=== PATIENT | male | born 1940 | race Two or more races ===

== ENCOUNTER 2017-04-09 11:01 | Inpatient (IN) | payer MEDICARE, MEDICAID ==
[~2017-04-09] VITALS: Ht 182.9 cm; Wt 81.6 kg
[~2017-04-09 11:01] MED LIST: ACETAMINOPHEN325 M3 PO; ACETAMINOPHEN500 M5 PO; AMBIEN5 MG ORAL; ASPIRIN EC81 MG ORAL; ASPIRIN81 MG ORAL; ATIVAN2 MG/1 ML IV; COLACE100 MG ORAL; DEXTROSE 50%-WA50 M1 IV; DUONEB 0.5-3(2.53 ML HHN; FOLIC ACID1 MG ORAL; FUROSEMIDE40 MG ORAL; HEPARIN SO5000 UNIT2 SUBQ; HEPARIN2000 UNIT/ SQ; LACTULOSE20 GM/301 ORAL; LEVEMIR100 UNIT/1 SUBQ; LEXAPRO10 MG ORAL; LORAZEPAM1 MG ORAL; LORAZEPAM2 MG/1 M4 IV; MIRALAX17 G2 ORAL; MORPHINE 22 MG/1 ML IV; MORPHINE 22 MG/1 ML IVP; MULTIPLE VITAM1 EAC6 PO; MUPIROCIN22 GM TOPIC; MYLANTA30 M1 ORAL; MYLANTA30 M1 PO; NAMENDA10 MG ORAL; NAMENDA5 MG ORAL; NEPHRO-VITE RX1 EAC1 PO; NEPHROVITE1 TAB ORAL; NEURONTIN100 MG ORAL; NITROGLYCERIN0.4 MG SL; NOVOLIN R100 UNIT/1 SUBQ; NOVOLOG MI100 UNITS/ SUBQ; NOVOLOG100 UNIT/3 SUBQ; PLAVIX75 MG ORAL; PRO-STAT LIQUID30 ML ORAL; REMERON15 MG ORAL; RISPERDAL0.5 MG ORAL; SENNA S TABLET1 EAC1 PO; TERBINAFINE HC250 MG PO; TRAZODONE HCL150 MG ORAL; TRAZODONE HCL50 MG ORAL; TYLENOL325 MG ORAL; UNASYN 3 GM VIAL3 GM IVPB; VANCO 1.251.25 GM/25 IV; VANCO 1.51.5 GM/250 IV; VENOFER200 MG/10 IV; VITAMIN C500 M1 ORAL; ZANTAC150 MG ORAL; ZOFRAN 4 MG4 MG/2 ML IV; ZOSYN 3.373.375 GM/1 IVPB
[2017-04-09 11:25] VITALS: BP 152/82
[2017-04-09] MEDS ORDERED: Morphine Sulfate 2mg/ml Inj IVP ONE ×2 (11:45→15:00)
[2017-04-09] MEDS ORDERED: metroNIDAZOLE 500mg 100 ML IV SCH (11:45)
[2017-04-09 12:19] LABS: ABG ALLEN TEST POSITIVE; ABG PCO2 40.3 mmHg (35.0-45.0)
[2017-04-09 12:50] LABS: BASOPHILS % (AUTO) 1.6 % (0.0-2.0); EOSINOPHILS % (AUTO) 3.5 % (0.0-3.0); LYMPHOCYTES % (AUTO) 34.7 % (20.0-45.0); MEAN CORPUSCULAR HEMOGLOBIN 34.1 PG (27.0-31.0); MEAN CORPUSCULAR HGB CONC 35.2 G/DL (32.0-36.0); MEAN CORPUSCULAR VOLUME 97 FL (80-99); MEAN PLATELET VOLUME 4.4 FL (6.5-10.1); MONOCYTES % (AUTO) 8.2 % (1.0-10.0); PLATELET COUNT 175 K/UL (150-450); RED BLOOD COUNT 4.14 M/UL (4.70-6.10); RED CELL DISTRIBUTION WIDTH 14.3 % (11.6-14.8); WHITE BLOOD COUNT 8.4 K/UL (4.8-10.8)
[2017-04-09 13:06] LABS: ALANINE AMINOTRANSFERASE 7 U/L (3-41); ALBUMIN/GLOBULIN RATIO 0.4 (1.0-2.7); ANION GAP 13 (5-15); ASPARTATE AMINO TRANSFERASE 26 U/L (5-40); CALCIUM 8.6 mg/dL (8.6-10.2); CARBON DIOXIDE 24 mEQ/L (20-30); CHLORIDE 99 mEQ/L (98-107); CREATININE 1.1 mg/dL (0.7-1.2); HEMOLYSIS 33; POTASSIUM 4.2 mEQ/L (3.4-4.9); SODIUM 136 mEQ/L (135-145); TOTAL PROTEIN 7.3 g/dL (6.6-8.7); TROPONIN I < 0.30 ng/mL (<=0.30)
[2017-04-09 13:16] LABS: CKMB < 1.5 ng/mL (< 6.7)
[2017-04-09 13:20] LABS: APPEARANCE,URINE CLOUDY; KETONES,URINE NEGATIVE (NEGATIVE); LEUKOCYTE ESTERASE ,URINE 3+ (NEGATIVE); NITRITE,URINE POSITIVE (NEGATIVE); PH,URINE 6 (4.5-8.0); PROTEIN,URINE 3+ (NEGATIVE); UROBILINOGEN,URINE 1 MG/DL (0.0-1.0)
[2017-04-09 13:21] LABS: REFLEX LACTIC ACID YES OR NO YES
[2017-04-09 13:24] LABS: INR 1.1 (0.9-1.1); PROTHROMBIN TIME 11.4 SEC (9.30-11.50)
[2017-04-09 13:30] VITALS: BP 122/62
[2017-04-09 13:32] LABS: BACTERIA,URINE MANY /HPF; SQUAMOUS EPITHELIAL CELL,UR MANY /LPF (NONE/OCC); WBC,URINE 15-20 /HPF (0 - 0)
[2017-04-09] MEDS ORDERED: Piperacillin/Tazobactam 4.5 GM in NS 110 ML IV SCH (14:00)
[2017-04-09] MEDS ORDERED: CRANBERRY405 M1 PO (14:07)
[2017-04-09] MEDS ORDERED: FERROUS SULFAT325 MG ORAL (14:07)
[2017-04-09] MEDS ORDERED: CALCIUM 500 +1 EAC6 PO (14:07)
[2017-04-09] MEDS ORDERED: ASPIRIN-LOW81 MG ORAL (14:07)
[2017-04-09 14:10] VITALS: BP 123/65
[2017-04-09] MEDS ORDERED: KEPPRA1000 MG ORAL (14:10)
[2017-04-09] MEDS ORDERED: HUMULIN 70100 UNIT/2 SUBQ (14:10)
[2017-04-09] MEDS ORDERED: Morphine Sulfate 2mg/ml Inj IVP PRN ×2 (15:15→16:30)
[2017-04-09] MEDS ORDERED: Mylanta II UD 30ml ORAL PRN (15:15)
[2017-04-09] MEDS ORDERED: Zolpidem 5mg tab ORAL PRN (15:15)
[2017-04-09] MEDS ORDERED: Miralax 17gm pkt ORAL PRN (15:15)
[2017-04-09] MEDS ORDERED: LORazepam Inj 2mg/ml 1ml IV PRN (15:15)
[2017-04-09] MEDS ORDERED: ZINC SULFATE220 M1 ORAL (15:37)
[2017-04-09] MEDS ORDERED: VITAMIN C500 M1 ORAL (15:37)
[2017-04-09] MEDS ORDERED: MULTIVITAMINS1 EAC8 ORAL (15:37)
[2017-04-09] MEDS ORDERED: NEURONTIN100 MG ORAL (15:37)
[2017-04-09] MEDS ORDERED: NAMENDA10 MG ORAL (15:37)
--- NOTE | 2017-04-09 15:47 | Infectious Diseases Prog Note ---
Assessment/Plan Problems: (1) Open wound of heel Assessment & Plan: with infection, will send wound and blood culture, and start vancomycin, cefepiem and flagyl empirically for now (2) Osteomyelitis of ankle Assessment & Plan: will order MRI of the right ankle to rule out osteo, send blood culture, and SED rate, start wide spectrum antibiotics (3) Diabetes mellitus Assessment & Plan: recommend tight glycemic control to keep blood glucose between 80-120 (4) Sepsis Assessment & Plan: due to the above, on wide spectrum antibiotics, send blood culture Subjective Allergies: Coded Allergies: No Known Allergies (Unverified , 05/11/16) Objective Vital Signs Last 24 Hour Vital Signs Date Time Temp Pulse Resp B/P Pulse Ox O2 Delivery O2 Flow Rate FiO2 04/09/17 14:10 95 10 123/65 98 Room Air 04/09/17 11:35 98.8 04/09/17 11:25 97.4 96 14 152/82 99 Room Air 04/09/17 11:02 97.9 99 18 128/70 9 Height (Feet): 6 Weight (Pounds): 180 Laboratory Tests Test 04/09/17 12:00 04/09/17 12:10 04/09/17 12:35 04/09/17 12:45 Arterial Blood pH 7.440 (7.350-7.450) Arterial Blood Partial Pressure CO2 40.3 mmHg (35.0-45.0) Arterial Blood Partial Pressure O2 82.7 mmHg (75.0-100.0) Arterial Blood HCO3 27.2 mmol/L (22.0-26.0) H Arterial Blood Oxygen Saturation 96.0 % (92.0-98.0) Arterial Blood Base Excess 3.0 Andrew Test Positive White Blood Count 8.4 K/UL (4.8-10.8) Red Blood Count 4.14 M/UL (4.70-6.10) L Hemoglobin 14.1 G/DL (14.2-18.0) L Hematocrit 40.2 % (42.0-52.0) L Mean Corpuscular Volume 97 FL (80-99) Mean Corpuscular Hemoglobin 34.1 PG (27.0-31.0) H Mean Corpuscular Hemoglobin Concent 35.2 G/DL (32.0-36.0) Red Cell Distribution Width 14.3 % (11.6-14.8) Platelet Count 175 K/UL (150-450) Mean Platelet Volume 4.4 FL (6.5-10.1) L Neutrophils (%) (Auto) 52.0 % (45.0-75.0) Lymphocytes (%) (Auto) 34.7 % (20.0-45.0) Monocytes (%) (Auto) 8.2 % (1.0-10.0) Eosinophils (%) (Auto) 3.5 % (0.0-3.0) H Basophils (%) (Auto) 1.6 % (0.0-2.0) Sodium Level 136 mEQ/L (135-145) Potassium Level 4.2 mEQ/L (3.4-4.9) Chloride Level 99 mEQ/L (98-107) Carbon Dioxide Level 24 mEQ/L (20-30) Anion Gap 13 (5-15) Blood Urea Nitrogen 10 mg/dL (7-23) Creatinine 1.1 mg/dL (0.7-1.2) Estimat Glomerular Filtration Rate mL/min (>60) Glucose Level 150 mg/dL (74-106) H Lactic Acid Level 2.20 mmol/L (0.66-2.22) Calcium Level 8.6 mg/dL (8.6-10.2) Total Bilirubin 1.0 mg/dL (0.0-1.2) Aspartate Amino Transf (AST/SGOT) 26 U/L (5-40) Alanine Aminotransferase (ALT/SGPT) 7 U/L (3-41) Alkaline Phosphatase 116 U/L (40-129) Total Creatine Kinase 86 U/L (38-174) Creatine Kinase MB < 1.5 ng/mL (< 6.7) Creatine Kinase MB Relative Index Troponin I < 0.30 ng/mL (<=0.30) Total Protein 7.3 g/dL (6.6-8.7) Albumin 2.2 g/dL (3.5-5.2) L Globulin 5.1 g/dL Albumin/Globulin Ratio 0.4 (1.0-2.7) L Prothrombin Time 11.4 SEC (9.30-11.50) Prothromb Time International Ratio 1.1 (0.9-1.1) Activated Partial Thromboplast Time 38 SEC (23-33) H Urine Color Yellow Urine Appearance Cloudy Urine pH 6 (4.5-8.0) Urine Specific [place] 1.015 (1.005-1.035) Urine Protein 3+ (NEGATIVE) H Urine Glucose (UA) Negative (NEGATIVE) Urine Ketones Negative (NEGATIVE) Urine Occult Blood 3+ (NEGATIVE) H Urine Nitrite Positive (NEGATIVE) H Urine Bilirubin Negative (NEGATIVE) Urine Urobilinogen 1 MG/DL (0.0-1.0) H Urine Leukocyte Esterase 3+ (NEGATIVE) H Urine RBC 10-15 /HPF (0 - 0) H Urine WBC 15-20 /HPF (0 - 0) H Urine Squamous Epithelial Cells Many /LPF (NONE/OCC) H Urine Bacteria Many /HPF (NONE) H Current Medications Medications (Trade) Dose Ordered Sig/Naveen Route PRN Reason Start Time Stop Time Status Last Admin Dose Admin Acetaminophen (Tylenol) 650 mg Q4H PRN ORAL fever 04/09/17 15:15 05/09/17 15:14 Al Hydroxide/Mg Hydroxide (Mylanta II) 30 ml Q6H PRN ORAL dyspepsia 04/09/17 15:15 05/09/17 15:14 Clopidogrel Bisulfate (Plavix) 75 mg DAILY ORAL 04/10/17 09:00 05/10/17 08:59 Dextrose (Dextrose 50%) STAT PRN IV Hypoglycemia 04/09/17 15:00 05/09/17 14:59 Escitalopram Oxalate (Lexapro) 10 mg DAILY ORAL 04/10/17 09:00 05/10/17 08:59 Gabapentin (Neurontin) 300 mg THREE TIMES A DAY ORAL 04/09/17 18:00 05/09/17 17:59 Heparin Sodium (Porcine) (Heparin 5000 units/ml) 5,000 units EVERY 12 HOURS SUBQ 04/09/17 21:00 05/09/17 20:59 Insulin Aspart (NovoLOG) BEFORE MEALS AND HS SUBQ 04/09/17 16:30 05/09/17 16:29 Lactulose (Cephulac) 20 gm TID ORAL 04/09/17 18:00 05/09/17 17:59 Levetiracetam (Keppra) 1,500 mg Q12HR ORAL 04/09/17 21:00 05/09/17 20:59 Lorazepam (Ativan 2mg/ml 1ml) 0.5 mg Q4H PRN IV For Anxiety 04/09/17 15:15 04/16/17 15:14 Metronidazole 100 ml @ 100 mls/hr Q8H IV 04/09/17 11:45 04/09/17 18:00 04/09/17 14:08 Mirtazapine (Remeron) 15 mg BEDTIME ORAL 04/09/17 21:00 05/09/17 20:59 Morphine Sulfate (Morphine Sulfate) 1 mg Q4H PRN IVP Moderate to Severe Pain 04/09/17 15:15 04/16/17 15:14 Morphine Sulfate (Morphine Sulfate) 2 mg ONCE ONCE IVP 04/09/17 15:00 04/09/17 15:01 UNV Ondansetron HCl (Zofran) 4 mg Q6H PRN IVP Nausea & Vomiting 04/09/17 15:15 05/09/17 15:14 Piperacillin Sod/ Tazobactam Sod/ Sodium Chloride (Zosyn/Sodium Chloride) 110 ml @ 220 mls/hr Q8HR IV 04/09/17 14:00 04/09/17 18:00 04/09/17 13:03 Polyethylene Glycol (Miralax) 17 gm HSPRN PRN ORAL Constipation 04/09/17 15:15 05/09/17 15:14 Risperidone (RisperDAL) 0.5 mg EVERY 12 HOURS ORAL 04/09/17 21:00 05/09/17 20:59 Zolpidem Tartrate (Ambien) 5 mg HSPRN PRN ORAL Insomnia 04/09/17 15:15 05/09/17 15:14 Valery Nicholas M.D. Apr 09, 2017 15:47
[2017-04-09 16:02] VITALS: BP 125/71
[2017-04-09] MEDS: NovoLOG Insulin Flexpen SUBQ SCH ×2 (17:33→21:32)
[2017-04-09] MEDS: Lactulose 20gm/30ml UDC ORAL SCH (17:36)
[2017-04-09] MEDS: Vancomycin 1250mg/D5W 250ml IVPB SCH (17:37)
[2017-04-09 20:00] VITALS: BP 121/76
--- NOTE | 2017-04-09 20:30 | Emergency Room Report ---
History of Present Illness General Chief Complaint: General Complaint Source: Patient, Medical Record Present Illness HPI Patient is a 76-year-old male who presented after increased generalized weakness as well as generalized lower extremity discomfort. The patient prior history of a decubitus ulcer. He was noted to have a sacral decubitus as well as decubitus ulcer to his right heel which appear to be draining. The patient been sent from [facility]. History is markedly limited by patient's poor historian Allergies: Coded Allergies: No Known Allergies (Unverified , 05/11/16) Patient History Reviewed Nursing Documentation: PMH: Agreed, PSxH: Agreed Nursing Documentation-PMH Past Medical History Deferred: Pt Cognitively Impaired Hx Cardiac Problems: Yes Hx Hypertension: Yes Hx COPD: Yes Hx Diabetes: Yes Hx Cancer: No Hx Gastrointestinal Problems: Yes Hx Dialysis: No History Of Psychiatric Problem: Yes - schizo Hx Neurological Problems: Yes - dvt Hx Cerebrovascular Accident: No Hx Seizures: No Hx Spinal Cord Injury: No Hx Head Trauma: No Hx Dizziness: No Hx Headaches: No Hx Dysphasia: No Hx Numbness: No Hx Weakness: No Hx Fatigue: No Review of Systems All Other Systems: limited - by mental status and poor historian Physical Exam Vital Signs Date Time Temp Pulse Resp B/P Pulse Ox O2 Delivery O2 Flow Rate FiO2 04/09/17 11:02 97.9 99 18 128/70 9 04/09/17 11:25 Room Air Sp02 EP Interpretation: reviewed, normal General Appearance: normal inspection, well appearing, no apparent distress, alert, GCS 15 Head: atraumatic ENT: normal ENT inspection, hearing grossly normal, normal voice Neck: normal inspection, full range of motion, supple, no bony tend Respiratory: normal inspection, lungs clear, normal breath sounds, no respiratory distress, no retraction, no wheezing Cardiovascular #1: regular rate, rhythm, no edema Gastrointestinal: normal inspection, normal bowel sounds, non tender, soft, no guarding, no hernia Genitourinary: no CVA tenderness Musculoskeletal: normal inspection, back normal, normal range of motion Neurologic: alert, responsive, motor weakness Psychiatric: normal inspection, judgement/insight normal, mood/affect normal Skin: other - sacral decubitus ulcer, right heel ulcer with discoloration and oozing of serous fluid Medical Decision Making Diagnostic Impression: Primary Impression: Sepsis Additional Impressions: Osteomyelitis of ankle UTI (urinary tract infection) ER Course Patient presented for generalized weakness and failure to thrive. Differential diagnosis included was not limited to sepsis, dehydration, electrolyte abnormality, vascular insufficiency among others.Because of complexity of patient's case laboratory testing and imaging studies were ordered. A left her testing was notable for normal white blood count. Patient noted have slightly elevated lactic acid level. The patient started on IV antibiotics and IV fluids. The patient had improvement after medications. Dr. Linda Bolaños was contacted for inpatient management due to severity of illness. Labs Test 04/09/17 12:00 04/09/17 12:10 04/09/17 12:35 04/09/17 12:45 Arterial Blood pH 7.440 (7.350-7.450) Arterial Blood Partial Pressure CO2 40.3 mmHg (35.0-45.0) Arterial Blood Partial Pressure O2 82.7 mmHg (75.0-100.0) Arterial Blood HCO3 27.2 mmol/L (22.0-26.0) Arterial Blood Oxygen Saturation 96.0 % (92.0-98.0) Arterial Blood Base Excess 3.0 Andrew Test Positive White Blood Count 8.4 K/UL (4.8-10.8) Red Blood Count 4.14 M/UL (4.70-6.10) Hemoglobin 14.1 G/DL (14.2-18.0) Hematocrit 40.2 % (42.0-52.0) Mean Corpuscular Volume 97 FL (80-99) Mean Corpuscular Hemoglobin 34.1 PG (27.0-31.0) Mean Corpuscular Hemoglobin Concent 35.2 G/DL (32.0-36.0) Red Cell Distribution Width 14.3 % (11.6-14.8) Platelet Count 175 K/UL (150-450) Mean Platelet Volume 4.4 FL (6.5-10.1) Neutrophils (%) (Auto) 52.0 % (45.0-75.0) Lymphocytes (%) (Auto) 34.7 % (20.0-45.0) Monocytes (%) (Auto) 8.2 % (1.0-10.0) Eosinophils (%) (Auto) 3.5 % (0.0-3.0) Basophils (%) (Auto) 1.6 % (0.0-2.0) Sodium Level 136 mEQ/L (135-145) Potassium Level 4.2 mEQ/L (3.4-4.9) Chloride Level 99 mEQ/L (98-107) Carbon Dioxide Level 24 mEQ/L (20-30) Anion Gap 13 (5-15) Blood Urea Nitrogen 10 mg/dL (7-23) Creatinine 1.1 mg/dL (0.7-1.2) Estimat Glomerular Filtration Rate mL/min (>60) Glucose Level 150 mg/dL (74-106) Calcium Level 8.6 mg/dL (8.6-10.2) Total Bilirubin 1.0 mg/dL (0.0-1.2) Aspartate Amino Transf (AST/SGOT) 26 U/L (5-40) Alanine Aminotransferase (ALT/SGPT) 7 U/L (3-41) Alkaline Phosphatase 116 U/L (40-129) Total Creatine Kinase 86 U/L (38-174) Creatine Kinase MB < 1.5 ng/mL (< 6.7) Creatine Kinase MB Relative Index Troponin I < 0.30 ng/mL (<=0.30) Total Protein 7.3 g/dL (6.6-8.7) Albumin 2.2 g/dL (3.5-5.2) Globulin 5.1 g/dL Albumin/Globulin Ratio 0.4 (1.0-2.7) Prothrombin Time 11.4 SEC (9.30-11.50) Prothromb Time International Ratio 1.1 (0.9-1.1) Activated Partial Thromboplast Time 38 SEC (23-33) Urine Color Yellow Urine Appearance Cloudy Urine pH 6 (4.5-8.0) Urine Specific [place] 1.015 (1.005-1.035) Urine Protein 3+ (NEGATIVE) Urine Glucose (UA) Negative (NEGATIVE) Urine Ketones Negative (NEGATIVE) Urine Occult Blood 3+ (NEGATIVE) Urine Nitrite Positive (NEGATIVE) Urine Bilirubin Negative (NEGATIVE) Urine Urobilinogen 1 MG/DL (0.0-1.0) Urine Leukocyte Esterase 3+ (NEGATIVE) Urine RBC 10-15 /HPF (0 - 0) Urine WBC 15-20 /HPF (0 - 0) Urine Squamous Epithelial Cells Many /LPF (NONE/OCC) Urine Bacteria Many /HPF (NONE) Test 04/09/17 15:30 Lactic Acid Level 2.00 mmol/L (0.66-2.22) EKG Diagnostic Results Rate: normal Rhythm: NSR ST Segments: no acute changes Last Vital Signs Date Time Temp Pulse Resp B/P Pulse Ox O2 Delivery O2 Flow Rate FiO2 04/09/17 20:00 66 04/09/17 16:25 9 118/55 97 Room Air 04/09/17 16:02 96.6 Status: unchanged Disposition: ADMITTED INPATIENT Condition: Serious Referrals: LINDA BOLAÑOS (PCP) Seth Chung Apr 09, 2017 20:30
[2017-04-09] MEDS ORDERED: Heparin 5000 units/ml inj SUBQ SCH (21:00)
[2017-04-09] MEDS: RisperiDONE 0.25mg tab ORAL SCH (21:14)
[2017-04-09] MEDS: Cefepime HCl 2 GM in D5W 110 ML IVPB SCH (21:14)
[2017-04-09] MEDS: Heparin 5000 units/ml inj SUBQ SCH (21:16)
[2017-04-09] MEDS: metroNIDAZOLE 500mg tab ORAL SCH (22:00)
[2017-04-10] VITALS: BP 130/76
[2017-04-10] MEDS ORDERED: LIPITOR10 MG ORAL (00:44)
[2017-04-10] MEDS ORDERED: TYLENOL EXTRA500 MG ORAL (00:46)
[2017-04-10 04:00] VITALS: BP 137/60
[2017-04-10] MEDS: Vancomycin 1250mg/D5W 250ml IVPB SCH (05:10)
[2017-04-10] MEDS: metroNIDAZOLE 500mg tab ORAL SCH (06:00)
[2017-04-10] MEDS: Cefepime HCl 2 GM in D5W 110 ML IVPB SCH ×2 (06:28→18:25)
[2017-04-10] MEDS: NovoLOG Insulin Flexpen SUBQ SCH ×4 (06:31→21:40)
--- NOTE | 2017-04-10 07:22 | Consultation ---
History of Present Illness General Date patient seen: Apr 10, 2017 Time patient seen: 06:30 Chief Complaint: General Complaint Referring physician: dr Dugan Reason for Consultation: inpatient management Present Illness HPI 76-year-old male with PMH of HTN, COPD, DM,seizure disorder, hx of CVA, cognitive impairment, hx of DVT, schizophrenia, presented with generalized weakness and lower extremities discomfort. Patient was unable to provide any history given cognitive impairment patient with sacral and R heel decub present on admission Workup in D revealed no leucocytosis, stable lytes troponin negative ECG NSR UA with gross evidence of UTI albumin -1.8 patient was admitted for further management Allergies: Coded Allergies: No Known Allergies (Unverified , 05/11/16) Medication History Scheduled Acetaminophen (Acetaminophen), 650 MG PO EVERY 4 HOURS, (Reported) Al Hydroxide/mg Hydroxide (Mag-Al Liquid), 30 ML ORAL EVERY 6 HOURS, (Reported) Ascorbic Acid* (Vitamin C*), 500 MG ORAL DAILY, (Reported) Ascorbic Acid* (Vitamin C*), 500 MG ORAL DAILY, (Reported) Aspirin (Aspirin EC), 81 MG ORAL DAILY, (Reported) Atorvastatin Calcium* (Lipitor*), 10 MG ORAL BEDTIME, (Reported) Calcium Carbonate/Vitamin D3 (Calcium 500 + Vit D 200 Caplet), 1 EACH PO DAILY, (Reported) Clopidogrel Bisulfate* (Plavix*), 75 MG ORAL DAILY, (Reported) Cranberry Extract (Cranberry), 405 MG PO DAILY, (Reported) Docusate Sodium* (Colace*), 100 MG ORAL TWICE A DAY, (Reported) Escitalopram Oxalate* (Lexapro*), 10 MG ORAL DAILY, (Reported) Ferrous Sulfate* (Ferrous Sulfate*), 325 MG ORAL DAILY, (Reported) Furosemide* (Lasix*), 40 MG ORAL DAILY, (Reported) Gabapentin* (Neurontin*), 300 MG ORAL THREE TIMES A DAY, (Reported) Gabapentin* (Neurontin*), 300 MG ORAL THREE TIMES A DAY, (Reported) Heparin Sod (Porcine) (Heparin Sodium*), 5,000 UNITS SUBQ EVERY 12 HOURS, ( Reported) Heparin Sodium,Porcine/Ns/Pf (Heparin), 5,000 UNIT SQ Q12HR, (Reported) Hum Insulin Nph/Reg Insulin Hm (Humulin 70-30 Vial), 4 UNITS SUBQ DAILY, ( Reported) Insulin Aspart* (Novolog*), 0 SUBQ AC+HS, (Reported) Insulin Detemir (Levemir), 8 SUBQ BID, (Reported) Ipratropium/Albuterol Sulfate (DuoNeb 0.5-3(2.5)mg/3ml), 3 ML HHN EVERY 4 HOURS, (Reported) Lactulose (Lactulose*), 20 GM ORAL TID, (Reported) Levetiracetam (Keppra), 1,500 MG ORAL BID, (Reported) Lorazepam* (Lorazepam*), 1 MG ORAL EVERY 6 HOURS, (Reported) Memantine Hcl* (Namenda*), 10 MG ORAL TWICE A DAY, (Reported) Memantine Hcl* (Namenda*), 10 MG ORAL BEDTIME, (Reported) Mirtazapine* (Remeron*), 15 MG ORAL BEDTIME, (Reported) Morphine Sulfate* (Morphine Sulfate*), 1 MG IV EVERY 4 HOURS, (Reported) Multivitamin With Minerals (Multivitamins With Minerals*), 1 TAB ORAL DAILY, ( Reported) Enhgifuvrofr-Azwa-Jjgepiuv,Iso (Zosyn 3.375 Gm Pre Mix-Bag), 3.375 GM IVPB BID, (Reported) Polyethylene Glycol 3350* (Miralax*), 17 GM ORAL DAILY, (Reported) Ranitidine Hcl* (Zantac*), 300 MG ORAL DAILY, (Reported) Risperidone* (Risperdal*), 0.5 MG ORAL BID, (Reported) Vancomycin/0.9 % Sod Chloride (Vanco 1.25 gm/250 ml-0.9% NaCl), 1.25 GM IV BID, (Reported) Zinc Sulfate (Zinc Sulfate*), 220 MG ORAL DAILY, (Reported) Scheduled PRN Acetaminophen* (Tylenol Extra Strength*), 325 MG ORAL Q6H PRN for Mild Pain/ Temp > 100.5, (Reported) Lorazepam (Lorazepam), 1 MG IV Q4HR PRN for For Anxiety, (Reported) Ondansetron* (Zofran*), 4 MG IV Q6H PRN for Nausea & Vomiting, (Reported) Miscellaneous Medications Nitroglycerin (Nitroglycerin), 0.4 MG SL, (Reported) Patient History Healthcare decision maker N Resuscitation status Advanced Directive on File Past Medical/Surgical History Past Medical/Surgical History: (1) HTN (hypertension) (2) Diabetes mellitus (3) Cataract (4) ISMAEL (obstructive sleep apnea) (5) Dementia arising in the senium and presenium (6) COPD (chronic obstructive pulmonary disease) (7) 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 (8) History of CVA (cerebrovascular accident) Review of Systems ROS Narrative patient unable to provide any information due to cognitive impairment Physical Exam General Appearance: no apparent distress, alert, other - disheveled appearance Lines, tubes and drains: peripheral HEENT: atraumatic, anicteric, other - poor dentition Neck: supple Respiratory/Chest: lungs clear, no respiratory distress, no accessory muscle use Cardiovascular/Chest: normal peripheral pulses, normal rate - SR on tele, no JVD Abdomen: normal bowel sounds, non tender, soft Extremities: non-tender, no calf tenderness, normal capillary refill Skin Exam: other - sacral and R heel decub POA Neurologic: alert, responsive Last 24 Hour Vital Signs Date Time Temp Pulse Resp B/P Pulse Ox O2 Delivery O2 Flow Rate FiO2 04/10/17 04:00 94 04/10/17 04:00 97.3 90 18 137/60 91 Room Air 04/10/17 00:00 94 04/10/17 00:00 97.9 98 18 130/76 97 Room Air 04/09/17 20:00 97.9 100 18 121/76 97 Room Air 04/09/17 20:00 66 04/09/17 16:25 95 9 118/55 97 Room Air 04/09/17 16:02 96.6 94 11 125/71 98 Room Air 04/09/17 14:10 95 10 123/65 98 Room Air 04/09/17 13:30 96.6 94 10 122/62 96 Room Air 04/09/17 11:35 98.8 04/09/17 11:25 97.4 96 14 152/82 99 Room Air 04/09/17 11:02 97.9 99 18 128/70 9 Intake and Output 04/09/17 04/10/17 19:00 07:00 Intake Total 600 ml 470.00 ml Output Total 30 ml 300 ml Balance 570 ml 170.00 ml Intake IV Total 600 ml 470.00 ml Output Urine Total 30 ml 300 ml Laboratory Tests Test 04/09/17 12:00 04/09/17 12:10 04/09/17 12:35 04/09/17 12:45 Arterial Blood pH 7.440 (7.350-7.450) Arterial Blood Partial Pressure CO2 40.3 mmHg (35.0-45.0) Arterial Blood Partial Pressure O2 82.7 mmHg (75.0-100.0) Arterial Blood HCO3 27.2 mmol/L (22.0-26.0) H Arterial Blood Oxygen Saturation 96.0 % (92.0-98.0) Arterial Blood Base Excess 3.0 Andrew Test Positive White Blood Count 8.4 K/UL (4.8-10.8) Red Blood Count 4.14 M/UL (4.70-6.10) L Hemoglobin 14.1 G/DL (14.2-18.0) L Hematocrit 40.2 % (42.0-52.0) L Mean Corpuscular Volume 97 FL (80-99) Mean Corpuscular Hemoglobin 34.1 PG (27.0-31.0) H Mean Corpuscular Hemoglobin Concent 35.2 G/DL (32.0-36.0) Red Cell Distribution Width 14.3 % (11.6-14.8) Platelet Count 175 K/UL (150-450) Mean Platelet Volume 4.4 FL (6.5-10.1) L Neutrophils (%) (Auto) 52.0 % (45.0-75.0) Lymphocytes (%) (Auto) 34.7 % (20.0-45.0) Monocytes (%) (Auto) 8.2 % (1.0-10.0) Eosinophils (%) (Auto) 3.5 % (0.0-3.0) H Basophils (%) (Auto) 1.6 % (0.0-2.0) Sodium Level 136 mEQ/L (135-145) Potassium Level 4.2 mEQ/L (3.4-4.9) Chloride Level 99 mEQ/L (98-107) Carbon Dioxide Level 24 mEQ/L (20-30) Anion Gap 13 (5-15) Blood Urea Nitrogen 10 mg/dL (7-23) Creatinine 1.1 mg/dL (0.7-1.2) Estimat Glomerular Filtration Rate mL/min (>60) Glucose Level 150 mg/dL (74-106) H Lactic Acid Level 2.20 mmol/L (0.66-2.22) Calcium Level 8.6 mg/dL (8.6-10.2) Total Bilirubin 1.0 mg/dL (0.0-1.2) Aspartate Amino Transf (AST/SGOT) 26 U/L (5-40) Alanine Aminotransferase (ALT/SGPT) 7 U/L (3-41) Alkaline Phosphatase 116 U/L (40-129) Total Creatine Kinase 86 U/L (38-174) Creatine Kinase MB < 1.5 ng/mL (< 6.7) Creatine Kinase MB Relative Index Troponin I < 0.30 ng/mL (<=0.30) Total Protein 7.3 g/dL (6.6-8.7) Albumin 2.2 g/dL (3.5-5.2) L Globulin 5.1 g/dL Albumin/Globulin Ratio 0.4 (1.0-2.7) L Prothrombin Time 11.4 SEC (9.30-11.50) Prothromb Time International Ratio 1.1 (0.9-1.1) Activated Partial Thromboplast Time 38 SEC (23-33) H Urine Color Yellow Urine Appearance Cloudy Urine pH 6 (4.5-8.0) Urine Specific [place] 1.015 (1.005-1.035) Urine Protein 3+ (NEGATIVE) H Urine Glucose (UA) Negative (NEGATIVE) Urine Ketones Negative (NEGATIVE) Urine Occult Blood 3+ (NEGATIVE) H Urine Nitrite Positive (NEGATIVE) H Urine Bilirubin Negative (NEGATIVE) Urine Urobilinogen 1 MG/DL (0.0-1.0) H Urine Leukocyte Esterase 3+ (NEGATIVE) H Urine RBC 10-15 /HPF (0 - 0) H Urine WBC 15-20 /HPF (0 - 0) H Urine Squamous Epithelial Cells Many /LPF (NONE/OCC) H Urine Bacteria Many /HPF (NONE) H Test 04/09/17 15:30 Lactic Acid Level 2.00 mmol/L (0.66-2.22) Height (Feet): 6 Height (Inches): 0.00 Weight (Pounds): 180 Medications Current Medications Medications (Trade) Dose Ordered Sig/Naveen Route PRN Reason Start Time Stop Time Status Last Admin Dose Admin Acetaminophen (Tylenol) 650 mg Q4H PRN ORAL fever 04/09/17 15:15 05/09/17 15:14 Al Hydroxide/Mg Hydroxide (Mylanta II) 30 ml Q6H PRN ORAL dyspepsia 04/09/17 15:15 05/09/17 15:14 Cefepime HCl/ Dextrose (Maxipime/D5W) 110 ml @ 220 mls/hr Q12HR@0600,1800 IVPB 04/09/17 18:00 04/16/17 17:59 04/10/17 06:28 Clopidogrel Bisulfate (Plavix) 75 mg DAILY ORAL 04/10/17 09:00 05/10/17 08:59 Dextrose (Dextrose 50%) STAT PRN IV Hypoglycemia 04/09/17 15:00 05/09/17 14:59 Escitalopram Oxalate (Lexapro) 10 mg DAILY ORAL 04/10/17 09:00 05/10/17 08:59 Gabapentin (Neurontin) 300 mg THREE TIMES A DAY ORAL 04/09/17 18:00 05/09/17 17:59 04/09/17 17:36 Heparin Sodium (Porcine) (Heparin 5000 units/ml) 5,000 units EVERY 12 HOURS SUBQ 04/09/17 21:00 05/09/17 20:59 04/09/17 21:16 Insulin Aspart (NovoLOG) BEFORE MEALS AND HS SUBQ 04/09/17 16:30 05/09/17 16:29 04/10/17 06:31 Lactulose (Cephulac) 20 gm TID ORAL 04/09/17 18:00 05/09/17 17:59 04/09/17 17:36 Levetiracetam (Keppra) 1,500 mg Q12HR ORAL 04/09/17 21:00 05/09/17 20:59 04/09/17 21:14 Lorazepam (Ativan 2mg/ml 1ml) 0.5 mg Q4H PRN IV For Anxiety 04/09/17 15:15 04/16/17 15:14 Metronidazole 500 mg 500 mg Q8HR ORAL 04/09/17 22:00 04/16/17 21:59 Mirtazapine (Remeron) 15 mg BEDTIME ORAL 04/09/17 21:00 05/09/17 20:59 04/09/17 21:14 Morphine Sulfate (Morphine Sulfate) 1 mg Q4H PRN IVP Moderate to Severe Pain 04/09/17 15:15 04/16/17 15:14 Morphine Sulfate (Morphine Sulfate) 2 mg ONCE PRN IVP For Pain 04/09/17 16:30 04/16/17 14:59 Ondansetron HCl (Zofran) 4 mg Q6H PRN IVP Nausea & Vomiting 04/09/17 15:15 05/09/17 15:14 Polyethylene Glycol (Miralax) 17 gm HSPRN PRN ORAL Constipation 04/09/17 15:15 05/09/17 15:14 Risperidone (RisperDAL) 0.5 mg EVERY 12 HOURS ORAL 04/09/17 21:00 05/09/17 20:59 04/09/17 21:14 Vancomycin HCl 1 ea 1 ea DAILY PRN MISC Per rx protocol 04/09/17 15:45 05/09/17 15:44 Vancomycin HCl/ Dextrose (Vancomycin 1250mg/D5W 250ml) 250 ml @ 166.667 mls/hr Q12HR@0430,1630 IVPB 04/09/17 16:30 04/14/17 16:29 04/10/17 05:10 Zolpidem Tartrate (Ambien) 5 mg HSPRN PRN ORAL Insomnia 04/09/17 15:15 05/09/17 15:14 Assessment/Plan Assessment/Plan ASSESSMENT possible sepsis UTI OM R foot/ankle DM R heel decub POA sacral decub POA hx of DVT Hx of HTN COPD Hx of CVA cognitive impairment schizophrenia seizure disorder hypoalbuminemia possible protein calorie malnutrition PLAN OF CARE empiric abx ID follows f/up with cx, ESR MRI R foot/ankle r/o OM in am BS management with SS of insulin, check HgA1c( last in 2016-7.2) wound nurse eval wound care as per wound nurse recommendations monitor BP, currently normotensive, Clonidine prn lipid panel, continue Plavix O2 HHN prn Venous Duplex BLE - Hx of DVT resume psych meds consider psych eval seizure precautions, continue Keppra DVT prophylaxis pain management bowel regimen check prealbumin dietary eval transfer to [facility] floor case discussed and evaluated by supervising physician Conor Guthrie)Alana NP Apr 10, 2017 07:22
[2017-04-10 07:40] LABS: BASOPHILS % (AUTO) 1.1 % (0.0-2.0); EOSINOPHILS % (AUTO) 3.9 % (0.0-3.0); LYMPHOCYTES % (AUTO) 30.5 % (20.0-45.0); MEAN CORPUSCULAR HEMOGLOBIN 32.8 PG (27.0-31.0); MEAN CORPUSCULAR HGB CONC 33.3 G/DL (32.0-36.0); MEAN CORPUSCULAR VOLUME 99 FL (80-99); MEAN PLATELET VOLUME 4.8 FL (6.5-10.1); MONOCYTES % (AUTO) 9.8 % (1.0-10.0); NEUTROPHILS % (AUTO) 54.6 % (45.0-75.0); PLATELET COUNT 161 K/UL (150-450); RED BLOOD COUNT 3.11 M/UL (4.70-6.10); WHITE BLOOD COUNT 7.5 K/UL (4.8-10.8)
[2017-04-10 07:59] LABS: ALANINE AMINOTRANSFERASE 5 U/L (3-41); ALBUMIN/GLOBULIN RATIO 0.4 (1.0-2.7); ANION GAP 10 (5-15); ASPARTATE AMINO TRANSFERASE 17 U/L (5-40); CALCIUM 7.9 mg/dL (8.6-10.2); CARBON DIOXIDE 25 mEQ/L (20-30); CHLORIDE 103 mEQ/L (98-107); CHOLESTEROL 103 mg/dL (< 200); CREATININE 1.1 mg/dL (0.7-1.2); HEMOLYSIS 6; LDL CHOLESTEROL (CALC.) 55 mg/dL (60-99); POTASSIUM 3.8 mEQ/L (3.4-4.9); SODIUM 138 mEQ/L (135-145); TOTAL PROTEIN 5.5 g/dL (6.6-8.7)
[2017-04-10 08:00] VITALS: BP 156/77
[2017-04-10] MEDS ORDERED: DuoNeb 0.5-3(2.5)mg/3ml neb HHN PRN ×2 (08:15→15:45)
[2017-04-10] MEDS: RisperiDONE 0.25mg tab ORAL SCH ×2 (09:00→21:00)
[2017-04-10] MEDS: Lactulose 20gm/30ml UDC ORAL SCH ×3 (09:00→18:00)
[2017-04-10] MEDS ORDERED: D5 1/2NS 1,000 ML IV SCH ×2 (09:30→10:00)
[2017-04-10] MEDS: Heparin 5000 units/ml inj SUBQ SCH ×2 (10:07→21:39)
[2017-04-10] MEDS ORDERED: D51/2NS 1000ml IV SCH (10:45)
--- NOTE | 2017-04-10 10:45 | Infectious Diseases Prog Note ---
Assessment/Plan Problems: (1) Open wound of heel Assessment & Plan: with infection, and possible underlying osteomyelitis , await wound and blood culture, and continue vancomycin, cefepiem and flagyl empirically for now (2) Osteomyelitis of ankle Assessment & Plan: await MRI of the right ankle to rule out osteo, and blood culture, continue wide spectrum antibiotics (3) Diabetes mellitus Assessment & Plan: recommend tight glycemic control to keep blood glucose between 80-120 (4) Sepsis Assessment & Plan: due to the above, on wide spectrum antibiotics, send blood culture (5) UTI (urinary tract infection) Assessment & Plan: await culture, already on cefepime Subjective ROS Limited/Unobtainable: Yes Allergies: Coded Allergies: No Known Allergies (Unverified , 05/11/16) Subjective still confused and altered, dosen't follow commands.afebrile Objective Vital Signs Last 24 Hour Vital Signs Date Time Temp Pulse Resp B/P Pulse Ox O2 Delivery O2 Flow Rate FiO2 04/10/17 08:00 97.5 92 20 156/77 99 Room Air 04/10/17 04:00 94 04/10/17 04:00 97.3 90 18 137/60 91 Room Air 04/10/17 00:00 94 04/10/17 00:00 97.9 98 18 130/76 97 Room Air 04/09/17 20:00 97.9 100 18 121/76 97 Room Air 04/09/17 20:00 66 04/09/17 16:25 95 9 118/55 97 Room Air 04/09/17 16:02 96.6 94 11 125/71 98 Room Air 04/09/17 14:10 95 10 123/65 98 Room Air 04/09/17 13:30 96.6 94 10 122/62 96 Room Air 04/09/17 11:35 98.8 04/09/17 11:25 97.4 96 14 152/82 99 Room Air 04/09/17 11:02 97.9 99 18 128/70 9 Height (Feet): 6 Height (Inches): 0.00 Weight (Pounds): 180 General Appearance: WD/WN, no acute distress HEENT: normocephalic, atraumatic, anicteric, mucous membranes moist Respiratory/Chest: chest wall non-tender, normal breath sounds, no respiratory distress, no accessory muscle use, decreased breath sounds Cardiovascular: normal peripheral pulses, normal rate, regular rhythm, no gallop/murmur, no JVD Abdomen: normal bowel sounds, soft, non tender, no organomegaly, non distended , no mass, no scars Extremities: no cyanosis, no clubbing, other - right heel deep pressure wound with gangren and eschar tissue Laboratory Tests Test 04/09/17 12:00 04/09/17 12:10 04/09/17 12:35 04/09/17 12:45 Arterial Blood pH 7.440 (7.350-7.450) Arterial Blood Partial Pressure CO2 40.3 mmHg (35.0-45.0) Arterial Blood Partial Pressure O2 82.7 mmHg (75.0-100.0) Arterial Blood HCO3 27.2 mmol/L (22.0-26.0) H Arterial Blood Oxygen Saturation 96.0 % (92.0-98.0) Arterial Blood Base Excess 3.0 Andrew Test Positive White Blood Count 8.4 K/UL (4.8-10.8) Red Blood Count 4.14 M/UL (4.70-6.10) L Hemoglobin 14.1 G/DL (14.2-18.0) L Hematocrit 40.2 % (42.0-52.0) L Mean Corpuscular Volume 97 FL (80-99) Mean Corpuscular Hemoglobin 34.1 PG (27.0-31.0) H Mean Corpuscular Hemoglobin Concent 35.2 G/DL (32.0-36.0) Red Cell Distribution Width 14.3 % (11.6-14.8) Platelet Count 175 K/UL (150-450) Mean Platelet Volume 4.4 FL (6.5-10.1) L Neutrophils (%) (Auto) 52.0 % (45.0-75.0) Lymphocytes (%) (Auto) 34.7 % (20.0-45.0) Monocytes (%) (Auto) 8.2 % (1.0-10.0) Eosinophils (%) (Auto) 3.5 % (0.0-3.0) H Basophils (%) (Auto) 1.6 % (0.0-2.0) Sodium Level 136 mEQ/L (135-145) Potassium Level 4.2 mEQ/L (3.4-4.9) Chloride Level 99 mEQ/L (98-107) Carbon Dioxide Level 24 mEQ/L (20-30) Anion Gap 13 (5-15) Blood Urea Nitrogen 10 mg/dL (7-23) Creatinine 1.1 mg/dL (0.7-1.2) Estimat Glomerular Filtration Rate mL/min (>60) Glucose Level 150 mg/dL (74-106) H Lactic Acid Level 2.20 mmol/L (0.66-2.22) Calcium Level 8.6 mg/dL (8.6-10.2) Total Bilirubin 1.0 mg/dL (0.0-1.2) Aspartate Amino Transf (AST/SGOT) 26 U/L (5-40) Alanine Aminotransferase (ALT/SGPT) 7 U/L (3-41) Alkaline Phosphatase 116 U/L (40-129) Total Creatine Kinase 86 U/L (38-174) Creatine Kinase MB < 1.5 ng/mL (< 6.7) Creatine Kinase MB Relative Index Troponin I < 0.30 ng/mL (<=0.30) Total Protein 7.3 g/dL (6.6-8.7) Albumin 2.2 g/dL (3.5-5.2) L Globulin 5.1 g/dL Albumin/Globulin Ratio 0.4 (1.0-2.7) L Prothrombin Time 11.4 SEC (9.30-11.50) Prothromb Time International Ratio 1.1 (0.9-1.1) Activated Partial Thromboplast Time 38 SEC (23-33) H Urine Color Yellow Urine Appearance Cloudy Urine pH 6 (4.5-8.0) Urine Specific [place] 1.015 (1.005-1.035) Urine Protein 3+ (NEGATIVE) H Urine Glucose (UA) Negative (NEGATIVE) Urine Ketones Negative (NEGATIVE) Urine Occult Blood 3+ (NEGATIVE) H Urine Nitrite Positive (NEGATIVE) H Urine Bilirubin Negative (NEGATIVE) Urine Urobilinogen 1 MG/DL (0.0-1.0) H Urine Leukocyte Esterase 3+ (NEGATIVE) H Urine RBC 10-15 /HPF (0 - 0) H Urine WBC 15-20 /HPF (0 - 0) H Urine Squamous Epithelial Cells Many /LPF (NONE/OCC) H Urine Bacteria Many /HPF (NONE) H Test 04/09/17 15:30 04/10/17 07:05 Lactic Acid Level 2.00 mmol/L (0.66-2.22) White Blood Count 7.5 K/UL (4.8-10.8) Red Blood Count 3.11 M/UL (4.70-6.10) L Hemoglobin 10.2 G/DL (14.2-18.0) L Hematocrit 30.6 % (42.0-52.0) L Mean Corpuscular Volume 99 FL (80-99) Mean Corpuscular Hemoglobin 32.8 PG (27.0-31.0) H Mean Corpuscular Hemoglobin Concent 33.3 G/DL (32.0-36.0) Red Cell Distribution Width 14.0 % (11.6-14.8) Platelet Count 161 K/UL (150-450) Mean Platelet Volume 4.8 FL (6.5-10.1) L Neutrophils (%) (Auto) 54.6 % (45.0-75.0) Lymphocytes (%) (Auto) 30.5 % (20.0-45.0) Monocytes (%) (Auto) 9.8 % (1.0-10.0) Eosinophils (%) (Auto) 3.9 % (0.0-3.0) H Basophils (%) (Auto) 1.1 % (0.0-2.0) Erythrocyte Sedimentation Rate 119 MM/HR (0-20) H Sodium Level 138 mEQ/L (135-145) Potassium Level 3.8 mEQ/L (3.4-4.9) Chloride Level 103 mEQ/L (98-107) Carbon Dioxide Level 25 mEQ/L (20-30) Anion Gap 10 (5-15) Blood Urea Nitrogen 10 mg/dL (7-23) Creatinine 1.1 mg/dL (0.7-1.2) Estimat Glomerular Filtration Rate mL/min (>60) Glucose Level 158 mg/dL (74-106) H Calcium Level 7.9 mg/dL (8.6-10.2) L Total Bilirubin 0.8 mg/dL (0.0-1.2) Aspartate Amino Transf (AST/SGOT) 17 U/L (5-40) Alanine Aminotransferase (ALT/SGPT) 5 U/L (3-41) Alkaline Phosphatase 89 U/L (40-129) Total Protein 5.5 g/dL (6.6-8.7) L Albumin 1.8 g/dL (3.5-5.2) L Globulin 3.7 g/dL Albumin/Globulin Ratio 0.4 (1.0-2.7) L Triglycerides Level 70 mg/dL (< 150) Cholesterol Level 103 mg/dL (< 200) LDL Cholesterol 55 mg/dL (60-99) L HDL Cholesterol 34 mg/dL (> 60) Cholesterol/HDL Ratio 3.0 (3.3-4.4) L Current Medications Medications (Trade) Dose Ordered Sig/Naveen Route PRN Reason Start Time Stop Time Status Last Admin Dose Admin Acetaminophen (Tylenol) 650 mg Q4H PRN ORAL fever 04/09/17 15:15 05/09/17 15:14 Al Hydroxide/Mg Hydroxide (Mylanta II) 30 ml Q6H PRN ORAL dyspepsia 04/09/17 15:15 05/09/17 15:14 Albuterol/ Ipratropium 3 ml 3 ml Q4H PRN HHN Shortness of Breath 04/10/17 08:15 04/15/17 08:14 Cefepime HCl/ Dextrose (Maxipime/D5W) 110 ml @ 220 mls/hr Q12HR@0600,1800 IVPB 04/09/17 18:00 04/16/17 17:59 04/10/17 06:28 Clonidine HCl (Catapres) 0.1 mg Q6H PRN ORAL sbp above 160 04/10/17 08:15 05/10/17 08:14 Clopidogrel Bisulfate (Plavix) 75 mg DAILY ORAL 04/10/17 09:00 05/10/17 08:59 Dextrose (Dextrose 50%) STAT PRN IV Hypoglycemia 04/09/17 15:00 05/09/17 14:59 Dextrose/Sodium Chloride (D5 0.45% NS) 1,000 ml @ 60 mls/hr [id number] IV 04/10/17 10:45 05/10/17 10:44 Escitalopram Oxalate (Lexapro) 10 mg DAILY ORAL 04/10/17 09:00 05/10/17 08:59 Gabapentin (Neurontin) 300 mg THREE TIMES A DAY ORAL 04/09/17 18:00 05/09/17 17:59 04/09/17 17:36 Heparin Sodium (Porcine) (Heparin 5000 units/ml) 5,000 units EVERY 12 HOURS SUBQ 04/09/17 21:00 05/09/17 20:59 04/10/17 10:07 Insulin Aspart (NovoLOG) BEFORE MEALS AND HS SUBQ 04/09/17 16:30 05/09/17 16:29 04/10/17 06:31 Lactulose (Cephulac) 20 gm TID ORAL 04/09/17 18:00 05/09/17 17:59 04/09/17 17:36 Levetiracetam (Keppra) 1,500 mg Q12HR ORAL 04/09/17 21:00 05/09/17 20:59 04/09/17 21:14 Lorazepam (Ativan 2mg/ml 1ml) 0.5 mg Q4H PRN IV For Anxiety 04/09/17 15:15 04/16/17 15:14 Metronidazole 500 mg 500 mg Q8HR ORAL 04/09/17 22:00 04/16/17 21:59 Mirtazapine (Remeron) 15 mg BEDTIME ORAL 04/09/17 21:00 05/09/17 20:59 04/09/17 21:14 Morphine Sulfate (Morphine Sulfate) 1 mg Q4H PRN IVP Moderate to Severe Pain 04/09/17 15:15 04/16/17 15:14 04/10/17 10:05 Morphine Sulfate (Morphine Sulfate) 2 mg ONCE PRN IVP For Pain 04/09/17 16:30 04/16/17 14:59 Ondansetron HCl (Zofran) 4 mg Q6H PRN IVP Nausea & Vomiting 04/09/17 15:15 05/09/17 15:14 Polyethylene Glycol (Miralax) 17 gm HSPRN PRN ORAL Constipation 04/09/17 15:15 05/09/17 15:14 Risperidone (RisperDAL) 0.5 mg EVERY 12 HOURS ORAL 04/09/17 21:00 05/09/17 20:59 04/09/17 21:14 Vancomycin HCl 1 ea 1 ea DAILY PRN MISC Per rx protocol 04/09/17 15:45 05/09/17 15:44 Vancomycin HCl/ Dextrose (Vancomycin 1250mg/D5W 250ml) 250 ml @ 166.667 mls/hr Q12HR@0430,1630 IVPB 04/09/17 16:30 04/14/17 16:29 04/10/17 05:10 Zolpidem Tartrate (Ambien) 5 mg HSPRN PRN ORAL Insomnia 04/09/17 15:15 05/09/17 15:14 Valery Nicholas M.D. Apr 10, 2017 10:45
--- NOTE | 2017-04-10 10:55 | Diagnostic Imaging Report ---
Indication: Shortness of breath Technique: XRAY CHEST 1 V Comparison: 09/05/16 Findings: Cardiomediastinal silhouette is stable. Mild left perihilar and basilar interstitial opacities are seen. There is slight nodularity in the retrocardiac location. Degenerative changes of the spine are noted. Clips are seen in the right upper quadrant. Impression: Mild left perihilar and basilar interstitial prominence, acute indeterminate. Subtle infiltrate not excluded and clinical correlation/followup recommended. Subtle nodularity in the retrocardiac location. Although findings may be projectional, possibility of a nodule cannot be excluded. Consider followup or further evaluation with CT. Findings discussed with Dr. Whittaker.
[2017-04-10 12:00] VITALS: BP 136/65
[2017-04-10] MEDS ORDERED: NS 275ml ONE (15:07)
[2017-04-10] MEDS ORDERED: Mylanta II UD 30ml ORAL PRN (15:15)
[2017-04-10] MEDS ORDERED: Zolpidem 5mg tab ORAL PRN (15:15)
[2017-04-10] MEDS ORDERED: Miralax 17gm pkt ORAL PRN (15:15)
[2017-04-10] MEDS: Morphine Sulfate 2mg/ml Inj IVP PRN (15:26)
[2017-04-10] MEDS: D5 1/2NS 1,000 ML IV SCH (16:07)
[2017-04-10] MEDS: metroNIDAZOLE 500mg 100 ML IVPB SCH ×2 (16:07→21:38)
[2017-04-10] MEDS ORDERED: Vancomycin 1250mg/D5W 250ml 250 ML IVPB SCH (16:30)
[2017-04-10 20:00] VITALS: BP 132/70
--- NOTE | 2017-04-10 23:58 | Consultation ---
Consult Note Consult Note PODIATRY CONSULTATION DATE OF CONSULTATION: 04/10/17 CONSULTING PHYSICIAN: Anthony Boothe DPM COVERING FOR: Lv Marquis DPM REASON FOR CONSULTATION: Right heel ulcer HISTORY OF PRESENT ILLNESS: The patient is a 76-year-old male who is a poor historian that presents to [facility] for right heel ulcer. Patient is unable to provide history of how long ago the wound started and what has been done for it thus far. Per nursing staff no nausea, vomiting, fevers, or chills reported. No overnight events. PAST MEDICAL HISTORY: CAD, HTN, COPD,T2DM, GERD, schizophrenia, DVT. PAST SURGICAL HISTORY: No pertinent findings MEDICATIONS: Patient is on Vancomycin and Zosyn. Please refer to chart for all other medications ALLERGIES: No known SOCIAL HISTORY: Patient is a resident of a SNF. No recent drugs, tobacco, or alcohol. FAMILY HISTORY: Unable to obtain. PHYSICAL EXAMINATION: DERM: Right posterior heel with necrotic ulcer. No purulence or malodor noted. Some surrounding erythema and edema. There are also multiple stable full thickness ulcers on the right leg. No purulence, no malodor, and no surrounding erythema or edema NEURO: Patient reacts to sharp stimulus VASC: Pedal pulses lightly palpable MSK: Unable to assess muscle strength OBJECTIVE: VITALS: Temp 97.5, HR 92, RR 20, BP 156/77, O2 99% on room air LABORATORY AND DIAGNOSTIC DATA: Laboratory Tests Test 04/09/17 12:00 04/09/17 12:10 04/09/17 12:35 04/09/17 12:45 Arterial Blood pH 7.440 (7.350-7.450) Arterial Blood Partial Pressure CO2 40.3 mmHg (35.0-45.0) Arterial Blood Partial Pressure O2 82.7 mmHg (75.0-100.0) Arterial Blood HCO3 27.2 mmol/L (22.0-26.0) H Arterial Blood Oxygen Saturation 96.0 % (92.0-98.0) Arterial Blood Base Excess 3.0 Andrew Test Positive White Blood Count 8.4 K/UL (4.8-10.8) Red Blood Count 4.14 M/UL (4.70-6.10) L Hemoglobin 14.1 G/DL (14.2-18.0) L Hematocrit 40.2 % (42.0-52.0) L Mean Corpuscular Volume 97 FL (80-99) Mean Corpuscular Hemoglobin 34.1 PG (27.0-31.0) H Mean Corpuscular Hemoglobin Concent 35.2 G/DL (32.0-36.0) Red Cell Distribution Width 14.3 % (11.6-14.8) Platelet Count 175 K/UL (150-450) Mean Platelet Volume 4.4 FL (6.5-10.1) L Neutrophils (%) (Auto) 52.0 % (45.0-75.0) Lymphocytes (%) (Auto) 34.7 % (20.0-45.0) Monocytes (%) (Auto) 8.2 % (1.0-10.0) Eosinophils (%) (Auto) 3.5 % (0.0-3.0) H Basophils (%) (Auto) 1.6 % (0.0-2.0) Sodium Level 136 mEQ/L (135-145) Potassium Level 4.2 mEQ/L (3.4-4.9) Chloride Level 99 mEQ/L (98-107) Carbon Dioxide Level 24 mEQ/L (20-30) Anion Gap 13 (5-15) Blood Urea Nitrogen 10 mg/dL (7-23) Creatinine 1.1 mg/dL (0.7-1.2) Estimat Glomerular Filtration Rate mL/min (>60) Glucose Level 150 mg/dL (74-106) H Lactic Acid Level 2.20 mmol/L (0.66-2.22) Calcium Level 8.6 mg/dL (8.6-10.2) Total Bilirubin 1.0 mg/dL (0.0-1.2) Aspartate Amino Transf (AST/SGOT) 26 U/L (5-40) Alanine Aminotransferase (ALT/SGPT) 7 U/L (3-41) Alkaline Phosphatase 116 U/L (40-129) Total Creatine Kinase 86 U/L (38-174) Creatine Kinase MB < 1.5 ng/mL (< 6.7) Creatine Kinase MB Relative Index Troponin I < 0.30 ng/mL (<=0.30) Total Protein 7.3 g/dL (6.6-8.7) Albumin 2.2 g/dL (3.5-5.2) L Globulin 5.1 g/dL Albumin/Globulin Ratio 0.4 (1.0-2.7) L Prothrombin Time 11.4 SEC (9.30-11.50) Prothromb Time International Ratio 1.1 (0.9-1.1) Activated Partial Thromboplast Time 38 SEC (23-33) H Urine Color Yellow Urine Appearance Cloudy Urine pH 6 (4.5-8.0) Urine Specific [place] 1.015 (1.005-1.035) Urine Protein 3+ (NEGATIVE) H Urine Glucose (UA) Negative (NEGATIVE) Urine Ketones Negative (NEGATIVE) Urine Occult Blood 3+ (NEGATIVE) H Urine Nitrite Positive (NEGATIVE) H Urine Bilirubin Negative (NEGATIVE) Urine Urobilinogen 1 MG/DL (0.0-1.0) H Urine Leukocyte Esterase 3+ (NEGATIVE) H Urine RBC 10-15 /HPF (0 - 0) H Urine WBC 15-20 /HPF (0 - 0) H Urine Squamous Epithelial Cells Many /LPF (NONE/OCC) H Urine Bacteria Many /HPF (NONE) H Test 04/09/17 15:30 04/10/17 07:05 Lactic Acid Level 2.00 mmol/L (0.66-2.22) White Blood Count 7.5 K/UL (4.8-10.8) Red Blood Count 3.11 M/UL (4.70-6.10) L Hemoglobin 10.2 G/DL (14.2-18.0) L Hematocrit 30.6 % (42.0-52.0) L Mean Corpuscular Volume 99 FL (80-99) Mean Corpuscular Hemoglobin 32.8 PG (27.0-31.0) H Mean Corpuscular Hemoglobin Concent 33.3 G/DL (32.0-36.0) Red Cell Distribution Width 14.0 % (11.6-14.8) Platelet Count 161 K/UL (150-450) Mean Platelet Volume 4.8 FL (6.5-10.1) L Neutrophils (%) (Auto) 54.6 % (45.0-75.0) Lymphocytes (%) (Auto) 30.5 % (20.0-45.0) Monocytes (%) (Auto) 9.8 % (1.0-10.0) Eosinophils (%) (Auto) 3.9 % (0.0-3.0) H Basophils (%) (Auto) 1.1 % (0.0-2.0) Erythrocyte Sedimentation Rate 119 MM/HR (0-20) H Sodium Level 138 mEQ/L (135-145) Potassium Level 3.8 mEQ/L (3.4-4.9) Chloride Level 103 mEQ/L (98-107) Carbon Dioxide Level 25 mEQ/L (20-30) Anion Gap 10 (5-15) Blood Urea Nitrogen 10 mg/dL (7-23) Creatinine 1.1 mg/dL (0.7-1.2) Estimat Glomerular Filtration Rate mL/min (>60) Glucose Level 158 mg/dL (74-106) H Calcium Level 7.9 mg/dL (8.6-10.2) L Total Bilirubin 0.8 mg/dL (0.0-1.2) Aspartate Amino Transf (AST/SGOT) 17 U/L (5-40) Alanine Aminotransferase (ALT/SGPT) 5 U/L (3-41) Alkaline Phosphatase 89 U/L (40-129) Total Protein 5.5 g/dL (6.6-8.7) L Albumin 1.8 g/dL (3.5-5.2) L Globulin 3.7 g/dL Albumin/Globulin Ratio 0.4 (1.0-2.7) L Triglycerides Level 70 mg/dL (< 150) Cholesterol Level 103 mg/dL (< 200) LDL Cholesterol 55 mg/dL (60-99) L HDL Cholesterol 34 mg/dL (> 60) Cholesterol/HDL Ratio 3.0 (3.3-4.4) L . Assessment/Plan ASSESSMENT: RIGHT HEEL ULCER WITH CELLULITIS MULTIPLE STABLE RIGHT LEG ULCERS T2DM PLAN: - [place] area with betadine and cover with dry dressing - Continue aggressive offloading - Cultures have been obtained. Follow up results - Ordering imaging studies - Continue antibiotics per infectious disease specialist recommendations Anthony Boothe DPM Apr 10, 2017 23:58
[2017-04-11 04:00] VITALS: BP 130/68
[2017-04-11] MEDS: Cefepime HCl 2 GM in D5W 110 ML IVPB SCH ×2 (04:10→17:17)
[2017-04-11] MEDS: metroNIDAZOLE 500mg 100 ML IVPB SCH ×3 (04:43→21:05)
--- NOTE | 2017-04-11 05:30 | Consultation ---
DATE OF CONSULTATION: INFECTIOUS DISEASE CONSULTATION REQUESTING PHYSICIAN: James Dugan D.O. REASON FOR CONSULTATION: Right heel open wound with infection and necrosis, possible underlying osteomyelitis, recommendation for antibiotics treatment. HISTORY OF PRESENT ILLNESS: The patient is a 76-year-old male with history of dementia and bed ridden, was sent to [facility] for generalized weakness and right heel wound. The patient's right heel wound has been draining. There is necrotic tissue and a scar forming, so he was sent from the halfway to be evaluated and managed with possible IV antibiotics and surgical debridement and I was consulted by the primary provider for antibiotics choice and further evaluation and management. As of note, the patient is a poor historian and could not provide history. History was mainly obtained from the medical record. PAST MEDICAL HISTORY: Significant for coronary artery disease, hypertension, COPD, diabetes, GERD, schizophrenia, DVT. PAST SURGICAL HISTORY: Negative. MEDICATIONS: The patient received Zosyn in the emergency room. For the rest of his medications, please refer to MAR. ALLERGIES: He has no known drug allergy. SOCIAL HISTORY: He lives in a halfway. No recent drugs, tobacco, or alcohol. FAMILY HISTORY: Unable to obtain. REVIEW OF SYSTEMS: Unable to obtain. The patient is poor historian. PHYSICAL EXAMINATION: GENERAL: An elderly male, confused, and altered, lying in bed, nonverbal. He does not follow commands. VITAL SIGNS: Temperature 97.9 degrees, pulse 95, respirations 18, blood pressure 118/65, and pulse oximetry 97% on room air. HEENT: Normocephalic and atraumatic. Pupils are not reactive to light in the right due to cataract. Dry oral mucosa. No exudate or thrush. NECK: Supple. No lymphadenopathy. CARDIOVASCULAR: Tachycardic. S1 and S2. No murmur or gallop. LUNGS: Diminished breathing sounds at the bases. No wheezing or rhonchi. ABDOMEN: Obese, soft, nontender, and nondistended. Positive bowel sounds. No hepatosplenomegaly. EXTREMITIES: He had extensive right lower extremity cellulitis and right heel wound with gangrenous skin changes, sloughing, and scar tissue, draining foul smelling material. SKIN: He had sacral superficial skin breaks with redness and right upper thigh. LABORATORY AND DIAGNOSTIC DATA: Labs showed white count of 8.4, hemoglobin of 13.1, and platelet count of 175,000. BUN of 20, creatinine of 1.1, glucose of 150. Urinalysis +3 leukocyte esterase, WBC 16 to 20, and many bacteria. Imaging, not available yet. ASSESSMENT AND RECOMMENDATIONS: 1. Open wound of the right heel with infection, gangrene. We will send wound and blood culture. We will start the patient on vancomycin, cefepime, and Flagyl. Encourage treatment for now. Recommend auto fleet manager consult for surgical debridement. We will order MRI of the right ankle to rule out osteomyelitis. 2. Possible osteomyelitis of the right heel and ankle and we will order MRI of the right ankle and send blood culture to rule out sepsis and sedimentation rate. We will continue wide-spectrum antibiotics therapy. Encourage treatment for now pending culture results. 3. Diabetes, poorly controlled. Recommend tight glycemic control to keep glucose between 80 and 120 during hospitalization and hemoglobin A1c less than 7. 4. Sepsis due to the above. Continue wide-spectrum antibiotics therapy. Send blood culture. Valery Nicholas M.D. DR: Zaira JOB#: [id number] CC: RAPHAEL
[2017-04-11] MEDS: NovoLOG Insulin Flexpen SUBQ SCH ×4 (06:25→21:08)
[2017-04-11 07:47] LABS: BASOPHILS % (AUTO) 1.1 % (0.0-2.0); EOSINOPHILS % (AUTO) 4.5 % (0.0-3.0); LYMPHOCYTES % (AUTO) 28.1 % (20.0-45.0); MEAN CORPUSCULAR HEMOGLOBIN 33.9 PG (27.0-31.0); MEAN CORPUSCULAR HGB CONC 34.3 G/DL (32.0-36.0); MEAN CORPUSCULAR VOLUME 99 FL (80-99); MEAN PLATELET VOLUME 4.9 FL (6.5-10.1); MONOCYTES % (AUTO) 8.5 % (1.0-10.0); NEUTROPHILS % (AUTO) 57.8 % (45.0-75.0); PLATELET COUNT 182 K/UL (150-450); RED CELL DISTRIBUTION WIDTH 14.2 % (11.6-14.8); WHITE BLOOD COUNT 8.3 K/UL (4.8-10.8)
[2017-04-11 07:54] LABS: HEMOGLOBIN A1C 5.2 % (< 6.0)
[2017-04-11 08:00] VITALS: BP 140/76
[2017-04-11 08:12] LABS: ANION GAP 9 (5-15); CALCIUM 8.1 mg/dL (8.6-10.2); CARBON DIOXIDE 26 mEQ/L (20-30); CHLORIDE 99 mEQ/L (98-107); HEMOLYSIS 1; POTASSIUM 3.5 mEQ/L (3.4-4.9); SODIUM 134 mEQ/L (135-145)
[2017-04-11] MEDS: D5 1/2NS 1,000 ML IV SCH (08:29)
[2017-04-11] MEDS: Morphine Sulfate 2mg/ml Inj IVP PRN ×3 (08:30→21:09)
[2017-04-11] MEDS: Lactulose 20gm/30ml UDC ORAL SCH ×3 (09:00→17:17)
[2017-04-11] MEDS: RisperiDONE 0.25mg tab ORAL SCH (09:00)
--- NOTE | 2017-04-11 10:00 | History and Physical Report ---
DATE OF ADMISSION: 04/09/2017 TIME SEEN: 8 a.m. CONSULTANTS: 1. . 2. Grant Falk M.D. 3. Gregor Solorzano M.D. 4. Carla Amaya M.D. 5. Romel Joya M.D. CHIEF COMPLAINT: Weakness, altered mental status, and decubitus ulcer of right hip. BRIEF HISTORY: This is a 76-year-old male from [facility] with increased weakness and lethargy. He does have history of decubitus in the right heel, which is not getting any better. The patient currently is sleeping in bed, lethargic, not talking much. PAST MEDICAL HISTORY: Include decubitus ulcer, lethargy, dementia, hypertension, COPD, obesity, diabetes, and CVA. PAST SURGICAL HISTORY: Unknown. MEDICATIONS: Plavix, Lexapro, Catapres, DuoNeb, Flagyl, Keppra, Remeron, Risperdal, , vancomycin, morphine, MiraLax, Zofran, Zolpidem, and lorazepam. ALLERGIES: Denies. SOCIAL HISTORY: No smoking. No alcohol. No intravenous drug abuse. FAMILY HISTORY: Noncontributory. REVIEW OF SYSTEMS: Unavailable. PHYSICAL EXAMINATION: GENERAL: The patient is lethargic in bed, not responding to questions. VITAL SIGNS: Temperature is 97.0 degrees, pulse 94, respirations 18, and blood pressure 137/60. CARDIOVASCULAR: No murmurs. LUNGS: Poor exchange. ABDOMEN: Bowel sounds positive. Nontender and nondistended. EXTREMITIES: No cyanosis or clubbing. 1+ edema. clean and dry. NEUROLOGIC: The patient is lethargic in bed, not responding to questions. LABORATORY AND DIAGNOSTIC DATA: Labs show hemoglobin 10.2, otherwise CBC is normal. BMP show glucose 158, otherwise BMP is normal. Urinalysis show 1+ leukocyte esterase, otherwise normal. ASSESSMENT: 1. Weakness. 2. Altered mental status. 3. Anemia. 4. Urinary tract infection. 5. Decubitus ulcer of the right heel. 6. Lethargy. 7. Dementia. 8. Hypertension. 9. Chronic obstructive pulmonary disease. 10. Obesity. 11. Diabetes. 12. Cerebrovascular accident. PLAN: 1. Continue premedications. 2. Wound care. 3. O2 4. Recent home medications. 5. OT, PT and dietary evaluation. 6. CBC and BMP monitoring. 7. Dr. , Dr. Montez, Dr. Falk, Dr. Solorzano, Dr. Amaya, and Dr. Joya to consult. 8. We will continue to follow up the patient. James Dugan D.O. DR: Az JOB#: [id number] CC:
[2017-04-11] MEDS: Heparin 5000 units/ml inj SUBQ SCH ×2 (10:45→21:06)
[2017-04-11] MEDS ORDERED: Tubing IV Secondary IV ONE (10:56)
[2017-04-11 12:00] VITALS: BP 148/73
[2017-04-11] MEDS: LORazepam Inj 2mg/ml 1ml IV PRN (13:03)
--- NOTE | 2017-04-11 13:41 | General Progress Note ---
Assessment/Plan Problem List: (1) Morbid obesity ICD Codes: E66.01 - Morbid (severe) obesity due to excess calories SNOMED: 398515185, [id number] (2) Cerebrovascular accident (CVA) ICD Codes: I63.9 - Cerebral infarction, unspecified SNOMED: 447680712 (3) Diabetes mellitus ICD Codes: E11.9 - Type 2 diabetes mellitus without complications SNOMED: 22003195 (4) Open wound of heel ICD Codes: S91.309A - Unspecified open wound, unspecified foot, initial encounter SNOMED: 708721587 (5) Cellulitis of lower extremity ICD Codes: L03.119 - Cellulitis of unspecified part of limb SNOMED: 345091631 (6) UTI (urinary tract infection) ICD Codes: N39.0 - Urinary tract infection, site not specified SNOMED: 15588787 (7) Sepsis ICD Codes: A41.9 - Sepsis, unspecified organism SNOMED: 80284147 (8) COPD (chronic obstructive pulmonary disease) ICD Codes: J44.9 - Chronic obstructive pulmonary disease, unspecified SNOMED: 45670316 (9) ISMAEL (obstructive sleep apnea) ICD Codes: G47.33 - Obstructive sleep apnea (adult) (pediatric) SNOMED: 65286461 Status: stable, progressing, tolerating diet Assessment/Plan ot pt diet wound care eval abx cbc bmp am rosas promise eval Subjective Constitutional: Reports: weakness Allergies: Coded Allergies: No Known Allergies (Unverified , 05/11/16) All Systems: reviewed and negative except above Subjective sleepy calm Objective Last 24 Hour Vital Signs Date Time Temp Pulse Resp B/P Pulse Ox O2 Delivery O2 Flow Rate FiO2 04/11/17 12:00 97.7 114 20 148/73 97 Room Air 04/11/17 09:00 97.2 04/11/17 08:00 97.2 98 20 140/76 97 Room Air 04/11/17 07:39 94 18 Room Air 21 04/11/17 04:00 97.8 92 18 130/68 92 Room Air 04/10/17 20:00 98.2 98 18 132/70 94 Room Air 04/10/17 19:30 90 18 Room Air 21 Intake and Output 04/10/17 04/11/17 19:00 07:00 Intake Total 670 ml 850 ml Output Total 150 ml 500 ml Balance 520 ml 350 ml Intake IV Total 670 ml 850 ml Output Urine Total 150 ml 500 ml Laboratory Tests 04/11/17 05:45: White Blood Count 8.3, Red Blood Count 3.20L, Hemoglobin 10.9L, Hematocrit 31.7L , Mean Corpuscular Volume 99, Mean Corpuscular Hemoglobin 33.9H, Mean Corpuscular Hemoglobin Concent 34.3, Red Cell Distribution Width 14.2, Platelet Count 182, Mean Platelet Volume 4.9L, Neutrophils (%) (Auto) 57.8, Lymphocytes ( %) (Auto) 28.1, Monocytes (%) (Auto) 8.5, Eosinophils (%) (Auto) 4.5H, Basophils (%) (Auto) 1.1, Sodium Level 134L, Potassium Level 3.5, Chloride Level 99, Carbon Dioxide Level 26, Anion Gap 9, Blood Urea Nitrogen 11, Creatinine 1.0, Estimat Glomerular Filtration Rate , Glucose Level 148H, Hemoglobin A1c 5.2, Calcium Level 8.1L, Iron Level 74, Total Iron Binding Capacity 112L, Percent Iron Saturation 66H, Unsaturated Iron Binding 38L, Ferritin 875H, Prealbumin [Pending], Vitamin B12 Level 1771H, Folate [Pending], Vancomycin Level Trough 27.7H Height (Feet): 6 Height (Inches): 0.00 Weight (Pounds): 180 General Appearance: lethargic EENT: normal ENT inspection Neck: normal alignment Cardiovascular: normal peripheral pulses, normal rate, regular rhythm Respiratory/Chest: chest wall non-tender, lungs clear, normal breath sounds Abdomen: normal bowel sounds, non tender, soft Extremities: normal inspection Edema: no edema noted Arm (L), no edema noted Arm (R), no edema noted Leg (L), no edema noted Leg (R), no edema noted Pedal (L), no edema noted Pedal (R), no edema noted Generalized Neurologic: responsive, motor weakness Skin: normal pigmentation, warm/dry LINDA BOLAÑOS Apr 11, 2017 13:41
--- NOTE | 2017-04-11 15:14 | Wound Care Consultation ---
Wound Assessment Wound Assessment #1: Wound Number: #1 Wound Present on Admission: Yes New Wound: No Status Change of Wound: No Wound Location Body Site: other - sacrococcygeal Wound Type: pressure ulcer Cecilia Test: Does not Cecilia Pressure Ulcer Stage: deep tissue injury Wound Thickness: Full Thickness Wound Length: 15.0 Wound Width: 15.0 Wound Depth: utd Percent of Wound Purple/Maroon: 100 Wound Drainage Amount: None Wound Drainage Odor: None/Absent Tissue Surrounding Wound: Erythemic - intact, maroon color. Wound General Appearance: Reddened Wound Assessment #2: Wound Number: #2 Wound Present on Admission: Yes New Wound: No Status Change of Wound: No Wound Location Body Site Modif: right Wound Location Body Site: buttocks Wound Type: pressure ulcer Cecilia Test: Does not Cecilia Pressure Ulcer Stage: III - scattered stage III Wound Thickness: Full Thickness Wound Length: 5.0 Wound Width: 2.0 Wound Depth: 0.3 Percent of Wound [place]/Red: 100 Wound Drainage Description: Serosanguineous Wound Drainage Amount: Moderate Wound Drainage Odor: None/Absent Tissue Surrounding Wound: Macerated Wound General Appearance: Reddened, Draining Wound Assessment #3: Wound Number: #3 Wound Present on Admission: Yes New Wound: No Status Change of Wound: No Wound Location Body Site Modif: left, upper, posterior Wound Location Body Site: leg Wound Type: traumatic injury Cecilia Test: Does not Cecilia Wound Thickness: Partial Thickness Wound Length: 16.0 Wound Width: 1.5 Wound Depth: utd Percent of Wound Purple/Maroon: 100 Wound Drainage Amount: None Wound Drainage Odor: None/Absent Tissue Surrounding Wound: Intact Wound General Appearance: Reddened - maroon., Open to air Wound Assessment #4: Wound Number: #4 Wound Present on Admission: Yes New Wound: No Status Change of Wound: No Wound Location Body Site Modif: right, upper, posterior Wound Location Body Site: leg Wound Type: traumatic injury Cecilia Test: Does not Cecilia Wound Thickness: Partial Thickness Wound Length: 9.0 Wound Width: 1.5 Wound Depth: utd Percent of Wound Purple/Maroon: 100 Wound Drainage Amount: None Wound Drainage Odor: None/Absent Tissue Surrounding Wound: Erythemic - intact, maroon. Wound General Appearance: Reddened Wound Assessment #5: Wound Number: #5 Wound Present on Admission: Yes New Wound: No Status Change of Wound: No Wound Location Body Site Modif: right, lower, lateral Wound Location Body Site: leg Wound Type: other - open scattered wound .-etiology unknown. Cecilia Test: Does not Cecilia Wound Thickness: Full Thickness Percent of Wound [place]/Red: 100 Other Colors Identified: noted scattered dry brown scabs to right lower leg. Wound Drainage Description: Serosanguineous Wound Drainage Amount: Moderate Wound Drainage Odor: None/Absent Tissue Surrounding Wound: Erythemic Wound General Appearance: Reddened, Draining Wound Assessment #6: Wound Number: #6 Wound Present on Admission: Yes New Wound: No Status Change of Wound: No Wound Location Body Site Modif: right, lateral Wound Location Body Site: malleolus/ankle Wound Type: pressure ulcer Cecilia Test: Does not Cecilia Pressure Ulcer Stage: IV/unstageable - unstageable. Wound Thickness: Full Thickness Wound Length: 2.0 Wound Width: 1.5 Wound Depth: utd Percent of Wound Bed Yellow/Wh: 50 Percent of Wound Black/Brown: 50 Wound Drainage Amount: None Wound Drainage Odor: None/Absent Tissue Surrounding Wound: Erythemic Wound General Appearance: Blackened, Necrotic Wound Assessment #7: Wound Number: #7 Wound Present on Admission: Yes New Wound: No Status Change of Wound: No Wound Location Body Site Modif: right Wound Location Body Site: heel Wound Type: pressure ulcer Cecilia Test: Does not Cecilia Pressure Ulcer Stage: IV/unstageable Wound Thickness: Full Thickness Wound Length: 8.0 Wound Width: 7.0 Wound Depth: utd Percent of Wound Bed Yellow/Wh: 20 Percent of Wound Black/Brown: 80 Wound Drainage Description: Serosanguineous Wound Drainage Amount: Moderate Wound Drainage Odor: None/Absent Tissue Surrounding Wound: Erythemic Wound General Appearance: Blackened, Draining, Necrotic Wound Assessment #8: Wound Number: #8 Wound Present on Admission: Yes New Wound: No Status Change of Wound: No Wound Location Body Site Modif: right Wound Location Body Site: toe - 1st,2nd ,3rd,4th and 5th toe Wound Type: scab Cecilia Test: Does not Cecilia Wound Thickness: Partial Thickness Percent of Wound Black/Brown: 100 - stauffer color Wound Drainage Amount: Moderate Tissue Surrounding Wound: Intact Wound General Appearance: Open to air, Clean/Dry Wound Assessment #9: Wound Number: #9 Wound Present on Admission: Yes New Wound: No Status Change of Wound: No Wound Location Body Site Modif: left, lateral Wound Location Body Site: malleolus/ankle Wound Type: pressure ulcer Cecilia Test: Does not Cecilia Pressure Ulcer Stage: deep tissue injury - suspected Wound Thickness: Full Thickness Wound Length: 1.0 Wound Width: 1.0 Wound Depth: utd Percent of Wound Black/Brown: 100 - stauffer Wound Drainage Amount: None Wound Drainage Odor: None/Absent Tissue Surrounding Wound: Intact Wound General Appearance: Clean/Dry Wound Assessment #10: Wound Number: #10 Wound Present on Admission: Yes New Wound: No Status Change of Wound: No Wound Location Body Site Modif: left Wound Location Body Site: toe - 2nd toe Wound Type: scab - yellow scab Cecilia Test: Does not Cecilia Wound Thickness: Full Thickness Wound Length: 1.5 Wound Width: 1.0 Wound Depth: utd Percent of Wound Bed Yellow/Wh: 100 Wound Drainage Amount: None Wound Drainage Odor: None/Absent Tissue Surrounding Wound: Intact Wound Assessment #11: Wound Number: #11 Wound Present on Admission: Yes New Wound: No Status Change of Wound: No Wound Location Body Site Modif: left, lower Wound Location Body Site: leg Wound Type: scab - scattered scabs. Cecilia Test: Does not Cecilia Wound Thickness: Partial Thickness Percent of Wound Black/Brown: 100 - brown scattered scabs Wound Drainage Amount: None Wound Drainage Odor: None/Absent Tissue Surrounding Wound: Intact Wound General Appearance: Blackened, Open to air, Clean/Dry Wound Comment #1 Sacrococcygeal deep tissue injury pressure ulcer. #2 Right buttocks scattered pressure ulcer stage III. #3 Left upper posterior leg traumatic injury. #4 Right upper posterior leg traumatic injury. #5 Right lower leg scattered open wounds and scattered scabs. #6 Right lateral malleolus unstageable pressure ulcer. #7 Right heel pressure ulcer stage IV/Unstageable. #8 Right 1st,2nd,3rd,4t, and 5th toe scabs. #9 Left malleolus suspected deep tissue injury. #10 Left 2nd toe scab. #11 Left lower leg scattered scabs. Recommendation. -Local wound care as ordered. -Apply low air loss [facility] mattress for wound prevention and management. -Turn and reposition. -Keep clean and dry. -Optimize nutrition. -Heel protectors. -Offload affected sites, heels and feet. -Avoid shear and friction. -Assess and notify MD for any further changes of condition to skin noted. OTTO MOON Apr 11, 2017 15:13
--- NOTE | 2017-04-11 16:03 | Infectious Diseases Prog Note ---
Assessment/Plan Problems: (1) Open wound of heel Assessment & Plan: with infection, and possible underlying osteomyelitis , await wound and blood culture, and continue vancomycin, cefepiem and flagyl empirically for now (2) Osteomyelitis of ankle Assessment & Plan: await MRI of the right ankle to rule out osteo, and blood culture, continue wide spectrum antibiotics (3) Diabetes mellitus Assessment & Plan: recommend tight glycemic control to keep blood glucose between 80-120 (4) Sepsis Assessment & Plan: due to the above, on wide spectrum antibiotics, send blood culture (5) UTI (urinary tract infection) Assessment & Plan: await culture, already on cefepime Subjective ROS Limited/Unobtainable: Yes Allergies: Coded Allergies: No Known Allergies (Unverified , 05/11/16) Subjective still confused and altered, dosen't follow commands.afebrile Objective Vital Signs Last 24 Hour Vital Signs Date Time Temp Pulse Resp B/P Pulse Ox O2 Delivery O2 Flow Rate FiO2 04/11/17 12:00 97.7 114 20 148/73 97 Room Air 04/11/17 09:00 97.2 04/11/17 08:00 97.2 98 20 140/76 97 Room Air 04/11/17 07:39 94 18 Room Air 21 04/11/17 04:00 97.8 92 18 130/68 92 Room Air 04/10/17 20:00 98.2 98 18 132/70 94 Room Air 04/10/17 19:30 90 18 Room Air 21 Height (Feet): 6 Height (Inches): 0.00 Weight (Pounds): 180 General Appearance: WD/WN, no acute distress HEENT: normocephalic, atraumatic, anicteric Respiratory/Chest: chest wall non-tender, no respiratory distress, no accessory muscle use, decreased breath sounds, crackles/rales Cardiovascular: normal peripheral pulses, normal rate, regular rhythm, no gallop/murmur, no JVD Abdomen: normal bowel sounds, soft, non tender, no organomegaly, non distended , no mass, no scars Extremities: no cyanosis, no clubbing Skin: no rash, no lesions, ulcers Neurologic/Psychiatric: alert, unresponsiveness Lymphatic: no neck adenopathy, no groin adenopathy Musculoskeletal: normal muscle bulk Microbiology Date/Time Source Procedure Growth Status 04/09/17 12:35 Blood Blood Culture - Preliminary NO GROWTH AFTER 24 HOURS Resulted 04/09/17 12:10 Blood Blood Culture - Preliminary NO GROWTH AFTER 24 HOURS Resulted 04/09/17 23:00 Wound Gram Stain - Final Resulted 04/09/17 23:00 Wound Wound Culture Pending Resulted 04/09/17 15:03 Nasal Nares MRSA Culture - Final NO METHICILLIN RESISTANT STAPH AUREUS... Complete 04/09/17 12:45 Urine,Clean Catch Urine Culture - Preliminary Gram Negative Bacillus 1 Resulted Laboratory Tests Test 04/11/17 05:45 White Blood Count 8.3 K/UL (4.8-10.8) Red Blood Count 3.20 M/UL (4.70-6.10) L Hemoglobin 10.9 G/DL (14.2-18.0) L Hematocrit 31.7 % (42.0-52.0) L Mean Corpuscular Volume 99 FL (80-99) Mean Corpuscular Hemoglobin 33.9 PG (27.0-31.0) H Mean Corpuscular Hemoglobin Concent 34.3 G/DL (32.0-36.0) Red Cell Distribution Width 14.2 % (11.6-14.8) Platelet Count 182 K/UL (150-450) Mean Platelet Volume 4.9 FL (6.5-10.1) L Neutrophils (%) (Auto) 57.8 % (45.0-75.0) Lymphocytes (%) (Auto) 28.1 % (20.0-45.0) Monocytes (%) (Auto) 8.5 % (1.0-10.0) Eosinophils (%) (Auto) 4.5 % (0.0-3.0) H Basophils (%) (Auto) 1.1 % (0.0-2.0) Sodium Level 134 mEQ/L (135-145) L Potassium Level 3.5 mEQ/L (3.4-4.9) Chloride Level 99 mEQ/L (98-107) Carbon Dioxide Level 26 mEQ/L (20-30) Anion Gap 9 (5-15) Blood Urea Nitrogen 11 mg/dL (7-23) Creatinine 1.0 mg/dL (0.7-1.2) Estimat Glomerular Filtration Rate mL/min (>60) Glucose Level 148 mg/dL (74-106) H Hemoglobin A1c 5.2 % (< 6.0) Calcium Level 8.1 mg/dL (8.6-10.2) L Iron Level 74 ug/dL (59-158) Total Iron Binding Capacity 112 ug/dL (250-400) L Percent Iron Saturation 66 % (15-50) H Unsaturated Iron Binding 38 ug/dL (112-346) L Ferritin 875 ng/mL (10-230) H Prealbumin Pending Vitamin B12 Level 1771 pg/mL (211-946) H Folate Pending Vancomycin Level Trough 27.7 ug/mL (5.0-12.0) H Current Medications Medications (Trade) Dose Ordered Sig/Naveen Route PRN Reason Start Time Stop Time Status Last Admin Dose Admin Acetaminophen (Tylenol) 650 mg Q4H PRN ORAL fever 04/10/17 15:15 05/10/17 15:14 Al Hydroxide/Mg Hydroxide (Mylanta II) 30 ml Q6H PRN ORAL dyspepsia 04/10/17 15:15 05/10/17 15:14 Albuterol/ Ipratropium (DuoNeb 0.5-3(2.5)mg/3ml) 3 ml Q4H PRN HHN Shortness of Breath 04/10/17 15:45 04/15/17 15:44 Cefepime HCl 2 gm/ Dextrose 110 ml @ 220 mls/hr Q12HR@0600,1800 IVPB 04/10/17 18:00 04/17/17 17:59 04/11/17 04:10 Clonidine HCl (Catapres) 0.1 mg Q6H PRN ORAL sbp above 160 04/10/17 14:15 05/10/17 14:14 Clopidogrel Bisulfate (Plavix) 75 mg DAILY ORAL 04/11/17 09:00 05/11/17 08:59 Dextrose (Dextrose 50%) STAT PRN IV Hypoglycemia 04/10/17 15:00 05/10/17 14:59 Dextrose/Sodium Chloride (D5 0.45% NS) 1,000 ml @ 60 mls/hr [id number] IV 04/10/17 15:45 05/10/17 15:44 04/11/17 08:29 Escitalopram Oxalate (Lexapro) 10 mg DAILY ORAL 04/11/17 09:00 05/11/17 08:59 Gabapentin (Neurontin) 300 mg THREE TIMES A DAY ORAL 04/10/17 18:00 05/10/17 17:59 Heparin Sodium (Porcine) (Heparin 5000 units/ml) 5,000 units EVERY 12 HOURS SUBQ 04/10/17 21:00 05/10/17 20:59 04/11/17 10:45 Insulin Aspart (NovoLOG) BEFORE MEALS AND HS SUBQ 04/10/17 16:30 05/10/17 16:29 04/11/17 11:57 Lactulose (Cephulac) 20 gm TID ORAL 04/10/17 18:00 05/10/17 17:59 Levetiracetam (Keppra) 1,500 mg Q12HR ORAL 04/10/17 21:00 05/10/17 20:59 Lorazepam (Ativan 2mg/ml 1ml) 0.5 mg Q4H PRN IV For Anxiety 04/10/17 15:15 04/17/17 15:14 04/11/17 13:03 Metronidazole (Flagyl) 100 ml @ 100 mls/hr Q8HR IVPB 04/10/17 16:00 04/17/17 15:59 04/11/17 14:15 Mirtazapine (Remeron) 15 mg BEDTIME ORAL 04/10/17 21:00 05/10/17 20:59 Morphine Sulfate (Morphine Sulfate) 1 mg Q4H PRN IVP Moderate to Severe Pain 04/10/17 14:30 04/17/17 14:29 04/11/17 12:39 Ondansetron HCl (Zofran) 4 mg Q6H PRN IVP Nausea & Vomiting 04/10/17 15:15 05/10/17 15:14 Polyethylene Glycol (Miralax) 17 gm HSPRN PRN ORAL Constipation 04/10/17 15:15 05/10/17 15:14 Risperidone (RisperDAL) 1 mg EVERY 12 HOURS ORAL 04/11/17 21:00 05/11/17 20:59 Vancomycin HCl (Vanco rx to dose) 1 ea DAILY PRN MISC Per rx protocol 04/10/17 15:14 05/10/17 15:13 Zolpidem Tartrate 5 mg 5 mg HSPRN PRN ORAL Insomnia Unrelieved 04/10/17 15:15 05/10/17 15:14 Valery Nicholas M.D. Apr 11, 2017 16:03
[2017-04-11 16:08] VITALS: BP 131/62
--- NOTE | 2017-04-11 16:34 | Diagnostic Imaging Report ---
Indication: Pain Technique: Right hindfoot/heel imaging utilizing multiplanar T1 fast spin-echo, proton and T2 fast spin-echo with fat saturation, and STIR. Comparison: None Findings: The study is significantly degraded by motion. There is bone marrow edema characterized by low T1/high T2 signal along the posterior plantar aspect of the calcaneus. There is a suggestion of cortical disruption but this is not well demonstrated. Plain film correlation is suggested. There is also T2 hyperintense edema within the adjacent subcutaneous fat. Please correlate for adjacent ulcer, which is much better appreciated on physical examination then on the MRI and if present increased is the positive predictive value of the bone marrow findings demonstrated currently. There is no abscess. Impression: Posterior plantar edema within the calcaneus with adjacent cellulitis. Please correlate clinically for presence of ulcer. Findings are suspicious for acute osteomyelitis. Significant imaged degradation due to motion
--- NOTE | 2017-04-11 16:45 | GI Initial Consult Note ---
Carmen Lopezh Anthony N.P. 04/11/17 1645: History of Present Illness General Date patient seen: Apr 11, 2017 Time patient seen: 11:00 Reason for Hospitalization: General Complaint Referring physician: dr Dugan Reason for Consultation: ANEMIA Present Illness HPI Patient is a 76-year-old male who presented after increased generalized weakness as well as generalized lower extremity discomfort. The patient prior history of a decubitus ulcer. He was noted to have a sacral decubitus as well as decubitus ulcer to his right heel which appear to be draining. The patient been sent from [facility]. History is markedly limited by patient's poor historian GI Consult. HPI as noted above. GI consulted for anemia work up. ROS limited , pt is cognitively impaired. Pt seen on floor, sleepy NAD with no active s/sx of N/V/D. Presents today with anemia. Unknown history of endoscopic history. Home Meds Reported Medications Acetaminophen* (TYLENOL EXTRA STRENGTH*) 500 Mg Tablet, 325 MG ORAL Q6H Y for Mild Pain/Temp > 100.5, TAB 0 Refills 04/10/17 Atorvastatin Calcium* (LIPITOR*) 10 Mg Tablet, 10 MG ORAL BEDTIME, TAB 04/10/17 Zinc Sulfate (ZINC SULFATE*) 220 Mg Capsule, 220 MG ORAL DAILY, CAP 0 Refills 04/09/17 Ascorbic Acid* (VITAMIN C*) 500 Mg Tablet, 500 MG ORAL DAILY, #30 TAB 0 Refills 04/09/17 Gabapentin* (NEURONTIN*) 100 Mg Capsule, 300 MG ORAL THREE TIMES A DAY, CAP 04/09/17 Memantine Hcl* (NAMENDA*) 10 Mg Tablet, 10 MG ORAL BEDTIME, TAB 04/09/17 Multivitamin With Minerals (MULTIVITAMINS WITH MINERALS*) 1 Each Tablet, 1 TAB ORAL DAILY, TAB 04/09/17 Levetiracetam (KEPPRA) 1,000 Mg Tablet, 1500 MG ORAL BID, #30 TAB 0 Refills 04/09/17 Hum Insulin Nph/Reg Insulin Hm (HUMULIN 70-30 VIAL) 100 Unit/1 Ml Vial, 4 UNITS SUBQ DAILY, VIAL 04/09/17 Ferrous Sulfate* (FERROUS SULFATE*) 325 Mg Tablet, 325 MG ORAL DAILY, #30 TAB 0 Refills 04/09/17 Cranberry Extract (CRANBERRY) 405 Mg Capsule, 405 MG PO DAILY, CAP 04/09/17 Calcium Carbonate/Vitamin D3 (CALCIUM 500 + VIT D 200 CAPLET) 1 Each Tablet, 1 EACH PO DAILY, TAB 04/09/17 Aspirin (Aspirin EC) 81 Mg Tablet.dr, 81 MG ORAL DAILY, TAB 04/09/17 Risperidone* (RISPERDAL*) 0.5 Mg Tablet, 0.5 MG ORAL BID, #30 TAB 0 Refills 09/07/16 Polyethylene Glycol 3350* (MIRALAX*) 17 Gm Powd.pack, 17 GM ORAL DAILY, PACKET 09/07/16 Dwacnncjwizk-Zmay-Qchftwgw,Iso (ZOSYN 3.375 GM PRE MIX-BAG) 3.375 Gm/50 Ml Froz.piggy, 3.375 GM IVPB BID, BAG 09/07/16 Nitroglycerin (NITROGLYCERIN) 0.4 Mg Tab.subl, 0.4 MG SL, TAB 09/07/16 Morphine Sulfate* (MORPHINE SULFATE*) 2 Mg/1 Ml Cartridge, 1 MG IV EVERY 4 HOURS , EA 09/07/16 Insulin Detemir (LEVEMIR) 100 Unit/1 Ml Vial, 8 SUBQ BID, VIAL 09/07/16 Lorazepam* (LORAZEPAM*) 1 Mg Tablet, 1 MG ORAL EVERY 6 HOURS, TAB 09/07/16 Ipratropium/Albuterol Sulfate (DuoNeb 0.5-3(2.5)mg/3ml) 3 Ml Ampul.neb, 3 ML HHN EVERY 4 HOURS, EA 09/07/16 Heparin Sodium,Porcine/Ns/Pf (Heparin) 2,000 Unit/1000 Ml Iv.soln, 5000 UNIT SQ Q12HR 09/07/16 Al Hydroxide/mg Hydroxide (Mag-Al Liquid) 30 Ml Oral.susp, 30 ML ORAL EVERY 6 HOURS, ML 09/07/16 Acetaminophen (Acetaminophen) 500 Mg Tablet, 650 MG PO EVERY 4 HOURS, TAB 09/07/16 Vancomycin/0.9 % Sod Chloride (Vanco 1.25 gm/250 ml-0.9% NaCl) 1.25 Gm/250 Ml Plast..bag, 1.25 GM IV BID for 14 Days, BAG 09/07/16 Ranitidine Hcl* (ZANTAC*) 150 Mg Tablet, 300 MG ORAL DAILY, #30 TAB 0 Refills 07/21/16 Memantine Hcl* (NAMENDA*) 10 Mg Tablet, 10 MG ORAL TWICE A DAY, TAB 07/21/16 Lorazepam (LORAZEPAM) 2 Mg/1 Ml Oral.conc, 1 MG IV Q4HR Y for For Anxiety, ML 07/21/16 Lactulose (LACTULOSE*) 20 Gm/30 Ml Solution, 20 GM ORAL TID, ML 0 Refills 07/21/16 Heparin Sod (Porcine) (HEPARIN SODIUM*) 5 000/1 Ml Vial, 5000 UNITS SUBQ EVERY 12 HOURS, VIAL 07/21/16 Furosemide* (LASIX*) 40 Mg Tablet, 40 MG ORAL DAILY, TAB 07/21/16 Ondansetron* (ZOFRAN*) 4 Mg/2 Ml Vial, 4 MG IV Q6H Y for Nausea & Vomiting, VIAL 05/17/16 Mirtazapine* (REMERON*) 15 Mg Tablet, 15 MG ORAL BEDTIME, TAB 05/17/16 Insulin Aspart* (NOVOLOG*) 100 Unit/1 Ml Insuln.pen, 0 SUBQ AC+HS, #1 EA 0 Refills 05/17/16 Gabapentin* (NEURONTIN*) 100 Mg Capsule, 300 MG ORAL THREE TIMES A DAY, CAP 05/17/16 Ascorbic Acid* (VITAMIN C*) 500 Mg Tablet, 500 MG ORAL DAILY, #30 TAB 0 Refills 05/11/16 Clopidogrel Bisulfate* (PLAVIX*) 75 Mg Tablet, 75 MG ORAL DAILY, TAB 05/11/16 Escitalopram Oxalate* (LEXAPRO*) 10 Mg Tablet, 10 MG ORAL DAILY, TAB 05/11/16 Docusate Sodium* (COLACE*) 100 Mg Capsule, 100 MG ORAL TWICE A DAY, CAP 05/11/16 Med list reviewed/reconciled: Yes Allergies: Coded Allergies: No Known Allergies (Unverified , 05/11/16) Patient History Limited by: medical condition History Provided By: Medical Record PMH Narrative Past Medical History Deferred: Pt Cognitively Impaired Hx Cardiac Problems: Yes Hx Hypertension: Yes Hx COPD: Yes Hx Diabetes: Yes Hx Cancer: No Hx Gastrointestinal Problems: Yes Hx Dialysis: No History Of Psychiatric Problem: Yes - schizo Hx Neurological Problems: Yes - dvt Hx Cerebrovascular Accident: No Hx Seizures: No Hx Spinal Cord Injury: No Hx Head Trauma: No Hx Dizziness: No Hx Headaches: No Hx Dysphasia: No Hx Numbness: No Hx Weakness: No Hx Fatigue: No Social History: Denies: alcohol use, drug use, other, smoking Review of Systems All Other Systems: limited Physical Exam Vital Signs Date Time Temp Pulse Resp B/P Pulse Ox O2 Delivery O2 Flow Rate FiO2 04/09/17 11:02 97.9 99 18 128/70 9 04/09/17 11:25 Room Air 04/10/17 11:34 21 Sp02 EP Interpretation: reviewed Labs Laboratory Tests Test 04/11/17 05:45 White Blood Count 8.3 K/UL (4.8-10.8) Red Blood Count 3.20 M/UL (4.70-6.10) L Hemoglobin 10.9 G/DL (14.2-18.0) L Hematocrit 31.7 % (42.0-52.0) L Mean Corpuscular Volume 99 FL (80-99) Mean Corpuscular Hemoglobin 33.9 PG (27.0-31.0) H Mean Corpuscular Hemoglobin Concent 34.3 G/DL (32.0-36.0) Red Cell Distribution Width 14.2 % (11.6-14.8) Platelet Count 182 K/UL (150-450) Mean Platelet Volume 4.9 FL (6.5-10.1) L Neutrophils (%) (Auto) 57.8 % (45.0-75.0) Lymphocytes (%) (Auto) 28.1 % (20.0-45.0) Monocytes (%) (Auto) 8.5 % (1.0-10.0) Eosinophils (%) (Auto) 4.5 % (0.0-3.0) H Basophils (%) (Auto) 1.1 % (0.0-2.0) Sodium Level 134 mEQ/L (135-145) L Potassium Level 3.5 mEQ/L (3.4-4.9) Chloride Level 99 mEQ/L (98-107) Carbon Dioxide Level 26 mEQ/L (20-30) Anion Gap 9 (5-15) Blood Urea Nitrogen 11 mg/dL (7-23) Creatinine 1.0 mg/dL (0.7-1.2) Estimat Glomerular Filtration Rate mL/min (>60) Glucose Level 148 mg/dL (74-106) H Hemoglobin A1c 5.2 % (< 6.0) Calcium Level 8.1 mg/dL (8.6-10.2) L Iron Level 74 ug/dL (59-158) Total Iron Binding Capacity 112 ug/dL (250-400) L Percent Iron Saturation 66 % (15-50) H Unsaturated Iron Binding 38 ug/dL (112-346) L Ferritin 875 ng/mL (10-230) H Prealbumin Pending Vitamin B12 Level 1771 pg/mL (211-946) H Folate Pending Vancomycin Level Trough 27.7 ug/mL (5.0-12.0) H General Appearance: no apparent distress, alert Head: normocephalic EENT: PERRL/EOMI Neck: supple Respiratory: normal breath sounds, no respiratory distress Cardiovascular: normal rate Gastrointestinal: normal inspection, non tender, soft Rectal: deferred Musculoskeletal: back normal Neurologic: alert Skin: normal inspection, normal color, no rash, warm/dry, palpation normal Lymphatic: normal inspection, no adenopathy Current Medications Current Medications Medications (Trade) Dose Ordered Sig/Naveen Route PRN Reason Start Time Stop Time Status Last Admin Dose Admin Acetaminophen (Tylenol) 650 mg Q4H PRN ORAL fever 04/10/17 15:15 05/10/17 15:14 Al Hydroxide/Mg Hydroxide (Mylanta II) 30 ml Q6H PRN ORAL dyspepsia 04/10/17 15:15 05/10/17 15:14 Albuterol/ Ipratropium (DuoNeb 0.5-3(2.5)mg/3ml) 3 ml Q4H PRN HHN Shortness of Breath 04/10/17 15:45 04/15/17 15:44 Cefepime HCl 2 gm/ Dextrose 110 ml @ 220 mls/hr Q12HR@0600,1800 IVPB 04/10/17 18:00 04/17/17 17:59 04/11/17 04:10 Clonidine HCl (Catapres) 0.1 mg Q6H PRN ORAL sbp above 160 04/10/17 14:15 05/10/17 14:14 Clopidogrel Bisulfate (Plavix) 75 mg DAILY ORAL 04/11/17 09:00 05/11/17 08:59 Dextrose (Dextrose 50%) STAT PRN IV Hypoglycemia 04/10/17 15:00 05/10/17 14:59 Dextrose/Sodium Chloride (D5 0.45% NS) 1,000 ml @ 60 mls/hr [id number] IV 04/10/17 15:45 05/10/17 15:44 04/11/17 08:29 Escitalopram Oxalate (Lexapro) 10 mg DAILY ORAL 04/11/17 09:00 05/11/17 08:59 Gabapentin (Neurontin) 300 mg THREE TIMES A DAY ORAL 04/10/17 18:00 05/10/17 17:59 Heparin Sodium (Porcine) (Heparin 5000 units/ml) 5,000 units EVERY 12 HOURS SUBQ 04/10/17 21:00 05/10/17 20:59 04/11/17 10:45 Insulin Aspart (NovoLOG) BEFORE MEALS AND HS SUBQ 04/10/17 16:30 05/10/17 16:29 04/11/17 11:57 Lactulose (Cephulac) 20 gm TID ORAL 04/10/17 18:00 05/10/17 17:59 Levetiracetam (Keppra) 1,500 mg Q12HR ORAL 04/10/17 21:00 05/10/17 20:59 Lorazepam (Ativan 2mg/ml 1ml) 0.5 mg Q4H PRN IV For Anxiety 04/10/17 15:15 04/17/17 15:14 04/11/17 13:03 Metronidazole (Flagyl) 100 ml @ 100 mls/hr Q8HR IVPB 04/10/17 16:00 04/17/17 15:59 04/11/17 14:15 Mirtazapine (Remeron) 15 mg BEDTIME ORAL 04/10/17 21:00 05/10/17 20:59 Morphine Sulfate (Morphine Sulfate) 1 mg Q4H PRN IVP Moderate to Severe Pain 04/10/17 14:30 04/17/17 14:29 04/11/17 12:39 Ondansetron HCl (Zofran) 4 mg Q6H PRN IVP Nausea & Vomiting 04/10/17 15:15 05/10/17 15:14 Polyethylene Glycol (Miralax) 17 gm HSPRN PRN ORAL Constipation 04/10/17 15:15 05/10/17 15:14 Risperidone (RisperDAL) 1 mg EVERY 12 HOURS ORAL 04/11/17 21:00 05/11/17 20:59 Vancomycin HCl (Vanco rx to dose) 1 ea DAILY PRN MISC Per rx protocol 04/10/17 15:14 05/10/17 15:13 Zolpidem Tartrate 5 mg 5 mg HSPRN PRN ORAL Insomnia Unrelieved 04/10/17 15:15 05/10/17 15:14 GI: Plan Problems: (1) Anemia (2) Cerebrovascular accident (CVA) (3) Morbid obesity (4) Altered mental state Plan NPO + IVFs fu ST evaluation >> pt not alert to participate, cont non oral feedings - consider NGTFs if patient alertness does no improve. anemia work up OB stool r/o GI bleed H2B fu labs pt on plavix >> this must be discontinued x 48 hours prior any endoscopic procedures outpatient GI procedures Discussed with Dr. Callahan. Thank you for referring this patient, we will follow. GREGOR CALLAHAN 04/13/17 0749: History of Present Illness General Reason for Hospitalization: General Complaint Present Illness Home Meds Reported Medications Acetaminophen* (TYLENOL EXTRA STRENGTH*) 500 Mg Tablet, 325 MG ORAL Q6H Y for Mild Pain/Temp > 100.5, TAB 0 Refills 04/10/17 Atorvastatin Calcium* (LIPITOR*) 10 Mg Tablet, 10 MG ORAL BEDTIME, TAB 04/10/17 Zinc Sulfate (ZINC SULFATE*) 220 Mg Capsule, 220 MG ORAL DAILY, CAP 0 Refills 04/09/17 Ascorbic Acid* (VITAMIN C*) 500 Mg Tablet, 500 MG ORAL DAILY, #30 TAB 0 Refills 04/09/17 Gabapentin* (NEURONTIN*) 100 Mg Capsule, 300 MG ORAL THREE TIMES A DAY, CAP 04/09/17 Memantine Hcl* (NAMENDA*) 10 Mg Tablet, 10 MG ORAL BEDTIME, TAB 04/09/17 Multivitamin With Minerals (MULTIVITAMINS WITH MINERALS*) 1 Each Tablet, 1 TAB ORAL DAILY, TAB 04/09/17 Levetiracetam (KEPPRA) 1,000 Mg Tablet, 1500 MG ORAL BID, #30 TAB 0 Refills 04/09/17 Hum Insulin Nph/Reg Insulin Hm (HUMULIN 70-30 VIAL) 100 Unit/1 Ml Vial, 4 UNITS SUBQ DAILY, VIAL 04/09/17 Ferrous Sulfate* (FERROUS SULFATE*) 325 Mg Tablet, 325 MG ORAL DAILY, #30 TAB 0 Refills 04/09/17 Cranberry Extract (CRANBERRY) 405 Mg Capsule, 405 MG PO DAILY, CAP 04/09/17 Calcium Carbonate/Vitamin D3 (CALCIUM 500 + VIT D 200 CAPLET) 1 Each Tablet, 1 EACH PO DAILY, TAB 04/09/17 Aspirin (Aspirin EC) 81 Mg Tablet.dr, 81 MG ORAL DAILY, TAB 04/09/17 Risperidone* (RISPERDAL*) 0.5 Mg Tablet, 0.5 MG ORAL BID, #30 TAB 0 Refills 09/07/16 Polyethylene Glycol 3350* (MIRALAX*) 17 Gm Powd.pack, 17 GM ORAL DAILY, PACKET 09/07/16 Asxrvvuxomfe-Onwc-Caexzrgg,Iso (ZOSYN 3.375 GM PRE MIX-BAG) 3.375 Gm/50 Ml Froz.piggy, 3.375 GM IVPB BID, BAG 09/07/16 Nitroglycerin (NITROGLYCERIN) 0.4 Mg Tab.subl, 0.4 MG SL, TAB 09/07/16 Morphine Sulfate* (MORPHINE SULFATE*) 2 Mg/1 Ml Cartridge, 1 MG IV EVERY 4 HOURS , EA 09/07/16 Insulin Detemir (LEVEMIR) 100 Unit/1 Ml Vial, 8 SUBQ BID, VIAL 09/07/16 Lorazepam* (LORAZEPAM*) 1 Mg Tablet, 1 MG ORAL EVERY 6 HOURS, TAB 09/07/16 Ipratropium/Albuterol Sulfate (DuoNeb 0.5-3(2.5)mg/3ml) 3 Ml Ampul.neb, 3 ML HHN EVERY 4 HOURS, EA 09/07/16 Heparin Sodium,Porcine/Ns/Pf (Heparin) 2,000 Unit/1000 Ml Iv.soln, 5000 UNIT SQ Q12HR 09/07/16 Al Hydroxide/mg Hydroxide (Mag-Al Liquid) 30 Ml Oral.susp, 30 ML ORAL EVERY 6 HOURS, ML 09/07/16 Acetaminophen (Acetaminophen) 500 Mg Tablet, 650 MG PO EVERY 4 HOURS, TAB 09/07/16 Vancomycin/0.9 % Sod Chloride (Vanco 1.25 gm/250 ml-0.9% NaCl) 1.25 Gm/250 Ml Plast..bag, 1.25 GM IV BID for 14 Days, BAG 09/07/16 Ranitidine Hcl* (ZANTAC*) 150 Mg Tablet, 300 MG ORAL DAILY, #30 TAB 0 Refills 07/21/16 Memantine Hcl* (NAMENDA*) 10 Mg Tablet, 10 MG ORAL TWICE A DAY, TAB 07/21/16 Lorazepam (LORAZEPAM) 2 Mg/1 Ml Oral.conc, 1 MG IV Q4HR Y for For Anxiety, ML 07/21/16 Lactulose (LACTULOSE*) 20 Gm/30 Ml Solution, 20 GM ORAL TID, ML 0 Refills 07/21/16 Heparin Sod (Porcine) (HEPARIN SODIUM*) 5 000/1 Ml Vial, 5000 UNITS SUBQ EVERY 12 HOURS, VIAL 07/21/16 Furosemide* (LASIX*) 40 Mg Tablet, 40 MG ORAL DAILY, TAB 07/21/16 Ondansetron* (ZOFRAN*) 4 Mg/2 Ml Vial, 4 MG IV Q6H Y for Nausea & Vomiting, VIAL 05/17/16 Mirtazapine* (REMERON*) 15 Mg Tablet, 15 MG ORAL BEDTIME, TAB 05/17/16 Insulin Aspart* (NOVOLOG*) 100 Unit/1 Ml Insuln.pen, 0 SUBQ AC+HS, #1 EA 0 Refills 05/17/16 Gabapentin* (NEURONTIN*) 100 Mg Capsule, 300 MG ORAL THREE TIMES A DAY, CAP 05/17/16 Ascorbic Acid* (VITAMIN C*) 500 Mg Tablet, 500 MG ORAL DAILY, #30 TAB 0 Refills 05/11/16 Clopidogrel Bisulfate* (PLAVIX*) 75 Mg Tablet, 75 MG ORAL DAILY, TAB 05/11/16 Escitalopram Oxalate* (LEXAPRO*) 10 Mg Tablet, 10 MG ORAL DAILY, TAB 05/11/16 Docusate Sodium* (COLACE*) 100 Mg Capsule, 100 MG ORAL TWICE A DAY, CAP 05/11/16 Allergies: Coded Allergies: No Known Allergies (Unverified , 05/11/16) GI: Plan Plan The patient was seen and examined at bedside and all new and available data was reviewed in the patients chart. I agree with the above findings, impression and plan. (Patient seen earlier today. Signature stamp does not reflect patient encounter time.). -Gregor Lopez,Sho Cruz N.P. Apr 11, 2017 16:45 GREGOR CALLAHAN Apr 13, 2017 07:49
--- NOTE | 2017-04-11 16:50 | Neurology Progress Note ---
Interim History Interim History ROS Limited/Unobtainable: Yes Objective Physical Exam Last Vital Signs Date Time Temp Pulse Resp B/P Pulse Ox O2 Delivery O2 Flow Rate FiO2 04/11/17 16:08 98.1 99 18 131/62 97 Room Air 04/11/17 07:39 21 Laboratory Tests Test 04/11/17 05:45 White Blood Count 8.3 K/UL (4.8-10.8) Red Blood Count 3.20 M/UL (4.70-6.10) L Hemoglobin 10.9 G/DL (14.2-18.0) L Hematocrit 31.7 % (42.0-52.0) L Mean Corpuscular Volume 99 FL (80-99) Mean Corpuscular Hemoglobin 33.9 PG (27.0-31.0) H Mean Corpuscular Hemoglobin Concent 34.3 G/DL (32.0-36.0) Red Cell Distribution Width 14.2 % (11.6-14.8) Platelet Count 182 K/UL (150-450) Mean Platelet Volume 4.9 FL (6.5-10.1) L Neutrophils (%) (Auto) 57.8 % (45.0-75.0) Lymphocytes (%) (Auto) 28.1 % (20.0-45.0) Monocytes (%) (Auto) 8.5 % (1.0-10.0) Eosinophils (%) (Auto) 4.5 % (0.0-3.0) H Basophils (%) (Auto) 1.1 % (0.0-2.0) Sodium Level 134 mEQ/L (135-145) L Potassium Level 3.5 mEQ/L (3.4-4.9) Chloride Level 99 mEQ/L (98-107) Carbon Dioxide Level 26 mEQ/L (20-30) Anion Gap 9 (5-15) Blood Urea Nitrogen 11 mg/dL (7-23) Creatinine 1.0 mg/dL (0.7-1.2) Estimat Glomerular Filtration Rate mL/min (>60) Glucose Level 148 mg/dL (74-106) H Hemoglobin A1c 5.2 % (< 6.0) Calcium Level 8.1 mg/dL (8.6-10.2) L Iron Level 74 ug/dL (59-158) Total Iron Binding Capacity 112 ug/dL (250-400) L Percent Iron Saturation 66 % (15-50) H Unsaturated Iron Binding 38 ug/dL (112-346) L Ferritin 875 ng/mL (10-230) H Prealbumin Pending Vitamin B12 Level 1771 pg/mL (211-946) H Folate Pending Vancomycin Level Trough 27.7 ug/mL (5.0-12.0) H Impression/Recommendations Status: stable, progressing, tolerating diet Recommendations # [id number] LUDIVINA ARELLANO Apr 11, 2017 16:50
--- NOTE | 2017-04-11 18:39 | Pulmonology Progress Note ---
Assessment/Plan Problems: (1) Sepsis (2) Osteomyelitis of ankle (3) COPD (chronic obstructive pulmonary disease) (4) Dementia arising in the senium and presenium (5) History of CVA (cerebrovascular accident) Assessment/Plan Respiratory treatment IV antibiotics f/u cultures dvt prophylaxis Subjective ROS Limited/Unobtainable: No Constitutional: Reports: no symptoms HEENT: Repors: no symptoms Respiratory: Reports: no symptoms Allergies: Coded Allergies: No Known Allergies (Unverified , 05/11/16) Objective Last 24 Hour Vital Signs Date Time Temp Pulse Resp B/P Pulse Ox O2 Delivery O2 Flow Rate FiO2 04/11/17 16:08 98.1 99 18 131/62 97 Room Air 04/11/17 12:00 97.7 114 20 148/73 97 Room Air 04/11/17 09:00 97.2 04/11/17 08:00 97.2 98 20 140/76 97 Room Air 04/11/17 07:39 94 18 Room Air 21 04/11/17 04:00 97.8 92 18 130/68 92 Room Air 04/10/17 20:00 98.2 98 18 132/70 94 Room Air 04/10/17 19:30 90 18 Room Air 21 Intake and Output 04/10/17 04/11/17 19:00 07:00 Intake Total 670 ml 850 ml Output Total 150 ml 500 ml Balance 520 ml 350 ml Intake IV Total 670 ml 850 ml Output Urine Total 150 ml 500 ml General Appearance: cachetic HEENT: normocephalic, atraumatic Respiratory/Chest: chest wall non-tender, lungs clear Cardiovascular: normal peripheral pulses, normal rate Abdomen: normal bowel sounds, soft, non tender Genitourinary: normal external genitalia Extremities: no clubbing Microbiology Date/Time Source Procedure Growth Status 04/09/17 12:35 Blood Blood Culture - Preliminary NO GROWTH AFTER 24 HOURS Resulted 04/09/17 12:10 Blood Blood Culture - Preliminary NO GROWTH AFTER 24 HOURS Resulted 04/09/17 23:00 Wound Gram Stain - Final Resulted 04/09/17 23:00 Wound Wound Culture Pending Resulted 04/09/17 15:03 Nasal Nares MRSA Culture - Final NO METHICILLIN RESISTANT STAPH AUREUS... Complete 04/09/17 12:45 Urine,Clean Catch Urine Culture - Preliminary Gram Negative Bacillus 1 Resulted Laboratory Tests 04/11/17 05:45: White Blood Count 8.3, Red Blood Count 3.20L, Hemoglobin 10.9L, Hematocrit 31.7L , Mean Corpuscular Volume 99, Mean Corpuscular Hemoglobin 33.9H, Mean Corpuscular Hemoglobin Concent 34.3, Red Cell Distribution Width 14.2, Platelet Count 182, Mean Platelet Volume 4.9L, Neutrophils (%) (Auto) 57.8, Lymphocytes ( %) (Auto) 28.1, Monocytes (%) (Auto) 8.5, Eosinophils (%) (Auto) 4.5H, Basophils (%) (Auto) 1.1, Sodium Level 134L, Potassium Level 3.5, Chloride Level 99, Carbon Dioxide Level 26, Anion Gap 9, Blood Urea Nitrogen 11, Creatinine 1.0, Estimat Glomerular Filtration Rate , Glucose Level 148H, Hemoglobin A1c 5.2, Calcium Level 8.1L, Iron Level 74, Total Iron Binding Capacity 112L, Percent Iron Saturation 66H, Unsaturated Iron Binding 38L, Ferritin 875H, Prealbumin [Pending], Vitamin B12 Level 1771H, Folate [Pending], Vancomycin Level Trough 27.7H Current Medications Medications (Trade) Dose Ordered Sig/Naveen Route PRN Reason Start Time Stop Time Status Last Admin Dose Admin Acetaminophen (Tylenol) 650 mg Q4H PRN ORAL fever 04/10/17 15:15 05/10/17 15:14 Al Hydroxide/Mg Hydroxide (Mylanta II) 30 ml Q6H PRN ORAL dyspepsia 04/10/17 15:15 05/10/17 15:14 Albuterol/ Ipratropium (DuoNeb 0.5-3(2.5)mg/3ml) 3 ml Q4H PRN HHN Shortness of Breath 04/10/17 15:45 04/15/17 15:44 Cefepime HCl 2 gm/ Dextrose 110 ml @ 220 mls/hr Q12HR@0600,1800 IVPB 04/10/17 18:00 04/17/17 17:59 04/11/17 17:17 Clonidine HCl (Catapres) 0.1 mg Q6H PRN ORAL sbp above 160 04/10/17 14:15 05/10/17 14:14 Clopidogrel Bisulfate (Plavix) 75 mg DAILY ORAL 04/11/17 09:00 05/11/17 08:59 Dextrose (Dextrose 50%) STAT PRN IV Hypoglycemia 04/10/17 15:00 05/10/17 14:59 Dextrose/Sodium Chloride (D5 0.45% NS) 1,000 ml @ 60 mls/hr [id number] IV 04/10/17 15:45 05/10/17 15:44 04/11/17 08:29 Escitalopram Oxalate (Lexapro) 10 mg DAILY ORAL 04/12/17 09:00 04/12/17 16:37 Gabapentin (Neurontin) 300 mg BEDTIME ORAL 04/11/17 21:00 05/11/17 20:59 Heparin Sodium (Porcine) (Heparin 5000 units/ml) 5,000 units EVERY 12 HOURS SUBQ 04/10/17 21:00 05/10/17 20:59 04/11/17 10:45 Insulin Aspart (NovoLOG) BEFORE MEALS AND HS SUBQ 04/10/17 16:30 05/10/17 16:29 04/11/17 17:18 Lactulose (Cephulac) 20 gm TID ORAL 04/10/17 18:00 05/10/17 17:59 Levetiracetam (Keppra) 500 mg Q12HR ORAL 04/11/17 21:00 05/11/17 20:59 Lorazepam (Ativan 2mg/ml 1ml) 0.5 mg Q4H PRN IV For Anxiety 04/10/17 15:15 04/17/17 15:14 04/11/17 13:03 Metronidazole (Flagyl) 100 ml @ 100 mls/hr Q8HR IVPB 04/10/17 16:00 04/17/17 15:59 04/11/17 14:15 Mirtazapine (Remeron) 7.5 mg BEDTIME ORAL 04/11/17 21:00 05/11/17 20:59 Morphine Sulfate (Morphine Sulfate) 1 mg Q4H PRN IVP Moderate to Severe Pain 04/10/17 14:30 04/17/17 14:29 04/11/17 12:39 Ondansetron HCl (Zofran) 4 mg Q6H PRN IVP Nausea & Vomiting 04/10/17 15:15 05/10/17 15:14 Polyethylene Glycol (Miralax) 17 gm HSPRN PRN ORAL Constipation 04/10/17 15:15 05/10/17 15:14 Vancomycin HCl (Vanco rx to dose) 1 ea DAILY PRN MISC Per rx protocol 04/10/17 15:14 05/10/17 15:13 Zolpidem Tartrate 5 mg 5 mg HSPRN PRN ORAL Insomnia Unrelieved 04/10/17 15:15 05/10/17 15:14 MEGAN LO Apr 11, 2017 18:39
[2017-04-11 20:34] VITALS: BP 115/72
--- NOTE | 2017-04-11 21:45 | Consultation ---
DATE OF CONSULTATION: 04/10/2017 HISTORY OF PRESENT ILLNESS: This is a 76-year-old male patient came in for generalized weakness, but this patient does have some confusion and disorganized thought process. This patient came in with a diagnosis of paranoid schizophrenia with acute exacerbation. The plan for this patient . This patient came in with altered mental status, decubitus ulcers, and weakness, [facility] with weakness and lethargic, but he has history of decubitus ulcers. He also has a history of paranoid schizophrenia. Currently, on multiple psych medications for those reason for consults. MEDICAL PROBLEMS: Diabetes, CVA, COPD, obesity, hypertension, lethargy, and decubitus ulcers. ALLERGIES: No known drug allergies. SOCIAL HISTORY: The patient is financially supported by [employer] and Medicare and lives in the [facility]. SUBSTANCE ABUSE HISTORY: Denies smoking or alcohol use. MENTAL STATUS EXAMINATION: This is an 76-year-old male patient with psychomotor retardation. Mood is depressed. Affect is guarded and restricted. Thought process is disorganized and illogical. Denies any current suicidal or homicidal thoughts. Insight and judgment is poor. DIAGNOSIS: Paranoid schizophrenia with acute exacerbation. PLAN: Plan for this patient is I am going to treat him with medication regimen consisting of Risperdal 0.5 mg twice a day to prevent any further decline in his cognition and he will continue to be followed by Podiatry . In addition to that, I am going to continue this patient on Remeron at a dose of 15 mg p.o. nightly and I have encouraged to interact appropriately with staff and other patients. Also Lexapro 10 mg daily. Chart reviewed and discussed with staff. Seen and assessed at the bedside. Carla Amaya M.D. DR: LIZBETH JOB#: [id number] CC:
[2017-04-12] VITALS (8 sets, daily range): BP systolic 89–154; BP diastolic 45–80
--- NOTE | 2017-04-12 00:30 | Progress Note ---
DATE: 04/11/2017 SUBJECTIVE: This is a 76-year-old male patient with generalized weakness. He is confused and disorganized. Mood is labile. He has got and activities. PLAN: My plan for this patient is, I am going to treat this patient with medication regimen. Continue with Risperdal 2.5 mg twice a day, Remeron 15 mg, and daily and encourage him to interact appropriate with staff. Chart reviewed and discussed with staff. Seen and assessed at bedside. Carla Amaya M.D. DR: SOSA JOB#: [id number] CC:
[2017-04-12] MEDS: D5 1/2NS 1,000 ML IV SCH ×2 (01:32→17:45)
[2017-04-12] MEDS: LORazepam Inj 2mg/ml 1ml IV PRN ×2 (01:38→20:38)
--- NOTE | 2017-04-12 03:15 | Consultation ---
DATE OF CONSULTATION: 04/11/2017 NEUROLOGICAL CONSULTATION CONSULTING PHYSICIAN: Romel Joya M.D. REQUESTING PHYSICIAN: James Dugan D.O. HISTORY OF PRESENT ILLNESS: This is a 76-year-old man, a resident of nursing facility, seen in neurological consultation to evaluate persistent verbal unresponsiveness, profound generalized weakness, and inability to ambulate. The patient was unable to provide with any history and this was obtained from medical records. Note that he developed increasing generalized weakness, generalized lower extremity discomfort. His initial assessment revealed presence of sacral decubiti, ulcerated decubitus of right heel. On admission, vital signs were stable. His laboratory work included mild anemia with hemoglobin 14.1, hematocrit 41.2. Elevated sedimentation rate of 119. Normal coagulation. Chemistry panel is unremarkable except blood sugar 158 and calcium 7.9. Normal B12. Toxicology panel is unremarkable. Imaging studies included chest x-ray that revealed mild left perihilar and basilar interstitial prominence, acute undetermined subtle infiltrate not excluded. Venous duplex of the lower extremities, no thrombi noted. The patient was placed on IV fluids and antibiotics and still remaining verbally unresponsive. According to available medical records, the patient was hospitalized at [facility] on 02/02/2017 and underwent a comprehensive assessment. This included CAT scan of the brain, which revealed old probably subacute infarct, diagnosed with old right MCA distribution infarct in the background of chronic microvascular ischemic changes. There were no acute intracranial abnormalities. Neck and head CT angiogram revealed no hemodynamically significant lesions, carotid duplex, no significant lesions. The patient presented with acute hypoxic respiratory failure, temporarily intubated. He was treated for septic shock. The patient has a history of type 2 diabetes, CHF, dementia, probably oriented x1 only, acute renal failure in the setting of chronic kidney failure, hypertension, and cellulitis of both lower extremities. Following current examination, the patient was diagnosed with with gangrene treated and MRI of the ankle was requested. Diabetes is currently poorly controlled. The patient was treated for sepsis. PAST MEDICAL HISTORY: As mentioned, the patient has COPD, heart failure, dementia, GERD, chronic renal insufficiency, schizophrenia, anxiety, hypertension, cellulitis of lower extremities, and CHF. Treatment of both lower extremities included aspirin, atorvastatin, Plavix, Lexapro, gabapentin, insulin, albuterol, lactulose, Keppra 1500 mg b.i.d., presumably for seizure disorder, lorazepam, Namenda, Remeron, morphine p.r.n., ondansetron, and Risperdal. ALLERGIES: None reported. SOCIAL HISTORY: Resident of a nursing facility. FAMILY HISTORY: Unavailable. REVIEW OF SYSTEMS: Unable to obtain due to the patient's status. PHYSICAL EXAMINATION: GENERAL: This is a well-developed, obese but ill-appearing man, not in acute distress, found to be asleep. VITAL SIGNS: Stable and afebrile. HEENT: Head is normocephalic. There is no evidence of trauma. Eyes, ears, and throat are clear. NECK: Very rigid in all directions. MUSCULOSKELETAL: Puffiness in both hands and feet. No rash noted. MENTAL STATUS: Arousable on stimulation. Has a brief eye contact. Does not follow commands. Nonverbal and uncooperative. CRANIAL NERVE II: Pupils both responding to light and accommodation. Extraocular movements intact. No nystagmus. CRANIAL NERVE V: Normal corneal responses. CRANIAL NERVE VII: Slight droop of nasolabial fold. Grossly normal. CRANIAL NERVES IX THROUGH XII: Reduced gag response. MOTOR EXAMINATION: Severe diffuse rigidity to both upper and lower extremities, more on the left with some flexor contracture of both upper extremity, extended both lower extremities. Bilateral footdrop. Deep tendon reflexes depressed bilaterally. Plantar responses are mute. SENSORY EXAMINATION: No response to pin stimulation. IMPRESSION: 1. Persistent verbal unresponsiveness, most likely represents end-stage dementia, multiple strokes with predominantly right middle cerebral artery distribution in the setting of metabolic derangement. 2. Sepsis. 3. Osteomyelitis of the ankle. 4. Diabetes type 2. 5. Hypertension. RECOMMENDATIONS: The patient is maintained on Keppra, although no information regarding seizures were available in medical records. For this reason, we will obtain encephalogram. The patient is maintained on polypharmacy and sedating, unessential treatment should be considered to be discontinued and this will include Remeron, Risperdal, zolpidem, morphine, and Lexapro. Meanwhile, continue with IV fluids and antibiotics as per attending. Thank you for allowing me to see this interesting patient in neurological consultation. Romel Joya M.D. DR: Anupam JOB#: [id number] CC:
--- NOTE | 2017-04-12 05:00 | Consultation ---
DATE OF CONSULTATION: NOTE: INCOMPLETE DICTATION. HISTORY: The patient is a 76-year-old male patient with generalized weakness, decubitus ulcers, confusion. Carla Amaya M.D. DR: JOAO JOB#: [id number] CC:
[2017-04-12] MEDS: Cefepime HCl 2 GM in D5W 110 ML IVPB SCH ×2 (05:15→18:30)
[2017-04-12] MEDS: metroNIDAZOLE 500mg 100 ML IVPB SCH ×3 (06:02→22:39)
[2017-04-12] MEDS: NovoLOG Insulin Flexpen SUBQ SCH ×4 (06:03→20:50)
[2017-04-12 07:36] LABS: BASOPHILS % (AUTO) 1.4 % (0.0-2.0); EOSINOPHILS % (AUTO) 3.4 % (0.0-3.0); LYMPHOCYTES % (AUTO) 33.7 % (20.0-45.0); MEAN CORPUSCULAR HGB CONC 35.5 G/DL (32.0-36.0); MEAN CORPUSCULAR VOLUME 98 FL (80-99); MEAN PLATELET VOLUME 4.8 FL (6.5-10.1); MONOCYTES % (AUTO) 13.9 % (1.0-10.0); NEUTROPHILS % (AUTO) 47.7 % (45.0-75.0); PLATELET COUNT 127 K/UL (150-450); RED BLOOD COUNT 2.78 M/UL (4.70-6.10); RED CELL DISTRIBUTION WIDTH 13.7 % (11.6-14.8); WHITE BLOOD COUNT 6.2 K/UL (4.8-10.8)
[2017-04-12 08:05] LABS: ANION GAP 9 (5-15); CARBON DIOXIDE 27 mEQ/L (20-30); CHLORIDE 101 mEQ/L (98-107); CREATININE 1.1 mg/dL (0.7-1.2); HEMOLYSIS 4; POTASSIUM 3.1 mEQ/L (3.4-4.9); SODIUM 137 mEQ/L (135-145)
[2017-04-12 08:10] LABS: PREALBUMIN 5 mg/dL (9-32)
[2017-04-12] MEDS: Heparin 5000 units/ml inj SUBQ SCH ×2 (09:00→20:42)
[2017-04-12] MEDS: Lactulose 20gm/30ml UDC ORAL SCH ×3 (09:00→18:00)
--- NOTE | 2017-04-12 10:36 | Diagnostic Imaging Report ---
Indication: Altered mental status Technique: Contiguous 5 mm thick transaxial imaging of the head obtained in a Siemens Sensation [address] scanner. Soft tissue and bone windows generated. Total Dose length Product (DLP): [address] Dose Index Volume (CTDIvol): 70.38 mGy Comparison: 09/04/16 Findings: There is an abnormal area of low attenuation in the right cerebellum. This was not seen on the prior occasion. Suspect edema. There is no mass effect on the fourth ventricle. Please correlate clinically. There is no evidence of acute hemorrhage. There is no midline shift. There is area of low-attenuation consistent with encephalomalacia in the right parietal lobe unchanged from last examination and consistent with an old infarct. There is mild global atrophy of the cerebrum and cerebellum. There is mild periventricular low-attenuation noted. There is abnormal opacification of the mastoid air cells bilaterally slightly worse when compared with the prior study. The mastoid bone is also fairly sclerotic bilaterally. The paranasal sinuses are clear as visualized. Impression: Suspected edema within the right cerebellum. Considerations include ischemia or other causes of edema. Please correlate clinically. MRI may be useful for further evaluation. Old infarct involving the right parietal region. Generalized atrophy of the brain and evidence of chronic small vessel disease. Chronic bilateral mastoiditis The CT scanner at [facility] is accredited by the [employer] and the scans are performed using dose optimization techniques as appropriate to a performed exam including Automatic Exposure control.
--- NOTE | 2017-04-12 13:19 | Neurology Progress Note ---
Interim History Interim History ROS Limited/Unobtainable: Yes Complaints: mute Events: more responsive Objective Physical Exam Last Vital Signs Date Time Temp Pulse Resp B/P Pulse Ox O2 Delivery O2 Flow Rate FiO2 04/12/17 12:37 96.8 92 19 136/73 95 Room Air 04/12/17 07:43 21 Laboratory Tests Test 04/12/17 05:00 White Blood Count 6.2 K/UL (4.8-10.8) Red Blood Count 2.78 M/UL (4.70-6.10) L Hemoglobin 9.7 G/DL (14.2-18.0) L Hematocrit 27.4 % (42.0-52.0) L Mean Corpuscular Volume 98 FL (80-99) Mean Corpuscular Hemoglobin 35.0 PG (27.0-31.0) H Mean Corpuscular Hemoglobin Concent 35.5 G/DL (32.0-36.0) Red Cell Distribution Width 13.7 % (11.6-14.8) Platelet Count 127 K/UL (150-450) L Mean Platelet Volume 4.8 FL (6.5-10.1) L Neutrophils (%) (Auto) 47.7 % (45.0-75.0) Lymphocytes (%) (Auto) 33.7 % (20.0-45.0) Monocytes (%) (Auto) 13.9 % (1.0-10.0) H Eosinophils (%) (Auto) 3.4 % (0.0-3.0) H Basophils (%) (Auto) 1.4 % (0.0-2.0) Sodium Level 137 mEQ/L (135-145) Potassium Level 3.1 mEQ/L (3.4-4.9) L Chloride Level 101 mEQ/L (98-107) Carbon Dioxide Level 27 mEQ/L (20-30) Anion Gap 9 (5-15) Blood Urea Nitrogen 11 mg/dL (7-23) Creatinine 1.1 mg/dL (0.7-1.2) Estimat Glomerular Filtration Rate mL/min (>60) Glucose Level 156 mg/dL (74-106) H Calcium Level 8.0 mg/dL (8.6-10.2) L Carcinoembryonic Antigen 4.1 ng/mL H Thyroid Stimulating Hormone (TSH) 5.550 uIU/mL (0.300-4.500) Free Thyroxine 1.42 ng/dL (0.86-1.85) Random Vancomycin Level 21.8 ug/mL General: well developed, no acute distress, other - obese Head: normocophalic, atraumatic Neck: other - rigid Neurologic Exam Mental Status: awake, other - mute not able to folloe command Speech: other - nonverbal Language: other Cranial Nerve II: visual candelaria, no papilledema Cranial Nerves III, IV, : PERRLA, EOMI Cranial Nerve V: normal facial sensations Cranial Nerve VII: other - L face droop Cranial Nerve VIII: normal hearing, no nystagmus Cranial Nerve IX: normal palate elevation, gag response Cranial Nerve X: no voice hoarseness Cranial Nerve XI: SCM symmetric, trapezii function normal Cranial Nerve XII: tongue midline, no tongue atrophy/fasciculations Motor System: other - diffuse rigidity L>R, foot drop Sensory: other Coordination: other Deep Tendon Reflexes: 0 ankle (L), 0 ankle (R), 0 bicep (L), 0 bicep (R), 0 brachioradialis (L), 0 brachioradialis (R), 0 knee (L), 0 knee (R), 0 tricep (L) , 0 tricep (R) Reflexes: mute plantar (L), mute plantar (R) Impression/Recommendations Problems: (1) acute R cerebellar stroke, ischemic (2) s/p multiple old strokes with mutism, expressive aphasia, dementia, quadrparesis. (3) Morbid obesity (4) 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 (5) HTN (hypertension) (6) Diabetes mellitus Status: stable, progressing, tolerating diet Recommendations # [id number] pt/ot cont present rx LUDIVINA ARELLANO Apr 12, 2017 13:19
--- NOTE | 2017-04-12 13:27 | General Progress Note ---
Assessment/Plan Problem List: (1) Morbid obesity ICD Codes: E66.01 - Morbid (severe) obesity due to excess calories SNOMED: 265350529, 43888849999125 (2) Cerebrovascular accident (CVA) ICD Codes: I63.9 - Cerebral infarction, unspecified SNOMED: 445250849 (3) Diabetes mellitus ICD Codes: E11.9 - Type 2 diabetes mellitus without complications SNOMED: 03035928 (4) Open wound of heel ICD Codes: S91.309A - Unspecified open wound, unspecified foot, initial encounter SNOMED: 307058993 (5) Cellulitis of lower extremity ICD Codes: L03.119 - Cellulitis of unspecified part of limb SNOMED: 743740845 (6) UTI (urinary tract infection) ICD Codes: N39.0 - Urinary tract infection, site not specified SNOMED: 21886459 (7) Sepsis ICD Codes: A41.9 - Sepsis, unspecified organism SNOMED: 80760095 (8) COPD (chronic obstructive pulmonary disease) ICD Codes: J44.9 - Chronic obstructive pulmonary disease, unspecified SNOMED: 64673091 (9) ISMAEL (obstructive sleep apnea) ICD Codes: G47.33 - Obstructive sleep apnea (adult) (pediatric) SNOMED: 89899289 Status: stable, progressing, tolerating diet Assessment/Plan ot pt diet wound care eval abx cbc bmp am rosas promise eval Subjective Constitutional: Reports: weakness Allergies: Coded Allergies: No Known Allergies (Unverified , 05/11/16) All Systems: reviewed and negative except above Subjective sleepy calm Objective Last 24 Hour Vital Signs Date Time Temp Pulse Resp B/P Pulse Ox O2 Delivery O2 Flow Rate FiO2 04/12/17 12:37 96.8 92 19 136/73 95 Room Air 04/12/17 08:36 97.3 84 19 116/58 95 Room Air 04/12/17 07:43 92 18 Room Air 21 04/12/17 04:31 89 18 109/58 97 Room Air 04/12/17 04:07 98.7 87 19 89/45 95 Room Air 04/12/17 00:17 98.7 93 19 103/58 95 Room Air 04/11/17 21:39 98.0 04/11/17 20:34 98.0 97 19 115/72 95 Room Air 04/11/17 19:20 97 18 Room Air 21 04/11/17 16:08 98.1 99 18 131/62 97 Room Air Intake and Output 04/11/17 04/12/17 19:00 07:00 Intake Total 630 ml 800 ml Output Total 400 ml 350 ml Balance 230 ml 450 ml Intake IV Total 630 ml 800 ml Output Urine Total 400 ml 350 ml # Voids 1 Laboratory Tests 04/12/17 05:00: White Blood Count 6.2, Red Blood Count 2.78L, Hemoglobin 9.7L, Hematocrit 27.4L , Mean Corpuscular Volume 98, Mean Corpuscular Hemoglobin 35.0H, Mean Corpuscular Hemoglobin Concent 35.5, Red Cell Distribution Width 13.7, Platelet Count 127L, Mean Platelet Volume 4.8L, Neutrophils (%) (Auto) 47.7, Lymphocytes (%) (Auto) 33.7, Monocytes (%) (Auto) 13.9H, Eosinophils (%) (Auto) 3.4H, Basophils (%) (Auto) 1.4, Sodium Level 137, Potassium Level 3.1L, Chloride Level 101, Carbon Dioxide Level 27, Anion Gap 9, Blood Urea Nitrogen 11, Creatinine 1.1, Estimat Glomerular Filtration Rate , Glucose Level 156H, Calcium Level 8.0L, Carcinoembryonic Antigen 4.1H, Thyroid Stimulating Hormone ( TSH) 5.550H, Free Thyroxine 1.42, Random Vancomycin Level 21.8 Height (Feet): 6 Height (Inches): 0.00 Weight (Pounds): 180 General Appearance: lethargic EENT: normal ENT inspection Neck: normal alignment Cardiovascular: normal peripheral pulses, normal rate Respiratory/Chest: chest wall non-tender, lungs clear, normal breath sounds Abdomen: normal bowel sounds, non tender, soft Extremities: normal inspection Edema: no edema noted Arm (L), no edema noted Arm (R), no edema noted Leg (L), no edema noted Leg (R), no edema noted Pedal (L), no edema noted Pedal (R), no edema noted Generalized Neurologic: motor weakness Skin: normal pigmentation, warm/dry LINDA BOLAÑOS Apr 12, 2017 13:27
[2017-04-12] MEDS ORDERED: Lidocaine 1% Plain 30 ml INJ ONE (14:00)
[2017-04-12] MEDS ORDERED: Dyna-Hex 2% Top Sol 8oz TOPIC SCH (14:00)
[2017-04-12] MEDS ORDERED: Heparin 2000 units/Ns 1000ml INJ ONE (14:00)
--- NOTE | 2017-04-12 14:34 | GI Progress Note ---
Assessment/Plan Problems: (1) Altered mental state ICD Codes: R41.82 - Altered mental status, unspecified SNOMED: 333715502 (2) Anemia ICD Codes: D64.9 - Anemia, unspecified SNOMED: 289944393 (3) Morbid obesity ICD Codes: E66.01 - Morbid (severe) obesity due to excess calories SNOMED: 875928336, 63426967683743 (4) Diabetes mellitus ICD Codes: E11.9 - Type 2 diabetes mellitus without complications SNOMED: 46569071 Status: unchanged Status Narrative Discussed with Dr. Solorzano. Assessment/Plan NPO + IVFs fu ST evaluation >> pt not alert to participate, cont non oral feedings - insert NGT, GTFs per dietary OB stool r/o GI bleed H2B fu labs pt on plavix >> this must be discontinued x 48 hours prior any endoscopic procedures outpatient GI procedures Subjective Subjective limited Objective Last 24 Hour Vital Signs Date Time Temp Pulse Resp B/P Pulse Ox O2 Delivery O2 Flow Rate FiO2 04/12/17 12:37 96.8 92 19 136/73 95 Room Air 04/12/17 08:36 97.3 84 19 116/58 95 Room Air 04/12/17 07:43 92 18 Room Air 21 04/12/17 04:31 89 18 109/58 97 Room Air 04/12/17 04:07 98.7 87 19 89/45 95 Room Air 04/12/17 00:17 98.7 93 19 103/58 95 Room Air 04/11/17 21:39 98.0 04/11/17 20:34 98.0 97 19 115/72 95 Room Air 04/11/17 19:20 97 18 Room Air 21 04/11/17 16:08 98.1 99 18 131/62 97 Room Air Intake and Output 04/11/17 04/12/17 19:00 07:00 Intake Total 630 ml 800 ml Output Total 400 ml 350 ml Balance 230 ml 450 ml Intake IV Total 630 ml 800 ml Output Urine Total 400 ml 350 ml # Voids 1 Laboratory Tests Test 04/12/17 05:00 White Blood Count 6.2 K/UL (4.8-10.8) Red Blood Count 2.78 M/UL (4.70-6.10) L Hemoglobin 9.7 G/DL (14.2-18.0) L Hematocrit 27.4 % (42.0-52.0) L Mean Corpuscular Volume 98 FL (80-99) Mean Corpuscular Hemoglobin 35.0 PG (27.0-31.0) H Mean Corpuscular Hemoglobin Concent 35.5 G/DL (32.0-36.0) Red Cell Distribution Width 13.7 % (11.6-14.8) Platelet Count 127 K/UL (150-450) L Mean Platelet Volume 4.8 FL (6.5-10.1) L Neutrophils (%) (Auto) 47.7 % (45.0-75.0) Lymphocytes (%) (Auto) 33.7 % (20.0-45.0) Monocytes (%) (Auto) 13.9 % (1.0-10.0) H Eosinophils (%) (Auto) 3.4 % (0.0-3.0) H Basophils (%) (Auto) 1.4 % (0.0-2.0) Sodium Level 137 mEQ/L (135-145) Potassium Level 3.1 mEQ/L (3.4-4.9) L Chloride Level 101 mEQ/L (98-107) Carbon Dioxide Level 27 mEQ/L (20-30) Anion Gap 9 (5-15) Blood Urea Nitrogen 11 mg/dL (7-23) Creatinine 1.1 mg/dL (0.7-1.2) Estimat Glomerular Filtration Rate mL/min (>60) Glucose Level 156 mg/dL (74-106) H Calcium Level 8.0 mg/dL (8.6-10.2) L Carcinoembryonic Antigen 4.1 ng/mL H Thyroid Stimulating Hormone (TSH) 5.550 uIU/mL (0.300-4.500) Free Thyroxine 1.42 ng/dL (0.86-1.85) Random Vancomycin Level 21.8 ug/mL Height (Feet): 6 Height (Inches): 0.00 Weight (Pounds): 180 General Appearance: no apparent distress, alert Cardiovascular: normal rate Respiratory/Chest: normal breath sounds, no respiratory distress Abdominal Exam: normal bowel sounds, non tender Sho Lopez N.P. Apr 12, 2017 14:34
--- NOTE | 2017-04-12 15:16 | Infectious Diseases Prog Note ---
Assessment/Plan Problems: (1) Open wound of heel Assessment & Plan: with infection, and underlying osteomyelitis , wound culture is growing gram negative rods and staph aureus , blood culture is negative , will continue vancomycin, cefepiem and flagyl for 6 weeks for osteomyelitis (2) Osteomyelitis of ankle Assessment & Plan: confirmed on MRI of the right ankle , await blood culture, continue wide spectrum antibiotics for 6 weeks, await wound culture result (3) Diabetes mellitus Assessment & Plan: recommend tight glycemic control to keep blood glucose between 80-120 (4) Sepsis Assessment & Plan: due to the above, on wide spectrum antibiotics, send blood culture (5) UTI (urinary tract infection) Assessment & Plan: with E coli, already on cefepime Subjective ROS Limited/Unobtainable: Yes Allergies: Coded Allergies: No Known Allergies (Unverified , 05/11/16) Subjective he was screaming and confused , dosen't follow commands.afebrile Objective Vital Signs Last 24 Hour Vital Signs Date Time Temp Pulse Resp B/P Pulse Ox O2 Delivery O2 Flow Rate FiO2 04/12/17 12:37 96.8 92 19 136/73 95 Room Air 04/12/17 08:36 97.3 84 19 116/58 95 Room Air 04/12/17 07:43 92 18 Room Air 21 04/12/17 04:31 89 18 109/58 97 Room Air 04/12/17 04:07 98.7 87 19 89/45 95 Room Air 04/12/17 00:17 98.7 93 19 103/58 95 Room Air 04/11/17 21:39 98.0 04/11/17 20:34 98.0 97 19 115/72 95 Room Air 04/11/17 19:20 97 18 Room Air 21 04/11/17 16:08 98.1 99 18 131/62 97 Room Air Height (Feet): 6 Height (Inches): 0.00 Weight (Pounds): 180 General Appearance: WD/WN, no acute distress HEENT: normocephalic, atraumatic, anicteric, mucous membranes moist Respiratory/Chest: chest wall non-tender, lungs clear, normal breath sounds, no respiratory distress, decreased breath sounds Cardiovascular: normal peripheral pulses, normal rate, regular rhythm, no gallop/murmur Abdomen: normal bowel sounds, soft, non tender, no organomegaly, non distended , no mass Extremities: no cyanosis, no clubbing Skin: no rash, no lesions, ulcers Neurologic/Psychiatric: alert, disoriented, unresponsiveness, depressed affect Microbiology Date/Time Source Procedure Growth Status 04/09/17 23:00 Wound Gram Stain - Final Resulted 04/09/17 23:00 Wound Culture - Preliminary Gram Negative Bacillus 1 Gram Negative Bacillus 2 Staphylococcus Aureus Diphtheroids Resulted Laboratory Tests Test 04/12/17 05:00 White Blood Count 6.2 K/UL (4.8-10.8) Red Blood Count 2.78 M/UL (4.70-6.10) L Hemoglobin 9.7 G/DL (14.2-18.0) L Hematocrit 27.4 % (42.0-52.0) L Mean Corpuscular Volume 98 FL (80-99) Mean Corpuscular Hemoglobin 35.0 PG (27.0-31.0) H Mean Corpuscular Hemoglobin Concent 35.5 G/DL (32.0-36.0) Red Cell Distribution Width 13.7 % (11.6-14.8) Platelet Count 127 K/UL (150-450) L Mean Platelet Volume 4.8 FL (6.5-10.1) L Neutrophils (%) (Auto) 47.7 % (45.0-75.0) Lymphocytes (%) (Auto) 33.7 % (20.0-45.0) Monocytes (%) (Auto) 13.9 % (1.0-10.0) H Eosinophils (%) (Auto) 3.4 % (0.0-3.0) H Basophils (%) (Auto) 1.4 % (0.0-2.0) Sodium Level 137 mEQ/L (135-145) Potassium Level 3.1 mEQ/L (3.4-4.9) L Chloride Level 101 mEQ/L (98-107) Carbon Dioxide Level 27 mEQ/L (20-30) Anion Gap 9 (5-15) Blood Urea Nitrogen 11 mg/dL (7-23) Creatinine 1.1 mg/dL (0.7-1.2) Estimat Glomerular Filtration Rate mL/min (>60) Glucose Level 156 mg/dL (74-106) H Calcium Level 8.0 mg/dL (8.6-10.2) L Carcinoembryonic Antigen 4.1 ng/mL H Thyroid Stimulating Hormone (TSH) 5.550 uIU/mL (0.300-4.500) Free Thyroxine 1.42 ng/dL (0.86-1.85) Random Vancomycin Level 21.8 ug/mL Current Medications Medications (Trade) Dose Ordered Sig/Naveen Route PRN Reason Start Time Stop Time Status Last Admin Dose Admin Acetaminophen (Tylenol) 650 mg Q4H PRN ORAL fever 04/10/17 15:15 05/10/17 15:14 Al Hydroxide/Mg Hydroxide (Mylanta II) 30 ml Q6H PRN ORAL dyspepsia 04/10/17 15:15 05/10/17 15:14 Albuterol/ Ipratropium (DuoNeb 0.5-3(2.5)mg/3ml) 3 ml Q4H PRN HHN Shortness of Breath 04/10/17 15:45 04/15/17 15:44 Cefepime HCl 2 gm/ Dextrose 110 ml @ 220 mls/hr Q12HR@0600,1800 IVPB 04/10/17 18:00 04/17/17 17:59 04/12/17 05:15 Chlorhexidine Gluconate 1 applic 1 applic DAILY TOPIC 04/12/17 14:00 05/12/17 13:59 Clonidine HCl (Catapres) 0.1 mg Q6H PRN ORAL sbp above 160 04/10/17 14:15 05/10/17 14:14 Clopidogrel Bisulfate (Plavix) 75 mg DAILY ORAL 04/11/17 09:00 05/11/17 08:59 Dextrose (Dextrose 50%) STAT PRN IV Hypoglycemia 04/10/17 15:00 05/10/17 14:59 Dextrose/Sodium Chloride (D5 0.45% NS) 1,000 ml @ 60 mls/hr [id number] IV 04/10/17 15:45 05/10/17 15:44 04/12/17 01:32 Escitalopram Oxalate (Lexapro) 10 mg DAILY ORAL 04/12/17 09:00 04/12/17 16:37 Gabapentin (Neurontin) 300 mg BEDTIME ORAL 04/11/17 21:00 05/11/17 20:59 Heparin Sodium (Porcine) (Heparin 5000 units/ml) 5,000 units EVERY 12 HOURS SUBQ 04/10/17 21:00 05/10/17 20:59 04/11/17 21:06 Insulin Aspart (NovoLOG) BEFORE MEALS AND HS SUBQ 04/10/17 16:30 05/10/17 16:29 04/12/17 06:03 Lactulose (Cephulac) 20 gm TID ORAL 04/10/17 18:00 05/10/17 17:59 Levetiracetam (Keppra) 500 mg Q12HR ORAL 04/11/17 21:00 05/11/17 20:59 Lorazepam (Ativan 2mg/ml 1ml) 0.5 mg Q4H PRN IV For Anxiety 04/10/17 15:15 04/17/17 15:14 04/12/17 01:38 Metronidazole (Flagyl) 100 ml @ 100 mls/hr Q8HR IVPB 04/10/17 16:00 04/17/17 15:59 04/12/17 13:18 Mirtazapine 7.5 mg 7.5 mg BEDTIME ORAL 04/11/17 21:00 05/11/17 20:59 Morphine Sulfate (Morphine Sulfate) 1 mg Q4H PRN IVP Moderate to Severe Pain 04/10/17 14:30 04/17/17 14:29 04/11/17 21:09 Ondansetron HCl (Zofran) 4 mg Q6H PRN IVP Nausea & Vomiting 04/10/17 15:15 05/10/17 15:14 Polyethylene Glycol (Miralax) 17 gm HSPRN PRN ORAL Constipation 04/10/17 15:15 05/10/17 15:14 Potassium Chloride (KCl 10mEq/100ml Premix) 100 ml @ 100 mls/hr Q1H IVPB 04/12/17 14:30 04/12/17 16:29 Vancomycin HCl (Vanco rx to dose) 1 ea DAILY PRN MISC Per rx protocol 04/10/17 15:14 05/10/17 15:13 Vancomycin HCl/ Dextrose (Vancomycin/D5W) 275 ml @ 183.708 mls/hr Q12HR@0600,1800 IVPB 04/13/17 06:00 04/18/17 05:59 Zolpidem Tartrate 5 mg 5 mg HSPRN PRN ORAL Insomnia Unrelieved 04/10/17 15:15 05/10/17 15:14 Valery Nicholas M.D. Apr 12, 2017 15:16
--- NOTE | 2017-04-12 19:13 | Pulmonology Progress Note ---
Assessment/Plan Problems: (1) Sepsis (2) Osteomyelitis of ankle (3) COPD (chronic obstructive pulmonary disease) (4) Dementia arising in the senium and presenium (5) History of CVA (cerebrovascular accident) Assessment/Plan Respiratory treatment IV antibiotics f/u cultures dvt prophylaxis all notes and meds reviewed dc planning Subjective ROS Limited/Unobtainable: No Constitutional: Reports: no symptoms HEENT: Repors: no symptoms Respiratory: Reports: no symptoms Cardiovascular: Reports: no symptoms Allergies: Coded Allergies: No Known Allergies (Unverified , 05/11/16) Objective Last 24 Hour Vital Signs Date Time Temp Pulse Resp B/P Pulse Ox O2 Delivery O2 Flow Rate FiO2 04/12/17 16:26 97.0 96 21 154/73 95 Room Air 04/12/17 12:37 96.8 92 19 136/73 95 Room Air 04/12/17 08:36 97.3 84 19 116/58 95 Room Air 04/12/17 07:43 92 18 Room Air 21 04/12/17 04:31 89 18 109/58 97 Room Air 04/12/17 04:07 98.7 87 19 89/45 95 Room Air 04/12/17 00:17 98.7 93 19 103/58 95 Room Air 04/11/17 21:39 98.0 04/11/17 20:34 98.0 97 19 115/72 95 Room Air 04/11/17 19:20 97 18 Room Air 21 Intake and Output 04/11/17 04/12/17 19:00 07:00 Intake Total 630 ml 800 ml Output Total 400 ml 350 ml Balance 230 ml 450 ml Intake IV Total 630 ml 800 ml Output Urine Total 400 ml 350 ml # Voids 1 General Appearance: WD/WN HEENT: normocephalic, atraumatic Respiratory/Chest: chest wall non-tender, lungs clear Cardiovascular: normal peripheral pulses, normal rate Abdomen: normal bowel sounds, no organomegaly Genitourinary: normal external genitalia Extremities: no cyanosis Microbiology Date/Time Source Procedure Growth Status 04/09/17 23:00 Wound Gram Stain - Final Resulted 04/09/17 23:00 Wound Culture - Preliminary Gram Negative Bacillus 1 Gram Negative Bacillus 2 Staphylococcus Aureus Diphtheroids Resulted Laboratory Tests 04/12/17 05:00: White Blood Count 6.2, Red Blood Count 2.78L, Hemoglobin 9.7L, Hematocrit 27.4L , Mean Corpuscular Volume 98, Mean Corpuscular Hemoglobin 35.0H, Mean Corpuscular Hemoglobin Concent 35.5, Red Cell Distribution Width 13.7, Platelet Count 127L, Mean Platelet Volume 4.8L, Neutrophils (%) (Auto) 47.7, Lymphocytes (%) (Auto) 33.7, Monocytes (%) (Auto) 13.9H, Eosinophils (%) (Auto) 3.4H, Basophils (%) (Auto) 1.4, Sodium Level 137, Potassium Level 3.1L, Chloride Level 101, Carbon Dioxide Level 27, Anion Gap 9, Blood Urea Nitrogen 11, Creatinine 1.1, Estimat Glomerular Filtration Rate , Glucose Level 156H, Calcium Level 8.0L, Carcinoembryonic Antigen 4.1H, Thyroid Stimulating Hormone ( TSH) 5.550H, Free Thyroxine 1.42, Random Vancomycin Level 21.8 Current Medications Medications (Trade) Dose Ordered Sig/Naveen Route PRN Reason Start Time Stop Time Status Last Admin Dose Admin Acetaminophen (Tylenol) 650 mg Q4H PRN ORAL fever 04/10/17 15:15 05/10/17 15:14 Al Hydroxide/Mg Hydroxide (Mylanta II) 30 ml Q6H PRN ORAL dyspepsia 04/10/17 15:15 05/10/17 15:14 Albuterol/ Ipratropium (DuoNeb 0.5-3(2.5)mg/3ml) 3 ml Q4H PRN HHN Shortness of Breath 04/10/17 15:45 04/15/17 15:44 Cefepime HCl 2 gm/ Dextrose 110 ml @ 220 mls/hr Q12HR@0600,1800 IVPB 04/10/17 18:00 04/17/17 17:59 04/12/17 18:30 Chlorhexidine Gluconate 1 applic 1 applic DAILY TOPIC 04/12/17 14:00 05/12/17 13:59 Clonidine HCl (Catapres) 0.1 mg Q6H PRN ORAL sbp above 160 04/10/17 14:15 05/10/17 14:14 Clopidogrel Bisulfate (Plavix) 75 mg DAILY ORAL 04/11/17 09:00 05/11/17 08:59 Dextrose (Dextrose 50%) STAT PRN IV Hypoglycemia 04/10/17 15:00 05/10/17 14:59 Dextrose/Sodium Chloride (D5 0.45% NS) 1,000 ml @ 60 mls/hr [id number] IV 04/10/17 15:45 05/10/17 15:44 04/12/17 01:32 Gabapentin (Neurontin) 300 mg BEDTIME ORAL 04/11/17 21:00 05/11/17 20:59 Heparin Sodium (Porcine) (Heparin 5000 units/ml) 5,000 units EVERY 12 HOURS SUBQ 04/10/17 21:00 05/10/17 20:59 04/11/17 21:06 Insulin Aspart (NovoLOG) BEFORE MEALS AND HS SUBQ 04/10/17 16:30 05/10/17 16:29 04/12/17 17:27 Lactulose (Cephulac) 20 gm TID ORAL 04/10/17 18:00 05/10/17 17:59 Levetiracetam (Keppra) 500 mg Q12HR ORAL 04/11/17 21:00 05/11/17 20:59 Lorazepam (Ativan 2mg/ml 1ml) 0.5 mg Q4H PRN IV For Anxiety 04/10/17 15:15 04/17/17 15:14 04/12/17 01:38 Metronidazole (Flagyl) 100 ml @ 100 mls/hr Q8HR IVPB 04/10/17 16:00 04/17/17 15:59 04/12/17 13:18 Mirtazapine 7.5 mg 7.5 mg BEDTIME ORAL 04/11/17 21:00 05/11/17 20:59 Morphine Sulfate (Morphine Sulfate) 1 mg Q4H PRN IVP Moderate to Severe Pain 04/10/17 14:30 04/17/17 14:29 04/11/17 21:09 Ondansetron HCl (Zofran) 4 mg Q6H PRN IVP Nausea & Vomiting 04/10/17 15:15 05/10/17 15:14 Polyethylene Glycol (Miralax) 17 gm HSPRN PRN ORAL Constipation 04/10/17 15:15 05/10/17 15:14 Potassium Chloride 100 ml @ 100 mls/hr Q1H IVPB 04/12/17 17:15 04/12/17 19:14 04/12/17 17:21 Potassium Chloride (KCl 10mEq/100ml Premix) 100 ml @ 100 mls/hr Q1H IVPB 04/12/17 21:00 04/12/17 22:59 Vancomycin HCl (Vanco rx to dose) 1 ea DAILY PRN MISC Per rx protocol 04/10/17 15:14 05/10/17 15:13 Vancomycin HCl/ Dextrose (Vancomycin/D5W) 275 ml @ 183.708 mls/hr Q12HR@0600,1800 IVPB 04/13/17 06:00 04/18/17 05:59 Zolpidem Tartrate 5 mg 5 mg HSPRN PRN ORAL Insomnia Unrelieved 04/10/17 15:15 05/10/17 15:14 MEGAN LO Apr 12, 2017 19:13
--- NOTE | 2017-04-12 22:00 | Electroencephalogram ---
DATE OF PROCEDURE: 04/11/2017 ELECTROENCEPHALOGRAPHY REPORT REQUESTING PHYSICIAN: James Dugan D.O. READING PHYSICIAN: Romel Joya M.D. PROCEDURE PERFORMED: Electroencephalogram. HISTORY: This is a 76-year-old man with a history of multiple strokes and chronic seizure disorder, now maintained on Keppra, Risperdal, and Neurontin, treated for dementia, COPD, CHF, and diabetes, admitted for exacerbation of seizures. The patient is described as being stuporous, poorly cooperative, and grunting intermittently. TECHNIQUE: EEG was done using 18 electrodes placed scalp to scalp, scalp to ear montages according to 10/20 International System. Throughout the recording, most wakeful portions appears to be within the low voltage, poorly organized, mixture of 4 to 6 cycles per second generalized predominantly in frontal central area and delta transients, low voltage beta activities noted throughout. No significant amplitude asymmetry. No spike or wave activities noted. IMPRESSION: Abnormal EEG consistent with moderate diffuse slowing. COMMENT: Above abnormality indicate presence of cerebral and global dysfunction, which may relate to underlying toxic metabolic or diffuse structural abnormalities. Absence of paroxysmal event on a single recording does not rule out seizure disorder. Romel Joya M.D. DR: DENISE JOB#: [id number] CC:
[2017-04-13 04:16] VITALS: BP 138/73
[2017-04-13] MEDS: LORazepam Inj 2mg/ml 1ml IV PRN (04:21)
[2017-04-13] MEDS: Cefepime HCl 2 GM in D5W 110 ML IVPB SCH ×2 (04:51→17:24)
[2017-04-13] MEDS: metroNIDAZOLE 500mg 100 ML IVPB SCH ×3 (05:32→21:23)
[2017-04-13] MEDS: NovoLOG Insulin Flexpen SUBQ SCH ×4 (06:27→21:03)
[2017-04-13] MEDS: Vancomycin 1gm in D5W 275ml IVPB SCH ×2 (06:43→19:20)
[2017-04-13 07:26] LABS: BASOPHILS % (AUTO) 1.2 % (0.0-2.0); EOSINOPHILS % (AUTO) 2.4 % (0.0-3.0); LYMPHOCYTES % (AUTO) 24.3 % (20.0-45.0); MEAN CORPUSCULAR HEMOGLOBIN 33.7 PG (27.0-31.0); MEAN CORPUSCULAR HGB CONC 34.6 G/DL (32.0-36.0); MEAN CORPUSCULAR VOLUME 97 FL (80-99); MEAN PLATELET VOLUME 4.5 FL (6.5-10.1); MONOCYTES % (AUTO) 12.4 % (1.0-10.0); NEUTROPHILS % (AUTO) 59.8 % (45.0-75.0); PLATELET COUNT 142 K/UL (150-450); RED BLOOD COUNT 3.12 M/UL (4.70-6.10); RED CELL DISTRIBUTION WIDTH 13.6 % (11.6-14.8); WHITE BLOOD COUNT 6.8 K/UL (4.8-10.8)
[2017-04-13 07:47] LABS: ANION GAP 8 (5-15); CALCIUM 8.2 mg/dL (8.6-10.2); CARBON DIOXIDE 24 mEQ/L (20-30); CHLORIDE 102 mEQ/L (98-107); HEMOLYSIS 5; POTASSIUM 3.5 mEQ/L (3.4-4.9); SODIUM 134 mEQ/L (135-145)
--- NOTE | 2017-04-13 07:50 | Diagnostic Imaging Report ---
APPROVED REPORT CPT Code: 69499 Present Symptoms Lower Extremity Pain: Bilateral RIGHT LEG: Venous imaging reveals a patent deep venous system. There is no evidence of thrombus within the femoral and the popliteal segments. The greater saphenous vein is also within normal limits. Doppler indicates normal spontaneous flow within these segments.The calf veins were not imaged due to bandages. LEFT LEG: Venous imaging reveals a patent deep venous system. There is no evidence of thrombus within the femoral, popliteal or tibial segments. The greater saphenous vein is also within normal limits. Doppler indicates normal spontaneous flow within these segments.
[2017-04-13 07:57] VITALS: BP 125/65
[2017-04-13] MEDS: Heparin 5000 units/ml inj SUBQ SCH ×2 (09:00→21:00)
[2017-04-13] MEDS: Lactulose 20gm/30ml UDC ORAL SCH ×3 (09:54→18:00)
[2017-04-13] MEDS: Levemir Flexpen SUBQ SCH ×2 (09:55→21:02)
--- NOTE | 2017-04-13 10:55 | Podiatric Progress Note ---
Assessment/Plan Patient Oswaldo Trejo is a 76 year old male who was admitted on Apr 09, 2017 at 13:13 with right lower extremity ulcers Problems: (1) Osteomyelitis of right foot (2) Open wound of heel (3) Diabetes mellitus Assessment/Plan - Continue antibiotics per infectious disease specialist recommendations - Continue aggressive offloading - Daily dressing changes of the right heel with painting the area with betadine and covering with a dry dressing every day - Discontinue right leg wound dressing if the area continues to remain stable and without drainage Subjective Reason for consult Right lower extremity wounds Allergies: Coded Allergies: No Known Allergies (Unverified , 05/11/16) Subjective Patient is unable to communicate effectively. Per nursing staff there have been no overnight events. No nausea, vomiting, or fevers reported. Daily dressing changes are being performed Objective Exam Last 24 Hour Vital Signs Date Time Temp Pulse Resp B/P Pulse Ox O2 Delivery O2 Flow Rate FiO2 04/13/17 07:57 97.7 98 18 125/65 98 Room Air 04/13/17 07:34 99 18 Room Air 21 04/13/17 04:16 97.9 107 20 138/73 97 Room Air 04/12/17 23:47 98.1 108 18 141/71 98 Room Air 04/12/17 20:06 98.2 117 20 135/80 95 Room Air 04/12/17 19:15 85 18 Room Air 21 04/12/17 16:26 97.0 96 21 154/73 95 Room Air 04/12/17 12:37 96.8 92 19 136/73 95 Room Air Laboratory Tests Test 04/13/17 05:20 White Blood Count 6.8 K/UL (4.8-10.8) Red Blood Count 3.12 M/UL (4.70-6.10) L Hemoglobin 10.5 G/DL (14.2-18.0) L Hematocrit 30.4 % (42.0-52.0) L Mean Corpuscular Volume 97 FL (80-99) Mean Corpuscular Hemoglobin 33.7 PG (27.0-31.0) H Mean Corpuscular Hemoglobin Concent 34.6 G/DL (32.0-36.0) Red Cell Distribution Width 13.6 % (11.6-14.8) Platelet Count 142 K/UL (150-450) L Mean Platelet Volume 4.5 FL (6.5-10.1) L Neutrophils (%) (Auto) 59.8 % (45.0-75.0) Lymphocytes (%) (Auto) 24.3 % (20.0-45.0) Monocytes (%) (Auto) 12.4 % (1.0-10.0) H Eosinophils (%) (Auto) 2.4 % (0.0-3.0) Basophils (%) (Auto) 1.2 % (0.0-2.0) Sodium Level 134 mEQ/L (135-145) L Potassium Level 3.5 mEQ/L (3.4-4.9) Chloride Level 102 mEQ/L (98-107) Carbon Dioxide Level 24 mEQ/L (20-30) Anion Gap 8 (5-15) Blood Urea Nitrogen 12 mg/dL (7-23) Creatinine 1.0 mg/dL (0.7-1.2) Estimat Glomerular Filtration Rate mL/min (>60) Glucose Level 184 mg/dL (74-106) H Calcium Level 8.2 mg/dL (8.6-10.2) L Microbiology Date/Time Source Procedure Growth Status 04/09/17 12:35 Blood Blood Culture - Preliminary NO GROWTH AFTER 72 HOURS Resulted 04/09/17 23:00 Wound Gram Stain - Final Resulted 04/09/17 23:00 Wound Culture - Preliminary Escherichia Coli Morganella Morg Spp Morganii Staphylococcus Aureus Diphtheroids Resulted 04/09/17 15:03 Nasal Nares MRSA Culture - Final NO METHICILLIN RESISTANT STAPH AUREUS... Complete 04/09/17 12:45 Urine,Clean Catch Urine Culture - Final Escherichia Coli Complete 04/09/17 12:30 Rectum VRE Culture - Final Enterococcus Faecalis - Vre Complete Exam Narrative Right heel ulcer. Unable to determine depth. Mild serous drainage at the perimeter of the ulcer. Dark necrotic tissue at the base. Surrounding erythema and edema at the heel. Multiple areas of stable wound on the right leg. IMAGING: Procedure: MRI Right Foot WO Contrast Indication: Pain Technique: Right hindfoot/heel imaging utilizing multiplanar T1 fast spin-echo, proton and T2 fast spin-echo with fat saturation, and STIR. Comparison: None Findings: The study is significantly degraded by motion. There is bone marrow edema characterized by low T1/high T2 signal along the posterior plantar aspect of the calcaneus. There is a suggestion of cortical disruption but this is not well demonstrated. Plain film correlation is suggested. There is also T2 hyperintense edema within the adjacent subcutaneous fat. Please correlate for adjacent ulcer, which is much better appreciated on physical examination then on the MRI and if present increased is the positive predictive value of the bone marrow findings demonstrated currently. There is no abscess. Impression: Posterior plantar edema within the calcaneus with adjacent cellulitis. Please correlate clinically for presence of ulcer. Findings are suspicious for acute osteomyelitis. Significant imaged degradation due to motion Anthony Boothe DPM Apr 13, 2017 10:55
[2017-04-13 11:32] VITALS: BP 120/62
--- NOTE | 2017-04-13 12:30 | Consultation ---
DATE OF CONSULTATION: 04/13/2017 ENDOCRINOLOGY CONSULTATION CONSULTING PHYSICIAN: Glynn Greenwood M.D. REFERRING PHYSICIAN: James Dugan D.O. REASON FOR CONSULTATION: 1. Diabetes management. 2. Abnormal thyroid function. HISTORY OF PRESENT ILLNESS: The patient is a 76-year-old male, who resides at a residential facility. History is limited. Therefore, most of the information is obtained from the review of the chart and medical record and discussion with the RN. The patient is known to me from his previous admission to [facility] in August 2016 when he was admitted with hip cellulitis. He has underlying history of diabetes, has a history of CVA, and he is on G-tube feeding and diabetes managed by insulin. I was called to manage diabetes and also the patient was noted to have an elevated TSH. No history of hypothyroidism. PAST MEDICAL HISTORY: 1. Diabetes. 2. Dysphagia. 3. CVA. 4. COPD. 5. Obesity. 6. Hypertension. 7. Decubitus ulcer. 8. Hip cellulitis. 9. Paranoid schizophrenia. ALLERGY TO MEDICATIONS: None. SOCIAL HISTORY: The patient lives in a residential facility. No smoking. No alcohol. No drug use. REVIEW OF SYSTEMS: Unobtainable. LABORATORY VALUES: WBC 6.3, hemoglobin 9.7, hematocrit 27.4, and platelets of 127,000. Sed rate of 119. Sodium 137, potassium 3.1, chloride 101, bicarbonate 27, BUN 11, creatinine 1.1, A1c of 5.2, glucose of 156, and calcium 8. TSH 5.5 and free T4 is 1.42. PHYSICAL EXAMINATION: VITAL SIGNS: Blood pressure was 138/73, heart rate 107, temperature 97.9, and respiratory rate 20. HEENT: Pupils are equal and reactive to light. Sclerae are anicteric. NECK: No JVD. No thyromegaly. LUNGS: Clear. HEART: Regular rate and rhythm. ABDOMEN: Positive bowel sounds. Soft. G-tube noted. EXTREMITIES: Positive for edema. DIAGNOSES: 1. Diabetes, out of control. 2. Elevated TSH with normal free T4. 3. Chronic obstructive pulmonary disease. 4. Osteomyelitis of the ankle. 5. Sepsis. 6. Dementia. 7. History of cerebrovascular accident. DISCUSSION: Diabetes is out of control, I will add Levemir 4 units b.i.d., dosage will be adjusted to control. TSH is mildly elevated, which is most likely due to stateof illness and sick euthyroid. Free T4 is normal, therefore, I do not recommend to treat him with thyroid hormone. TSH will be repeated as an outpatient in four weeks. I will follow him during the hospital stay. Thank you, Dr. Dugan, for the courtesy of this consultation. Glynn Greenwood M.D. DR: ADRIANNE JOB#: [id number] CC: RAPHAEL
--- NOTE | 2017-04-13 12:30 | Consultation ---
DATE OF CONSULTATION: 04/11/2017 CONSULTING PHYSICIAN: Rogers Rubio M.D. TREATING ATTENDING PHYSICIAN: James Dugan D.O. HISTORY OF PRESENT ILLNESS: The patient is a 76-year-old male patient. He is from [facility]. The patient has history of paranoid schizophrenia. The patient has been weak, lethargic, altered mental status, and confusion . The patient is disorganized and confused. communicate. He is forgetful and requires redirection and reality orientation. The patient denies . PAST MEDICAL HISTORY: Includes a history of dementia, diabetes, CVA, COPD, obesity, and hypertension. ALLERGIES: The patient has no known drug allergies. SUBSTANCE USE HISTORY: There is no indication of alcohol use, illicit substance use, or smoking cigarettes. PAST PSYCHIATRIC HISTORY: The patient has a history of paranoid schizophrenia. The patient has been treated with psychotropic medications in the past. SOCIAL HISTORY: The patient is a 76-year-old male patient from [facility] facility financially sustained through Medicare and [employer]. MENTAL STATUS EXAMINATION: The patient is alert and oriented x2 to person and place. Mood is depressed. Affect is blunted. Thought process, disorganized. Thought content, confused. The patient has poor attention and concentration. Poor insight, judgment, and impulse control. Denies suicidal or homicidal thoughts of ideation. There is no indication of auditory or visual hallucinations at this time. DIAGNOSES: Alpine I Paranoid schizophrenia. Alpine II Deferred. Alpine III Per History and Physical. PLAN: This clinician assessed the patient, assessed the patient's mental status, provided the patient with reality orientation and supportive psychotherapy. Encouraging the patient to participate in treatment and milieu. Continue with medication management and behavioral management. This clinician has reviewed the patient's chart and discussed the treatment with the nursing staff. Rogers Rubio PsyD. DR: BENJAMÍN JOB#: [id number] CC:
--- NOTE | 2017-04-13 13:16 | GI Progress Note ---
Assessment/Plan Problems: (1) Altered mental state ICD Codes: R41.82 - Altered mental status, unspecified SNOMED: 138697060 (2) Anemia ICD Codes: D64.9 - Anemia, unspecified SNOMED: 117763366 (3) Morbid obesity ICD Codes: E66.01 - Morbid (severe) obesity due to excess calories SNOMED: 472939675, 65531663760530 (4) Diabetes mellitus ICD Codes: E11.9 - Type 2 diabetes mellitus without complications SNOMED: 48503647 Status: unchanged Status Narrative Discussed with Dr. Solorzano. Assessment/Plan PEG scheduled for Tuesday. plavix dc'd today >> this must be discontinued x 48 hours prior any endoscopic procedures. - cont NGTFs fu ST evaluation >> pt not alert to participate, cont non oral feedings NGTFs per dietary OB stool r/o GI bleed H2B fu labs Subjective Subjective limited Objective Last 24 Hour Vital Signs Date Time Temp Pulse Resp B/P Pulse Ox O2 Delivery O2 Flow Rate FiO2 04/13/17 11:32 97.7 95 19 120/62 99 Nasal Cannula 04/13/17 07:57 97.7 98 18 125/65 98 Room Air 04/13/17 07:34 99 18 Room Air 21 04/13/17 04:16 97.9 107 20 138/73 97 Room Air 04/12/17 23:47 98.1 108 18 141/71 98 Room Air 04/12/17 20:06 98.2 117 20 135/80 95 Room Air 04/12/17 19:15 85 18 Room Air 21 04/12/17 16:26 97.0 96 21 154/73 95 Room Air Intake and Output 04/12/17 04/13/17 19:00 07:00 Intake Total 100 ml 820 ml Output Total 250 ml 350 ml Balance -150 ml 470 ml Intake IV Total 100 ml 780 ml Tube Feeding 40 ml Output Urine Total 250 ml 350 ml Laboratory Tests Test 04/13/17 05:20 White Blood Count 6.8 K/UL (4.8-10.8) Red Blood Count 3.12 M/UL (4.70-6.10) L Hemoglobin 10.5 G/DL (14.2-18.0) L Hematocrit 30.4 % (42.0-52.0) L Mean Corpuscular Volume 97 FL (80-99) Mean Corpuscular Hemoglobin 33.7 PG (27.0-31.0) H Mean Corpuscular Hemoglobin Concent 34.6 G/DL (32.0-36.0) Red Cell Distribution Width 13.6 % (11.6-14.8) Platelet Count 142 K/UL (150-450) L Mean Platelet Volume 4.5 FL (6.5-10.1) L Neutrophils (%) (Auto) 59.8 % (45.0-75.0) Lymphocytes (%) (Auto) 24.3 % (20.0-45.0) Monocytes (%) (Auto) 12.4 % (1.0-10.0) H Eosinophils (%) (Auto) 2.4 % (0.0-3.0) Basophils (%) (Auto) 1.2 % (0.0-2.0) Sodium Level 134 mEQ/L (135-145) L Potassium Level 3.5 mEQ/L (3.4-4.9) Chloride Level 102 mEQ/L (98-107) Carbon Dioxide Level 24 mEQ/L (20-30) Anion Gap 8 (5-15) Blood Urea Nitrogen 12 mg/dL (7-23) Creatinine 1.0 mg/dL (0.7-1.2) Estimat Glomerular Filtration Rate mL/min (>60) Glucose Level 184 mg/dL (74-106) H Calcium Level 8.2 mg/dL (8.6-10.2) L Height (Feet): 6 Height (Inches): 0.00 Weight (Pounds): 180 General Appearance: no apparent distress, lethargic Cardiovascular: normal rate Respiratory/Chest: normal breath sounds Abdominal Exam: normal bowel sounds, non tender, soft, other - NGT Sho Lopez N.PDevi Apr 13, 2017 13:16
[2017-04-13] MEDS: D5 1/2NS 1,000 ML IV SCH (13:30)
--- NOTE | 2017-04-13 13:31 | Diagnostic Imaging Report ---
Indication: Status post nasogastric tube repositioning Technique: Supine view of the abdomen Comparison: 4 hours earlier Findings: Interim advancement of nasogastric tube, tip now projects at the level gastric antrum. Other findings are unchanged Impression: Improved and now satisfactory position of nasogastric tube
--- NOTE | 2017-04-13 13:32 | Diagnostic Imaging Report ---
Indication: NGT post nasogastric tube placement Technique: Supine view of the abdomen Comparison: none Findings: There is a nasogastric tube, tip of which projects just beyond the gastroesophageal junction, proximal port probably in the distal esophagus. Bowel gas pattern is unremarkable. There are right upper quadrant surgical clips. Impression: Malposition of nasogastric tube. Transcribed recommended This agrees with the preliminary interpretation provided overnight by Dr. Corona
--- NOTE | 2017-04-13 14:32 | General Progress Note ---
Assessment/Plan Problem List: (1) Morbid obesity ICD Codes: E66.01 - Morbid (severe) obesity due to excess calories SNOMED: 174607285, [id number] (2) Cerebrovascular accident (CVA) ICD Codes: I63.9 - Cerebral infarction, unspecified SNOMED: 795909011 (3) Diabetes mellitus ICD Codes: E11.9 - Type 2 diabetes mellitus without complications SNOMED: 26631635 (4) Open wound of heel ICD Codes: S91.309A - Unspecified open wound, unspecified foot, initial encounter SNOMED: 929853317 (5) Cellulitis of lower extremity ICD Codes: L03.119 - Cellulitis of unspecified part of limb SNOMED: 443712114 (6) UTI (urinary tract infection) ICD Codes: N39.0 - Urinary tract infection, site not specified SNOMED: 22337099 (7) Sepsis ICD Codes: A41.9 - Sepsis, unspecified organism SNOMED: 57063262 (8) COPD (chronic obstructive pulmonary disease) ICD Codes: J44.9 - Chronic obstructive pulmonary disease, unspecified SNOMED: 65360145 (9) ISMAEL (obstructive sleep apnea) ICD Codes: G47.33 - Obstructive sleep apnea (adult) (pediatric) SNOMED: 76980348 Status: unchanged Assessment/Plan ot pt diet wound care eval abx cbc bmp am gi eval Subjective Constitutional: Reports: weakness Allergies: Coded Allergies: No Known Allergies (Unverified , 05/11/16) All Systems: reviewed and negative except above Subjective sleepy calm ng in place Objective Last 24 Hour Vital Signs Date Time Temp Pulse Resp B/P Pulse Ox O2 Delivery O2 Flow Rate FiO2 04/13/17 11:32 97.7 95 19 120/62 99 Nasal Cannula 04/13/17 07:57 97.7 98 18 125/65 98 Room Air 04/13/17 07:34 99 18 Room Air 21 04/13/17 04:16 97.9 107 20 138/73 97 Room Air 04/12/17 23:47 98.1 108 18 141/71 98 Room Air 04/12/17 20:06 98.2 117 20 135/80 95 Room Air 04/12/17 19:15 85 18 Room Air 21 04/12/17 16:26 97.0 96 21 154/73 95 Room Air Intake and Output 04/12/17 04/13/17 19:00 07:00 Intake Total 100 ml 820 ml Output Total 250 ml 350 ml Balance -150 ml 470 ml Intake IV Total 100 ml 780 ml Tube Feeding 40 ml Output Urine Total 250 ml 350 ml Laboratory Tests 04/13/17 05:20: White Blood Count 6.8, Red Blood Count 3.12L, Hemoglobin 10.5L, Hematocrit 30.4L , Mean Corpuscular Volume 97, Mean Corpuscular Hemoglobin 33.7H, Mean Corpuscular Hemoglobin Concent 34.6, Red Cell Distribution Width 13.6, Platelet Count 142L, Mean Platelet Volume 4.5L, Neutrophils (%) (Auto) 59.8, Lymphocytes (%) (Auto) 24.3, Monocytes (%) (Auto) 12.4H, Eosinophils (%) (Auto) 2.4, Basophils (%) (Auto) 1.2, Sodium Level 134L, Potassium Level 3.5, Chloride Level 102, Carbon Dioxide Level 24, Anion Gap 8, Blood Urea Nitrogen 12, Creatinine 1.0, Estimat Glomerular Filtration Rate , Glucose Level 184H, Calcium Level 8.2L Height (Feet): 6 Height (Inches): 0.00 Weight (Pounds): 180 General Appearance: lethargic EENT: normal ENT inspection Neck: normal alignment Cardiovascular: normal peripheral pulses, normal rate, regular rhythm Respiratory/Chest: chest wall non-tender, lungs clear, normal breath sounds Abdomen: normal bowel sounds, non tender, soft Extremities: normal inspection Edema: no edema noted Arm (L), no edema noted Arm (R), no edema noted Leg (L), no edema noted Leg (R), no edema noted Pedal (L), no edema noted Pedal (R), no edema noted Generalized Neurologic: motor weakness Skin: normal pigmentation, warm/dry LINDA BOLAÑOS Apr 13, 2017 14:32
--- NOTE | 2017-04-13 15:22 | Infectious Diseases Prog Note ---
Assessment/Plan Problems: (1) Open wound of heel Assessment & Plan: with infection, and underlying osteomyelitis , wound culture is growing Morganella morgagnii, E coli, and staph aureus , blood culture is negative , will continue vancomycin, cefepiem and flagyl for 6 weeks for osteomyelitis, recommend bsa/aml compliance officer eval (2) Osteomyelitis of ankle Assessment & Plan: confirmed on MRI of the right ankle , await blood culture, continue wide spectrum antibiotics for 6 weeks, await wound culture result (3) Diabetes mellitus Assessment & Plan: recommend tight glycemic control to keep blood glucose between 80-120 (4) Sepsis Assessment & Plan: due to the above, on wide spectrum antibiotics, send blood culture (5) UTI (urinary tract infection) Assessment & Plan: with E coli, already on cefepime Subjective ROS Limited/Unobtainable: Yes Allergies: Coded Allergies: No Known Allergies (Unverified , 05/11/16) Subjective he was confused and altered , dosen't follow commands.afebrile Objective Vital Signs Last 24 Hour Vital Signs Date Time Temp Pulse Resp B/P Pulse Ox O2 Delivery O2 Flow Rate FiO2 04/13/17 11:32 97.7 95 19 120/62 99 Nasal Cannula 04/13/17 07:57 97.7 98 18 125/65 98 Room Air 04/13/17 07:34 99 18 Room Air 21 04/13/17 04:16 97.9 107 20 138/73 97 Room Air 04/12/17 23:47 98.1 108 18 141/71 98 Room Air 04/12/17 20:06 98.2 117 20 135/80 95 Room Air 04/12/17 19:15 85 18 Room Air 21 04/12/17 16:26 97.0 96 21 154/73 95 Room Air Height (Feet): 6 Height (Inches): 0.00 Weight (Pounds): 180 General Appearance: WD/WN, no acute distress HEENT: normocephalic, atraumatic, anicteric, mucous membranes moist Respiratory/Chest: chest wall non-tender, lungs clear, normal breath sounds, no respiratory distress, no accessory muscle use Cardiovascular: normal peripheral pulses, normal rate, regular rhythm, no gallop/murmur, no JVD Abdomen: normal bowel sounds, soft, non tender, no organomegaly, non distended , no mass, no scars Extremities: no cyanosis, no clubbing Skin: no rash, no lesions Lymphatic: no neck adenopathy Laboratory Tests Test 04/13/17 05:20 White Blood Count 6.8 K/UL (4.8-10.8) Red Blood Count 3.12 M/UL (4.70-6.10) L Hemoglobin 10.5 G/DL (14.2-18.0) L Hematocrit 30.4 % (42.0-52.0) L Mean Corpuscular Volume 97 FL (80-99) Mean Corpuscular Hemoglobin 33.7 PG (27.0-31.0) H Mean Corpuscular Hemoglobin Concent 34.6 G/DL (32.0-36.0) Red Cell Distribution Width 13.6 % (11.6-14.8) Platelet Count 142 K/UL (150-450) L Mean Platelet Volume 4.5 FL (6.5-10.1) L Neutrophils (%) (Auto) 59.8 % (45.0-75.0) Lymphocytes (%) (Auto) 24.3 % (20.0-45.0) Monocytes (%) (Auto) 12.4 % (1.0-10.0) H Eosinophils (%) (Auto) 2.4 % (0.0-3.0) Basophils (%) (Auto) 1.2 % (0.0-2.0) Sodium Level 134 mEQ/L (135-145) L Potassium Level 3.5 mEQ/L (3.4-4.9) Chloride Level 102 mEQ/L (98-107) Carbon Dioxide Level 24 mEQ/L (20-30) Anion Gap 8 (5-15) Blood Urea Nitrogen 12 mg/dL (7-23) Creatinine 1.0 mg/dL (0.7-1.2) Estimat Glomerular Filtration Rate mL/min (>60) Glucose Level 184 mg/dL (74-106) H Calcium Level 8.2 mg/dL (8.6-10.2) L Current Medications Medications (Trade) Dose Ordered Sig/Naveen Route PRN Reason Start Time Stop Time Status Last Admin Dose Admin Acetaminophen (Tylenol) 650 mg Q4H PRN ORAL fever 04/10/17 15:15 05/10/17 15:14 Al Hydroxide/Mg Hydroxide (Mylanta II) 30 ml Q6H PRN ORAL dyspepsia 04/10/17 15:15 05/10/17 15:14 Albuterol/ Ipratropium (DuoNeb 0.5-3(2.5)mg/3ml) 3 ml Q4H PRN HHN Shortness of Breath 04/10/17 15:45 04/15/17 15:44 Cefepime HCl 2 gm/ Dextrose 110 ml @ 220 mls/hr Q12HR@0600,1800 IVPB 04/10/17 18:00 04/17/17 17:59 04/13/17 04:51 Chlorhexidine Gluconate (Teodora-Hex 2%) 1 applic DAILY TOPIC 04/12/17 14:00 05/12/17 13:59 Clonidine HCl (Catapres) 0.1 mg Q6H PRN ORAL sbp above 160 04/10/17 14:15 05/10/17 14:14 Dextrose (Dextrose 50%) STAT PRN IV Hypoglycemia 04/13/17 06:45 05/13/17 06:44 Dextrose/Sodium Chloride (D5 0.45% NS) 1,000 ml @ 60 mls/hr [id number] IV 04/10/17 15:45 05/10/17 15:44 04/13/17 13:30 Gabapentin (Neurontin) 300 mg BEDTIME ORAL 04/11/17 21:00 05/11/17 20:59 Heparin Sodium (Porcine) (Heparin 5000 units/ml) 5,000 units EVERY 12 HOURS SUBQ 04/10/17 21:00 05/10/17 20:59 04/11/17 21:06 Insulin Aspart (NovoLOG) BEFORE MEALS AND HS SUBQ 04/10/17 16:30 05/10/17 16:29 04/13/17 12:12 Insulin Detemir (Levemir) 4 units Q12HR SUBQ 04/13/17 09:00 05/13/17 08:59 04/13/17 09:55 Lactulose (Cephulac) 20 gm TID ORAL 04/10/17 18:00 05/10/17 17:59 04/13/17 13:30 Levetiracetam (Keppra) 500 mg Q12HR ORAL 04/11/17 21:00 05/11/17 20:59 04/13/17 09:54 Lorazepam (Ativan 2mg/ml 1ml) 0.5 mg Q4H PRN IV For Anxiety 04/10/17 15:15 04/17/17 15:14 04/13/17 04:21 Metronidazole (Flagyl) 100 ml @ 100 mls/hr Q8HR IVPB 04/10/17 16:00 04/17/17 15:59 04/13/17 13:30 Mirtazapine 7.5 mg 7.5 mg BEDTIME ORAL 04/11/17 21:00 05/11/17 20:59 Morphine Sulfate (Morphine Sulfate) 1 mg Q4H PRN IVP Moderate to Severe Pain 04/10/17 14:30 04/17/17 14:29 04/11/17 21:09 Ondansetron HCl (Zofran) 4 mg Q6H PRN IVP Nausea & Vomiting 04/10/17 15:15 05/10/17 15:14 Polyethylene Glycol (Miralax) 17 gm HSPRN PRN ORAL Constipation 04/10/17 15:15 05/10/17 15:14 Vancomycin HCl (Vanco rx to dose) 1 ea DAILY PRN MISC Per rx protocol 04/10/17 15:14 05/10/17 15:13 Vancomycin HCl/ Dextrose (Vancomycin/D5W) 275 ml @ 183.708 mls/hr Q12HR@0600,1800 IVPB 04/13/17 06:00 04/18/17 05:59 04/13/17 06:43 Zolpidem Tartrate 5 mg 5 mg HSPRN PRN ORAL Insomnia Unrelieved 04/10/17 15:15 05/10/17 15:14 Valery Nicholas M.D. Apr 13, 2017 15:22
[2017-04-13 16:20] VITALS: BP 152/75
[2017-04-13] MEDS ORDERED: D5 1/2NS 1000ml IV ONE (17:11)
--- NOTE | 2017-04-13 17:11 | Cardiology Report ---
APPROVED REPORT EKG Measurement Heart [id number] Sinus tachycardia Inferior infarct, age undetermined Anteroseptal infarct, age undetermined Abnormal ECG
--- NOTE | 2017-04-13 18:08 | Pulmonology Progress Note ---
Assessment/Plan Problems: (1) Sepsis (2) Osteomyelitis of ankle (3) COPD (chronic obstructive pulmonary disease) (4) Dementia arising in the senium and presenium (5) History of CVA (cerebrovascular accident) Assessment/Plan improving Respiratory treatment IV antibiotics f/u cultures dvt prophylaxis all notes and meds reviewed dc planning Subjective ROS Limited/Unobtainable: Yes Allergies: Coded Allergies: No Known Allergies (Unverified , 05/11/16) Objective Last 24 Hour Vital Signs Date Time Temp Pulse Resp B/P Pulse Ox O2 Delivery O2 Flow Rate FiO2 04/13/17 16:20 97.9 101 19 152/75 98 Room Air 04/13/17 11:32 97.7 95 19 120/62 99 Nasal Cannula 04/13/17 07:57 97.7 98 18 125/65 98 Room Air 04/13/17 07:34 99 18 Room Air 21 04/13/17 04:16 97.9 107 20 138/73 97 Room Air 04/12/17 23:47 98.1 108 18 141/71 98 Room Air 04/12/17 20:06 98.2 117 20 135/80 95 Room Air 04/12/17 19:15 85 18 Room Air 21 Intake and Output 04/12/17 04/13/17 19:00 07:00 Intake Total 100 ml 820 ml Output Total 250 ml 350 ml Balance -150 ml 470 ml Intake IV Total 100 ml 780 ml Tube Feeding 40 ml Output Urine Total 250 ml 350 ml General Appearance: WD/WN HEENT: normocephalic, atraumatic Respiratory/Chest: chest wall non-tender, lungs clear Cardiovascular: normal peripheral pulses, normal rate Abdomen: normal bowel sounds, soft, non tender Genitourinary: normal external genitalia Extremities: no cyanosis Laboratory Tests 04/13/17 05:20: White Blood Count 6.8, Red Blood Count 3.12L, Hemoglobin 10.5L, Hematocrit 30.4L , Mean Corpuscular Volume 97, Mean Corpuscular Hemoglobin 33.7H, Mean Corpuscular Hemoglobin Concent 34.6, Red Cell Distribution Width 13.6, Platelet Count 142L, Mean Platelet Volume 4.5L, Neutrophils (%) (Auto) 59.8, Lymphocytes (%) (Auto) 24.3, Monocytes (%) (Auto) 12.4H, Eosinophils (%) (Auto) 2.4, Basophils (%) (Auto) 1.2, Sodium Level 134L, Potassium Level 3.5, Chloride Level 102, Carbon Dioxide Level 24, Anion Gap 8, Blood Urea Nitrogen 12, Creatinine 1.0, Estimat Glomerular Filtration Rate , Glucose Level 184H, Calcium Level 8.2L Current Medications Medications (Trade) Dose Ordered Sig/Naveen Route PRN Reason Start Time Stop Time Status Last Admin Dose Admin Acetaminophen (Tylenol) 650 mg Q4H PRN ORAL fever 04/10/17 15:15 05/10/17 15:14 Al Hydroxide/Mg Hydroxide (Mylanta II) 30 ml Q6H PRN ORAL dyspepsia 04/10/17 15:15 05/10/17 15:14 Albuterol/ Ipratropium (DuoNeb 0.5-3(2.5)mg/3ml) 3 ml Q4H PRN HHN Shortness of Breath 04/10/17 15:45 04/15/17 15:44 Cefepime HCl 2 gm/ Dextrose 110 ml @ 220 mls/hr Q12HR@0600,1800 IVPB 04/10/17 18:00 04/17/17 17:59 04/13/17 17:24 Chlorhexidine Gluconate (Teodora-Hex 2%) 1 applic DAILY TOPIC 04/12/17 14:00 05/12/17 13:59 Clonidine HCl (Catapres) 0.1 mg Q6H PRN ORAL sbp above 160 04/10/17 14:15 05/10/17 14:14 Dextrose (Dextrose 50%) STAT PRN IV Hypoglycemia 04/13/17 06:45 05/13/17 06:44 Dextrose/Sodium Chloride (D5 0.45% NS) 1,000 ml @ 60 mls/hr [id number] IV 04/10/17 15:45 05/10/17 15:44 04/13/17 13:30 Gabapentin (Neurontin) 300 mg BEDTIME ORAL 04/11/17 21:00 05/11/17 20:59 Heparin Sodium (Porcine) (Heparin 5000 units/ml) 5,000 units EVERY 12 HOURS SUBQ 04/10/17 21:00 05/10/17 20:59 04/11/17 21:06 Insulin Aspart (NovoLOG) BEFORE MEALS AND HS SUBQ 04/10/17 16:30 05/10/17 16:29 04/13/17 17:25 Insulin Detemir (Levemir) 4 units Q12HR SUBQ 04/13/17 09:00 05/13/17 08:59 04/13/17 09:55 Lactulose (Cephulac) 20 gm TID ORAL 04/10/17 18:00 05/10/17 17:59 04/13/17 13:30 Levetiracetam (Keppra) 500 mg Q12HR ORAL 04/11/17 21:00 05/11/17 20:59 04/13/17 09:54 Lorazepam (Ativan 2mg/ml 1ml) 0.5 mg Q4H PRN IV For Anxiety 04/10/17 15:15 04/17/17 15:14 04/13/17 04:21 Metronidazole (Flagyl) 100 ml @ 100 mls/hr Q8HR IVPB 04/10/17 16:00 04/17/17 15:59 04/13/17 13:30 Mirtazapine 7.5 mg 7.5 mg BEDTIME ORAL 04/11/17 21:00 05/11/17 20:59 Morphine Sulfate (Morphine Sulfate) 1 mg Q4H PRN IVP Moderate to Severe Pain 04/10/17 14:30 04/17/17 14:29 04/11/17 21:09 Ondansetron HCl (Zofran) 4 mg Q6H PRN IVP Nausea & Vomiting 04/10/17 15:15 05/10/17 15:14 Polyethylene Glycol (Miralax) 17 gm HSPRN PRN ORAL Constipation 04/10/17 15:15 05/10/17 15:14 Vancomycin HCl (Vanco rx to dose) 1 ea DAILY PRN MISC Per rx protocol 04/10/17 15:14 05/10/17 15:13 Vancomycin HCl/ Dextrose (Vancomycin/D5W) 275 ml @ 183.708 mls/hr Q12HR@0600,1800 IVPB 04/13/17 06:00 04/18/17 05:59 04/13/17 06:43 Zolpidem Tartrate 5 mg 5 mg HSPRN PRN ORAL Insomnia Unrelieved 04/10/17 15:15 05/10/17 15:14 MEGAN LO Apr 13, 2017 18:08
--- NOTE | 2017-04-13 18:17 | Wound Care Consultation ---
Wound Assessment Wound Assessment : Wound Number: #1 Wound Present on Admission: No New Wound: Yes Status Change of Wound: No Wound Location Body Site Modif: left Wound Location Body Site: buttocks Wound Type: pressure ulcer Cecilia Test: Does not Cecilia Pressure Ulcer Stage: deep tissue injury Wound Thickness: Full Thickness Wound Length: 5.0 Wound Width: 3.0 Wound Depth: utd Percent of Wound Purple/Maroon: 100 Wound Drainage Amount: None Wound Drainage Odor: None/Absent Tissue Surrounding Wound: Intact Wound General Appearance: Reddened Wound Comment #1 Left Buttock deep tissue injury. Recommendation. -Local wound care as ordered. -Turn and reposition. -Keep clean and dry. -Optimize nutrition. -Avoid shear and friction. -Low air loss overlay SPR. -Assess and notify MD for any further changes of condition. OTTO MOON Apr 13, 2017 18:17
[2017-04-13 20:33] VITALS: BP 145/88
[2017-04-14 00:23] VITALS: BP 120/59
[2017-04-14] MEDS: D5 1/2NS 1,000 ML IV SCH ×2 (03:05→19:45)
[2017-04-14 04:30] VITALS: BP 126/66
[2017-04-14] MEDS: Cefepime HCl 2 GM in D5W 110 ML IVPB SCH ×2 (05:00→18:06)
[2017-04-14] MEDS: metroNIDAZOLE 500mg 100 ML IVPB SCH ×3 (05:30→21:10)
[2017-04-14] MEDS: NovoLOG Insulin Flexpen SUBQ SCH ×4 (06:30→21:15)
[2017-04-14] MEDS: Vancomycin 1gm in D5W 275ml IVPB SCH ×2 (06:31→18:58)
--- NOTE | 2017-04-14 06:54 | General Progress Note ---
Assessment/Plan Problem List: (1) Diabetes mellitus out of control ICD Codes: E11.65 - Type 2 diabetes mellitus with hyperglycemia SNOMED: 37131053, 561550428 (2) Altered mental state ICD Codes: R41.82 - Altered mental status, unspecified SNOMED: 284024235 (3) Cerebrovascular accident (CVA) ICD Codes: I63.9 - Cerebral infarction, unspecified SNOMED: 964155342 (4) Osteomyelitis of ankle ICD Codes: M86.9 - Osteomyelitis, unspecified SNOMED: 787556656 Assessment/Plan increase Levemir to 6 units bid continue Novolog coverage Subjective ROS Limited/Unobtainable: Yes Allergies: Coded Allergies: No Known Allergies (Unverified , 05/11/16) Subjective events noted Objective Last 24 Hour Vital Signs Date Time Temp Pulse Resp B/P Pulse Ox O2 Delivery O2 Flow Rate FiO2 04/14/17 04:30 97.9 101 20 126/66 98 Room Air 04/14/17 00:23 98.4 104 18 120/59 98 Room Air 04/13/17 20:33 145/88 04/13/17 20:03 98.2 116 20 98 Room Air 04/13/17 19:47 92 18 Room Air 21 04/13/17 16:20 97.9 101 19 152/75 98 Room Air 04/13/17 11:32 97.7 95 19 120/62 99 Nasal Cannula 04/13/17 07:57 97.7 98 18 125/65 98 Room Air 04/13/17 07:34 99 18 Room Air 21 Intake and Output 04/13/17 04/14/17 19:00 07:00 Intake Total 620 ml 930 ml Output Total 600 ml 802 ml Balance 20 ml 128 ml Intake Free Water 200 ml IV Total 730 ml Tube Feeding 420 ml 200 ml Output Urine Total 600 ml 800 ml Stool Total 2 ml # Bowel Movements 1 2 Laboratory Tests 04/14/17 05:25: White Blood Count [Pending], Red Blood Count [Pending], Hemoglobin [Pending], Hematocrit [Pending], Mean Corpuscular Volume [Pending], Mean Corpuscular Hemoglobin [Pending], Mean Corpuscular Hemoglobin Concent [Pending], Red Cell Distribution Width [Pending], Platelet Count [Pending], Mean Platelet Volume [ Pending], Neutrophils (%) (Auto) [Pending], Lymphocytes (%) (Auto) [Pending], Monocytes (%) (Auto) [Pending], Eosinophils (%) (Auto) [Pending], Basophils (%) (Auto) [Pending], Prothrombin Time [Pending], Prothromb Time International Ratio [Pending], Activated Partial Thromboplast Time [Pending], Sodium Level [ Pending], Potassium Level [Pending], Chloride Level [Pending], Carbon Dioxide Level [Pending], Blood Urea Nitrogen [Pending], Creatinine [Pending], Estimat Glomerular Filtration Rate [Pending], Glucose Level [Pending], Calcium Level [ Pending], Phosphorus Level [Pending], Magnesium Level [Pending] Height (Feet): 6 Height (Inches): 0.00 Weight (Pounds): 180 General Appearance: no apparent distress Neck: normal alignment Cardiovascular: normal rate Respiratory/Chest: lungs clear Abdomen: normal bowel sounds Pelvis: normal external exam Edema: 1+ Arm (L), 1+ Arm (R), 1+ Leg (L), 1+ Leg (R), 1+ Pedal (L), 1+ Pedal ( R), 1+ Generalized Objective Current Medications Medications (Trade) Dose Ordered Sig/Naveen Route PRN Reason Start Time Stop Time Status Last Admin Dose Admin Acetaminophen (Tylenol) 650 mg Q4H PRN ORAL fever 04/10/17 15:15 05/10/17 15:14 Al Hydroxide/Mg Hydroxide (Mylanta II) 30 ml Q6H PRN ORAL dyspepsia 04/10/17 15:15 05/10/17 15:14 Albuterol/ Ipratropium (DuoNeb 0.5-3(2.5)mg/3ml) 3 ml Q4H PRN HHN Shortness of Breath 04/10/17 15:45 04/15/17 15:44 Cefepime HCl 2 gm/ Dextrose 110 ml @ 220 mls/hr Q12HR@0600,1800 IVPB 04/10/17 18:00 04/17/17 17:59 04/14/17 05:00 Chlorhexidine Gluconate (Teodora-Hex 2%) 1 applic DAILY TOPIC 04/12/17 14:00 05/12/17 13:59 Clonidine HCl (Catapres) 0.1 mg Q6H PRN ORAL sbp above 160 04/10/17 14:15 05/10/17 14:14 Dextrose (Dextrose 50%) STAT PRN IV Hypoglycemia 04/13/17 06:45 05/13/17 06:44 Dextrose/Sodium Chloride (D5 0.45% NS) 1,000 ml @ 60 mls/hr [id number] IV 04/10/17 15:45 05/10/17 15:44 04/13/17 13:30 Gabapentin (Neurontin) 300 mg BEDTIME ORAL 04/11/17 21:00 05/11/17 20:59 04/13/17 21:01 Heparin Sodium (Porcine) (Heparin 5000 units/ml) 5,000 units EVERY 12 HOURS SUBQ 04/10/17 21:00 05/10/17 20:59 04/11/17 21:06 Insulin Aspart (NovoLOG) BEFORE MEALS AND HS SUBQ 04/10/17 16:30 05/10/17 16:29 04/13/17 21:03 Insulin Detemir (Levemir) 4 units Q12HR SUBQ 04/13/17 09:00 05/13/17 08:59 04/13/17 21:02 Lactulose (Cephulac) 20 gm TID ORAL 04/10/17 18:00 05/10/17 17:59 04/13/17 13:30 Levetiracetam (Keppra) 500 mg Q12HR ORAL 04/11/17 21:00 05/11/17 20:59 04/13/17 21:01 Lorazepam (Ativan 2mg/ml 1ml) 0.5 mg Q4H PRN IV For Anxiety 04/10/17 15:15 04/17/17 15:14 04/13/17 04:21 Metronidazole (Flagyl) 100 ml @ 100 mls/hr Q8HR IVPB 04/10/17 16:00 04/17/17 15:59 04/14/17 05:30 Mirtazapine 7.5 mg 7.5 mg BEDTIME ORAL 04/11/17 21:00 05/11/17 20:59 04/13/17 21:01 Morphine Sulfate (Morphine Sulfate) 1 mg Q4H PRN IVP Moderate to Severe Pain 04/10/17 14:30 04/17/17 14:29 04/11/17 21:09 Ondansetron HCl (Zofran) 4 mg Q6H PRN IVP Nausea & Vomiting 04/10/17 15:15 05/10/17 15:14 Polyethylene Glycol (Miralax) 17 gm HSPRN PRN ORAL Constipation 04/10/17 15:15 05/10/17 15:14 Vancomycin HCl (Vanco rx to dose) 1 ea DAILY PRN MISC Per rx protocol 04/10/17 15:14 05/10/17 15:13 Vancomycin HCl/ Dextrose (Vancomycin/D5W) 275 ml @ 183.708 mls/hr Q12HR@0600,1800 IVPB 04/13/17 06:00 04/18/17 05:59 04/14/17 06:31 Zolpidem Tartrate 5 mg 5 mg HSPRN PRN ORAL Insomnia Unrelieved 04/10/17 15:15 05/10/17 15:14 Item Value Date Time Bedside Blood Glucose 157 mg/dl H 04/14/17 0630 Bedside Blood Glucose 193 mg/dl H 04/13/17 2103 Bedside Blood Glucose 164 mg/dl H 04/13/17 1725 Bedside Blood Glucose 201 mg/dl H 04/13/17 1212 Bedside Blood Glucose 208 mg/dl H 04/13/17 0955 Bedside Blood Glucose 208 mg/dl H 04/13/17 0627 FOREST LONGORIA Apr 14, 2017 06:54
--- NOTE | 2017-04-14 07:15 | Progress Note ---
DATE: 04/12/2017 PSYCHOTHERAPY CONSULTATION PROGRESS NOTE TREATING ATTENDING PHYSICIAN: James Dugan D.O. SUBJECTIVE: The patient is a 76-year-old male. He has been very confused, disorganized, altered in mental status, tired, fatigued and disorganized. He has had poor insight, poor judgement and impulse control requiring hospitalization for stabilization of his symptoms. This clinician is providing the patient with reality orientation, supportive psychotherapy and coping skills, encouraging the patient to participate in treatment milieu. Continue his medication management and behavioral management. This clinician has reviewed the patient's chart, discussed treatment with nursing staff. Rogers Rubio PsyD. DR: KENNETH JOB#: [id number] CC:
[2017-04-14 07:28] LABS: ANION GAP 10 (5-15); CALCIUM 8.4 mg/dL (8.6-10.2); CARBON DIOXIDE 24 mEQ/L (20-30); CHLORIDE 101 mEQ/L (98-107); CREATININE 0.9 mg/dL (0.7-1.2); HEMOLYSIS 12; MAGNESIUM 1.5 mg/dL (1.7-2.5); PHOSPHORUS 1.8 mg/dL (2.5-4.8); POTASSIUM 3.3 mEQ/L (3.4-4.9); SODIUM 135 mEQ/L (135-145)
[2017-04-14 07:32] LABS: BASOPHILS % (AUTO) 1.1 % (0.0-2.0); EOSINOPHILS % (AUTO) 4.9 % (0.0-3.0); LYMPHOCYTES % (AUTO) 28.6 % (20.0-45.0); MEAN CORPUSCULAR HEMOGLOBIN 33.6 PG (27.0-31.0); MEAN CORPUSCULAR HGB CONC 34.2 G/DL (32.0-36.0); MEAN CORPUSCULAR VOLUME 98 FL (80-99); MEAN PLATELET VOLUME 4.8 FL (6.5-10.1); MONOCYTES % (AUTO) 11.1 % (1.0-10.0); NEUTROPHILS % (AUTO) 54.4 % (45.0-75.0); PLATELET COUNT 151 K/UL (150-450); RED BLOOD COUNT 3.18 M/UL (4.70-6.10); WHITE BLOOD COUNT 7.9 K/UL (4.8-10.8)
[2017-04-14 07:44] VITALS: BP 114/62
[2017-04-14 07:44] LABS: INR 1.3 (0.9-1.1); PROTHROMBIN TIME 13.5 SEC (9.30-11.50)
[2017-04-14] MEDS: Levemir Flexpen SUBQ SCH ×2 (09:00→21:15)
[2017-04-14] MEDS: Heparin 5000 units/ml inj SUBQ SCH ×2 (09:00→21:00)
[2017-04-14] MEDS: Lactulose 20gm/30ml UDC ORAL SCH ×3 (09:00→17:59)
--- NOTE | 2017-04-14 11:46 | General Progress Note ---
Assessment/Plan Problem List: (1) Morbid obesity ICD Codes: E66.01 - Morbid (severe) obesity due to excess calories SNOMED: 531111196, [id number] (2) Cerebrovascular accident (CVA) ICD Codes: I63.9 - Cerebral infarction, unspecified SNOMED: 871430290 (3) Diabetes mellitus ICD Codes: E11.9 - Type 2 diabetes mellitus without complications SNOMED: 53382697 (4) Open wound of heel ICD Codes: S91.309A - Unspecified open wound, unspecified foot, initial encounter SNOMED: 648194005 (5) Cellulitis of lower extremity ICD Codes: L03.119 - Cellulitis of unspecified part of limb SNOMED: 514057447 (6) UTI (urinary tract infection) ICD Codes: N39.0 - Urinary tract infection, site not specified SNOMED: 26475914 (7) Sepsis ICD Codes: A41.9 - Sepsis, unspecified organism SNOMED: 47150825 (8) COPD (chronic obstructive pulmonary disease) ICD Codes: J44.9 - Chronic obstructive pulmonary disease, unspecified SNOMED: 00644331 (9) ISMAEL (obstructive sleep apnea) ICD Codes: G47.33 - Obstructive sleep apnea (adult) (pediatric) SNOMED: 69436612 Assessment/Plan ot pt diet wound care eval abx cbc bmp am gi eval pending peg Subjective Constitutional: Reports: weakness Allergies: Coded Allergies: No Known Allergies (Unverified , 05/11/16) All Systems: reviewed and negative except above Subjective sleepy calm ng in place Objective Last 24 Hour Vital Signs Date Time Temp Pulse Resp B/P Pulse Ox O2 Delivery O2 Flow Rate FiO2 04/14/17 07:44 97.9 98 19 114/62 98 Room Air 04/14/17 04:30 97.9 101 20 126/66 98 Room Air 04/14/17 00:23 98.4 104 18 120/59 98 Room Air 04/13/17 20:33 145/88 04/13/17 20:03 98.2 116 20 98 Room Air 04/13/17 19:47 92 18 Room Air 21 04/13/17 16:20 97.9 101 19 152/75 98 Room Air Intake and Output 04/13/17 04/14/17 19:00 07:00 Intake Total 620 ml 930 ml Output Total 600 ml 802 ml Balance 20 ml 128 ml Intake Free Water 200 ml IV Total 730 ml Tube Feeding 420 ml 200 ml Output Urine Total 600 ml 800 ml Stool Total 2 ml # Bowel Movements 1 2 Laboratory Tests 04/14/17 05:00: Stool Occult Blood Negative 04/14/17 05:25: White Blood Count 7.9, Red Blood Count 3.18L, Hemoglobin 10.7L, Hematocrit 31.2L , Mean Corpuscular Volume 98, Mean Corpuscular Hemoglobin 33.6H, Mean Corpuscular Hemoglobin Concent 34.2, Red Cell Distribution Width 14.0, Platelet Count 151, Mean Platelet Volume 4.8L, Neutrophils (%) (Auto) 54.4, Lymphocytes ( %) (Auto) 28.6, Monocytes (%) (Auto) 11.1H, Eosinophils (%) (Auto) 4.9H, Basophils (%) (Auto) 1.1, Prothrombin Time 13.5H, Prothromb Time International Ratio 1.3H, Activated Partial Thromboplast Time 34H, Sodium Level 135, Potassium Level 3.3L, Chloride Level 101, Carbon Dioxide Level 24, Anion Gap 10 , Blood Urea Nitrogen 11, Creatinine 0.9, Estimat Glomerular Filtration Rate , Glucose Level 167H, Calcium Level 8.4L, Phosphorus Level 1.8L, Magnesium Level 1.5L Height (Feet): 6 Height (Inches): 0.00 Weight (Pounds): 180 General Appearance: lethargic EENT: normal ENT inspection Neck: normal alignment Cardiovascular: normal peripheral pulses, normal rate, regular rhythm Respiratory/Chest: chest wall non-tender, lungs clear, normal breath sounds Abdomen: normal bowel sounds, non tender, soft Extremities: normal inspection Edema: no edema noted Arm (L), no edema noted Arm (R), no edema noted Leg (L), no edema noted Leg (R), no edema noted Pedal (L), no edema noted Pedal (R), no edema noted Generalized Neurologic: motor weakness Skin: normal pigmentation, warm/dry LINDA BOLAÑOS Apr 14, 2017 11:46
[2017-04-14 11:49] VITALS: BP 121/65
--- NOTE | 2017-04-14 14:41 | GI Progress Note ---
Assessment/Plan Problems: (1) Altered mental state ICD Codes: R41.82 - Altered mental status, unspecified SNOMED: 801061255 (2) Anemia ICD Codes: D64.9 - Anemia, unspecified SNOMED: 946952082 (3) Morbid obesity ICD Codes: E66.01 - Morbid (severe) obesity due to excess calories SNOMED: 930525411, 21047724845276 (4) Diabetes mellitus ICD Codes: E11.9 - Type 2 diabetes mellitus without complications SNOMED: 05055740 Status: unchanged Status Narrative Discussed with Dr. Solorzano. Assessment/Plan PEG scheduled tomorrow. plavix dc'd >> this must be discontinued x 48 hours prior any endoscopic procedures. - cont NGTFs, NPO @ [facility]. fu ST evaluation >> pt not alert to participate, cont non oral feedings NGTFs per dietary H2B fu labs Subjective Subjective limited Objective Last 24 Hour Vital Signs Date Time Temp Pulse Resp B/P Pulse Ox O2 Delivery O2 Flow Rate FiO2 04/14/17 11:49 97.7 106 21 121/65 97 Room Air 04/14/17 07:44 97.9 98 19 114/62 98 Room Air 04/14/17 04:30 97.9 101 20 126/66 98 Room Air 04/14/17 00:23 98.4 104 18 120/59 98 Room Air 04/13/17 20:33 145/88 04/13/17 20:03 98.2 116 20 98 Room Air 04/13/17 19:47 92 18 Room Air 21 04/13/17 16:20 97.9 101 19 152/75 98 Room Air Intake and Output 04/13/17 04/14/17 19:00 07:00 Intake Total 620 ml 930 ml Output Total 600 ml 802 ml Balance 20 ml 128 ml Intake Free Water 200 ml IV Total 730 ml Tube Feeding 420 ml 200 ml Output Urine Total 600 ml 800 ml Stool Total 2 ml # Bowel Movements 1 2 Laboratory Tests Test 04/14/17 05:00 04/14/17 05:25 Stool Occult Blood Negative (NEGATIVE) White Blood Count 7.9 K/UL (4.8-10.8) Red Blood Count 3.18 M/UL (4.70-6.10) L Hemoglobin 10.7 G/DL (14.2-18.0) L Hematocrit 31.2 % (42.0-52.0) L Mean Corpuscular Volume 98 FL (80-99) Mean Corpuscular Hemoglobin 33.6 PG (27.0-31.0) H Mean Corpuscular Hemoglobin Concent 34.2 G/DL (32.0-36.0) Red Cell Distribution Width 14.0 % (11.6-14.8) Platelet Count 151 K/UL (150-450) Mean Platelet Volume 4.8 FL (6.5-10.1) L Neutrophils (%) (Auto) 54.4 % (45.0-75.0) Lymphocytes (%) (Auto) 28.6 % (20.0-45.0) Monocytes (%) (Auto) 11.1 % (1.0-10.0) H Eosinophils (%) (Auto) 4.9 % (0.0-3.0) H Basophils (%) (Auto) 1.1 % (0.0-2.0) Prothrombin Time 13.5 SEC (9.30-11.50) H Prothromb Time International Ratio 1.3 (0.9-1.1) H Activated Partial Thromboplast Time 34 SEC (23-33) H Sodium Level 135 mEQ/L (135-145) Potassium Level 3.3 mEQ/L (3.4-4.9) L Chloride Level 101 mEQ/L (98-107) Carbon Dioxide Level 24 mEQ/L (20-30) Anion Gap 10 (5-15) Blood Urea Nitrogen 11 mg/dL (7-23) Creatinine 0.9 mg/dL (0.7-1.2) Estimat Glomerular Filtration Rate mL/min (>60) Glucose Level 167 mg/dL (74-106) H Calcium Level 8.4 mg/dL (8.6-10.2) L Phosphorus Level 1.8 mg/dL (2.5-4.8) L Magnesium Level 1.5 mg/dL (1.7-2.5) L Height (Feet): 6 Height (Inches): 0.00 Weight (Pounds): 180 General Appearance: no apparent distress, lethargic Cardiovascular: normal rate Respiratory/Chest: lungs clear, normal breath sounds Abdominal Exam: normal bowel sounds, non tender Sho Lopez N.P. Apr 14, 2017 14:41
[2017-04-14 16:00] VITALS: BP 113/59
--- NOTE | 2017-04-14 17:06 | Infectious Diseases Prog Note ---
Assessment/Plan Problems: (1) Open wound of heel Assessment & Plan: with infection, and underlying osteomyelitis , wound culture is growing Morganella morgagnii, E coli, and staph aureus , blood culture is growing gram positive rods most likely contaminant , will continue vancomycin, cefepiem and flagyl for 6 weeks for osteomyelitis, follow up with observer gravity prospecting (2) Osteomyelitis of ankle Assessment & Plan: confirmed on MRI of the right ankle , await blood culture, continue wide spectrum antibiotics for 6 weeks, await wound culture result (3) Diabetes mellitus Assessment & Plan: recommend tight glycemic control to keep blood glucose between 80-120 (4) Sepsis Assessment & Plan: due to the above, on wide spectrum antibiotics, send blood culture (5) UTI (urinary tract infection) Assessment & Plan: with E coli, already on cefepime Subjective ROS Limited/Unobtainable: Yes Allergies: Coded Allergies: No Known Allergies (Unverified , 05/11/16) Subjective he was unresponsive and altered , dosen't follow commands.afebrile, has NGT in place Objective Vital Signs Last 24 Hour Vital Signs Date Time Temp Pulse Resp B/P Pulse Ox O2 Delivery O2 Flow Rate FiO2 04/14/17 16:00 98.1 103 20 113/59 Room Air 04/14/17 11:49 97.7 106 21 121/65 97 Room Air 04/14/17 07:44 97.9 98 19 114/62 98 Room Air 04/14/17 04:30 97.9 101 20 126/66 98 Room Air 04/14/17 00:23 98.4 104 18 120/59 98 Room Air 04/13/17 20:33 145/88 04/13/17 20:03 98.2 116 20 98 Room Air 04/13/17 19:47 92 18 Room Air 21 Height (Feet): 6 Height (Inches): 0.00 Weight (Pounds): 180 General Appearance: WD/WN, no acute distress HEENT: normocephalic, atraumatic, anicteric, mucous membranes moist, EOMI, pharynx normal, supple, no JVD, other - right eye cataract Respiratory/Chest: chest wall non-tender, normal breath sounds, no respiratory distress, no accessory muscle use, respiratory distress, decreased breath sounds Cardiovascular: normal peripheral pulses, normal rate, regular rhythm, no gallop/murmur, no JVD Abdomen: normal bowel sounds, soft, non tender, no organomegaly, non distended , no mass, no scars Extremities: no cyanosis, no clubbing Skin: no rash, no lesions, ulcers Neurologic/Psychiatric: unresponsiveness Lymphatic: no neck adenopathy, no groin adenopathy Musculoskeletal: normal muscle bulk Laboratory Tests Test 04/14/17 05:00 04/14/17 05:25 Stool Occult Blood Negative (NEGATIVE) White Blood Count 7.9 K/UL (4.8-10.8) Red Blood Count 3.18 M/UL (4.70-6.10) L Hemoglobin 10.7 G/DL (14.2-18.0) L Hematocrit 31.2 % (42.0-52.0) L Mean Corpuscular Volume 98 FL (80-99) Mean Corpuscular Hemoglobin 33.6 PG (27.0-31.0) H Mean Corpuscular Hemoglobin Concent 34.2 G/DL (32.0-36.0) Red Cell Distribution Width 14.0 % (11.6-14.8) Platelet Count 151 K/UL (150-450) Mean Platelet Volume 4.8 FL (6.5-10.1) L Neutrophils (%) (Auto) 54.4 % (45.0-75.0) Lymphocytes (%) (Auto) 28.6 % (20.0-45.0) Monocytes (%) (Auto) 11.1 % (1.0-10.0) H Eosinophils (%) (Auto) 4.9 % (0.0-3.0) H Basophils (%) (Auto) 1.1 % (0.0-2.0) Prothrombin Time 13.5 SEC (9.30-11.50) H Prothromb Time International Ratio 1.3 (0.9-1.1) H Activated Partial Thromboplast Time 34 SEC (23-33) H Sodium Level 135 mEQ/L (135-145) Potassium Level 3.3 mEQ/L (3.4-4.9) L Chloride Level 101 mEQ/L (98-107) Carbon Dioxide Level 24 mEQ/L (20-30) Anion Gap 10 (5-15) Blood Urea Nitrogen 11 mg/dL (7-23) Creatinine 0.9 mg/dL (0.7-1.2) Estimat Glomerular Filtration Rate mL/min (>60) Glucose Level 167 mg/dL (74-106) H Calcium Level 8.4 mg/dL (8.6-10.2) L Phosphorus Level 1.8 mg/dL (2.5-4.8) L Magnesium Level 1.5 mg/dL (1.7-2.5) L Current Medications Medications (Trade) Dose Ordered Sig/Naveen Route PRN Reason Start Time Stop Time Status Last Admin Dose Admin Acetaminophen (Tylenol) 650 mg Q4H PRN ORAL fever 04/10/17 15:15 05/10/17 15:14 Al Hydroxide/Mg Hydroxide (Mylanta II) 30 ml Q6H PRN ORAL dyspepsia 04/10/17 15:15 05/10/17 15:14 Albuterol/ Ipratropium (DuoNeb 0.5-3(2.5)mg/3ml) 3 ml Q4H PRN HHN Shortness of Breath 04/10/17 15:45 04/15/17 15:44 Cefepime HCl 2 gm/ Dextrose 110 ml @ 220 mls/hr Q12HR@0600,1800 IVPB 04/10/17 18:00 04/17/17 17:59 04/14/17 05:00 Clonidine HCl (Catapres) 0.1 mg Q6H PRN ORAL sbp above 160 04/10/17 14:15 05/10/17 14:14 Dextrose (Dextrose 50%) STAT PRN IV Hypoglycemia 04/13/17 06:45 05/13/17 06:44 Dextrose/Sodium Chloride (D5 0.45% NS) 1,000 ml @ 60 mls/hr [id number] IV 04/10/17 15:45 05/10/17 15:44 04/13/17 13:30 Gabapentin (Neurontin) 300 mg BEDTIME ORAL 04/11/17 21:00 05/11/17 20:59 04/13/17 21:01 Heparin Sodium (Porcine) (Heparin 5000 units/ml) 5,000 units EVERY 12 HOURS SUBQ 04/10/17 21:00 05/10/17 20:59 04/11/17 21:06 Insulin Aspart (NovoLOG) BEFORE MEALS AND HS SUBQ 04/10/17 16:30 05/10/17 16:29 04/14/17 16:45 Insulin Detemir (Levemir) 6 units Q12HR SUBQ 04/14/17 09:00 05/14/17 08:59 Lactulose (Cephulac) 20 gm TID ORAL 04/10/17 18:00 05/10/17 17:59 04/14/17 15:12 Levetiracetam (Keppra) 500 mg Q12HR ORAL 04/11/17 21:00 05/11/17 20:59 04/13/17 21:01 Lorazepam (Ativan 2mg/ml 1ml) 0.5 mg Q4H PRN IV For Anxiety 04/10/17 15:15 04/17/17 15:14 04/13/17 04:21 Metronidazole (Flagyl) 100 ml @ 100 mls/hr Q8HR IVPB 04/10/17 16:00 04/17/17 15:59 04/14/17 15:12 Mirtazapine 7.5 mg 7.5 mg BEDTIME ORAL 04/11/17 21:00 05/11/17 20:59 04/13/17 21:01 Morphine Sulfate (Morphine Sulfate) 1 mg Q4H PRN IVP Moderate to Severe Pain 04/10/17 14:30 04/17/17 14:29 04/11/17 21:09 Ondansetron HCl (Zofran) 4 mg Q6H PRN IVP Nausea & Vomiting 04/10/17 15:15 05/10/17 15:14 Polyethylene Glycol (Miralax) 17 gm HSPRN PRN ORAL Constipation 04/10/17 15:15 05/10/17 15:14 Vancomycin HCl (Vanco rx to dose) 1 ea DAILY PRN MISC Per rx protocol 04/10/17 15:14 05/10/17 15:13 Vancomycin HCl/ Dextrose (Vancomycin/D5W) 275 ml @ 183.708 mls/hr Q12HR@0600,1800 IVPB 04/13/17 06:00 04/18/17 05:59 04/14/17 06:31 Zolpidem Tartrate 5 mg 5 mg HSPRN PRN ORAL Insomnia Unrelieved 04/10/17 15:15 05/10/17 15:14 Valery Nicholas M.D. 20, 2017 17:06
[2017-04-14 20:00] VITALS: BP 155/68
--- NOTE | 2017-04-14 22:44 | Pulmonology Progress Note ---
Assessment/Plan Problems: (1) Sepsis (2) Osteomyelitis of ankle (3) COPD (chronic obstructive pulmonary disease) (4) Dementia arising in the senium and presenium (5) History of CVA (cerebrovascular accident) Assessment/Plan improving Respiratory treatment IV antibiotics f/u cultures dvt prophylaxis all notes and meds reviewed dc planning Subjective Allergies: Coded Allergies: No Known Allergies (Unverified , 05/11/16) Objective Last 24 Hour Vital Signs Date Time Temp Pulse Resp B/P Pulse Ox O2 Delivery O2 Flow Rate FiO2 04/14/17 20:28 93 18 Room Air 21 04/14/17 20:00 98.4 110 21 155/68 98 Room Air 04/14/17 16:00 98.1 103 20 113/59 Room Air 04/14/17 11:49 97.7 106 21 121/65 97 Room Air 04/14/17 07:44 97.9 98 19 114/62 98 Room Air 04/14/17 04:30 97.9 101 20 126/66 98 Room Air 04/14/17 00:23 98.4 104 18 120/59 98 Room Air Intake and Output 04/13/17 04/14/17 19:00 07:00 Intake Total 620 ml 930 ml Output Total 600 ml 802 ml Balance 20 ml 128 ml Intake Free Water 200 ml IV Total 730 ml Tube Feeding 420 ml 200 ml Output Urine Total 600 ml 800 ml Stool Total 2 ml # Bowel Movements 1 2 Laboratory Tests 04/14/17 05:00: Stool Occult Blood Negative 04/14/17 05:25: White Blood Count 7.9, Red Blood Count 3.18L, Hemoglobin 10.7L, Hematocrit 31.2L , Mean Corpuscular Volume 98, Mean Corpuscular Hemoglobin 33.6H, Mean Corpuscular Hemoglobin Concent 34.2, Red Cell Distribution Width 14.0, Platelet Count 151, Mean Platelet Volume 4.8L, Neutrophils (%) (Auto) 54.4, Lymphocytes ( %) (Auto) 28.6, Monocytes (%) (Auto) 11.1H, Eosinophils (%) (Auto) 4.9H, Basophils (%) (Auto) 1.1, Prothrombin Time 13.5H, Prothromb Time International Ratio 1.3H, Activated Partial Thromboplast Time 34H, Sodium Level 135, Potassium Level 3.3L, Chloride Level 101, Carbon Dioxide Level 24, Anion Gap 10 , Blood Urea Nitrogen 11, Creatinine 0.9, Estimat Glomerular Filtration Rate , Glucose Level 167H, Calcium Level 8.4L, Phosphorus Level 1.8L, Magnesium Level 1.5L Current Medications Medications (Trade) Dose Ordered Sig/Naveen Route PRN Reason Start Time Stop Time Status Last Admin Dose Admin Acetaminophen (Tylenol) 650 mg Q4H PRN ORAL fever 04/10/17 15:15 05/10/17 15:14 Al Hydroxide/Mg Hydroxide (Mylanta II) 30 ml Q6H PRN ORAL dyspepsia 04/10/17 15:15 05/10/17 15:14 Albuterol/ Ipratropium (DuoNeb 0.5-3(2.5)mg/3ml) 3 ml Q4H PRN HHN Shortness of Breath 04/10/17 15:45 04/15/17 15:44 Cefepime HCl 2 gm/ Dextrose 110 ml @ 220 mls/hr Q12HR@0600,1800 IVPB 04/10/17 18:00 04/17/17 17:59 04/14/17 18:06 Clonidine HCl (Catapres) 0.1 mg Q6H PRN ORAL sbp above 160 04/10/17 14:15 05/10/17 14:14 Dextrose (Dextrose 50%) STAT PRN IV Hypoglycemia 04/13/17 06:45 05/13/17 06:44 Dextrose/Sodium Chloride (D5 0.45% NS) 1,000 ml @ 60 mls/hr [id number] IV 04/10/17 15:45 05/10/17 15:44 04/13/17 13:30 Gabapentin (Neurontin) 300 mg BEDTIME ORAL 04/11/17 21:00 05/11/17 20:59 04/14/17 21:09 Heparin Sodium (Porcine) (Heparin 5000 units/ml) 5,000 units EVERY 12 HOURS SUBQ 04/10/17 21:00 05/10/17 20:59 04/11/17 21:06 Insulin Aspart (NovoLOG) BEFORE MEALS AND HS SUBQ 04/10/17 16:30 05/10/17 16:29 04/14/17 21:15 Insulin Detemir (Levemir) 6 units Q12HR SUBQ 04/14/17 09:00 05/14/17 08:59 04/14/17 21:15 Lactulose (Cephulac) 20 gm TID ORAL 04/10/17 18:00 05/10/17 17:59 04/14/17 17:59 Levetiracetam (Keppra) 500 mg Q12HR ORAL 04/11/17 21:00 05/11/17 20:59 04/14/17 21:08 Lorazepam (Ativan 2mg/ml 1ml) 0.5 mg Q4H PRN IV For Anxiety 04/10/17 15:15 04/17/17 15:14 04/13/17 04:21 Metronidazole (Flagyl) 100 ml @ 100 mls/hr Q8HR IVPB 04/10/17 16:00 04/17/17 15:59 04/14/17 21:10 Mirtazapine 7.5 mg 7.5 mg BEDTIME ORAL 04/11/17 21:00 05/11/17 20:59 04/14/17 21:08 Morphine Sulfate (Morphine Sulfate) 1 mg Q4H PRN IVP Moderate to Severe Pain 04/10/17 14:30 04/17/17 14:29 04/11/17 21:09 Ondansetron HCl (Zofran) 4 mg Q6H PRN IVP Nausea & Vomiting 04/10/17 15:15 05/10/17 15:14 Polyethylene Glycol (Miralax) 17 gm HSPRN PRN ORAL Constipation 04/10/17 15:15 05/10/17 15:14 Vancomycin HCl (Vanco rx to dose) 1 ea DAILY PRN MISC Per rx protocol 04/10/17 15:14 05/10/17 15:13 Vancomycin HCl/ Dextrose (Vancomycin/D5W) 275 ml @ 183.708 mls/hr Q12HR@0600,1800 IVPB 04/13/17 06:00 04/18/17 05:59 04/14/17 18:58 Zolpidem Tartrate 5 mg 5 mg HSPRN PRN ORAL Insomnia Unrelieved 04/10/17 15:15 05/10/17 15:14 MEGAN LO Apr 14, 2017 22:44
[2017-04-14] MEDS ORDERED: NS 275ml ONE (22:46)
[2017-04-15] VITALS (11 sets, daily range): BP systolic 109–147; BP diastolic 61–83
[2017-04-15] MEDS: D5 1/2NS 1,000 ML IV SCH (01:17)
[2017-04-15] MEDS: Cefepime HCl 2 GM in D5W 110 ML IVPB SCH ×2 (04:09→17:44)
[2017-04-15] MEDS: metroNIDAZOLE 500mg 100 ML IVPB SCH (04:41)
[2017-04-15] MEDS: Vancomycin 1gm in D5W 275ml IVPB SCH (05:28)
[2017-04-15] MEDS: NovoLOG Insulin Flexpen SUBQ SCH ×4 (06:07→21:03)
--- NOTE | 2017-04-15 06:47 | Anethesia Preoperative Eval ---
Anesthesia Pre-op PMH/ROS General Date of Evaluation: Apr 15, 2017 Time of Evaluation: 06:43 Anesthesiologist: elise ASA Score: ASA 3 Mallampati Score Class I : Soft palate, uvula, fauces, pillars visible Class II: Soft palate, uvula, fauces visible Class III: Soft palate, base of uvula visible Class IV: Only hard plate visible Mallampati Classification: Class II Surgeon: elliott Diagnosis: dysphagia Surgical Procedure: egd/peg Anesthesia History: none Family History: no anesthesia problems Allergies: Coded Allergies: No Known Allergies (Unverified , 05/11/16) Medications: see eMAR Past Medical History Cardiovascular: Reports: HTN, other - chf, Pulmonary: Reports: COPD, ISMAEL Gastrointestinal/Genitourinary: Reports: GERD, other - uti Neurologic/Psychiatric: Reports: CVA, other - ams Endocrine: Reports: DM HEENT: Reports: cataract (L) Hematology/Immune: Reports: DVT, anemia Musculoskeletal/Integumentary: Reports: other - osteomyelitis Other: obesity PSxH Narrative: appy, Anesthesia Pre-op Phys. Exam Physician Exam Last Vital Signs Date Time Temp Pulse Resp B/P Pulse Ox O2 Delivery O2 Flow Rate FiO2 04/15/17 04:32 98.1 103 20 116/80 Room Air 04/15/17 00:00 91 04/14/17 20:28 21 Constitutional: NAD Neurologic: other - ams Cardiovascular: RRR Respiratory: CTA Gastrointestinal: S/NT/ND Airway Exam Mallampati Score: Class II MO: full Neck: supple TMD: 2fb ROM: limited Teeth: missing, broken Anesthesia Pre-op A/P Labs Labs Test 04/13/17 05:20 04/14/17 05:00 04/14/17 05:25 04/15/17 04:50 White Blood Count 6.8 K/UL (4.8-10.8) 7.9 K/UL (4.8-10.8) Red Blood Count 3.12 M/UL (4.70-6.10) 3.18 M/UL (4.70-6.10) Hemoglobin 10.5 G/DL (14.2-18.0) 10.7 G/DL (14.2-18.0) Hematocrit 30.4 % (42.0-52.0) 31.2 % (42.0-52.0) Mean Corpuscular Volume 97 FL (80-99) 98 FL (80-99) Mean Corpuscular Hemoglobin 33.7 PG (27.0-31.0) 33.6 PG (27.0-31.0) Mean Corpuscular Hemoglobin Concent 34.6 G/DL (32.0-36.0) 34.2 G/DL (32.0-36.0) Red Cell Distribution Width 13.6 % (11.6-14.8) 14.0 % (11.6-14.8) Platelet Count 142 K/UL (150-450) 151 K/UL (150-450) Mean Platelet Volume 4.5 FL (6.5-10.1) 4.8 FL (6.5-10.1) Neutrophils (%) (Auto) 59.8 % (45.0-75.0) 54.4 % (45.0-75.0) Lymphocytes (%) (Auto) 24.3 % (20.0-45.0) 28.6 % (20.0-45.0) Monocytes (%) (Auto) 12.4 % (1.0-10.0) 11.1 % (1.0-10.0) Eosinophils (%) (Auto) 2.4 % (0.0-3.0) 4.9 % (0.0-3.0) Basophils (%) (Auto) 1.2 % (0.0-2.0) 1.1 % (0.0-2.0) Sodium Level 134 mEQ/L (135-145) 135 mEQ/L (135-145) Potassium Level 3.5 mEQ/L (3.4-4.9) 3.3 mEQ/L (3.4-4.9) Chloride Level 102 mEQ/L (98-107) 101 mEQ/L (98-107) Carbon Dioxide Level 24 mEQ/L (20-30) 24 mEQ/L (20-30) Anion Gap 8 (5-15) 10 (5-15) Blood Urea Nitrogen 12 mg/dL (7-23) 11 mg/dL (7-23) Creatinine 1.0 mg/dL (0.7-1.2) 0.9 mg/dL (0.7-1.2) Estimat Glomerular Filtration Rate mL/min (>60) mL/min (>60) Glucose Level 184 mg/dL (74-106) 167 mg/dL (74-106) Calcium Level 8.2 mg/dL (8.6-10.2) 8.4 mg/dL (8.6-10.2) Stool Occult Blood Negative (NEGATIVE) Prothrombin Time 13.5 SEC (9.30-11.50) Prothromb Time International Ratio 1.3 (0.9-1.1) Activated Partial Thromboplast Time 34 SEC (23-33) Phosphorus Level 1.8 mg/dL (2.5-4.8) Magnesium Level 1.5 mg/dL (1.7-2.5) Studies Pre-op Studies: EKG Risk Assessment & Plan Assessment: asa3 Plan: mac Status Change Before Surgery: No Pre-Antibiotics Drug: RAZ Madrigal Apr 15, 2017 06:47
[2017-04-15 07:23] LABS: INR 1.3 (0.9-1.1); PROTHROMBIN TIME 13.4 SEC (9.30-11.50)
[2017-04-15 07:24] LABS: ANION GAP 8 (5-15); CALCIUM 8.2 mg/dL (8.6-10.2); CARBON DIOXIDE 24 mEQ/L (20-30); CHLORIDE 104 mEQ/L (98-107); HEMOLYSIS 4; POTASSIUM 3.3 mEQ/L (3.4-4.9); SODIUM 136 mEQ/L (135-145)
[2017-04-15 07:35] LABS: BASOPHILS % (AUTO) 0.8 % (0.0-2.0); EOSINOPHILS % (AUTO) 5.1 % (0.0-3.0); LYMPHOCYTES % (AUTO) 30.2 % (20.0-45.0); MEAN CORPUSCULAR HEMOGLOBIN 33.6 PG (27.0-31.0); MEAN CORPUSCULAR HGB CONC 34.2 G/DL (32.0-36.0); MEAN CORPUSCULAR VOLUME 98 FL (80-99); MEAN PLATELET VOLUME 4.8 FL (6.5-10.1); MONOCYTES % (AUTO) 9.3 % (1.0-10.0); NEUTROPHILS % (AUTO) 54.6 % (45.0-75.0); PLATELET COUNT 174 K/UL (150-450); RED BLOOD COUNT 3.26 M/UL (4.70-6.10); RED CELL DISTRIBUTION WIDTH 13.7 % (11.6-14.8); WHITE BLOOD COUNT 8.8 K/UL (4.8-10.8)
--- NOTE | 2017-04-15 08:00 | Pulmonology Progress Note ---
Assessment/Plan Assessment/Plan ASSESSMENT sepsis acute toxic metabolic encephalopathy on end stage dementia ( due to sepsis) UTI OM R foot/ankle DM R heel ulcer with cellulitis POA sacral decub POA hx of DVT Hx of HTN COPD Hx of CVA e/ lectrolyte imbalances ( hypo K, hypo Mg, hypo P) cognitive impairment schizophrenia seizure disorder severe protein calorie malnutrition anemia folate deficiency subclinical hypothyroidism PLAN OF CARE abx ID follows urine cx + E coli, blood cx + Diphtheroids ( contaminant), wound cx + E coli, Morganella, Staph aureus abx on dc as per ID recommendations, need 6 weeks total of abx ESR , CRP elevated MRI R foot/ankle with findings highly suspicious for acute OM EEG abnormal, c/w toxic metabolic encephalopathy, neuro follows BS management with Levemir and SS of insulin, HgA1c -5.2 application architect manager followed wound care as per application architect manager and wound nurse recommendations monitor BP, currently normotensive, Clonidine prn lipid panel stable, continue Plavix electrolyte replaced as needed O2 HHN prn Venous Duplex BLE - negative Hx of DVT anemia w/up with stable iron, stool OB negative, low folate, started on folate supplements, CEA with minimal elevation resume psych meds psychiatrist followed seizure precautions, continue Keppra DVT prophylaxis pain management bowel regimen prealbumin -5.0 dietary eval appreciated on protein supplements PT/OT elevated TSH with normal free T 4- subclinical hypothyroidism, check thyroid panel in 4 weeks case discussed and evaluated by supervising physician Subjective Allergies: Coded Allergies: No Known Allergies (Unverified , 05/11/16) Subjective awaiting for EGD and PEG today afebrile, no leucocytosis Objective Last 24 Hour Vital Signs Date Time Temp Pulse Resp B/P Pulse Ox O2 Delivery O2 Flow Rate FiO2 04/15/17 04:32 98.1 103 20 116/80 Room Air 04/15/17 00:00 98.2 106 20 109/ 91 Room Air 04/14/17 20:28 93 18 Room Air 21 04/14/17 20:00 98.4 110 21 155/68 98 Room Air 04/14/17 16:00 98.1 103 20 113/59 Room Air 04/14/17 11:49 97.7 106 21 121/65 97 Room Air Intake and Output 04/14/17 04/15/17 19:00 07:00 Intake Total 120 ml 1650.000 ml Output Total 475 ml Balance 120 ml 1175.000 ml Intake Free Water 130 ml IV Total 60 ml 1220.000 ml Tube Feeding 60 ml 300 ml Output Urine Total 475 ml # Bowel Movements 1 Objective General Appearance: no apparent distress, arousable, Lines, tubes and drains: peripheral HEENT: atraumatic, anicteric, poor dentition Neck: supple Respiratory/Chest: lungs clear, no respiratory distress, no accessory muscle use Cardiovascular/Chest: normal peripheral pulses, normal rate , no JVD Abdomen: normal bowel sounds, non tender, soft Extremities: non-tender, no calf tenderness, normal capillary refill Skin Exam: sacral and R heel decub POA Neurologic: alert, responsive Laboratory Tests 04/15/17 04:50: White Blood Count 8.8, Red Blood Count 3.26L, Hemoglobin 11.0L, Hematocrit 32.0L , Mean Corpuscular Volume 98, Mean Corpuscular Hemoglobin 33.6H, Mean Corpuscular Hemoglobin Concent 34.2, Red Cell Distribution Width 13.7, Platelet Count 174, Mean Platelet Volume 4.8L, Neutrophils (%) (Auto) 54.6, Lymphocytes ( %) (Auto) 30.2, Monocytes (%) (Auto) 9.3, Eosinophils (%) (Auto) 5.1H, Basophils (%) (Auto) 0.8, Prothrombin Time 13.4H, Prothromb Time International Ratio 1.3H, Activated Partial Thromboplast Time 37H, Sodium Level 136, Potassium Level 3.3L, Chloride Level 104, Carbon Dioxide Level 24, Anion Gap 8, Blood Urea Nitrogen 10, Creatinine 1.0, Estimat Glomerular Filtration Rate , Glucose Level 168H, Calcium Level 8.2L Current Medications Medications (Trade) Dose Ordered Sig/Naveen Route PRN Reason Start Time Stop Time Status Last Admin Dose Admin Acetaminophen (Tylenol) 650 mg Q4H PRN ORAL fever 04/10/17 15:15 05/10/17 15:14 Al Hydroxide/Mg Hydroxide (Mylanta II) 30 ml Q6H PRN ORAL dyspepsia 04/10/17 15:15 05/10/17 15:14 Albuterol/ Ipratropium (DuoNeb 0.5-3(2.5)mg/3ml) 3 ml Q4H PRN HHN Shortness of Breath 04/10/17 15:45 7/21/17 15:44 Cefepime HCl 2 gm/ Dextrose 110 ml @ 220 mls/hr Q12HR@0600,1800 IVPB 04/10/17 18:00 04/17/17 17:59 04/15/17 04:09 Clonidine HCl (Catapres) 0.1 mg Q6H PRN ORAL sbp above 160 04/10/17 14:15 05/10/17 14:14 Dextrose (Dextrose 50%) STAT PRN IV Hypoglycemia 04/13/17 06:45 05/13/17 06:44 Dextrose/Sodium Chloride (D5 0.45% NS) 1,000 ml @ 60 mls/hr [id number] IV 04/10/17 15:45 05/10/17 15:44 04/15/17 01:17 Gabapentin (Neurontin) 300 mg BEDTIME ORAL 04/11/17 21:00 05/11/17 20:59 04/14/17 21:09 Heparin Sodium (Porcine) (Heparin 5000 units/ml) 5,000 units EVERY 12 HOURS SUBQ 04/10/17 21:00 05/10/17 20:59 04/11/17 21:06 Insulin Aspart (NovoLOG) BEFORE MEALS AND HS SUBQ 04/10/17 16:30 05/10/17 16:29 04/14/17 21:15 Insulin Detemir (Levemir) 6 units Q12HR SUBQ 04/14/17 09:00 05/14/17 08:59 04/14/17 21:15 Lactulose (Cephulac) 20 gm TID ORAL 04/10/17 18:00 05/10/17 17:59 04/14/17 17:59 Levetiracetam (Keppra) 500 mg Q12HR ORAL 04/11/17 21:00 05/11/17 20:59 04/14/17 21:08 Lorazepam (Ativan 2mg/ml 1ml) 0.5 mg Q4H PRN IV For Anxiety 04/10/17 15:15 04/17/17 15:14 04/13/17 04:21 Metronidazole (Flagyl) 100 ml @ 100 mls/hr Q8HR IVPB 04/10/17 16:00 04/17/17 15:59 04/15/17 04:41 Mirtazapine 7.5 mg 7.5 mg BEDTIME ORAL 04/11/17 21:00 05/11/17 20:59 04/14/17 21:08 Morphine Sulfate (Morphine Sulfate) 1 mg Q4H PRN IVP Moderate to Severe Pain 04/10/17 14:30 04/17/17 14:29 04/11/17 21:09 Ondansetron HCl (Zofran) 4 mg Q6H PRN IVP Nausea & Vomiting 04/10/17 15:15 05/10/17 15:14 Polyethylene Glycol (Miralax) 17 gm HSPRN PRN ORAL Constipation 04/10/17 15:15 05/10/17 15:14 Vancomycin HCl (Vanco rx to dose) 1 ea DAILY PRN MISC Per rx protocol 04/10/17 15:14 05/10/17 15:13 Vancomycin HCl/ Dextrose (Vancomycin/D5W) 275 ml @ 183.708 mls/hr Q12HR@0600,1800 IVPB 04/13/17 06:00 04/18/17 05:59 04/15/17 05:28 Zolpidem Tartrate 5 mg 5 mg HSPRN PRN ORAL Insomnia Unrelieved 04/10/17 15:15 05/10/17 15:14 Conor (Alemagnolia)Alana NP Apr 15, 2017 08:00
[2017-04-15] MEDS: Levemir Flexpen SUBQ SCH ×2 (09:00→21:02)
[2017-04-15] MEDS: Lactulose 20gm/30ml UDC ORAL SCH ×3 (09:00→18:29)
[2017-04-15] MEDS: Heparin 5000 units/ml inj SUBQ SCH ×2 (09:00→21:01)
[2017-04-15] MEDS: Morphine Sulfate 2mg/ml Inj IVP PRN (09:29)
--- NOTE | 2017-04-15 09:30 | Podiatric Progress Note ---
Assessment/Plan Patient Oswaldo Trejo is a 76 year old male who was admitted on Apr 09, 2017 at 13:13 with right lower extremity wounds Problems: (1) Open wound of heel (2) Cellulitis of lower extremity (3) Diabetes mellitus Assessment/Plan - Right leg ulcers with dry stable eschars. Keep open to air - Right heel ulcer. Polymicrobial infection. [place] the area with betadine and apply adaptic, 4x4 gauze, and kerlix - Continue antibiotics per infectious disease specialist recs - Continue aggressive offloading of bilateral heels - Will consider debridement if wound worsens - Stable enough for discharge from podiatry standpoint Subjective Reason for consult Right lower extremity ulcers Allergies: Coded Allergies: No Known Allergies (Unverified , 05/11/16) Subjective Patient is unable to communicate effectively. However, per nursing staff no overnight events were reported. No nausea, vomiting, or fevers reported Objective Exam Last 24 Hour Vital Signs Date Time Temp Pulse Resp B/P Pulse Ox O2 Delivery O2 Flow Rate FiO2 04/15/17 08:13 98.4 107 22 134/79 95 Room Air 04/15/17 07:33 106 20 Room Air 04/15/17 04:32 98.1 103 20 116/80 Room Air 04/15/17 00:00 98.2 106 20 109/ 91 Room Air 04/14/17 20:28 93 18 Room Air 21 04/14/17 20:00 98.4 110 21 155/68 98 Room Air 04/14/17 16:00 98.1 103 20 113/59 Room Air 04/14/17 11:49 97.7 106 21 121/65 97 Room Air Laboratory Tests Test 04/15/17 04:50 White Blood Count 8.8 K/UL (4.8-10.8) Red Blood Count 3.26 M/UL (4.70-6.10) L Hemoglobin 11.0 G/DL (14.2-18.0) L Hematocrit 32.0 % (42.0-52.0) L Mean Corpuscular Volume 98 FL (80-99) Mean Corpuscular Hemoglobin 33.6 PG (27.0-31.0) H Mean Corpuscular Hemoglobin Concent 34.2 G/DL (32.0-36.0) Red Cell Distribution Width 13.7 % (11.6-14.8) Platelet Count 174 K/UL (150-450) Mean Platelet Volume 4.8 FL (6.5-10.1) L Neutrophils (%) (Auto) 54.6 % (45.0-75.0) Lymphocytes (%) (Auto) 30.2 % (20.0-45.0) Monocytes (%) (Auto) 9.3 % (1.0-10.0) Eosinophils (%) (Auto) 5.1 % (0.0-3.0) H Basophils (%) (Auto) 0.8 % (0.0-2.0) Prothrombin Time 13.4 SEC (9.30-11.50) H Prothromb Time International Ratio 1.3 (0.9-1.1) H Activated Partial Thromboplast Time 37 SEC (23-33) H Sodium Level 136 mEQ/L (135-145) Potassium Level 3.3 mEQ/L (3.4-4.9) L Chloride Level 104 mEQ/L (98-107) Carbon Dioxide Level 24 mEQ/L (20-30) Anion Gap 8 (5-15) Blood Urea Nitrogen 10 mg/dL (7-23) Creatinine 1.0 mg/dL (0.7-1.2) Estimat Glomerular Filtration Rate mL/min (>60) Glucose Level 168 mg/dL (74-106) H Calcium Level 8.2 mg/dL (8.6-10.2) L Microbiology Date/Time Source Procedure Growth Status 04/09/17 12:35 Blood Blood Culture - Final NO GROWTH AFTER 5 DAYS Complete 04/09/17 23:00 Wound Gram Stain - Final Resulted 04/09/17 23:00 Wound Culture - Preliminary Escherichia Coli Morganella Morg Spp Morganii Staphylococcus Aureus Diphtheroids Resulted 04/09/17 15:03 Nasal Nares MRSA Culture - Final NO METHICILLIN RESISTANT STAPH AUREUS... Complete 04/09/17 12:45 Urine,Clean Catch Urine Culture - Final Escherichia Coli Complete 04/09/17 12:30 Rectum VRE Culture - Final Enterococcus Faecalis - Vre Complete Exam Narrative Right leg wounds are stable with dry eschars. Right heel decubitus ulcer with serosanguinous drainage. No purulence or malodor noted. Anthony Boothe DPM Apr 15, 2017 09:30
--- NOTE | 2017-04-15 10:34 | Pulmonology Progress Note ---
Assessment/Plan Assessment/Plan patient needs emergent GT placement swallow eval revealed high aspiration risk currently NPO with NGT feeding unable to reach family to get consent case discussed and evaluated by supervising physician Alana Perdomo NP ([place]) Apr 15, 2017 10:34
[2017-04-15] MEDS ORDERED: NS 550ML IV ONE (11:30)
[2017-04-15] MEDS ORDERED: Lidocaine 1% MPF 10mg/ml 5ml ONE (11:30)
[2017-04-15] MEDS ORDERED: Propofol 10mg/ml 20ml IV ONE (11:30)
--- NOTE | 2017-04-15 11:45 | Pre-Procedure Note/Attestation ---
Pre-Procedure Note/Attestation Complete Prior to Procedure Planned Procedure: not applicable Procedure Narrative: egd/peg Indications for Procedure Pre-Operative Diagnosis: dysphagia Attestation I attest that I discussed the nature of the procedure; its benefits; risks and complications; and alternatives (and the risks and benefits of such alternatives ), prior to the procedure, with the patient (or the patient's legal agency service representative). I attest that, if there was a reasonable possibility of needing a blood transfusion, the patient (or the patient's legal agency service representative) was given the [facility] standardized written summary, pursuant to the Abhijeet Tim Blood Safety Act ([place] Health and Safety Code # 1645, as amended). I attest that I re-evaluated the patient just prior to the surgery and that there has been no change in the patient's H&P, except as documented below: YEIMI CALLAHAN Apr 15, 2017 11:45
--- NOTE | 2017-04-15 12:05 | Endoscopy Procedure Note ---
Endoscopy Procedure Note Indication for Procedure: dysphagia Procedures Performed: EGD, PEG Operative Findings/Diagnosis: gastritis Specimen: none Pt Tolerated Procedure Well: Yes Estimated Blood Loss: none Anesthesiologist: harper Anesthesia: MAC Implant(s) used?: No 50 yrs or older w/o bx or poly: Not Applicable 10yrs. F/U not recommended: Not Applicable YEIMI CALLAHAN Apr 15, 2017 12:05
--- NOTE | 2017-04-15 12:19 | Immediate Post-Op Evaluation ---
Immediate Post-Op Evalulation Immediate Post-Op Evalulation Procedure: egd/peg Date of Evaluation: Apr 15, 2017 Time of Evaluation: 12:17 IV Fluids: 200ml 0.9ns Blood Products: none Estimated Blood Loss: negligible Blood Pressure Systolic: 136 Blood Pressure Diastolic: 78 Pulse Rate: 98 Respiratory Rate: 18 O2 Sat by Pulse Oximetry: 100 Temperature (Fahrenheit): 97.0 Pain Score (1-10): 0 Nausea: No Vomiting: No Complications none Patient Status: awake, reacts, patent Hydration Status: adequate Drug: RAZ Madrigal Apr 15, 2017 12:19
--- NOTE | 2017-04-15 12:21 | 48 Hour Post Anesthesia Eval ---
Post Anesthesia Evaluation Procedure: egd/peg Date of Evaluation: Apr 15, 2017 Time of Evaluation: 12:20 Blood Pressure Systolic: 136 0: 78 Pulse Rate: 98 Respiratory Rate: 18 Temperature (Fahrenheit): 97.0 O2 Sat by Pulse Oximetry: 100 Airway: patent Nausea: No Vomiting: No Pain Intensity: 0 Hydration Status: adequate Cardiopulmonary Status: stable Mental Status/LOC: patient returned to baseline Post-Anesthesia Complications: none Follow-up care needed: N/A RAZ OCHOA Apr 15, 2017 12:21
[2017-04-15] MEDS ORDERED: DiphenhydrAMINE 50mg/ml Inj IVP PRN (12:30)
[2017-04-15] MEDS ORDERED: Hydromorphone 0.5mg/0.5ml inj IVP PRN (12:30)
[2017-04-15] MEDS ORDERED: Midazolam 2mg/2ml Inj IVP PRN (12:30)
[2017-04-15] MEDS ORDERED: Atropine Inj 1mg/10ml Syr IV PRN (12:30)
--- NOTE | 2017-04-15 13:56 | General Progress Note ---
Assessment/Plan Problem List: (1) Morbid obesity ICD Codes: E66.01 - Morbid (severe) obesity due to excess calories SNOMED: 581451114, 13109245535920 (2) Cerebrovascular accident (CVA) ICD Codes: I63.9 - Cerebral infarction, unspecified SNOMED: 018407942 (3) Diabetes mellitus ICD Codes: E11.9 - Type 2 diabetes mellitus without complications SNOMED: 78312554 (4) Open wound of heel ICD Codes: S91.309A - Unspecified open wound, unspecified foot, initial encounter SNOMED: 070169248 (5) Cellulitis of lower extremity ICD Codes: L03.119 - Cellulitis of unspecified part of limb SNOMED: 298264438 (6) UTI (urinary tract infection) ICD Codes: N39.0 - Urinary tract infection, site not specified SNOMED: 32466177 (7) Sepsis ICD Codes: A41.9 - Sepsis, unspecified organism SNOMED: 86582836 (8) COPD (chronic obstructive pulmonary disease) ICD Codes: J44.9 - Chronic obstructive pulmonary disease, unspecified SNOMED: 92435769 (9) ISMAEL (obstructive sleep apnea) ICD Codes: G47.33 - Obstructive sleep apnea (adult) (pediatric) SNOMED: 24835775 Status: stable, progressing, tolerating diet Assessment/Plan ot pt diet wound care eval abx dc to snf Subjective Constitutional: Reports: weakness Allergies: Coded Allergies: No Known Allergies (Unverified , 05/11/16) All Systems: reviewed and negative except above Subjective sleepy calm Objective Last 24 Hour Vital Signs Date Time Temp Pulse Resp B/P Pulse Ox O2 Delivery O2 Flow Rate FiO2 04/15/17 12:50 97.0 101 19 130/81 99 Nasal Cannula 3.0 04/15/17 12:40 97.0 100 21 128/78 99 Nasal Cannula 3.0 04/15/17 12:30 101 19 126/76 99 Nasal Cannula 3.0 04/15/17 12:21 98 18 100 04/15/17 12:20 100 20 137/83 99 Nasal Cannula 3.0 04/15/17 12:19 98 18 100 04/15/17 12:15 99 19 145/70 99 Nasal Cannula 3.0 04/15/17 12:10 97.0 98 18 136/69 99 Nasal Cannula 3.0 04/15/17 09:59 98.4 04/15/17 08:13 98.4 107 22 134/79 95 Room Air 04/15/17 07:33 106 20 Room Air 04/15/17 04:32 98.1 103 20 116/80 Room Air 04/15/17 00:00 98.2 106 20 109/ 91 Room Air 04/14/17 20:28 93 18 Room Air 21 04/14/17 20:00 98.4 110 21 155/68 98 Room Air 04/14/17 16:00 98.1 103 20 113/59 Room Air Intake and Output 04/14/17 04/15/17 19:00 07:00 Intake Total 120 ml 1650.000 ml Output Total 475 ml Balance 120 ml 1175.000 ml Intake Free Water 130 ml IV Total 60 ml 1220.000 ml Tube Feeding 60 ml 300 ml Output Urine Total 475 ml # Bowel Movements 1 Laboratory Tests 04/15/17 04:50: White Blood Count 8.8, Red Blood Count 3.26L, Hemoglobin 11.0L, Hematocrit 32.0L , Mean Corpuscular Volume 98, Mean Corpuscular Hemoglobin 33.6H, Mean Corpuscular Hemoglobin Concent 34.2, Red Cell Distribution Width 13.7, Platelet Count 174, Mean Platelet Volume 4.8L, Neutrophils (%) (Auto) 54.6, Lymphocytes ( %) (Auto) 30.2, Monocytes (%) (Auto) 9.3, Eosinophils (%) (Auto) 5.1H, Basophils (%) (Auto) 0.8, Prothrombin Time 13.4H, Prothromb Time International Ratio 1.3H, Activated Partial Thromboplast Time 37H, Sodium Level 136, Potassium Level 3.3L, Chloride Level 104, Carbon Dioxide Level 24, Anion Gap 8, Blood Urea Nitrogen 10, Creatinine 1.0, Estimat Glomerular Filtration Rate , Glucose Level 168H, Calcium Level 8.2L Height (Feet): 6 Height (Inches): 0.00 Weight (Pounds): 180 General Appearance: lethargic EENT: normal ENT inspection Neck: normal alignment Cardiovascular: normal peripheral pulses, normal rate, regular rhythm Respiratory/Chest: chest wall non-tender, lungs clear, normal breath sounds Abdomen: normal bowel sounds, non tender, soft Extremities: normal inspection Edema: no edema noted Arm (L), no edema noted Arm (R), no edema noted Leg (L), no edema noted Leg (R), no edema noted Pedal (L), no edema noted Pedal (R), no edema noted Generalized Neurologic: motor weakness Skin: normal pigmentation, warm/dry LINDA BOLAÑOS Apr 15, 2017 13:56
[2017-04-15] MEDS: metroNIDAZOLE 500mg tab ORAL SCH ×2 (14:08→20:59)
[2017-04-15] MEDS ORDERED: KCl 10% 40mEq/30ml liquid NG ONE (14:15)
[2017-04-15] MEDS ORDERED: FOLIC ACID1 MG ORAL (15:03)
[2017-04-15] MEDS ORDERED: GABAPENTIN300 MG ORAL (15:04)
[2017-04-15] MEDS ORDERED: MIRTAZAPINE15 MG ORAL (15:05)
[2017-04-15] MEDS ORDERED: MIRALAX17 G2 ORAL (15:07)
[2017-04-15] MEDS ORDERED: CATAPRES0.1 MG ORAL (15:08)
[2017-04-15] MEDS ORDERED: AMBIEN5 MG ORAL (15:08)
[2017-04-15] MEDS ORDERED: KEPPRA500 MG ORAL (15:09)
[2017-04-15] MEDS ORDERED: METRONIDAZOLE500 MG ORAL (15:09)
--- NOTE | 2017-04-15 15:23 | Infectious Diseases Prog Note ---
Assessment/Plan Problems: (1) Open wound of heel Assessment & Plan: with infection, and underlying osteomyelitis , wound culture is growing Morganella morgagnii, E coli, and staph aureus , blood culture diphtheroid most likely contaminant , will continue vancomycin, cefepiem and flagyl for 6 weeks for osteomyelitis, follow up with package crimper (2) Osteomyelitis of ankle Assessment & Plan: confirmed on MRI of the right ankle , blood culture showed contaminant, continue wide spectrum antibiotics for 6 weeks, await wound culture result (3) Diabetes mellitus Assessment & Plan: recommend tight glycemic control to keep blood glucose between 80-120 (4) Sepsis Assessment & Plan: due to the above, on wide spectrum antibiotics, send blood culture (5) UTI (urinary tract infection) Assessment & Plan: with E coli, already on cefepime Subjective ROS Limited/Unobtainable: Yes Allergies: Coded Allergies: No Known Allergies (Unverified , 05/11/16) Subjective he was unresponsive and altered , dosen't follow commands.afebrile, has NGT in place Objective Vital Signs Last 24 Hour Vital Signs Date Time Temp Pulse Resp B/P Pulse Ox O2 Delivery O2 Flow Rate FiO2 04/15/17 12:50 97.0 101 19 130/81 99 Nasal Cannula 3.0 04/15/17 12:40 97.0 100 21 128/78 99 Nasal Cannula 3.0 04/15/17 12:30 101 19 126/76 99 Nasal Cannula 3.0 04/15/17 12:21 98 18 100 04/15/17 12:20 100 20 137/83 99 Nasal Cannula 3.0 04/15/17 12:19 98 18 100 04/15/17 12:15 99 19 145/70 99 Nasal Cannula 3.0 04/15/17 12:10 97.0 98 18 136/69 99 Nasal Cannula 3.0 04/15/17 09:59 98.4 04/15/17 08:13 98.4 107 22 134/79 95 Room Air 04/15/17 07:33 106 20 Room Air 04/15/17 04:32 98.1 103 20 116/80 Room Air 04/15/17 00:00 98.2 106 20 109/ 91 Room Air 04/14/17 20:28 93 18 Room Air 21 04/14/17 20:00 98.4 110 21 155/68 98 Room Air 04/14/17 16:00 98.1 103 20 113/59 Room Air Height (Feet): 6 Height (Inches): 0.00 Weight (Pounds): 180 General Appearance: WD/WN, no acute distress HEENT: normocephalic, atraumatic, anicteric, mucous membranes moist, PERRL Respiratory/Chest: chest wall non-tender, lungs clear, normal breath sounds, no respiratory distress, no accessory muscle use Cardiovascular: normal peripheral pulses, normal rate, regular rhythm, no gallop/murmur, no JVD Abdomen: normal bowel sounds, soft, non tender, no organomegaly, non distended , no mass, no scars Extremities: no cyanosis, no clubbing Skin: no rash, no lesions, ulcers Laboratory Tests Test 04/15/17 04:50 White Blood Count 8.8 K/UL (4.8-10.8) Red Blood Count 3.26 M/UL (4.70-6.10) L Hemoglobin 11.0 G/DL (14.2-18.0) L Hematocrit 32.0 % (42.0-52.0) L Mean Corpuscular Volume 98 FL (80-99) Mean Corpuscular Hemoglobin 33.6 PG (27.0-31.0) H Mean Corpuscular Hemoglobin Concent 34.2 G/DL (32.0-36.0) Red Cell Distribution Width 13.7 % (11.6-14.8) Platelet Count 174 K/UL (150-450) Mean Platelet Volume 4.8 FL (6.5-10.1) L Neutrophils (%) (Auto) 54.6 % (45.0-75.0) Lymphocytes (%) (Auto) 30.2 % (20.0-45.0) Monocytes (%) (Auto) 9.3 % (1.0-10.0) Eosinophils (%) (Auto) 5.1 % (0.0-3.0) H Basophils (%) (Auto) 0.8 % (0.0-2.0) Prothrombin Time 13.4 SEC (9.30-11.50) H Prothromb Time International Ratio 1.3 (0.9-1.1) H Activated Partial Thromboplast Time 37 SEC (23-33) H Sodium Level 136 mEQ/L (135-145) Potassium Level 3.3 mEQ/L (3.4-4.9) L Chloride Level 104 mEQ/L (98-107) Carbon Dioxide Level 24 mEQ/L (20-30) Anion Gap 8 (5-15) Blood Urea Nitrogen 10 mg/dL (7-23) Creatinine 1.0 mg/dL (0.7-1.2) Estimat Glomerular Filtration Rate mL/min (>60) Glucose Level 168 mg/dL (74-106) H Calcium Level 8.2 mg/dL (8.6-10.2) L Current Medications Medications (Trade) Dose Ordered Sig/[place] Route PRN Reason Start Time Stop Time Status Last Admin Dose Admin Acetaminophen (Tylenol) 650 mg Q4H PRN ORAL fever 04/10/17 15:15 05/10/17 15:14 Al Hydroxide/Mg Hydroxide (Mylanta II) 30 ml Q6H PRN ORAL dyspepsia 04/10/17 15:15 05/10/17 15:14 Albuterol/ Ipratropium (DuoNeb 0.5-3(2.5)mg/3ml) 3 ml Q4H PRN HHN Shortness of Breath 04/10/17 15:45 04/15/17 15:44 Cefepime HCl 2 gm/ Dextrose 110 ml @ 220 mls/hr Q12HR@0600,1800 IVPB 04/10/17 18:00 04/17/17 17:59 04/15/17 04:09 Clonidine HCl (Catapres) 0.1 mg Q6H PRN ORAL sbp above 160 04/10/17 14:15 05/10/17 14:14 Dextrose (Dextrose 50%) STAT PRN IV Hypoglycemia 04/13/17 06:45 05/13/17 06:44 Dextrose/Sodium Chloride (D5 0.45% NS) 1,000 ml @ 60 mls/hr [id number] IV 04/10/17 15:45 05/10/17 15:44 04/15/17 01:17 Folic Acid (Folate) 1 mg DAILY GT 04/16/17 09:00 05/16/17 08:59 Gabapentin (Neurontin) 300 mg BEDTIME ORAL 04/11/17 21:00 05/11/17 20:59 7/20/17 21:09 Heparin Sodium (Porcine) (Heparin 5000 units/ml) 5,000 units EVERY 12 HOURS SUBQ 04/10/17 21:00 05/10/17 20:59 04/11/17 21:06 Insulin Aspart (NovoLOG) BEFORE MEALS AND HS SUBQ 04/10/17 16:30 05/10/17 16:29 04/14/17 21:15 Insulin Detemir (Levemir) 6 units Q12HR SUBQ 04/14/17 09:00 05/14/17 08:59 04/14/17 21:15 Lactulose (Cephulac) 20 gm TID ORAL 04/10/17 18:00 05/10/17 17:59 04/15/17 14:07 Levetiracetam (Keppra) 500 mg Q12HR ORAL 04/11/17 21:00 05/11/17 20:59 04/14/17 21:08 Lorazepam (Ativan 2mg/ml 1ml) 0.5 mg Q4H PRN IV For Anxiety 04/10/17 15:15 04/17/17 15:14 04/13/17 04:21 Metronidazole (Flagyl) 500 mg Q8HR ORAL 04/15/17 14:00 04/22/17 13:59 04/15/17 14:08 Mirtazapine 7.5 mg 7.5 mg BEDTIME ORAL 04/11/17 21:00 05/11/17 20:59 04/14/17 21:08 Morphine Sulfate (Morphine Sulfate) 1 mg Q4H PRN IVP Moderate to Severe Pain 04/10/17 14:30 04/17/17 14:29 04/15/17 09:29 Ondansetron HCl (Zofran) 4 mg Q6H PRN IVP Nausea & Vomiting 04/10/17 15:15 05/10/17 15:14 Polyethylene Glycol (Miralax) 17 gm HSPRN PRN ORAL Constipation 04/10/17 15:15 05/10/17 15:14 Povidone Iodine (Betadine Nohemy) 1 applic DAILY ONCE TOPIC 04/16/17 10:30 04/16/17 10:31 Vancomycin HCl (Vanco rx to dose) 1 ea DAILY PRN MISC Per rx protocol 04/10/17 15:14 8/15/17 15:13 Vancomycin HCl/ Dextrose (Vancomycin/D5W) 275 ml @ 183.708 mls/hr Q12HR@0600,1800 IVPB 04/13/17 06:00 04/18/17 05:59 04/15/17 05:28 Zolpidem Tartrate (Ambien) 5 mg HSPRN PRN ORAL Insomnia Unrelieved 04/10/17 15:15 05/10/17 15:14 Valery Nicholas M.D. Apr 15, 2017 15:23
--- NOTE | 2017-04-15 16:15 | Procedure Note ---
DATE OF PROCEDURE: 04/15/2017 SURGEON: Gregor Solorzano M.D. PROCEDURE: Upper endoscopy with PEG placement. ANESTHESIOLOGIST: Veronica Matute M.D. INSTRUMENT: Olympus adult flexble upper endoscope. INDICATION: Dysphagia. REASON FOR PROCEDURE: The procedure, risks, benefits, and possible consequences, including hemorrhage, aspiration, perforation and infection, and alternative treatments, were explained to the patient/legal guardian by Dr. Gregor Solorzano and the patient/legal guardian understood and accepted these risks. PROCEDURE: After informed consent was obtained and the patient was adequately sedated, Olympus upper endoscope was advanced from the mouth into the second portion of the duodenum and retroflexion was performed in the stomach. The patient has diffuse gastritis with some erosion in the antrum. Then under endoscopic guidance and under sterile condition, a 20-[place] pull type of G-tube was successfully advanced in the gastric area. The distance from the tip of the tube to the skin was about 5 cm in size. The patient tolerated the procedure without any complication. SUMMARY FINDINGS: 1. Gastritis. 2. Status post successful PEG placement. RECOMMENDATIONS: 1. Abdominal binder. 2. Elevate the head of the bed at times. 3. G-tube flush. 4. G-tube care. 5. Start tube feeding later today. Gregor Solorzano M.D. DR: GABRIELLA JOB#: [id number] CC:
[2017-04-15] MEDS: Vancomycin 750 MG in D5W 275 ML IVPB SCH (19:39)
[2017-04-15] MEDS: levETIRAcetam 500mg/5ml Liquid GT SCH (20:59)
[2017-04-15] MEDS: Gabapentin 300 MG/6 ML Soln GT SCH (20:59)
[2017-04-16] VITALS (7 sets, daily range): BP systolic 135–166; BP diastolic 65–103
[2017-04-16] MEDS: D5 1/2NS 1,000 ML IV SCH ×2 (00:27→17:19)
[2017-04-16] MEDS: Cefepime HCl 2 GM in D5W 110 ML IVPB SCH ×2 (05:27→17:08)
[2017-04-16] MEDS: metroNIDAZOLE 500mg tab ORAL SCH ×3 (05:27→21:13)
[2017-04-16] MEDS: NovoLOG Insulin Flexpen SUBQ SCH ×4 (05:28→21:12)
--- NOTE | 2017-04-16 06:54 | General Progress Note ---
Assessment/Plan Problem List: (1) Diabetes mellitus out of control ICD Codes: E11.65 - Type 2 diabetes mellitus with hyperglycemia SNOMED: 58509234, 400246502 (2) Altered mental state ICD Codes: R41.82 - Altered mental status, unspecified SNOMED: 165589296 (3) Cerebrovascular accident (CVA) ICD Codes: I63.9 - Cerebral infarction, unspecified SNOMED: 061594241 (4) Osteomyelitis of ankle ICD Codes: M86.9 - Osteomyelitis, unspecified SNOMED: 250306909 Assessment/Plan increase Levemir to 8 units bid continue Novolog coverage Subjective ROS Limited/Unobtainable: Yes Allergies: Coded Allergies: No Known Allergies (Unverified , 05/11/16) Subjective events noted Objective Last 24 Hour Vital Signs Date Time Temp Pulse Resp B/P Pulse Ox O2 Delivery O2 Flow Rate FiO2 04/16/17 04:00 97.7 95 20 135/71 98 Nasal Cannula 4.0 04/16/17 00:00 97.9 99 18 137/65 97 Nasal Cannula 4.0 04/15/17 20:00 98.1 101 20 147/61 98 Nasal Cannula 4.0 04/15/17 19:52 105 20 Room Air 04/15/17 16:08 98.0 109 20 144/78 98 Nasal Cannula 2.0 04/15/17 12:50 97.0 101 19 130/81 99 Nasal Cannula 3.0 04/15/17 12:40 97.0 100 21 128/78 99 Nasal Cannula 3.0 04/15/17 12:30 101 19 126/76 99 Nasal Cannula 3.0 04/15/17 12:21 98 18 100 04/15/17 12:20 100 20 137/83 99 Nasal Cannula 3.0 04/15/17 12:19 98 18 100 04/15/17 12:15 99 19 145/70 99 Nasal Cannula 3.0 04/15/17 12:10 97.0 98 18 136/69 99 Nasal Cannula 3.0 04/15/17 09:59 98.4 04/15/17 08:13 98.4 107 22 134/79 95 Room Air 04/15/17 07:33 106 20 Room Air Intake and Output 04/15/17 04/16/17 19:00 07:00 Intake Total 1090 ml 1925.000 ml Output Total 400 ml 550 ml Balance 690 ml 1375.000 ml Intake Free Water 30 ml 460 ml IV Total 920 ml 905.000 ml Tube Feeding 140 ml 560 ml Output Urine Total 400 ml 550 ml # Bowel Movements 2 Height (Feet): 6 Height (Inches): 0.00 Weight (Pounds): 180 General Appearance: no apparent distress Neck: normal alignment Cardiovascular: normal rate, regular rhythm Respiratory/Chest: lungs clear Abdomen: normal bowel sounds Edema: 1+ Arm (L), 1+ Arm (R), 1+ Leg (L), 1+ Leg (R), 1+ Pedal (L), 1+ Pedal ( R), 1+ Generalized Objective Current Medications Medications (Trade) Dose Ordered Sig/[place]ave[place] Route PRN Reason Start Time Stop Time Status Last Admin Dose Admin Acetaminophen (Tylenol) 650 mg Q4H PRN ORAL fever 04/10/17 15:15 05/10/17 15:14 Al Hydroxide/Mg Hydroxide (Mylanta II) 30 ml Q6H PRN ORAL dyspepsia 04/10/17 15:15 05/10/17 15:14 Cefepime HCl 2 gm/ Dextrose 110 ml @ 220 mls/hr Q12HR@0600,1800 IVPB 04/10/17 18:00 04/17/17 17:59 04/16/17 05:27 Clonidine HCl (Catapres) 0.1 mg Q6H PRN ORAL sbp above 160 04/10/17 14:15 05/10/17 14:14 Dextrose (Dextrose 50%) STAT PRN IV Hypoglycemia 04/13/17 06:45 05/13/17 06:44 Dextrose/Sodium Chloride (D5 0.45% NS) 1,000 ml @ 60 mls/hr [id number] IV 04/10/17 15:45 05/10/17 15:44 04/16/17 00:27 Folic Acid (Folate) 1 mg DAILY GT 04/16/17 09:00 05/16/17 08:59 Gabapentin 300 mg 300 mg QHS GT 04/15/17 21:00 05/15/17 20:59 04/15/17 20:59 Heparin Sodium (Porcine) (Heparin 5000 units/ml) 5,000 units EVERY 12 HOURS SUBQ 04/10/17 21:00 05/10/17 20:59 04/15/17 21:01 Insulin Aspart (NovoLOG) BEFORE MEALS AND HS SUBQ 04/10/17 16:30 05/10/17 16:29 04/16/17 05:28 Insulin Detemir (Levemir) 6 units Q12HR SUBQ 04/14/17 09:00 05/14/17 08:59 04/15/17 21:02 Lactulose (Cephulac) 20 gm TID ORAL 04/10/17 18:00 05/10/17 17:59 04/15/17 18:29 Levetiracetam (Keppra) 500 mg Q12HR GT 04/15/17 21:00 05/15/17 20:59 04/15/17 20:59 Lorazepam (Ativan 2mg/ml 1ml) 0.5 mg Q4H PRN IV For Anxiety 04/10/17 15:15 04/17/17 15:14 04/13/17 04:21 Metronidazole (Flagyl) 500 mg Q8HR ORAL 04/15/17 14:00 04/22/17 13:59 04/16/17 05:27 Mirtazapine (Remeron) 7.5 mg BEDTIME ORAL 04/11/17 21:00 05/11/17 20:59 04/15/17 20:59 Morphine Sulfate (Morphine Sulfate) 1 mg Q4H PRN IVP Moderate to Severe Pain 04/10/17 14:30 04/17/17 14:29 04/15/17 09:29 Ondansetron HCl (Zofran) 4 mg Q6H PRN IVP Nausea & Vomiting 04/10/17 15:15 05/10/17 15:14 Polyethylene Glycol (Miralax) 17 gm HSPRN PRN ORAL Constipation 04/10/17 15:15 05/10/17 15:14 Povidone Iodine (Betadine Nohemy) 1 applic DAILY ONCE TOPIC 04/16/17 10:30 04/16/17 10:31 Vancomycin HCl (Vanco rx to dose) 1 ea DAILY PRN MISC Per rx protocol 04/10/17 15:14 05/10/17 15:13 Vancomycin HCl/ Dextrose (Vancomycin/D5W) 275 ml @ 183.708 mls/hr Q12HR@0800,2000 IVPB 04/15/17 20:00 04/20/17 19:59 04/15/17 19:39 Zolpidem Tartrate (Ambien) 5 mg HSPRN PRN ORAL Insomnia Unrelieved 04/10/17 15:15 05/10/17 15:14 Item Value Date Time Bedside Blood Glucose 172 mg/dl H 04/16/17 0605 Bedside Blood Glucose 215 mg/dl H 04/15/17 2104 Bedside Blood Glucose 235 mg/dl H 04/15/17 1626 Bedside Blood Glucose 163 mg/dl H 04/15/17 0900 FOREST LONGORIA Apr 16, 2017 06:54
--- NOTE | 2017-04-16 07:44 | General Progress Note ---
Assessment/Plan Problem List: (1) Diabetes mellitus out of control ICD Codes: E11.65 - Type 2 diabetes mellitus with hyperglycemia SNOMED: 84361445, 358215632 (2) Osteomyelitis of right foot ICD Codes: M86.9 - Osteomyelitis, unspecified SNOMED: 22405099 (3) Anemia ICD Codes: D64.9 - Anemia, unspecified SNOMED: 005337154 (4) Cerebrovascular accident (CVA) ICD Codes: I63.9 - Cerebral infarction, unspecified SNOMED: 842338203 (5) Morbid obesity ICD Codes: E66.01 - Morbid (severe) obesity due to excess calories SNOMED: 097357973, 86513916358016 (6) History of CVA (cerebrovascular accident) ICD Codes: Z86.73 - Personal history of transient ischemic attack (TIA), and cerebral infarction without residual deficits SNOMED: 574061848 (7) HTN (hypertension) ICD Codes: I10 - Essential (primary) hypertension SNOMED: 30531981 (8) Dementia arising in the senium and presenium ICD Codes: F03.90 - Unspecified dementia without behavioral disturbance SNOMED: 75064347 Assessment/Plan s/p PEG tolerating TF HL IV DC planning per primary team Subjective ROS Limited/Unobtainable: No Allergies: Coded Allergies: No Known Allergies (Unverified , 05/11/16) Objective Last 24 Hour Vital Signs Date Time Temp Pulse Resp B/P Pulse Ox O2 Delivery O2 Flow Rate FiO2 04/16/17 04:00 97.7 95 20 135/71 98 Nasal Cannula 4.0 04/16/17 00:00 97.9 99 18 137/65 97 Nasal Cannula 4.0 04/15/17 20:00 98.1 101 20 147/61 98 Nasal Cannula 4.0 04/15/17 19:52 105 20 Room Air 04/15/17 16:08 98.0 109 20 144/78 98 Nasal Cannula 2.0 04/15/17 12:50 97.0 101 19 130/81 99 Nasal Cannula 3.0 04/15/17 12:40 97.0 100 21 128/78 99 Nasal Cannula 3.0 04/15/17 12:30 101 19 126/76 99 Nasal Cannula 3.0 04/15/17 12:21 98 18 100 04/15/17 12:20 100 20 137/83 99 Nasal Cannula 3.0 04/15/17 12:19 98 18 100 04/15/17 12:15 99 19 145/70 99 Nasal Cannula 3.0 04/15/17 12:10 97.0 98 18 136/69 99 Nasal Cannula 3.0 04/15/17 09:59 98.4 04/15/17 08:13 98.4 107 22 134/79 95 Room Air Intake and Output 04/15/17 04/16/17 19:00 07:00 Intake Total 1090 ml 2045.000 ml Output Total 400 ml 550 ml Balance 690 ml 1495.000 ml Intake Free Water 30 ml 460 ml IV Total 920 ml 965.000 ml Tube Feeding 140 ml 620 ml Output Urine Total 400 ml 550 ml # Bowel Movements 2 Laboratory Tests 04/16/17 05:15: White Blood Count [Pending], Red Blood Count [Pending], Hemoglobin [Pending], Hematocrit [Pending], Mean Corpuscular Volume [Pending], Mean Corpuscular Hemoglobin [Pending], Mean Corpuscular Hemoglobin Concent [Pending], Red Cell Distribution Width [Pending], Platelet Count [Pending], Mean Platelet Volume [ Pending], Neutrophils (%) (Auto) [Pending], Lymphocytes (%) (Auto) [Pending], Monocytes (%) (Auto) [Pending], Eosinophils (%) (Auto) [Pending], Basophils (%) (Auto) [Pending], Sodium Level [Pending], Potassium Level [Pending], Chloride Level [Pending], Carbon Dioxide Level [Pending], Blood Urea Nitrogen [Pending], Creatinine [Pending], Estimat Glomerular Filtration Rate [Pending], Glucose Level [Pending], Calcium Level [Pending], Magnesium Level [Pending] Height (Feet): 6 Height (Inches): 0.00 Weight (Pounds): 180 General Appearance: no apparent distress EENT: normal ENT inspection Neck: supple Cardiovascular: normal rate Respiratory/Chest: decreased breath sounds Abdomen: normal bowel sounds, non tender, soft Extremities: non-tender YEIMI CALLAHAN Apr 16, 2017 07:44
[2017-04-16 07:56] LABS: BASOPHILS % (AUTO) 1.1 % (0.0-2.0); EOSINOPHILS % (AUTO) 4.3 % (0.0-3.0); LYMPHOCYTES % (AUTO) 25.4 % (20.0-45.0); MEAN CORPUSCULAR HEMOGLOBIN 33.7 PG (27.0-31.0); MEAN CORPUSCULAR HGB CONC 34.4 G/DL (32.0-36.0); MEAN CORPUSCULAR VOLUME 98 FL (80-99); MEAN PLATELET VOLUME 5.1 FL (6.5-10.1); MONOCYTES % (AUTO) 11.5 % (1.0-10.0); NEUTROPHILS % (AUTO) 57.8 % (45.0-75.0); PLATELET COUNT 183 K/UL (150-450); RED BLOOD COUNT 3.32 M/UL (4.70-6.10); RED CELL DISTRIBUTION WIDTH 14.2 % (11.6-14.8); WHITE BLOOD COUNT 10.3 K/UL (4.8-10.8)
[2017-04-16 08:15] LABS: ANION GAP 9 (5-15); CALCIUM 8.2 mg/dL (8.6-10.2); CARBON DIOXIDE 23 mEQ/L (20-30); CHLORIDE 104 mEQ/L (98-107); HEMOLYSIS 5; POTASSIUM 3.3 mEQ/L (3.4-4.9); SODIUM 136 mEQ/L (135-145)
--- NOTE | 2017-04-16 09:06 | General Progress Note ---
Assessment/Plan Problem List: (1) Morbid obesity ICD Codes: E66.01 - Morbid (severe) obesity due to excess calories SNOMED: 272222494, 01823364424126 (2) Cerebrovascular accident (CVA) ICD Codes: I63.9 - Cerebral infarction, unspecified SNOMED: 521855273 (3) Diabetes mellitus ICD Codes: E11.9 - Type 2 diabetes mellitus without complications SNOMED: 89114200 (4) Open wound of heel ICD Codes: S91.309A - Unspecified open wound, unspecified foot, initial encounter SNOMED: 602719807 (5) Cellulitis of lower extremity ICD Codes: L03.119 - Cellulitis of unspecified part of limb SNOMED: 902979049 (6) UTI (urinary tract infection) ICD Codes: N39.0 - Urinary tract infection, site not specified SNOMED: 62024783 (7) Sepsis ICD Codes: A41.9 - Sepsis, unspecified organism SNOMED: 22334570 (8) COPD (chronic obstructive pulmonary disease) ICD Codes: J44.9 - Chronic obstructive pulmonary disease, unspecified SNOMED: 66566615 (9) ISMAEL (obstructive sleep apnea) ICD Codes: G47.33 - Obstructive sleep apnea (adult) (pediatric) SNOMED: 03696476 Status: stable, progressing, tolerating diet Assessment/Plan ot pt diet wound care eval abx cbc bmp am dc plan to snf Subjective Constitutional: Reports: weakness Allergies: Coded Allergies: No Known Allergies (Unverified , 05/11/16) All Systems: reviewed and negative except above Subjective o2nc sleepy calm Objective Last 24 Hour Vital Signs Date Time Temp Pulse Resp B/P Pulse Ox O2 Delivery O2 Flow Rate FiO2 04/16/17 08:14 98.4 110 20 146/74 98 Nasal Cannula 4.0 04/16/17 08:04 101 20 Room Air 04/16/17 04:00 97.7 95 20 135/71 98 Nasal Cannula 4.0 04/16/17 00:00 97.9 99 18 137/65 97 Nasal Cannula 4.0 04/15/17 20:00 98.1 101 20 147/61 98 Nasal Cannula 4.0 04/15/17 19:52 105 20 Room Air 04/15/17 16:08 98.0 109 20 144/78 98 Nasal Cannula 2.0 04/15/17 12:50 97.0 101 19 130/81 99 Nasal Cannula 3.0 04/15/17 12:40 97.0 100 21 128/78 99 Nasal Cannula 3.0 04/15/17 12:30 101 19 126/76 99 Nasal Cannula 3.0 04/15/17 12:21 98 18 100 04/15/17 12:20 100 20 137/83 99 Nasal Cannula 3.0 04/15/17 12:19 98 18 100 04/15/17 12:15 99 19 145/70 99 Nasal Cannula 3.0 04/15/17 12:10 97.0 98 18 136/69 99 Nasal Cannula 3.0 04/15/17 09:59 98.4 Intake and Output 04/15/17 04/16/17 19:00 07:00 Intake Total 1090 ml 2045.000 ml Output Total 400 ml 550 ml Balance 690 ml 1495.000 ml Intake Free Water 30 ml 460 ml IV Total 920 ml 965.000 ml Tube Feeding 140 ml 620 ml Output Urine Total 400 ml 550 ml # Bowel Movements 2 Laboratory Tests 04/16/17 05:15: White Blood Count 10.3, Red Blood Count 3.32L, Hemoglobin 11.2L, Hematocrit 32.5L, Mean Corpuscular Volume 98, Mean Corpuscular Hemoglobin 33.7H, Mean Corpuscular Hemoglobin Concent 34.4, Red Cell Distribution Width 14.2, Platelet Count 183, Mean Platelet Volume 5.1L, Neutrophils (%) (Auto) 57.8, Lymphocytes ( %) (Auto) 25.4, Monocytes (%) (Auto) 11.5H, Eosinophils (%) (Auto) 4.3H, Basophils (%) (Auto) 1.1, Sodium Level 136, Potassium Level 3.3L, Chloride Level 104, Carbon Dioxide Level 23, Anion Gap 9, Blood Urea Nitrogen 11, Creatinine 1.0, Estimat Glomerular Filtration Rate , Glucose Level 144H, Calcium Level 8.2L, Magnesium Level 1.6L Height (Feet): 6 Height (Inches): 0.00 Weight (Pounds): 180 General Appearance: lethargic EENT: normal ENT inspection Neck: normal alignment Cardiovascular: normal peripheral pulses, normal rate, regular rhythm Respiratory/Chest: chest wall non-tender, lungs clear, normal breath sounds Abdomen: normal bowel sounds, non tender, soft Extremities: normal inspection Edema: no edema noted Arm (L), no edema noted Arm (R), no edema noted Leg (L), no edema noted Leg (R), no edema noted Pedal (L), no edema noted Pedal (R), no edema noted Generalized Neurologic: motor weakness Skin: normal pigmentation, warm/dry LINDA BOLAÑOS Apr 16, 2017 09:06
--- NOTE | 2017-04-16 09:55 | Pulmonology Progress Note ---
Assessment/Plan Assessment/Plan ASSESSMENT sepsis acute toxic metabolic encephalopathy on end stage dementia ( due to sepsis) UTI OM R foot/ankle DM R heel ulcer with cellulitis POA sacral decub POA dysphagia s/p EGD and PEG 04/15 gastritis hx of DVT Hx of HTN COPD Hx of CVA e/ lyte imbalances ( hypo K, hypo Mg, hypo P) cognitive impairment schizophrenia seizure disorder severe protein calorie malnutrition anemia folate deficiency subclinical hypothyroidism PLAN OF CARE abx ID follows urine cx + E coli, blood cx + Diphtheroids ( contaminant), wound cx + E coli, Morganella, Staph aureus abx on dc as per ID recommendations, need 6 weeks total of abx PICC line placement pending ESR , CRP elevated MRI R foot/ankle with findings highly suspicious for acute OM EEG abnormal, c/w toxic metabolic encephalopathy, neuro follows BS management with Levemir and SS of insulin, HgA1c -5.2 ab initio etl developer followed wound care as per ab initio etl developer and wound nurse recommendations monitor BP, currently normotensive, Clonidine prn lipid panel stable, continue Plavix electrolyte replaced as needed ( today K and Mg replacement, check K and mg in am) O2 HHN prn Venous Duplex BLE - negative Hx of DVT anemia w/up with stable iron, stool OB negative, low folate, started on folate supplements, CEA with minimal elevation resume psych meds psychiatrist followed seizure precautions, continue Keppra DVT prophylaxis pain management GI follows s/p EGD and PEG 04/15 with findings fo gastritis strict aspiration and reflux precautions, monitor GT feeding tolerance GT site care bowel regimen prealbumin -5.0 dietary eval appreciated on protein supplements PT/OT elevated TSH with normal free T 4- subclinical hypothyroidism, check thyroid panel in 4 weeks dc plan after PICC line case discussed and evaluated by supervising physician Subjective Allergies: Coded Allergies: No Known Allergies (Unverified , 05/11/16) Subjective s/p EGD and PEG tolerates GT feeding afebrile, no leucocytosis awaiting for PICC elsa Objective Last 24 Hour Vital Signs Date Time Temp Pulse Resp B/P Pulse Ox O2 Delivery O2 Flow Rate FiO2 04/16/17 08:14 98.4 110 20 146/74 98 Nasal Cannula 4.0 04/16/17 08:04 101 20 Room Air 04/16/17 04:00 97.7 95 20 135/71 98 Nasal Cannula 4.0 04/16/17 00:00 97.9 99 18 137/65 97 Nasal Cannula 4.0 04/15/17 20:00 98.1 101 20 147/61 98 Nasal Cannula 4.0 04/15/17 19:52 105 20 Room Air 04/15/17 16:08 98.0 109 20 144/78 98 Nasal Cannula 2.0 04/15/17 12:50 97.0 101 19 130/81 99 Nasal Cannula 3.0 04/15/17 12:40 97.0 100 21 128/78 99 Nasal Cannula 3.0 04/15/17 12:30 101 19 126/76 99 Nasal Cannula 3.0 04/15/17 12:21 98 18 100 04/15/17 12:20 100 20 137/83 99 Nasal Cannula 3.0 04/15/17 12:19 98 18 100 04/15/17 12:15 99 19 145/70 99 Nasal Cannula 3.0 04/15/17 12:10 97.0 98 18 136/69 99 Nasal Cannula 3.0 04/15/17 09:59 98.4 Intake and Output 04/15/17 04/16/17 19:00 07:00 Intake Total 1090 ml 2045.000 ml Output Total 400 ml 550 ml Balance 690 ml 1495.000 ml Intake Free Water 30 ml 460 ml IV Total 920 ml 965.000 ml Tube Feeding 140 ml 620 ml Output Urine Total 400 ml 550 ml # Bowel Movements 2 Objective General Appearance: no apparent distress, arousable, Lines, tubes and drains: peripheral HEENT: atraumatic, anicteric, poor dentition Neck: supple Respiratory/Chest: lungs clear, no respiratory distress, no accessory muscle use Cardiovascular/Chest: normal peripheral pulses, normal rate , no JVD Abdomen: normal bowel sounds, non tender, soft, G tube with TF, Extremities: non-tender, no calf tenderness, normal capillary refill Skin Exam: sacral and R heel decub POA Neurologic: alert, responsive Laboratory Tests 04/16/17 05:15: White Blood Count 10.3, Red Blood Count 3.32L, Hemoglobin 11.2L, Hematocrit 32.5L, Mean Corpuscular Volume 98, Mean Corpuscular Hemoglobin 33.7H, Mean Corpuscular Hemoglobin Concent 34.4, Red Cell Distribution Width 14.2, Platelet Count 183, Mean Platelet Volume 5.1L, Neutrophils (%) (Auto) 57.8, Lymphocytes ( %) (Auto) 25.4, Monocytes (%) (Auto) 11.5H, Eosinophils (%) (Auto) 4.3H, Basophils (%) (Auto) 1.1, Sodium Level 136, Potassium Level 3.3L, Chloride Level 104, Carbon Dioxide Level 23, Anion Gap 9, Blood Urea Nitrogen 11, Creatinine 1.0, Estimat Glomerular Filtration Rate , Glucose Level 144H, Calcium Level 8.2L, Magnesium Level 1.6L Current Medications Medications (Trade) Dose Ordered Sig/Naveen Route PRN Reason Start Time Stop Time Status Last Admin Dose Admin Acetaminophen (Tylenol) 650 mg Q4H PRN ORAL fever 04/10/17 15:15 05/10/17 15:14 Al Hydroxide/Mg Hydroxide (Mylanta II) 30 ml Q6H PRN ORAL dyspepsia 04/10/17 15:15 05/10/17 15:14 Cefepime HCl 2 gm/ Dextrose 110 ml @ 220 mls/hr Q12HR@0600,1800 IVPB 04/10/17 18:00 04/17/17 17:59 04/16/17 05:27 Clonidine HCl (Catapres) 0.1 mg Q6H PRN ORAL sbp above 160 04/10/17 14:15 05/10/17 14:14 Dextrose (Dextrose 50%) STAT PRN IV Hypoglycemia 04/13/17 06:45 05/13/17 06:44 Dextrose/Sodium Chloride (D5 0.45% NS) 1,000 ml @ 60 mls/hr [id number] IV 04/10/17 15:45 05/10/17 15:44 04/16/17 00:27 Folic Acid (Folate) 1 mg DAILY GT 04/16/17 09:00 05/16/17 08:59 Gabapentin 300 mg 300 mg QHS GT 04/15/17 21:00 05/15/17 20:59 04/15/17 20:59 Heparin Sodium (Porcine) (Heparin 5000 units/ml) 5,000 units EVERY 12 HOURS SUBQ 04/10/17 21:00 05/10/17 20:59 04/15/17 21:01 Insulin Aspart (NovoLOG) BEFORE MEALS AND HS SUBQ 04/10/17 16:30 05/10/17 16:29 04/16/17 05:28 Insulin Detemir (Levemir) 8 units Q12HR SUBQ 04/16/17 09:00 05/16/17 08:59 Lactulose (Cephulac) 20 gm TID ORAL 04/10/17 18:00 05/10/17 17:59 04/15/17 18:29 Levetiracetam (Keppra) 500 mg Q12HR GT 04/15/17 21:00 05/15/17 20:59 04/15/17 20:59 Lorazepam (Ativan 2mg/ml 1ml) 0.5 mg Q4H PRN IV For Anxiety 04/10/17 15:15 04/17/17 15:14 04/13/17 04:21 Metronidazole (Flagyl) 500 mg Q8HR ORAL 04/15/17 14:00 04/22/17 13:59 04/16/17 05:27 Mirtazapine (Remeron) 7.5 mg BEDTIME ORAL 04/11/17 21:00 05/11/17 20:59 04/15/17 20:59 Morphine Sulfate (Morphine Sulfate) 1 mg Q4H PRN IVP Moderate to Severe Pain 04/10/17 14:30 04/17/17 14:29 04/15/17 09:29 Ondansetron HCl (Zofran) 4 mg Q6H PRN IVP Nausea & Vomiting 04/10/17 15:15 05/10/17 15:14 Polyethylene Glycol (Miralax) 17 gm HSPRN PRN ORAL Constipation 04/10/17 15:15 05/10/17 15:14 Povidone Iodine (Betadine Nohemy) 1 applic DAILY ONCE TOPIC 04/16/17 10:30 04/16/17 10:31 Vancomycin HCl (Vanco rx to dose) 1 ea DAILY PRN MISC Per rx protocol 04/10/17 15:14 05/10/17 15:13 Vancomycin HCl/ Dextrose (Vancomycin/D5W) 275 ml @ 183.708 mls/hr Q12HR@0800,2000 IVPB 04/15/17 20:00 04/20/17 19:59 04/15/17 19:39 Zolpidem Tartrate (Ambien) 5 mg HSPRN PRN ORAL Insomnia Unrelieved 04/10/17 15:15 05/10/17 15:14 Conor ([facility])Alana NP Apr 16, 2017 09:55
[2017-04-16] MEDS: Vancomycin 750 MG in D5W 275 ML IVPB SCH ×2 (10:07→21:13)
[2017-04-16] MEDS: Lactulose 20gm/30ml UDC ORAL SCH ×3 (10:10→16:59)
[2017-04-16] MEDS: levETIRAcetam 500mg/5ml Liquid GT SCH ×2 (10:10→21:11)
[2017-04-16] MEDS: Heparin 5000 units/ml inj SUBQ SCH ×2 (10:19→21:12)
[2017-04-16] MEDS: Levemir Flexpen SUBQ SCH ×2 (10:26→21:12)
[2017-04-16] MEDS ORDERED: KCl 10% 40mEq/30ml liquid NG ONE (10:30)
[2017-04-16] MEDS ORDERED: Betadine 4oz Bottle TOPIC ONE (10:30)
[2017-04-16] MEDS ORDERED: Tubing IV Secondary IV ONE ×3 (10:41→16:57)
[2017-04-16] MEDS ORDERED: D5 1/2NS 1000ml IV ONE ×2 (10:41→16:57)
[2017-04-16] MEDS ORDERED: LORazepam Inj 2mg/ml 1ml IV PRN (11:15)
--- NOTE | 2017-04-16 15:15 | Infectious Diseases Prog Note ---
Assessment/Plan Problems: (1) Open wound of heel Assessment & Plan: with infection, and underlying osteomyelitis , wound culture is growing Morganella morgagnii, E coli, and staph aureus , blood culture diphtheroid most likely contaminant , will continue vancomycin, cefepiem and flagyl for 6 weeks for osteomyelitis, follow up with batch and furnace operator. EOT 05/22/17 (2) Osteomyelitis of ankle Assessment & Plan: confirmed on MRI of the right ankle , blood culture showed contaminant, continue wide spectrum antibiotics for 6 weeks, await wound culture result (3) Diabetes mellitus Assessment & Plan: recommend tight glycemic control to keep blood glucose between 80-120 (4) Sepsis Assessment & Plan: due to the above, on wide spectrum antibiotics, send blood culture (5) UTI (urinary tract infection) Assessment & Plan: with E coli, already on cefepime Subjective ROS Limited/Unobtainable: Yes Allergies: Coded Allergies: No Known Allergies (Unverified , 05/11/16) Subjective he was unresponsive and altered , dosen't follow commands.afebrile, has NGT in place Objective Vital Signs Last 24 Hour Vital Signs Date Time Temp Pulse Resp B/P Pulse Ox O2 Delivery O2 Flow Rate FiO2 04/16/17 12:02 90 04/16/17 11:34 98.0 118 20 158/96 98 Nasal Cannula 4.0 04/16/17 08:14 98.4 110 20 146/74 98 Nasal Cannula 4.0 04/16/17 08:04 101 20 Room Air 04/16/17 04:00 97.7 95 20 135/71 98 Nasal Cannula 4.0 04/16/17 00:00 97.9 99 18 137/65 97 Nasal Cannula 4.0 04/15/17 20:00 98.1 101 20 147/61 98 Nasal Cannula 4.0 04/15/17 19:52 105 20 Room Air 04/15/17 16:08 98.0 109 20 144/78 98 Nasal Cannula 2.0 Height (Feet): 6 Height (Inches): 0.00 Weight (Pounds): 180 General Appearance: WD/WN, no acute distress HEENT: normocephalic, atraumatic, anicteric, supple, no JVD Respiratory/Chest: chest wall non-tender, no respiratory distress, no accessory muscle use, decreased breath sounds Cardiovascular: normal peripheral pulses, normal rate, regular rhythm, no gallop/murmur, no JVD Abdomen: normal bowel sounds, soft, non tender, no organomegaly, non distended , no mass, no scars Extremities: no cyanosis, no clubbing Skin: no rash, no lesions Neurologic/Psychiatric: unresponsiveness Laboratory Tests Test 04/16/17 05:15 White Blood Count 10.3 K/UL (4.8-10.8) Red Blood Count 3.32 M/UL (4.70-6.10) L Hemoglobin 11.2 G/DL (14.2-18.0) L Hematocrit 32.5 % (42.0-52.0) L Mean Corpuscular Volume 98 FL (80-99) Mean Corpuscular Hemoglobin 33.7 PG (27.0-31.0) H Mean Corpuscular Hemoglobin Concent 34.4 G/DL (32.0-36.0) Red Cell Distribution Width 14.2 % (11.6-14.8) Platelet Count 183 K/UL (150-450) Mean Platelet Volume 5.1 FL (6.5-10.1) L Neutrophils (%) (Auto) 57.8 % (45.0-75.0) Lymphocytes (%) (Auto) 25.4 % (20.0-45.0) Monocytes (%) (Auto) 11.5 % (1.0-10.0) H Eosinophils (%) (Auto) 4.3 % (0.0-3.0) H Basophils (%) (Auto) 1.1 % (0.0-2.0) Sodium Level 136 mEQ/L (135-145) Potassium Level 3.3 mEQ/L (3.4-4.9) L Chloride Level 104 mEQ/L (98-107) Carbon Dioxide Level 23 mEQ/L (20-30) Anion Gap 9 (5-15) Blood Urea Nitrogen 11 mg/dL (7-23) Creatinine 1.0 mg/dL (0.7-1.2) Estimat Glomerular Filtration Rate mL/min (>60) Glucose Level 144 mg/dL (74-106) H Calcium Level 8.2 mg/dL (8.6-10.2) L Magnesium Level 1.6 mg/dL (1.7-2.5) L Current Medications Medications (Trade) Dose Ordered Sig/Naveen Route PRN Reason Start Time Stop Time Status Last Admin Dose Admin Acetaminophen (Tylenol) 650 mg Q4H PRN ORAL fever 04/10/17 15:15 05/10/17 15:14 Al Hydroxide/Mg Hydroxide (Mylanta II) 30 ml Q6H PRN ORAL dyspepsia 04/10/17 15:15 05/10/17 15:14 Cefepime HCl 2 gm/ Dextrose 110 ml @ 220 mls/hr Q12HR@0600,1800 IVPB 04/10/17 18:00 04/17/17 17:59 04/16/17 05:27 Clonidine HCl (Catapres) 0.1 mg Q6H PRN ORAL sbp above 160 04/10/17 14:15 05/10/17 14:14 Dextrose (Dextrose 50%) STAT PRN IV Hypoglycemia 04/13/17 06:45 05/13/17 06:44 Dextrose/Sodium Chloride (D5 0.45% NS) 1,000 ml @ 60 mls/hr [id number] IV 04/10/17 15:45 05/10/17 15:44 04/16/17 00:27 Folic Acid (Folate) 1 mg DAILY GT 04/16/17 09:00 05/16/17 08:59 04/16/17 10:10 Gabapentin 300 mg 300 mg QHS GT 04/15/17 21:00 05/15/17 20:59 04/15/17 20:59 Heparin Sodium (Porcine) (Heparin 5000 units/ml) 5,000 units EVERY 12 HOURS SUBQ 04/10/17 21:00 05/10/17 20:59 04/16/17 10:19 Insulin Aspart (NovoLOG) BEFORE MEALS AND HS SUBQ 04/10/17 16:30 05/10/17 16:29 04/16/17 11:42 Insulin Detemir (Levemir) 8 units Q12HR SUBQ 04/16/17 09:00 05/16/17 08:59 04/16/17 10:26 Lactulose (Cephulac) 20 gm TID ORAL 04/10/17 18:00 05/10/17 17:59 04/16/17 10:10 Levetiracetam (Keppra) 500 mg Q12HR GT 04/15/17 21:00 05/15/17 20:59 04/16/17 10:10 Lorazepam (Ativan 2mg/ml 1ml) 0.5 mg Q4H PRN IV For Anxiety 04/16/17 11:15 04/23/17 23:59 Metronidazole (Flagyl) 500 mg Q8HR ORAL 04/15/17 14:00 04/22/17 13:59 04/16/17 14:08 Mirtazapine (Remeron) 7.5 mg BEDTIME ORAL 04/11/17 21:00 05/11/17 20:59 04/15/17 20:59 Morphine Sulfate (Morphine Sulfate) 1 mg Q4H PRN IVP Moderate to Severe Pain 04/16/17 10:30 04/23/17 23:59 Ondansetron HCl (Zofran) 4 mg Q6H PRN IVP Nausea & Vomiting 04/10/17 15:15 05/10/17 15:14 Polyethylene Glycol (Miralax) 17 gm HSPRN PRN ORAL Constipation 04/10/17 15:15 05/10/17 15:14 Vancomycin HCl (Vanco rx to dose) 1 ea DAILY PRN MISC Per rx protocol 04/10/17 15:14 05/10/17 15:13 Vancomycin HCl/ Dextrose (Vancomycin/D5W) 275 ml @ 183.708 mls/hr Q12HR@0800,2000 IVPB 04/15/17 20:00 04/20/17 19:59 04/16/17 10:07 Zolpidem Tartrate (Ambien) 5 mg HSPRN PRN ORAL Insomnia Unrelieved 04/10/17 15:15 05/10/17 15:14 Valery Nicholas M.D. Apr 16, 2017 15:15
[2017-04-16] MEDS ORDERED: NS 275ml ONE (16:57)
[2017-04-16] MEDS ORDERED: D5W 275ml ONE (16:57)
[2017-04-16] MEDS: Gabapentin 300 MG/6 ML Soln GT SCH (21:11)
[2017-04-17] VITALS: BP 121/58
[2017-04-17 04:00] VITALS: BP 110/55
[2017-04-17] MEDS: Cefepime HCl 2 GM in D5W 110 ML IVPB SCH ×2 (05:52→17:33)
[2017-04-17] MEDS: metroNIDAZOLE 500mg tab ORAL SCH ×3 (05:53→21:35)
[2017-04-17] MEDS: NovoLOG Insulin Flexpen SUBQ SCH ×4 (05:55→20:27)
[2017-04-17 07:22] LABS: BASOPHILS % (AUTO) 0.8 % (0.0-2.0); LYMPHOCYTES % (AUTO) 25.5 % (20.0-45.0); MEAN CORPUSCULAR HEMOGLOBIN 33.8 PG (27.0-31.0); MEAN CORPUSCULAR HGB CONC 33.9 G/DL (32.0-36.0); MEAN CORPUSCULAR VOLUME 100 FL (80-99); MEAN PLATELET VOLUME 4.8 FL (6.5-10.1); MONOCYTES % (AUTO) 11.8 % (1.0-10.0); NEUTROPHILS % (AUTO) 57.9 % (45.0-75.0); PLATELET COUNT 136 K/UL (150-450); RED BLOOD COUNT 3.37 M/UL (4.70-6.10); RED CELL DISTRIBUTION WIDTH 14.6 % (11.6-14.8)
--- NOTE | 2017-04-17 07:44 | General Progress Note ---
Assessment/Plan Problem List: (1) Morbid obesity ICD Codes: E66.01 - Morbid (severe) obesity due to excess calories SNOMED: 737899689, 75427057509111 (2) Cerebrovascular accident (CVA) ICD Codes: I63.9 - Cerebral infarction, unspecified SNOMED: 567130970 (3) Diabetes mellitus ICD Codes: E11.9 - Type 2 diabetes mellitus without complications SNOMED: 57598669 (4) Open wound of heel ICD Codes: S91.309A - Unspecified open wound, unspecified foot, initial encounter SNOMED: 424527385 (5) Cellulitis of lower extremity ICD Codes: L03.119 - Cellulitis of unspecified part of limb SNOMED: 737399883 (6) UTI (urinary tract infection) ICD Codes: N39.0 - Urinary tract infection, site not specified SNOMED: 51250831 (7) Sepsis ICD Codes: A41.9 - Sepsis, unspecified organism SNOMED: 32036295 (8) COPD (chronic obstructive pulmonary disease) ICD Codes: J44.9 - Chronic obstructive pulmonary disease, unspecified SNOMED: 07429159 (9) ISMAEL (obstructive sleep apnea) ICD Codes: G47.33 - Obstructive sleep apnea (adult) (pediatric) SNOMED: 07916016 Status: unchanged Assessment/Plan ot pt diet wound care eval abx cbc bmp am dc plan to snf Subjective Constitutional: Reports: weakness Allergies: Coded Allergies: No Known Allergies (Unverified , 05/11/16) All Systems: reviewed and negative except above Subjective o2nc sleepy calm Objective Last 24 Hour Vital Signs Date Time Temp Pulse Resp B/P Pulse Ox O2 Delivery O2 Flow Rate FiO2 04/17/17 04:00 98.1 98 17 110/55 98 Nasal Cannula 2.0 04/17/17 00:00 98.2 103 18 121/58 97 Nasal Cannula 2.0 04/16/17 20:35 97 20 Room Air 04/16/17 20:00 98.2 108 20 144/70 98 Nasal Cannula 2.0 04/16/17 17:00 98.6 94 20 135/79 98 Nasal Cannula 4.0 04/16/17 16:20 95 04/16/17 16:12 98.6 118 20 166/103 98 Nasal Cannula 4.0 04/16/17 16:03 166/103 04/16/17 12:02 90 04/16/17 11:34 98.0 118 20 158/96 98 Nasal Cannula 4.0 04/16/17 08:14 98.4 110 20 146/74 98 Nasal Cannula 4.0 04/16/17 08:04 101 20 Room Air Intake and Output 04/16/17 04/17/17 19:00 07:00 Intake Total 1845 ml 1905.000 ml Output Total 300 ml Balance 1545 ml 1905.000 ml Intake Free Water 400 ml 200 ml IV Total 725 ml 985.000 ml Tube Feeding 720 ml 720 ml Output Urine Total 300 ml # Bowel Movements 2 2 Laboratory Tests 04/17/17 05:25: White Blood Count 9.0, Red Blood Count 3.37L, Hemoglobin 11.4L, Hematocrit 33.5L , Mean Corpuscular Volume 100H, Mean Corpuscular Hemoglobin 33.8H, Mean Corpuscular Hemoglobin Concent 33.9, Red Cell Distribution Width 14.6, Platelet Count 136L, Mean Platelet Volume 4.8L, Neutrophils (%) (Auto) 57.9, Lymphocytes (%) (Auto) 25.5, Monocytes (%) (Auto) 11.8H, Eosinophils (%) (Auto) 4.0H, Basophils (%) (Auto) 0.8, Sodium Level [Pending], Potassium Level [Pending], Chloride Level [Pending], Carbon Dioxide Level [Pending], Blood Urea Nitrogen [ Pending], Creatinine [Pending], Estimat Glomerular Filtration Rate [Pending], Glucose Level [Pending], Calcium Level [Pending], Magnesium Level 1.6L Height (Feet): 6 Height (Inches): 0.00 Weight (Pounds): 180 General Appearance: lethargic EENT: normal ENT inspection Neck: normal alignment Cardiovascular: normal peripheral pulses, normal rate, regular rhythm Respiratory/Chest: chest wall non-tender, lungs clear, normal breath sounds Abdomen: normal bowel sounds, non tender, soft Extremities: normal inspection Edema: no edema noted Arm (L), no edema noted Arm (R), no edema noted Leg (L), no edema noted Leg (R), no edema noted Pedal (L), no edema noted Pedal (R), no edema noted Generalized Neurologic: motor weakness Skin: normal pigmentation, warm/dry LINDA BOLAÑOS Apr 17, 2017 07:44
[2017-04-17 07:45] LABS: ANION GAP 7 (5-15); CALCIUM 8.1 mg/dL (8.6-10.2); CARBON DIOXIDE 22 mEQ/L (20-30); CHLORIDE 104 mEQ/L (98-107); CREATININE 0.9 mg/dL (0.7-1.2); HEMOLYSIS 1; SODIUM 133 mEQ/L (135-145)
[2017-04-17] MEDS: Vancomycin 750 MG in D5W 275 ML IVPB SCH ×2 (08:06→19:41)
[2017-04-17 08:10] VITALS: BP 156/87
[2017-04-17] MEDS: levETIRAcetam 500mg/5ml Liquid GT SCH ×2 (08:48→20:25)
--- NOTE | 2017-04-17 08:50 | Pulmonology Progress Note ---
Assessment/Plan Assessment/Plan ASSESSMENT sepsis acute toxic metabolic encephalopathy on end stage dementia ( due to sepsis) UTI OM R foot/ankle DM R heel ulcer with cellulitis POA sacral decub POA dysphagia s/p EGD and PEG 04/15 gastritis hx of DVT Hx of HTN COPD Hx of CVA e/ lyte imbalances ( hypo K, hypo Mg, hypo P) cognitive impairment schizophrenia seizure disorder severe protein calorie malnutrition anemia folate deficiency subclinical hypothyroidism PLAN OF CARE abx ID follows urine cx + E coli, blood cx + Diphtheroids ( contaminant), wound cx + E coli, Morganella, Staph aureus abx on dc as per ID recommendations, need 6 weeks total of abx PICC line placement pending ESR , CRP elevated MRI R foot/ankle with findings highly suspicious for acute OM EEG abnormal, c/w toxic metabolic encephalopathy, neuro follows BS management with Levemir and SS of insulin, HgA1c -5.2 systems mechanic followed wound care as per systems mechanic and wound nurse recommendations monitor BP, currently normotensive, Clonidine prn lipid panel stable, continue Plavix electrolyte replaced as needed ( today Mg replacement, check Mg in am) change IVF to NS and dc in am if stable Na and tolerates GT feeding O2 HHN prn Venous Duplex BLE - negative Hx of DVT anemia w/up with stable iron, stool OB negative, low folate, started on folate supplements, CEA with minimal elevation resume psych meds psychiatrist followed seizure precautions, continue Keppra DVT prophylaxis pain management GI follows s/p EGD and PEG 04/15 with findings fo gastritis strict aspiration and reflux precautions, monitor GT feeding tolerance GT site care bowel regimen prealbumin -5.0 dietary eval appreciated on protein supplements PT/OT elevated TSH with normal free T 4- subclinical hypothyroidism, check thyroid panel in 4 weeks dc after PICC line placement in am on IV abx case discussed and evaluated by supervising physician Subjective Allergies: Coded Allergies: No Known Allergies (Unverified , 05/11/16) Subjective s/p EGD and PEG tolerates GT feeding afebrile, no leucocytosis awaiting for PICC line Mg-1.6 Na-133 Objective Last 24 Hour Vital Signs Date Time Temp Pulse Resp B/P Pulse Ox O2 Delivery O2 Flow Rate FiO2 04/17/17 08:10 98.4 98 18 156/87 98 Nasal Cannula 2.0 04/17/17 04:00 98.1 98 17 110/55 98 Nasal Cannula 2.0 04/17/17 00:00 98.2 103 18 121/58 97 Nasal Cannula 2.0 04/16/17 20:35 97 20 Room Air 04/16/17 20:00 98.2 108 20 144/70 98 Nasal Cannula 2.0 04/16/17 17:00 98.6 94 20 135/79 98 Nasal Cannula 4.0 04/16/17 16:20 95 04/16/17 16:12 98.6 118 20 166/103 98 Nasal Cannula 4.0 04/16/17 16:03 166/103 04/16/17 12:02 90 04/16/17 11:34 98.0 118 20 158/96 98 Nasal Cannula 4.0 Intake and Output 04/16/17 04/17/17 19:00 07:00 Intake Total 1845 ml 1905.000 ml Output Total 300 ml Balance 1545 ml 1905.000 ml Intake Free Water 400 ml 200 ml IV Total 725 ml 985.000 ml Tube Feeding 720 ml 720 ml Output Urine Total 300 ml # Bowel Movements 2 2 Objective General Appearance: no apparent distress, arousable, Lines, tubes and drains: peripheral HEENT: atraumatic, anicteric, poor dentition Neck: supple Respiratory/Chest: lungs clear, no respiratory distress, no accessory muscle use Cardiovascular/Chest: normal peripheral pulses, normal rate , no JVD Abdomen: normal bowel sounds, non tender, soft, G tube with TF, Extremities: non-tender, no calf tenderness, normal capillary refill Skin Exam: sacral and R heel decub POA Neurologic: alert, responsive Laboratory Tests 04/17/17 05:25: White Blood Count 9.0, Red Blood Count 3.37L, Hemoglobin 11.4L, Hematocrit 33.5L , Mean Corpuscular Volume 100H, Mean Corpuscular Hemoglobin 33.8H, Mean Corpuscular Hemoglobin Concent 33.9, Red Cell Distribution Width 14.6, Platelet Count 136L, Mean Platelet Volume 4.8L, Neutrophils (%) (Auto) 57.9, Lymphocytes (%) (Auto) 25.5, Monocytes (%) (Auto) 11.8H, Eosinophils (%) (Auto) 4.0H, Basophils (%) (Auto) 0.8, Sodium Level 133L, Potassium Level 4.0, Chloride Level 104, Carbon Dioxide Level 22, Anion Gap 7, Blood Urea Nitrogen 12, Creatinine 0.9, Estimat Glomerular Filtration Rate , Glucose Level 192H, Calcium Level 8.1L, Magnesium Level 1.6L Current Medications Medications (Trade) Dose Ordered Sig/Naveen Route PRN Reason Start Time Stop Time Status Last Admin Dose Admin Acetaminophen (Tylenol) 650 mg Q4H PRN ORAL fever 04/10/17 15:15 05/10/17 15:14 Al Hydroxide/Mg Hydroxide (Mylanta II) 30 ml Q6H PRN ORAL dyspepsia 04/10/17 15:15 05/10/17 15:14 Cefepime HCl 2 gm/ Dextrose 110 ml @ 220 mls/hr Q12HR@0600,1800 IVPB 04/10/17 18:00 05/22/17 23:59 04/17/17 05:52 Clonidine HCl (Catapres) 0.1 mg Q6H PRN ORAL sbp above 160 04/10/17 14:15 05/10/17 14:14 04/16/17 16:03 Dextrose (Dextrose 50%) STAT PRN IV Hypoglycemia 04/13/17 06:45 05/13/17 06:44 Dextrose/Sodium Chloride (D5 0.45% NS) 1,000 ml @ 60 mls/hr [id number] IV 04/10/17 15:45 05/10/17 15:44 04/16/17 17:19 Folic Acid (Folate) 1 mg DAILY GT 04/16/17 09:00 05/16/17 08:59 04/16/17 10:10 Gabapentin 300 mg 300 mg QHS GT 04/15/17 21:00 05/15/17 20:59 04/16/17 21:11 Heparin Sodium (Porcine) (Heparin 5000 units/ml) 5,000 units EVERY 12 HOURS SUBQ 04/10/17 21:00 05/10/17 20:59 04/16/17 21:12 Insulin Aspart (NovoLOG) BEFORE MEALS AND HS SUBQ 04/10/17 16:30 05/10/17 16:29 04/17/17 05:55 Insulin Detemir (Levemir) 8 units Q12HR SUBQ 04/16/17 09:00 05/16/17 08:59 04/16/17 21:12 Lactulose (Cephulac) 20 gm TID ORAL 04/10/17 18:00 05/10/17 17:59 04/16/17 10:10 Levetiracetam (Keppra) 500 mg Q12HR GT 04/15/17 21:00 05/15/17 20:59 04/16/17 21:11 Lorazepam (Ativan 2mg/ml 1ml) 0.5 mg Q4H PRN IV For Anxiety 04/16/17 11:15 04/23/17 23:59 Metronidazole (Flagyl) 500 mg Q8HR ORAL 04/15/17 14:00 04/22/17 13:59 04/17/17 05:53 Mirtazapine (Remeron) 7.5 mg BEDTIME ORAL 04/11/17 21:00 05/11/17 20:59 04/16/17 21:13 Morphine Sulfate (Morphine Sulfate) 1 mg Q4H PRN IVP Moderate to Severe Pain 04/16/17 10:30 04/23/17 23:59 Ondansetron HCl (Zofran) 4 mg Q6H PRN IVP Nausea & Vomiting 04/10/17 15:15 05/10/17 15:14 Polyethylene Glycol (Miralax) 17 gm HSPRN PRN ORAL Constipation 04/10/17 15:15 05/10/17 15:14 Vancomycin HCl (Vanco rx to dose) 1 ea DAILY PRN MISC Per rx protocol 04/10/17 15:14 05/10/17 15:13 Vancomycin HCl/ Dextrose (Vancomycin/D5W) 275 ml @ 183.708 mls/hr Q12HR@0800,2000 IVPB 04/15/17 20:00 04/20/17 19:59 04/17/17 08:06 Zolpidem Tartrate (Ambien) 5 mg HSPRN PRN ORAL Insomnia Unrelieved 04/10/17 15:15 05/10/17 15:14 Conor Guthrie)Alana [employer]ER[employer] PLANNING COUNSELOR Apr 17, 2017 08:50
[2017-04-17] MEDS: Levemir Flexpen SUBQ SCH ×2 (08:52→20:26)
[2017-04-17] MEDS: Heparin 5000 units/ml inj SUBQ SCH ×2 (08:52→20:24)
[2017-04-17] MEDS: Lactulose 20gm/30ml UDC ORAL SCH ×3 (08:54→17:32)
--- NOTE | 2017-04-17 09:42 | General Progress Note ---
Assessment/Plan Problem List: (1) Diabetes mellitus out of control ICD Codes: E11.65 - Type 2 diabetes mellitus with hyperglycemia SNOMED: 50249930, 590744522 (2) Osteomyelitis of right foot ICD Codes: M86.9 - Osteomyelitis, unspecified SNOMED: 83182369 (3) Anemia ICD Codes: D64.9 - Anemia, unspecified SNOMED: 689104994 (4) Cerebrovascular accident (CVA) ICD Codes: I63.9 - Cerebral infarction, unspecified SNOMED: 774375360 (5) Morbid obesity ICD Codes: E66.01 - Morbid (severe) obesity due to excess calories SNOMED: 663043033, 74960486406545 (6) History of CVA (cerebrovascular accident) ICD Codes: Z86.73 - Personal history of transient ischemic attack (TIA), and cerebral infarction without residual deficits SNOMED: 485974564 (7) HTN (hypertension) ICD Codes: I10 - Essential (primary) hypertension SNOMED: 93312208 (8) Dementia arising in the senium and presenium ICD Codes: F03.90 - Unspecified dementia without behavioral disturbance SNOMED: 22981583 Assessment/Plan s/p PEG tolerating TF stable labs DC planning per primary team Subjective ROS Limited/Unobtainable: No Allergies: Coded Allergies: No Known Allergies (Unverified , 05/11/16) Objective Last 24 Hour Vital Signs Date Time Temp Pulse Resp B/P Pulse Ox O2 Delivery O2 Flow Rate FiO2 04/17/17 08:10 98.4 98 18 156/87 98 Nasal Cannula 2.0 04/17/17 08:05 114 20 Room Air 04/17/17 04:00 98.1 98 17 110/55 98 Nasal Cannula 2.0 04/17/17 00:00 98.2 103 18 121/58 97 Nasal Cannula 2.0 04/16/17 20:35 97 20 Room Air 04/16/17 20:00 98.2 108 20 144/70 98 Nasal Cannula 2.0 04/16/17 17:00 98.6 94 20 135/79 98 Nasal Cannula 4.0 04/16/17 16:20 95 04/16/17 16:12 98.6 118 20 166/103 98 Nasal Cannula 4.0 04/16/17 16:03 166/103 04/16/17 12:02 90 04/16/17 11:34 98.0 118 20 158/96 98 Nasal Cannula 4.0 Intake and Output 04/16/17 04/17/17 19:00 07:00 Intake Total 1845 ml 1905.000 ml Output Total 300 ml Balance 1545 ml 1905.000 ml Intake Free Water 400 ml 200 ml IV Total 725 ml 985.000 ml Tube Feeding 720 ml 720 ml Output Urine Total 300 ml # Bowel Movements 2 2 Laboratory Tests 04/17/17 05:25: White Blood Count 9.0, Red Blood Count 3.37L, Hemoglobin 11.4L, Hematocrit 33.5L , Mean Corpuscular Volume 100H, Mean Corpuscular Hemoglobin 33.8H, Mean Corpuscular Hemoglobin Concent 33.9, Red Cell Distribution Width 14.6, Platelet Count 136L, Mean Platelet Volume 4.8L, Neutrophils (%) (Auto) 57.9, Lymphocytes (%) (Auto) 25.5, Monocytes (%) (Auto) 11.8H, Eosinophils (%) (Auto) 4.0H, Basophils (%) (Auto) 0.8, Sodium Level 133L, Potassium Level 4.0, Chloride Level 104, Carbon Dioxide Level 22, Anion Gap 7, Blood Urea Nitrogen 12, Creatinine 0.9, Estimat Glomerular Filtration Rate , Glucose Level 192H, Calcium Level 8.1L, Magnesium Level 1.6L Height (Feet): 6 Height (Inches): 0.00 Weight (Pounds): 180 General Appearance: no apparent distress, alert EENT: normal ENT inspection Neck: supple Cardiovascular: normal rate Respiratory/Chest: decreased breath sounds Abdomen: normal bowel sounds, non tender, soft Extremities: non-tender YEIMI CALLAHAN Apr 17, 2017 09:42
[2017-04-17 12:17] VITALS: BP 156/89
[2017-04-17] MEDS ORDERED: Tubing IV Secondary IV ONE (15:08)
[2017-04-17] MEDS ORDERED: D5 1/2NS 1000ml IV ONE (15:08)
[2017-04-17 15:59] VITALS: BP 140/90
[2017-04-17 20:00] VITALS: BP 135/66
[2017-04-17] MEDS: Gabapentin 300 MG/6 ML Soln GT SCH (20:25)
--- NOTE | 2017-04-17 20:37 | Infectious Diseases Prog Note ---
Assessment/Plan Problems: (1) Open wound of heel Assessment & Plan: with infection, and underlying osteomyelitis , wound culture is growing Morganella morgagnii, E coli, and staph aureus , blood culture diphtheroid most likely contaminant , will continue vancomycin, cefepiem and flagyl for 6 weeks for osteomyelitis, follow up with blindstitch lining feller. 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 therapy , will order PICC line placement today for medical necessity since no family member or POA is available (3) Diabetes mellitus Assessment & Plan: recommend tight glycemic control to keep blood glucose between 80-120 (4) Sepsis Assessment & Plan: due to the above, on wide spectrum antibiotics, send blood culture (5) UTI (urinary tract infection) Assessment & Plan: with E coli, already on cefepime Subjective ROS Limited/Unobtainable: Yes Allergies: Coded Allergies: No Known Allergies (Unverified , 05/11/16) Subjective he was unresponsive and altered , dosen't follow commands.afebrile, has NGT in place Objective Vital Signs Last 24 Hour Vital Signs Date Time Temp Pulse Resp B/P Pulse Ox O2 Delivery O2 Flow Rate FiO2 04/17/17 20:00 98.2 109 18 135/66 98 Nasal Cannula 2.0 04/17/17 17:30 94 04/17/17 15:59 98.5 110 18 140/90 98 Nasal Cannula 2.0 04/17/17 12:17 98.1 96 18 156/89 98 Nasal Cannula 2.0 04/17/17 08:10 98.4 98 18 156/87 98 Nasal Cannula 2.0 04/17/17 08:05 114 20 Room Air 04/17/17 04:00 98.1 98 17 110/55 98 Nasal Cannula 2.0 04/17/17 00:00 98.2 103 18 121/58 97 Nasal Cannula 2.0 Height (Feet): 6 Height (Inches): 0.00 Weight (Pounds): 180 General Appearance: WD/WN, no acute distress HEENT: normocephalic, atraumatic, anicteric, mucous membranes moist, PERRL - l Respiratory/Chest: chest wall non-tender, lungs clear, normal breath sounds, no respiratory distress, no accessory muscle use Cardiovascular: normal peripheral pulses, normal rate, regular rhythm, no gallop/murmur, no JVD Abdomen: normal bowel sounds, soft, non tender, no organomegaly, non distended , no mass, no scars Extremities: no cyanosis, no clubbing Skin: no rash, no lesions, ulcers Laboratory Tests Test 04/17/17 05:25 White Blood Count 9.0 K/UL (4.8-10.8) Red Blood Count 3.37 M/UL (4.70-6.10) L Hemoglobin 11.4 G/DL (14.2-18.0) L Hematocrit 33.5 % (42.0-52.0) L Mean Corpuscular Volume 100 FL (80-99) H Mean Corpuscular Hemoglobin 33.8 PG (27.0-31.0) H Mean Corpuscular Hemoglobin Concent 33.9 G/DL (32.0-36.0) Red Cell Distribution Width 14.6 % (11.6-14.8) Platelet Count 136 K/UL (150-450) L Mean Platelet Volume 4.8 FL (6.5-10.1) L Neutrophils (%) (Auto) 57.9 % (45.0-75.0) Lymphocytes (%) (Auto) 25.5 % (20.0-45.0) Monocytes (%) (Auto) 11.8 % (1.0-10.0) H Eosinophils (%) (Auto) 4.0 % (0.0-3.0) H Basophils (%) (Auto) 0.8 % (0.0-2.0) Sodium Level 133 mEQ/L (135-145) L Potassium Level 4.0 mEQ/L (3.4-4.9) Chloride Level 104 mEQ/L (98-107) Carbon Dioxide Level 22 mEQ/L (20-30) Anion Gap 7 (5-15) Blood Urea Nitrogen 12 mg/dL (7-23) Creatinine 0.9 mg/dL (0.7-1.2) Estimat Glomerular Filtration Rate mL/min (>60) Glucose Level 192 mg/dL (74-106) H Calcium Level 8.1 mg/dL (8.6-10.2) L Magnesium Level 1.6 mg/dL (1.7-2.5) L Current Medications Medications (Trade) Dose Ordered Sig/Naveen Route PRN Reason Start Time Stop Time Status Last Admin Dose Admin Acetaminophen (Tylenol) 650 mg Q4H PRN ORAL fever 04/10/17 15:15 05/10/17 15:14 Al Hydroxide/Mg Hydroxide (Mylanta II) 30 ml Q6H PRN ORAL dyspepsia 04/10/17 15:15 05/10/17 15:14 Cefepime HCl/ Dextrose (Maxipime/D5W) 110 ml @ 220 mls/hr Q12HR@0600,1800 IVPB 04/10/17 18:00 05/22/17 23:59 04/17/17 17:33 Clonidine HCl (Catapres) 0.1 mg Q6H PRN ORAL sbp above 160 04/10/17 14:15 05/10/17 14:14 04/16/17 16:03 Dextrose (Dextrose 50%) STAT PRN IV Hypoglycemia 04/13/17 06:45 05/13/17 06:44 Folic Acid (Folate) 1 mg DAILY GT 04/16/17 09:00 05/16/17 08:59 04/17/17 08:48 Gabapentin 300 mg 300 mg QHS GT 04/15/17 21:00 05/15/17 20:59 04/17/17 20:25 Heparin Sodium (Porcine) (Heparin 5000 units/ml) 5,000 units EVERY 12 HOURS SUBQ 04/10/17 21:00 05/10/17 20:59 04/17/17 08:52 Heparin Sodium/ Sodium Chloride (Heparin 2000 units/Ns 1000ml premix) 2,000 unit ONCE ONCE INJ 04/18/17 09:00 04/18/17 09:01 Insulin Aspart (NovoLOG) BEFORE MEALS AND HS SUBQ 04/10/17 16:30 05/10/17 16:29 04/17/17 20:27 Insulin Detemir (Levemir) 8 units Q12HR SUBQ 04/16/17 09:00 05/16/17 08:59 04/17/17 20:26 Lactulose (Cephulac) 20 gm TID ORAL 04/10/17 18:00 05/10/17 17:59 04/16/17 10:10 Levetiracetam (Keppra) 500 mg Q12HR GT 04/15/17 21:00 05/15/17 20:59 04/17/17 20:25 Lidocaine HCl (Xylocaine 1% 30ml) 30 ml ONCE ONCE INJ 04/18/17 09:00 04/18/17 09:01 Lorazepam (Ativan 2mg/ml 1ml) 0.5 mg Q4H PRN IV For Anxiety 04/16/17 11:15 04/23/17 23:59 Metronidazole (Flagyl) 500 mg Q8HR ORAL 04/15/17 14:00 04/22/17 13:59 04/17/17 13:25 Mirtazapine (Remeron) 7.5 mg BEDTIME ORAL 04/11/17 21:00 05/11/17 20:59 04/17/17 20:25 Morphine Sulfate 1 mg 1 mg Q4H PRN IVP Moderate to Severe Pain 04/16/17 10:30 04/23/17 23:59 Ondansetron HCl (Zofran) 4 mg Q6H PRN IVP Nausea & Vomiting 04/10/17 15:15 05/10/17 15:14 Polyethylene Glycol (Miralax) 17 gm HSPRN PRN ORAL Constipation 04/10/17 15:15 05/10/17 15:14 Sodium Chloride (Sodium Chloride 1000ml bag) 1,000 ml @ 50 mls/hr Q20H IV 04/17/17 09:00 05/17/17 08:59 04/17/17 10:00 Vancomycin HCl (Vanco rx to dose) 1 ea DAILY PRN MISC Per rx protocol 04/10/17 15:14 05/10/17 15:13 Vancomycin HCl/ Dextrose (Vancomycin/D5W) 275 ml @ 183.708 mls/hr Q12HR@0800,2000 IVPB 04/15/17 20:00 04/20/17 19:59 04/17/17 19:41 Zolpidem Tartrate (Ambien) 5 mg HSPRN PRN ORAL Insomnia Unrelieved 04/10/17 15:15 05/10/17 15:14 Valery Nicholas M.D. Apr 17, 2017 20:37
[2017-04-18] VITALS (7 sets, daily range): BP systolic 112–136; BP diastolic 61–82
[2017-04-18] MEDS: metroNIDAZOLE 500mg tab ORAL SCH ×3 (05:20→21:25)
[2017-04-18] MEDS: Cefepime HCl 2 GM in D5W 110 ML IVPB SCH ×2 (05:20→17:51)
--- NOTE | 2017-04-18 06:21 | General Progress Note ---
Assessment/Plan Problem List: (1) Diabetes mellitus out of control ICD Codes: E11.65 - Type 2 diabetes mellitus with hyperglycemia SNOMED: 05168209, 183226853 (2) Altered mental state ICD Codes: R41.82 - Altered mental status, unspecified SNOMED: 379263418 (3) Cerebrovascular accident (CVA) ICD Codes: I63.9 - Cerebral infarction, unspecified SNOMED: 718477998 (4) Osteomyelitis of ankle ICD Codes: M86.9 - Osteomyelitis, unspecified SNOMED: 797854102 Assessment/Plan increase Levemir to 10 units bid continue Novolog coverage Subjective ROS Limited/Unobtainable: Yes Allergies: Coded Allergies: No Known Allergies (Unverified , 05/11/16) Subjective events noted Objective Last 24 Hour Vital Signs Date Time Temp Pulse Resp B/P Pulse Ox O2 Delivery O2 Flow Rate FiO2 04/18/17 04:00 98.1 105 20 117/73 Nasal Cannula 2.0 04/18/17 00:00 97.9 104 20 130/70 Nasal Cannula 2.0 04/17/17 23:49 97 20 Nasal Cannula 2.0 28 04/17/17 20:00 98.2 109 18 135/66 98 Nasal Cannula 2.0 04/17/17 17:30 94 04/17/17 15:59 98.5 110 18 140/90 98 Nasal Cannula 2.0 04/17/17 12:17 98.1 96 18 156/89 98 Nasal Cannula 2.0 04/17/17 08:10 98.4 98 18 156/87 98 Nasal Cannula 2.0 04/17/17 08:05 114 20 Room Air Intake and Output 04/17/17 04/18/17 19:00 07:00 Intake Total 1825 ml 1645.000 ml Output Total 225 ml 500 ml Balance 1600 ml 1145.000 ml Intake Free Water 200 ml 200 ml IV Total 905 ml 785.000 ml Tube Feeding 720 ml 660 ml Output Urine Total 225 ml 500 ml Height (Feet): 6 Height (Inches): 0.00 Weight (Pounds): 180 General Appearance: no apparent distress Neck: normal alignment Cardiovascular: normal rate Respiratory/Chest: lungs clear Abdomen: normal bowel sounds Pelvis: normal external exam Edema: 1+ Arm (L), 1+ Arm (R), 1+ Leg (L), 1+ Leg (R), 1+ Pedal (L), 1+ Pedal ( R), 1+ Generalized Objective Item Value Date Time Bedside Blood Glucose 164 mg/dl H 04/18/17 0613 Bedside Blood Glucose 216 mg/dl H 04/17/172026 Bedside Blood Glucose 213 mg/dl H 04/17/17 1558 Bedside Blood Glucose 227 mg/dl H 04/17/17 1132 Bedside Blood Glucose 187 mg/dl H 04/17/17 0852 Bedside Blood Glucose 187 mg/dl H 04/17/17 0555 Current Medications Medications (Trade) Dose Ordered Sig/Naveen Route PRN Reason Start Time Stop Time Status Last Admin Dose Admin Acetaminophen (Tylenol) 650 mg Q4H PRN ORAL fever 04/10/17 15:15 05/10/17 15:14 Al Hydroxide/Mg Hydroxide (Mylanta II) 30 ml Q6H PRN ORAL dyspepsia 04/10/17 15:15 05/10/17 15:14 Cefepime HCl/ Dextrose (Maxipime/D5W) 110 ml @ 220 mls/hr Q12HR@0600,1800 IVPB 04/10/17 18:00 05/22/17 23:59 04/18/17 05:20 Clonidine HCl (Catapres) 0.1 mg Q6H PRN ORAL sbp above 160 04/10/17 14:15 05/10/17 14:14 04/16/17 16:03 Dextrose (Dextrose 50%) STAT PRN IV Hypoglycemia 04/13/17 06:45 05/13/17 06:44 Folic Acid (Folate) 1 mg DAILY GT 04/16/17 09:00 05/16/17 08:59 04/17/17 08:48 Gabapentin 300 mg 300 mg QHS GT 04/15/17 21:00 05/15/17 20:59 04/17/17 20:25 Heparin Sodium (Porcine) (Heparin 5000 units/ml) 5,000 units EVERY 12 HOURS SUBQ 04/10/17 21:00 05/10/17 20:59 04/17/17 08:52 Heparin Sodium/ Sodium Chloride (Heparin 2000 units/Ns 1000ml premix) 2,000 unit ONCE ONCE INJ 04/18/17 09:00 04/18/17 09:01 Insulin Aspart (NovoLOG) BEFORE MEALS AND HS SUBQ 04/10/17 16:30 05/10/17 16:29 04/17/17 20:27 Insulin Detemir (Levemir) 8 units Q12HR SUBQ 04/16/17 09:00 05/16/17 08:59 04/17/17 20:26 Lactulose (Cephulac) 20 gm TID ORAL 04/10/17 18:00 05/10/17 17:59 04/16/17 10:10 Levetiracetam (Keppra) 500 mg Q12HR GT 04/15/17 21:00 05/15/17 20:59 04/17/17 20:25 Lidocaine HCl (Xylocaine 1% 30ml) 30 ml ONCE ONCE INJ 04/18/17 09:00 04/18/17 09:01 Lorazepam (Ativan 2mg/ml 1ml) 0.5 mg Q4H PRN IV For Anxiety 04/16/17 11:15 04/23/17 23:59 Metronidazole (Flagyl) 500 mg Q8HR ORAL 04/15/17 14:00 04/22/17 13:59 04/18/17 05:20 Mirtazapine (Remeron) 7.5 mg BEDTIME ORAL 04/11/17 21:00 05/11/17 20:59 04/17/17 20:25 Morphine Sulfate 1 mg 1 mg Q4H PRN IVP Moderate to Severe Pain 04/16/17 10:30 04/23/17 23:59 Ondansetron HCl (Zofran) 4 mg Q6H PRN IVP Nausea & Vomiting 04/10/17 15:15 05/10/17 15:14 Polyethylene Glycol (Miralax) 17 gm HSPRN PRN ORAL Constipation 04/10/17 15:15 05/10/17 15:14 Sodium Chloride (Sodium Chloride 1000ml bag) 1,000 ml @ 50 mls/hr Q20H IV 04/17/17 09:00 05/17/17 08:59 04/18/17 05:20 Vancomycin HCl (Vanco rx to dose) 1 ea DAILY PRN MISC Per rx protocol 04/10/17 15:14 05/10/17 15:13 Vancomycin HCl/ Dextrose (Vancomycin/D5W) 275 ml @ 183.708 mls/hr Q12HR@0800,2000 IVPB 04/15/17 20:00 04/20/17 19:59 04/17/17 19:41 Zolpidem Tartrate (Ambien) 5 mg HSPRN PRN ORAL Insomnia Unrelieved 04/10/17 15:15 05/10/17 15:14 FOREST LONGORIA Apr 18, 2017 06:21
[2017-04-18] MEDS: NovoLOG Insulin Flexpen SUBQ SCH ×4 (06:43→21:09)
[2017-04-18] MEDS: Vancomycin 750 MG in D5W 275 ML IVPB SCH (08:00)
[2017-04-18 08:30] LABS: BASOPHILS % (AUTO) 0.8 % (0.0-2.0); EOSINOPHILS % (AUTO) 4.1 % (0.0-3.0); LYMPHOCYTES % (AUTO) 23.2 % (20.0-45.0); MEAN CORPUSCULAR HEMOGLOBIN 35.3 PG (27.0-31.0); MEAN CORPUSCULAR HGB CONC 35.4 G/DL (32.0-36.0); MEAN CORPUSCULAR VOLUME 100 FL (80-99); MEAN PLATELET VOLUME 5.1 FL (6.5-10.1); MONOCYTES % (AUTO) 11.6 % (1.0-10.0); NEUTROPHILS % (AUTO) 60.3 % (45.0-75.0); PLATELET COUNT 126 K/UL (150-450); RED BLOOD COUNT 3.07 M/UL (4.70-6.10); RED CELL DISTRIBUTION WIDTH 14.7 % (11.6-14.8); WHITE BLOOD COUNT 9.8 K/UL (4.8-10.8)
[2017-04-18 08:43] LABS: ANION GAP 9 (5-15); CARBON DIOXIDE 22 mEQ/L (20-30); CHLORIDE 103 mEQ/L (98-107); HEMOLYSIS 8; POTASSIUM 3.9 mEQ/L (3.4-4.9); SODIUM 134 mEQ/L (135-145)
[2017-04-18] MEDS ORDERED: Lidocaine 1% Plain 30 ml INJ ONE (09:00)
[2017-04-18] MEDS ORDERED: Heparin 2000 units/Ns 1000ml INJ ONE (09:00)
[2017-04-18] MEDS: Heparin 5000 units/ml inj SUBQ SCH ×2 (09:00→20:53)
[2017-04-18] MEDS: levETIRAcetam 500mg/5ml Liquid GT SCH ×2 (09:10→21:26)
[2017-04-18] MEDS: Lactulose 20gm/30ml UDC ORAL SCH ×3 (09:10→17:50)
[2017-04-18] MEDS: Levemir Flexpen SUBQ SCH ×2 (09:20→21:10)
--- NOTE | 2017-04-18 10:06 | General Progress Note ---
Progress Note Progress Note pt needs PICC line, no family to consent. MEGAN LO Apr 18, 2017 10:06
--- NOTE | 2017-04-18 13:19 | General Progress Note ---
Assessment/Plan Problem List: (1) Morbid obesity ICD Codes: E66.01 - Morbid (severe) obesity due to excess calories SNOMED: 668218484, 95776300842746 (2) Cerebrovascular accident (CVA) ICD Codes: I63.9 - Cerebral infarction, unspecified SNOMED: 644900814 (3) Diabetes mellitus ICD Codes: E11.9 - Type 2 diabetes mellitus without complications SNOMED: 86164825 (4) Open wound of heel ICD Codes: S91.309A - Unspecified open wound, unspecified foot, initial encounter SNOMED: 559801940 (5) Cellulitis of lower extremity ICD Codes: L03.119 - Cellulitis of unspecified part of limb SNOMED: 555336435 (6) UTI (urinary tract infection) ICD Codes: N39.0 - Urinary tract infection, site not specified SNOMED: 63600934 (7) Sepsis ICD Codes: A41.9 - Sepsis, unspecified organism SNOMED: 44748472 (8) COPD (chronic obstructive pulmonary disease) ICD Codes: J44.9 - Chronic obstructive pulmonary disease, unspecified SNOMED: 56436355 (9) ISMAEL (obstructive sleep apnea) ICD Codes: G47.33 - Obstructive sleep apnea (adult) (pediatric) SNOMED: 64366162 Status: unchanged Assessment/Plan ot pt diet wound care eval abx dc to snf Subjective Constitutional: Reports: weakness Allergies: Coded Allergies: No Known Allergies (Unverified , 05/11/16) All Systems: reviewed and negative except above Subjective o2nc sleepy calm s/p picc Objective Last 24 Hour Vital Signs Date Time Temp Pulse Resp B/P Pulse Ox O2 Delivery O2 Flow Rate FiO2 04/18/17 12:00 97.9 106 20 136/82 98 Nasal Cannula 2.0 04/18/17 08:45 99 21 Nasal Cannula 2.0 04/18/17 08:00 98.2 104 20 128/67 99 Nasal Cannula 2.0 04/18/17 04:30 98 Nasal Cannula 2.0 04/18/17 04:00 98.1 105 20 117/73 Nasal Cannula 2.0 04/18/17 00:30 98 Nasal Cannula 2.0 04/18/17 00:00 97.9 104 20 130/70 Nasal Cannula 2.0 04/17/17 23:49 97 20 Nasal Cannula 2.0 28 04/17/17 20:00 98.2 109 18 135/66 98 Nasal Cannula 2.0 04/17/17 17:30 94 04/17/17 15:59 98.5 110 18 140/90 98 Nasal Cannula 2.0 Intake and Output 04/17/17 04/18/17 19:00 07:00 Intake Total 1825 ml 1955.000 ml Output Total 225 ml 500 ml Balance 1600 ml 1455.000 ml Intake Free Water 200 ml 400 ml IV Total 905 ml 835.000 ml Tube Feeding 720 ml 720 ml Output Urine Total 225 ml 500 ml Laboratory Tests 04/18/17 07:00: White Blood Count 9.8, Red Blood Count 3.07L, Hemoglobin 10.8L, Hematocrit 30.6L , Mean Corpuscular Volume 100H, Mean Corpuscular Hemoglobin 35.3H, Mean Corpuscular Hemoglobin Concent 35.4, Red Cell Distribution Width 14.7, Platelet Count 126L, Mean Platelet Volume 5.1L, Neutrophils (%) (Auto) 60.3, Lymphocytes (%) (Auto) 23.2, Monocytes (%) (Auto) 11.6H, Eosinophils (%) (Auto) 4.1H, Basophils (%) (Auto) 0.8, Sodium Level 134L, Potassium Level 3.9, Chloride Level 103, Carbon Dioxide Level 22, Anion Gap 9, Blood Urea Nitrogen 16, Creatinine 1.0, Estimat Glomerular Filtration Rate , Glucose Level 170H, Calcium Level 8.0L, Magnesium Level 1.8, Vancomycin Level Trough 46.1H Height (Feet): 6 Height (Inches): 0.00 Weight (Pounds): 180 General Appearance: lethargic EENT: normal ENT inspection Neck: normal alignment Cardiovascular: normal rate Respiratory/Chest: chest wall non-tender, lungs clear, normal breath sounds Abdomen: normal bowel sounds, non tender, soft Extremities: normal inspection Edema: no edema noted Arm (L), no edema noted Arm (R), no edema noted Leg (L), no edema noted Leg (R), no edema noted Pedal (L), no edema noted Pedal (R), no edema noted Generalized Neurologic: motor weakness Skin: normal pigmentation, warm/dry LINDA BOLAÑOS Apr 18, 2017 13:19
--- NOTE | 2017-04-18 13:20 | GI Progress Note ---
Assessment/Plan Problems: (1) Altered mental state ICD Codes: R41.82 - Altered mental status, unspecified SNOMED: 120849171 (2) Anemia ICD Codes: D64.9 - Anemia, unspecified SNOMED: 147818729 (3) Morbid obesity ICD Codes: E66.01 - Morbid (severe) obesity due to excess calories SNOMED: 343897663, 28986223820632 (4) Diabetes mellitus ICD Codes: E11.9 - Type 2 diabetes mellitus without complications SNOMED: 79059480 Status: stable Status Narrative Discussed with Dr. Solorzano. Assessment/Plan s/p PEG tolerating TF stable labs DC planning per primary team Subjective Subjective limited Objective Last 24 Hour Vital Signs Date Time Temp Pulse Resp B/P Pulse Ox O2 Delivery O2 Flow Rate FiO2 04/18/17 12:00 97.9 106 20 136/82 98 Nasal Cannula 2.0 04/18/17 08:45 99 21 Nasal Cannula 2.0 04/18/17 08:00 98.2 104 20 128/67 99 Nasal Cannula 2.0 04/18/17 04:30 98 Nasal Cannula 2.0 04/18/17 04:00 98.1 105 20 117/73 Nasal Cannula 2.0 04/18/17 00:30 98 Nasal Cannula 2.0 04/18/17 00:00 97.9 104 20 130/70 Nasal Cannula 2.0 04/17/17 23:49 97 20 Nasal Cannula 2.0 28 04/17/17 20:00 98.2 109 18 135/66 98 Nasal Cannula 2.0 04/17/17 17:30 94 04/17/17 15:59 98.5 110 18 140/90 98 Nasal Cannula 2.0 Intake and Output 04/17/17 04/18/17 19:00 07:00 Intake Total 1825 ml 1955.000 ml Output Total 225 ml 500 ml Balance 1600 ml 1455.000 ml Intake Free Water 200 ml 400 ml IV Total 905 ml 835.000 ml Tube Feeding 720 ml 720 ml Output Urine Total 225 ml 500 ml Laboratory Tests Test 04/18/17 07:00 White Blood Count 9.8 K/UL (4.8-10.8) Red Blood Count 3.07 M/UL (4.70-6.10) L Hemoglobin 10.8 G/DL (14.2-18.0) L Hematocrit 30.6 % (42.0-52.0) L Mean Corpuscular Volume 100 FL (80-99) H Mean Corpuscular Hemoglobin 35.3 PG (27.0-31.0) H Mean Corpuscular Hemoglobin Concent 35.4 G/DL (32.0-36.0) Red Cell Distribution Width 14.7 % (11.6-14.8) Platelet Count 126 K/UL (150-450) L Mean Platelet Volume 5.1 FL (6.5-10.1) L Neutrophils (%) (Auto) 60.3 % (45.0-75.0) Lymphocytes (%) (Auto) 23.2 % (20.0-45.0) Monocytes (%) (Auto) 11.6 % (1.0-10.0) H Eosinophils (%) (Auto) 4.1 % (0.0-3.0) H Basophils (%) (Auto) 0.8 % (0.0-2.0) Sodium Level 134 mEQ/L (135-145) L Potassium Level 3.9 mEQ/L (3.4-4.9) Chloride Level 103 mEQ/L (98-107) Carbon Dioxide Level 22 mEQ/L (20-30) Anion Gap 9 (5-15) Blood Urea Nitrogen 16 mg/dL (7-23) Creatinine 1.0 mg/dL (0.7-1.2) Estimat Glomerular Filtration Rate mL/min (>60) Glucose Level 170 mg/dL (74-106) H Calcium Level 8.0 mg/dL (8.6-10.2) L Magnesium Level 1.8 mg/dL (1.7-2.5) Vancomycin Level Trough 46.1 ug/mL (5.0-12.0) H Height (Feet): 6 Height (Inches): 0.00 Weight (Pounds): 180 General Appearance: no apparent distress, alert Cardiovascular: normal rate Respiratory/Chest: other - 2LNC Abdominal Exam: GT site - c/d/i Sho Lopez NJacki Apr 18, 2017 13:20
--- NOTE | 2017-04-18 14:52 | Diagnostic Imaging Report ---
Indications: Needs long-term IV access Technique: Ultrasound confirms patent compressible right cephalic vein. Total sterile technique, including sterile probe cover and sterile gel, hat, mask,, sterile gown, large sterile drape, and preparation with 2% chlorhexidine utilized. Local anesthesia with 1% lidocaine. Under real-time ultrasound guidance, puncture cephalic vein using 21-gauge needle, documented and archived, passage 0.018 guidewire under direct fluoroscopy, which was used to determine appropriate catheter length, exchange for 5 Panamanian peel-away sheath. 5 [place] Bard dual-lumen power PICC cut to 40 cm. It was inserted through the peel-away sheath. Peel-away sheath and guidewire removed. Catheter fixed to the skin. Both catheter ports aspirated and flushed. Patient tolerated procedure well, without immediate complication. Digital radiograph documents satisfactory catheter tip position, at the cavoatrial junction. Total fluoroscopy time 0.6 minutes. Total dose area product 31 dGycm2 Impression: Successful placement of right arm PICC under sonographic and fluoroscopic guidance, as described above.
--- NOTE | 2017-04-18 15:07 | Infectious Diseases Prog Note ---
Assessment/Plan Problems: (1) Open wound of heel Assessment & Plan: with infection, and underlying osteomyelitis , wound culture grew Morganella morgagnii, E coli, and staph aureus , and blood culture grew diphtheroid most likely contaminant , will continue vancomycin , cefepiem and flagyl for 6 weeks for osteomyelitis, follow up with campus recruiting coordinator. EOT 05/22/17. please monitor weekly labs with cbc, cmp and ESR while on antibiotics . (2) Osteomyelitis of ankle Assessment & Plan: confirmed on MRI of the right ankle , blood culture showed contaminant, continue wide spectrum antibiotics for 6 weeks, await wound culture result .patient needs a PICC line for longterm antibiotics therapy , will order PICC line placement today for medical necessity since no family member or POA is available (3) Diabetes mellitus Assessment & Plan: recommend tight glycemic control to keep blood glucose between 80-120 (4) Sepsis Assessment & Plan: due to the above, on wide spectrum antibiotics, blood culture showed contaminant (5) UTI (urinary tract infection) Assessment & Plan: with E coli, already on cefepime Subjective ROS Limited/Unobtainable: Yes Allergies: Coded Allergies: No Known Allergies (Unverified , 05/11/16) Subjective he was unresponsive and altered , doesn't follow commands. afebrile Objective Vital Signs Last 24 Hour Vital Signs Date Time Temp Pulse Resp B/P Pulse Ox O2 Delivery O2 Flow Rate FiO2 04/18/17 12:00 97.9 106 20 136/82 98 Nasal Cannula 2.0 04/18/17 08:45 99 21 Nasal Cannula 2.0 04/18/17 08:00 98.2 104 20 128/67 99 Nasal Cannula 2.0 04/18/17 04:30 98 Nasal Cannula 2.0 04/18/17 04:00 98.1 105 20 117/73 Nasal Cannula 2.0 04/18/17 00:30 98 Nasal Cannula 2.0 04/18/17 00:00 97.9 104 20 130/70 Nasal Cannula 2.0 04/17/17 23:49 97 20 Nasal Cannula 2.0 28 04/17/17 20:00 98.2 109 18 135/66 98 Nasal Cannula 2.0 04/17/17 17:30 94 04/17/17 15:59 98.5 110 18 140/90 98 Nasal Cannula 2.0 Height (Feet): 6 Height (Inches): 0.00 Weight (Pounds): 180 General Appearance: WD/WN, no acute distress HEENT: normocephalic, atraumatic, anicteric, mucous membranes moist Respiratory/Chest: chest wall non-tender, normal breath sounds, no respiratory distress, no accessory muscle use, decreased breath sounds, crackles/rales Cardiovascular: normal peripheral pulses, normal rate, regular rhythm, no gallop/murmur, no JVD Abdomen: normal bowel sounds, soft, non tender, no organomegaly, non distended , no mass, no scars Extremities: no cyanosis, no clubbing Skin: no rash, no lesions, ulcers Neurologic/Psychiatric: unresponsiveness Laboratory Tests Test 04/18/17 07:00 White Blood Count 9.8 K/UL (4.8-10.8) Red Blood Count 3.07 M/UL (4.70-6.10) L Hemoglobin 10.8 G/DL (14.2-18.0) L Hematocrit 30.6 % (42.0-52.0) L Mean Corpuscular Volume 100 FL (80-99) H Mean Corpuscular Hemoglobin 35.3 PG (27.0-31.0) H Mean Corpuscular Hemoglobin Concent 35.4 G/DL (32.0-36.0) Red Cell Distribution Width 14.7 % (11.6-14.8) Platelet Count 126 K/UL (150-450) L Mean Platelet Volume 5.1 FL (6.5-10.1) L Neutrophils (%) (Auto) 60.3 % (45.0-75.0) Lymphocytes (%) (Auto) 23.2 % (20.0-45.0) Monocytes (%) (Auto) 11.6 % (1.0-10.0) H Eosinophils (%) (Auto) 4.1 % (0.0-3.0) H Basophils (%) (Auto) 0.8 % (0.0-2.0) Sodium Level 134 mEQ/L (135-145) L Potassium Level 3.9 mEQ/L (3.4-4.9) Chloride Level 103 mEQ/L (98-107) Carbon Dioxide Level 22 mEQ/L (20-30) Anion Gap 9 (5-15) Blood Urea Nitrogen 16 mg/dL (7-23) Creatinine 1.0 mg/dL (0.7-1.2) Estimat Glomerular Filtration Rate mL/min (>60) Glucose Level 170 mg/dL (74-106) H Calcium Level 8.0 mg/dL (8.6-10.2) L Magnesium Level 1.8 mg/dL (1.7-2.5) Vancomycin Level Trough 46.1 ug/mL (5.0-12.0) H Current Medications Medications (Trade) Dose Ordered Sig/Naveen Route PRN Reason Start Time Stop Time Status Last Admin Dose Admin Acetaminophen (Tylenol) 650 mg Q4H PRN ORAL fever 04/10/17 15:15 05/10/17 15:14 Al Hydroxide/Mg Hydroxide (Mylanta II) 30 ml Q6H PRN ORAL dyspepsia 04/10/17 15:15 05/10/17 15:14 Cefepime HCl/ Dextrose (Maxipime/D5W) 110 ml @ 220 mls/hr Q12HR@0600,1800 IVPB 04/10/17 18:00 05/22/17 23:59 04/18/17 05:20 Clonidine HCl (Catapres) 0.1 mg Q6H PRN ORAL sbp above 160 04/10/17 14:15 05/10/17 14:14 04/16/17 16:03 Dextrose (Dextrose 50%) STAT PRN IV Hypoglycemia 04/13/17 06:45 05/13/17 06:44 Folic Acid (Folate) 1 mg DAILY GT 04/16/17 09:00 05/16/17 08:59 04/18/17 09:10 Gabapentin (Neurontin) 300 mg QHS GT 04/15/17 21:00 05/15/17 20:59 04/17/17 20:25 Heparin Sodium (Porcine) (Heparin 5000 units/ml) 5,000 units EVERY 12 HOURS SUBQ 04/10/17 21:00 05/10/17 20:59 04/17/17 08:52 Insulin Aspart (NovoLOG) BEFORE MEALS AND HS SUBQ 04/10/17 16:30 05/10/17 16:29 04/18/17 14:26 Insulin Detemir (Levemir) 10 units Q12HR SUBQ 04/18/17 09:00 8/23/17 08:59 04/18/17 09:20 Lactulose (Cephulac) 20 gm TID ORAL 04/10/17 18:00 05/10/17 17:59 04/18/17 14:24 Levetiracetam (Keppra) 500 mg Q12HR GT 04/15/17 21:00 05/15/17 20:59 04/18/17 09:10 Lorazepam (Ativan 2mg/ml 1ml) 0.5 mg Q4H PRN IV For Anxiety 04/16/17 11:15 04/23/17 23:59 Metronidazole (Flagyl) 500 mg Q8HR ORAL 04/15/17 14:00 04/22/17 13:59 04/18/17 14:24 Mirtazapine (Remeron) 7.5 mg BEDTIME ORAL 04/11/17 21:00 05/11/17 20:59 04/17/17 20:25 Morphine Sulfate 1 mg 1 mg Q4H PRN IVP Moderate to Severe Pain 04/16/17 10:30 04/23/17 23:59 Ondansetron HCl (Zofran) 4 mg Q6H PRN IVP Nausea & Vomiting 04/10/17 15:15 05/10/17 15:14 Polyethylene Glycol (Miralax) 17 gm HSPRN PRN ORAL Constipation 04/10/17 15:15 05/10/17 15:14 Sodium Chloride (Sodium Chloride 1000ml bag) 1,000 ml @ 50 mls/hr Q20H IV 04/17/17 09:00 05/17/17 08:59 04/18/17 05:20 Vancomycin HCl (Vanco rx to dose) 1 ea DAILY PRN MISC Per rx protocol 04/10/17 15:14 05/10/17 15:13 Zolpidem Tartrate (Ambien) 5 mg HSPRN PRN ORAL Insomnia Unrelieved 04/10/17 15:15 05/10/17 15:14 Valery Nicholas M.D. Apr 18, 2017 15:07
--- NOTE | 2017-04-18 17:20 | Wound Care Consultation ---
Wound Assessment Wound Assessment #1: Wound Number: #1 Wound Present on Admission: Yes New Wound: No Status Change of Wound: No Wound Location Body Site Modif: other - SACROCOCCYGEAL Wound Type: pressure ulcer Cecilia Test: Does not Cecilia Pressure Ulcer Stage: deep tissue injury Wound Thickness: Full Thickness Wound Length: 15.0 Wound Width: 15.0 Wound Depth: utd Percent of Wound Purple/Maroon: 100 Wound Drainage Amount: None Wound Drainage Odor: None/Absent Tissue Surrounding Wound: Intact Wound General Appearance: Reddened Wound Assessment #2: Wound Number: #2 Wound Present on Admission: Yes New Wound: No Status Change of Wound: No Wound Location Body Site Modif: right Wound Location Body Site: buttocks Wound Type: pressure ulcer Cecilia Test: Does not Cecilia Pressure Ulcer Stage: III - SCATTERED Wound Thickness: Full Thickness Wound Length: 5.0 Wound Width: 2.0 Wound Depth: 0.1 Percent of Wound Scandia/Red: 100 Wound Drainage Description: Serosanguineous Wound Drainage Amount: Scant Wound Drainage Odor: None/Absent Tissue Surrounding Wound: Erythemic - noted good progress decrease in depth , treatment effective. 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 Wound Drainage Amount: None Wound Drainage Odor: None/Absent Tissue Surrounding Wound: Erythemic Wound General Appearance: Reddened Wound Assessment #4: Wound Number: #4 Wound Present on Admission: Yes New Wound: No Status Change of Wound: No Wound Location Body Site Modif: right, upper, posterior Wound Location Body Site: leg Wound Type: other - traumatic injury. Cecilia Test: Does not Cecilia Wound Thickness: Partial Thickness Wound Length: 9.0 Wound Width: 1.5 Wound Depth: utd Percent of Wound Scandia/Red: 100 - photographic equipment assembler in color. Wound Drainage Amount: None Wound Drainage Odor: None/Absent Tissue Surrounding Wound: Erythemic Wound General Appearance: Reddened Wound Assessment #5: Wound Number: #5 Wound Present on Admission: Yes New Wound: No Status Change of Wound: No Wound Location Body Site Modif: right, lower, lateral Wound Location Body Site: leg Wound Type: other - previous open scattered wounds, present with dry intact scabs. Cecilia Test: Does not Cecilia Wound Thickness: Full Thickness Percent of Wound Bed Yellow/Wh: 50 - dry scab Percent of Wound Black/Brown: 50 - dry scab Wound Drainage Amount: None Wound Drainage Odor: None/Absent Tissue Surrounding Wound: Intact Wound General Appearance: Open to air, Clean/Dry Wound Assessment #6: Wound Number: #6 Wound Present on Admission: Yes New Wound: No Status Change of Wound: No Wound Location Body Site Modif: right, lateral Wound Location Body Site: malleolus/ankle Wound Type: pressure ulcer Cecilia Test: Does not Cecilia Pressure Ulcer Stage: IV/unstageable Wound Thickness: Full Thickness Wound Length: 2.0 Wound Width: 1.5 Wound Depth: utd Percent of Wound Black/Brown: 100 - dry intact eschar Wound Drainage Amount: None Wound Drainage Odor: None/Absent Tissue Surrounding Wound: Intact Wound General Appearance: Blackened, Clean/Dry Wound Assessment #7: Wound Number: #7 Wound Present on Admission: Yes New Wound: No Status Change of Wound: No Wound Location Body Site Modif: right Wound Location Body Site: heel Wound Type: pressure ulcer Cecilia Test: Does not Cecilia Pressure Ulcer Stage: IV/unstageable Wound Thickness: Full Thickness Wound Length: 8.0 Wound Width: 7.0 Wound Depth: utd Percent of Wound Scandia/Red: 20 Percent of Wound Black/Brown: 80 - noted dry intact eschar. Wound Drainage Description: Serosanguineous Wound Drainage Amount: Moderate Wound Drainage Odor: None/Absent Tissue Surrounding Wound: Erythemic Wound General Appearance: Reddened, Blackened, Necrotic Wound Assessment #8: Wound Number: #8 Wound Present on Admission: Yes New Wound: No Status Change of Wound: No Wound Location Body Site Modif: right Wound Location Body Site: toe - 1st, 2nd, 3rd, 4th and 5th toe Wound Type: scab Cecilia Test: Does not Cecilia Wound Thickness: Partial Thickness Percent of Wound Black/Brown: 100 - intact, stauffer color Wound Drainage Amount: None Wound Drainage Odor: None/Absent Tissue Surrounding Wound: Intact Wound General Appearance: Clean/Dry Wound Assessment #9: Wound Number: #9 Wound Present on Admission: Yes New Wound: No Status Change of Wound: No Wound Location Body Site Modif: left, lateral Wound Location Body Site: malleolus/ankle Wound Type: pressure ulcer Cecilia Test: Does not Cecilia Pressure Ulcer Stage: deep tissue injury - suspected - RESOLVED. Wound Thickness: Full Thickness Wound Drainage Amount: None Wound Drainage Odor: None/Absent Tissue Surrounding Wound: Intact Wound General Appearance: Open to air, Clean/Dry Wound Assessment #10: Wound Number: #10 Wound Present on Admission: Yes New Wound: No Status Change of Wound: No Wound Location Body Site Modif: left Wound Location Body Site: toe - 2ND Wound Type: scab - YELLOW SCAB Cecilia Test: Does not Cecilia Wound Thickness: Full Thickness Wound Length: 1.5 Wound Width: 1.0 Wound Depth: UTD Percent of Wound Bed Yellow/Wh: 100 Wound Drainage Amount: None Wound Drainage Odor: None/Absent Tissue Surrounding Wound: Intact Wound General Appearance: Clean/Dry Wound Assessment #11: Wound Number: #11 Wound Present on Admission: No New Wound: No Status Change of Wound: Yes - noted left buttocks deep tissue injury revealing self to stage II, site is still revealing self, wound bed not fully visible. Wound Location Body Site Modif: left Wound Location Body Site: buttocks Wound Type: pressure ulcer Cecilia Test: Does not Cecilia Pressure Ulcer Stage: deep tissue injury - revealing self stage II. Wound Thickness: Partial Thickness Wound Length: 5.0 Wound Width: 3.0 Wound Depth: utd Percent of Wound Scandia/Red: 50 Percent of Wound Purple/Maroon: 50 Wound Drainage Description: Serosanguineous Wound Drainage Amount: Scant Wound Drainage Odor: None/Absent Tissue Surrounding Wound: Denuded Wound General Appearance: Reddened Wound Assessment #12: Wound Number: #12 Wound Present on Admission: No New Wound: Yes Status Change of Wound: No Wound Location Body Site Modif: left - superior ear fold. Wound Location Body Site: ear Wound Type: pressure ulcer Cecilia Test: Does not Cecilia Pressure Ulcer Stage: II Wound Thickness: Partial Thickness Wound Length: 1.0 Wound Width: 0.5 Wound Depth: <0.1 Percent of Wound Scandia/Red: 100 Wound Drainage Description: Serosanguineous Wound Drainage Amount: Scant Wound Drainage Odor: None/Absent Tissue Surrounding Wound: Erythemic Wound General Appearance: Reddened Wound Assessment #13: Wound Number: #13 Wound Present on Admission: No New Wound: Yes Status Change of Wound: No Wound Location Body Site Modif: left Wound Location Body Site: other - cheek Wound Type: other - redness Cecilia Test: Does not Cecilia Wound Length: 0.5 Wound Width: 0.5 Percent of Wound Scandia/Red: 100 Wound Drainage Amount: None Wound Drainage Odor: None/Absent Tissue Surrounding Wound: Intact Wound General Appearance: Reddened Wound Comment #1 Sacrococcygeal deep tissue injury pressure ulcer.- DTI present still intact, treatment effective. no further deterioration. #2 Right buttocks scattered pressure ulcer stage III.- noted good progress decrease in depth, no further deterioration. #3 Left upper posterior leg traumatic injury.- noted good progress , no further deterioration. #4 Right upper posterior leg traumatic injury.- noted good progress , no further deterioration. #5 Right lower leg scattered open wounds and scattered scabs.- noted good progress , no further deterioration. #6 Right lateral malleolus unstageable pressure ulcer.- noted good progress , no further deterioration. #7 Right heel pressure ulcer stage IV/Unstageable.- noted good progress , no further deterioration, noted decrease in drainage. #8 Right 1st,2nd,3rd,4t, and 5th toe scabs.- noted good progress , no further deterioration. #9 Left malleolus suspected deep tissue injury.- noted good progress , no further deterioration. resolved. #10 Left 2nd toe scab.- noted good progress , no further deterioration. #11 Left lower leg scattered scabs.- noted good progress , no further deterioration. #12 Left buttock Deep tissue injury revealing self to stage II. #13 Left superior ear fold stage II pressure ulcer. #14. Left cheek redness. Recommendation. -Local wound care as ordered. -Apply low air loss SPR mattress for wound prevention and management. -Turn and reposition. -Keep clean and dry. -Optimize nutrition. -Heel protectors. -Offload affected sites, heels and feet. -Avoid shear and friction. -Assess and notify MD for any further changes of condition to skin noted. OTTO MOON Apr 18, 2017 17:20
[2017-04-18] MEDS: Morphine Sulfate 2mg/ml Inj IVP PRN (18:05)
--- NOTE | 2017-04-18 19:29 | Pulmonology Progress Note ---
Assessment/Plan Problems: (1) Sepsis (2) Osteomyelitis of ankle (3) COPD (chronic obstructive pulmonary disease) (4) Dementia arising in the senium and presenium (5) History of CVA (cerebrovascular accident) Assessment/Plan Respiratory treatment IV antibiotics f/u cultures dvt prophylaxis all notes and meds reviewed pt will need a PICC line to finish the IV abx, he doesn't have any body to sign his consents. Subjective ROS Limited/Unobtainable: Yes Constitutional: Reports: no symptoms HEENT: Repors: no symptoms Allergies: Coded Allergies: No Known Allergies (Unverified , 05/11/16) Objective Last 24 Hour Vital Signs Date Time Temp Pulse Resp B/P Pulse Ox O2 Delivery O2 Flow Rate FiO2 04/18/17 16:00 97.9 104 20 112/61 100 Nasal Cannula 2.0 04/18/17 12:00 97.9 106 20 136/82 98 Nasal Cannula 2.0 04/18/17 08:45 99 21 Nasal Cannula 2.0 04/18/17 08:00 98.2 104 20 128/67 99 Nasal Cannula 2.0 04/18/17 04:30 98 Nasal Cannula 2.0 04/18/17 04:00 98.1 105 20 117/73 Nasal Cannula 2.0 04/18/17 00:30 98 Nasal Cannula 2.0 04/18/17 00:00 97.9 104 20 130/70 Nasal Cannula 2.0 04/17/17 23:49 97 20 Nasal Cannula 2.0 28 04/17/17 20:00 98.2 109 18 135/66 98 Nasal Cannula 2.0 Intake and Output 04/17/17 04/18/17 19:00 07:00 Intake Total 1825 ml 1955.000 ml Output Total 225 ml 500 ml Balance 1600 ml 1455.000 ml Intake Free Water 200 ml 400 ml IV Total 905 ml 835.000 ml Tube Feeding 720 ml 720 ml Output Urine Total 225 ml 500 ml General Appearance: WD/WN HEENT: normocephalic, atraumatic Respiratory/Chest: chest wall non-tender, lungs clear Cardiovascular: normal peripheral pulses, normal rate Abdomen: normal bowel sounds, soft, non tender, no scars Extremities: no cyanosis Laboratory Tests 04/18/17 07:00: White Blood Count 9.8, Red Blood Count 3.07L, Hemoglobin 10.8L, Hematocrit 30.6L , Mean Corpuscular Volume 100H, Mean Corpuscular Hemoglobin 35.3H, Mean Corpuscular Hemoglobin Concent 35.4, Red Cell Distribution Width 14.7, Platelet Count 126L, Mean Platelet Volume 5.1L, Neutrophils (%) (Auto) 60.3, Lymphocytes (%) (Auto) 23.2, Monocytes (%) (Auto) 11.6H, Eosinophils (%) (Auto) 4.1H, Basophils (%) (Auto) 0.8, Sodium Level 134L, Potassium Level 3.9, Chloride Level 103, Carbon Dioxide Level 22, Anion Gap 9, Blood Urea Nitrogen 16, Creatinine 1.0, Estimat Glomerular Filtration Rate , Glucose Level 170H, Calcium Level 8.0L, Magnesium Level 1.8, Vancomycin Level Trough 46.1H Current Medications Medications (Trade) Dose Ordered Sig/Naveen Route PRN Reason Start Time Stop Time Status Last Admin Dose Admin Acetaminophen (Tylenol) 650 mg Q4H PRN ORAL fever 04/10/17 15:15 05/10/17 15:14 Al Hydroxide/Mg Hydroxide (Mylanta II) 30 ml Q6H PRN ORAL dyspepsia 04/10/17 15:15 05/10/17 15:14 Cefepime HCl/ Dextrose (Maxipime/D5W) 110 ml @ 220 mls/hr Q12HR@0600,1800 IVPB 04/10/17 18:00 05/22/17 23:59 04/18/17 17:51 Clonidine HCl (Catapres) 0.1 mg Q6H PRN ORAL sbp above 160 04/10/17 14:15 05/10/17 14:14 04/16/17 16:03 Dextrose (Dextrose 50%) STAT PRN IV Hypoglycemia 04/13/17 06:45 05/13/17 06:44 Folic Acid (Folate) 1 mg DAILY GT 04/16/17 09:00 05/16/17 08:59 04/18/17 09:10 Gabapentin (Neurontin) 300 mg QHS GT 04/15/17 21:00 05/15/17 20:59 04/17/17 20:25 Heparin Sodium (Porcine) (Heparin 5000 units/ml) 5,000 units EVERY 12 HOURS SUBQ 04/10/17 21:00 05/10/17 20:59 04/17/17 08:52 Insulin Aspart (NovoLOG) BEFORE MEALS AND HS SUBQ 04/10/17 16:30 05/10/17 16:29 04/18/17 17:50 Insulin Detemir (Levemir) 10 units Q12HR SUBQ 04/18/17 09:00 05/18/17 08:59 04/18/17 09:20 Lactulose (Cephulac) 20 gm TID ORAL 04/10/17 18:00 05/10/17 17:59 04/18/17 17:50 Levetiracetam (Keppra) 500 mg Q12HR GT 04/15/17 21:00 05/15/17 20:59 04/18/17 09:10 Lorazepam (Ativan 2mg/ml 1ml) 0.5 mg Q4H PRN IV For Anxiety 04/16/17 11:15 04/23/17 23:59 Metronidazole (Flagyl) 500 mg Q8HR ORAL 04/15/17 14:00 04/22/17 13:59 04/18/17 14:24 Mirtazapine (Remeron) 7.5 mg BEDTIME ORAL 04/11/17 21:00 05/11/17 20:59 04/17/17 20:25 Morphine Sulfate 1 mg 1 mg Q4H PRN IVP Moderate to Severe Pain 04/16/17 10:30 04/23/17 23:59 04/18/17 18:05 Ondansetron HCl (Zofran) 4 mg Q6H PRN IVP Nausea & Vomiting 04/10/17 15:15 05/10/17 15:14 Polyethylene Glycol (Miralax) 17 gm HSPRN PRN ORAL Constipation 04/10/17 15:15 05/10/17 15:14 Sodium Chloride (Sodium Chloride 1000ml bag) 1,000 ml @ 50 mls/hr Q20H IV 04/17/17 09:00 05/17/17 08:59 04/18/17 05:20 Vancomycin HCl (Vanco rx to dose) 1 ea DAILY PRN MISC Per rx protocol 04/10/17 15:14 05/10/17 15:13 Zolpidem Tartrate (Ambien) 5 mg HSPRN PRN ORAL Insomnia Unrelieved 04/10/17 15:15 05/10/17 15:14 MEGAN LO Apr 18, 2017 19:29
[2017-04-18] MEDS: Gabapentin 300 MG/6 ML Soln GT SCH (21:25)
[2017-04-19 04:00] VITALS: BP 122/66
[2017-04-19 05:23] LABS: BASOPHILS % (AUTO) 0.8 % (0.0-2.0); EOSINOPHILS % (AUTO) 4.3 % (0.0-3.0); LYMPHOCYTES % (AUTO) 22.4 % (20.0-45.0); MEAN CORPUSCULAR HEMOGLOBIN 34.7 PG (27.0-31.0); MEAN CORPUSCULAR HGB CONC 34.5 G/DL (32.0-36.0); MEAN CORPUSCULAR VOLUME 100 FL (80-99); MEAN PLATELET VOLUME 5.4 FL (6.5-10.1); MONOCYTES % (AUTO) 11.6 % (1.0-10.0); NEUTROPHILS % (AUTO) 60.9 % (45.0-75.0); PLATELET COUNT 122 K/UL (150-450); RED BLOOD COUNT 2.76 M/UL (4.70-6.10); RED CELL DISTRIBUTION WIDTH 15.6 % (11.6-14.8); WHITE BLOOD COUNT 8.4 K/UL (4.8-10.8)
[2017-04-19 05:46] LABS: ANION GAP 7 (5-15); CALCIUM 7.4 mg/dL (8.6-10.2); CARBON DIOXIDE 22 mEQ/L (20-30); CHLORIDE 108 mEQ/L (98-107); CREATININE 0.9 mg/dL (0.7-1.2); HEMOLYSIS 2; POTASSIUM 3.5 mEQ/L (3.4-4.9); SODIUM 137 mEQ/L (135-145)
[2017-04-19] MEDS: NovoLOG Insulin Flexpen SUBQ SCH ×4 (05:50→21:02)
[2017-04-19] MEDS: Cefepime HCl 2 GM in D5W 110 ML IVPB SCH ×2 (05:52→17:52)
[2017-04-19] MEDS: metroNIDAZOLE 500mg tab ORAL SCH ×3 (05:53→21:11)
--- NOTE | 2017-04-19 06:04 | General Progress Note ---
Assessment/Plan Problem List: (1) Diabetes mellitus out of control ICD Codes: E11.65 - Type 2 diabetes mellitus with hyperglycemia SNOMED: 77949005, 470252110 (2) Altered mental state ICD Codes: R41.82 - Altered mental status, unspecified SNOMED: 687956228 (3) Cerebrovascular accident (CVA) ICD Codes: I63.9 - Cerebral infarction, unspecified SNOMED: 510804648 (4) Osteomyelitis of ankle ICD Codes: M86.9 - Osteomyelitis, unspecified SNOMED: 470130548 Assessment/Plan BG values improved continue Levemir 10 units bid continue Novolog coverage Subjective ROS Limited/Unobtainable: Yes Allergies: Coded Allergies: No Known Allergies (Unverified , 05/11/16) Subjective events noted Objective Last 24 Hour Vital Signs Date Time Temp Pulse Resp B/P Pulse Ox O2 Delivery O2 Flow Rate FiO2 04/19/17 04:00 97.7 97 18 122/66 100 Nasal Cannula 2.0 04/18/17 23:43 97.9 102 18 132/77 100 Nasal Cannula 2.0 04/18/17 20:00 98.1 98 18 123/70 100 Nasal Cannula 3.0 04/18/17 16:00 97.9 104 20 112/61 100 Nasal Cannula 2.0 04/18/17 12:00 97.9 106 20 136/82 98 Nasal Cannula 2.0 04/18/17 08:45 99 21 Nasal Cannula 2.0 04/18/17 08:00 98.2 104 20 128/67 99 Nasal Cannula 2.0 Intake and Output 04/18/17 04/19/17 19:00 07:00 Intake Total 1680 ml 1090 ml Balance 1680 ml 1090 ml Intake Free Water 290 ml 100 ml IV Total 670 ml 450 ml Tube Feeding 720 ml 540 ml Laboratory Tests 04/18/17 07:00: White Blood Count 9.8, Red Blood Count 3.07L, Hemoglobin 10.8L, Hematocrit 30.6L , Mean Corpuscular Volume 100H, Mean Corpuscular Hemoglobin 35.3H, Mean Corpuscular Hemoglobin Concent 35.4, Red Cell Distribution Width 14.7, Platelet Count 126L, Mean Platelet Volume 5.1L, Neutrophils (%) (Auto) 60.3, Lymphocytes (%) (Auto) 23.2, Monocytes (%) (Auto) 11.6H, Eosinophils (%) (Auto) 4.1H, Basophils (%) (Auto) 0.8, Sodium Level 134L, Potassium Level 3.9, Chloride Level 103, Carbon Dioxide Level 22, Anion Gap 9, Blood Urea Nitrogen 16, Creatinine 1.0, Estimat Glomerular Filtration Rate , Glucose Level 170H, Calcium Level 8.0L, Magnesium Level 1.8, Vancomycin Level Trough 46.1H 04/19/17 04:00: White Blood Count 8.4, Red Blood Count 2.76L, Hemoglobin 9.6L, Hematocrit 27.7L , Mean Corpuscular Volume 100H, Mean Corpuscular Hemoglobin 34.7H, Mean Corpuscular Hemoglobin Concent 34.5, Red Cell Distribution Width 15.6H, Platelet Count 122L, Mean Platelet Volume 5.4L, Neutrophils (%) (Auto) 60.9, Lymphocytes (%) (Auto) 22.4, Monocytes (%) (Auto) 11.6H, Eosinophils (%) (Auto) 4.3H, Basophils (%) (Auto) 0.8, Sodium Level [Pending], Potassium Level [Pending ], Chloride Level [Pending], Carbon Dioxide Level [Pending], Blood Urea Nitrogen [Pending], Creatinine [Pending], Estimat Glomerular Filtration Rate [ Pending], Glucose Level [Pending], Calcium Level [Pending], Random Vancomycin Level [Pending] Height (Feet): 6 Height (Inches): 0.00 Weight (Pounds): 180 General Appearance: no apparent distress Neck: normal alignment Cardiovascular: normal rate Respiratory/Chest: decreased breath sounds Abdomen: normal bowel sounds Edema: 1+ Arm (L), 1+ Arm (R), 1+ Leg (L), 1+ Leg (R), 1+ Pedal (L), 1+ Pedal ( R), 1+ Generalized Objective Current Medications Medications (Trade) Dose Ordered Sig/Naveen Route PRN Reason Start Time Stop Time Status Last Admin Dose Admin Acetaminophen (Tylenol) 650 mg Q4H PRN ORAL fever 04/10/17 15:15 05/10/17 15:14 Al Hydroxide/Mg Hydroxide (Mylanta II) 30 ml Q6H PRN ORAL dyspepsia 04/10/17 15:15 05/10/17 15:14 Cefepime HCl/ Dextrose (Maxipime/D5W) 110 ml @ 220 mls/hr Q12HR@0600,1800 IVPB 04/10/17 18:00 05/22/17 23:59 04/19/17 05:52 Chlorhexidine Gluconate (Teodora-Hex 2%) 1 applic DAILY TOPIC 04/19/17 09:00 05/19/17 08:59 Clonidine HCl (Catapres) 0.1 mg Q6H PRN ORAL sbp above 160 04/10/17 14:15 05/10/17 14:14 04/16/17 16:03 Dextrose (Dextrose 50%) STAT PRN IV Hypoglycemia 04/13/17 06:45 05/13/17 06:44 Folic Acid (Folate) 1 mg DAILY GT 04/16/17 09:00 05/16/17 08:59 04/18/17 09:10 Gabapentin (Neurontin) 300 mg QHS GT 04/15/17 21:00 05/15/17 20:59 04/18/17 21:25 Heparin Sodium (Porcine) (Heparin 5000 units/ml) 5,000 units EVERY 12 HOURS SUBQ 04/10/17 21:00 05/10/17 20:59 04/17/17 08:52 Insulin Aspart (NovoLOG) BEFORE MEALS AND HS SUBQ 04/10/17 16:30 05/10/17 16:29 04/19/17 05:50 Insulin Detemir (Levemir) 10 units Q12HR SUBQ 04/18/17 09:00 05/18/17 08:59 04/18/17 21:10 Lactulose (Cephulac) 20 gm TID ORAL 04/10/17 18:00 05/10/17 17:59 04/18/17 17:50 Levetiracetam (Keppra) 500 mg Q12HR GT 04/15/17 21:00 05/15/17 20:59 04/18/17 21:26 Lorazepam (Ativan 2mg/ml 1ml) 0.5 mg Q4H PRN IV For Anxiety 04/16/17 11:15 04/23/17 23:59 Metronidazole (Flagyl) 500 mg Q8HR ORAL 04/15/17 14:00 04/22/17 13:59 04/19/17 05:53 Mirtazapine (Remeron) 7.5 mg BEDTIME ORAL 04/11/17 21:00 05/11/17 20:59 04/18/17 21:25 Morphine Sulfate 1 mg 1 mg Q4H PRN IVP Moderate to Severe Pain 04/16/17 10:30 04/23/17 23:59 04/18/17 18:05 Ondansetron HCl (Zofran) 4 mg Q6H PRN IVP Nausea & Vomiting 04/10/17 15:15 05/10/17 15:14 Polyethylene Glycol (Miralax) 17 gm HSPRN PRN ORAL Constipation 04/10/17 15:15 05/10/17 15:14 Sodium Chloride (Sodium Chloride 1000ml bag) 1,000 ml @ 50 mls/hr Q20H IV 04/17/17 09:00 05/17/17 08:59 04/19/17 01:00 Vancomycin HCl (Vanco rx to dose) 1 ea DAILY PRN MISC Per rx protocol 04/10/17 15:14 05/10/17 15:13 Zolpidem Tartrate (Ambien) 5 mg HSPRN PRN ORAL Insomnia Unrelieved 04/10/17 15:15 05/10/17 15:14 Item Value Date Time Bedside Blood Glucose 142 mg/dl H 04/19/17 0550 Bedside Blood Glucose 139 mg/dl H 04/18/17 2110 Bedside Blood Glucose 156 mg/dl H 04/18/17 1750 Bedside Blood Glucose 154 mg/dl H 04/18/17 1426 Bedside Blood Glucose 164 mg/dl H 04/18/17 0920 Bedside Blood Glucose 164 mg/dl H 04/18/17 0643 FOREST LONGORIA Apr 19, 2017 06:04
[2017-04-19 08:20] VITALS: BP 125/75
[2017-04-19] MEDS: levETIRAcetam 500mg/5ml Liquid GT SCH ×2 (08:33→20:54)
[2017-04-19] MEDS: Lactulose 20gm/30ml UDC ORAL SCH ×3 (08:33→17:52)
[2017-04-19] MEDS: Heparin 5000 units/ml inj SUBQ SCH ×2 (08:33→20:44)
[2017-04-19] MEDS: Dyna-Hex 2% Top Sol 8oz TOPIC SCH (08:34)
[2017-04-19] MEDS: Levemir Flexpen SUBQ SCH ×2 (08:34→20:57)
--- NOTE | 2017-04-19 10:02 | GI Progress Note ---
Assessment/Plan Problems: (1) Altered mental state ICD Codes: R41.82 - Altered mental status, unspecified SNOMED: 391141950 (2) Anemia ICD Codes: D64.9 - Anemia, unspecified SNOMED: 019721810 (3) Morbid obesity ICD Codes: E66.01 - Morbid (severe) obesity due to excess calories SNOMED: 172913692, 13618530448314 (4) Diabetes mellitus ICD Codes: E11.9 - Type 2 diabetes mellitus without complications SNOMED: 85150315 Status: stable, unchanged Status Narrative Discussed with Dr. Solorzano. Assessment/Plan s/p PEG tolerating TF stable labs DC planning per primary team Subjective Subjective limited Objective Last 24 Hour Vital Signs Date Time Temp Pulse Resp B/P Pulse Ox O2 Delivery O2 Flow Rate FiO2 04/19/17 08:20 97.0 101 19 125/75 100 Nasal Cannula 2.0 04/19/17 04:00 97.7 97 18 122/66 100 Nasal Cannula 2.0 04/18/17 23:43 97.9 102 18 132/77 100 Nasal Cannula 2.0 04/18/17 20:00 98.1 98 18 123/70 100 Nasal Cannula 3.0 04/18/17 16:00 97.9 104 20 112/61 100 Nasal Cannula 2.0 04/18/17 12:00 97.9 106 20 136/82 98 Nasal Cannula 2.0 Intake and Output 04/18/17 04/19/17 19:00 07:00 Intake Total 1680 ml 1580 ml Output Total 300 ml Balance 1680 ml 1280 ml Intake Free Water 290 ml 200 ml IV Total 670 ml 720 ml Tube Feeding 720 ml 660 ml Output Urine Total 300 ml # Bowel Movements 2 Laboratory Tests Test 04/19/17 04:00 White Blood Count 8.4 K/UL (4.8-10.8) Red Blood Count 2.76 M/UL (4.70-6.10) L Hemoglobin 9.6 G/DL (14.2-18.0) L Hematocrit 27.7 % (42.0-52.0) L Mean Corpuscular Volume 100 FL (80-99) H Mean Corpuscular Hemoglobin 34.7 PG (27.0-31.0) H Mean Corpuscular Hemoglobin Concent 34.5 G/DL (32.0-36.0) Red Cell Distribution Width 15.6 % (11.6-14.8) H Platelet Count 122 K/UL (150-450) L Mean Platelet Volume 5.4 FL (6.5-10.1) L Neutrophils (%) (Auto) 60.9 % (45.0-75.0) Lymphocytes (%) (Auto) 22.4 % (20.0-45.0) Monocytes (%) (Auto) 11.6 % (1.0-10.0) H Eosinophils (%) (Auto) 4.3 % (0.0-3.0) H Basophils (%) (Auto) 0.8 % (0.0-2.0) Sodium Level 137 mEQ/L (135-145) Potassium Level 3.5 mEQ/L (3.4-4.9) Chloride Level 108 mEQ/L (98-107) H Carbon Dioxide Level 22 mEQ/L (20-30) Anion Gap 7 (5-15) Blood Urea Nitrogen 18 mg/dL (7-23) Creatinine 0.9 mg/dL (0.7-1.2) Estimat Glomerular Filtration Rate mL/min (>60) Glucose Level 141 mg/dL (74-106) H Calcium Level 7.4 mg/dL (8.6-10.2) L Random Vancomycin Level 31.9 ug/mL Height (Feet): 6 Height (Inches): 0.00 Weight (Pounds): 180 General Appearance: alert Cardiovascular: normal rate Respiratory/Chest: no respiratory distress Abdominal Exam: site - c/d/i Sho Lopez N.P. Apr 19, 2017 10:02
[2017-04-19] MEDS ORDERED: GABAPENTIN300 MG GT (10:16)
[2017-04-19] MEDS ORDERED: CEFEPIME-D2 GM/50 ML IVPB (10:18)
[2017-04-19] MEDS ORDERED: NOVOLOG100 UNIT/3 SUBQ (10:20)
[2017-04-19] MEDS ORDERED: LACTULOSE20 GM/301 ORAL (10:22)
[2017-04-19] MEDS ORDERED: LEVEMIR100 UNIT/1 SUBQ (10:22)
[2017-04-19] MEDS ORDERED: LEVETIRACE500 MG/51 GT (10:24)
[2017-04-19] MEDS ORDERED: METRONIDAZOLE500 MG ORAL (10:31)
[2017-04-19] MEDS ORDERED: VANCOMYCIN1 GM/2502 IVPB (10:33)
[2017-04-19] MEDS ORDERED: MIRTAZAPINE7.5 MG ORAL (10:33)
[2017-04-19] MEDS ORDERED: AMBIEN5 MG GT (10:34)
[2017-04-19] MEDS ORDERED: MIRALAX17 G2 ORAL (10:34)
--- NOTE | 2017-04-19 11:56 | General Progress Note ---
Assessment/Plan Problem List: (1) Morbid obesity ICD Codes: E66.01 - Morbid (severe) obesity due to excess calories SNOMED: 305908119, 16834403875522 (2) Cerebrovascular accident (CVA) ICD Codes: I63.9 - Cerebral infarction, unspecified SNOMED: 767502025 (3) Diabetes mellitus ICD Codes: E11.9 - Type 2 diabetes mellitus without complications SNOMED: 38413848 (4) Open wound of heel ICD Codes: S91.309A - Unspecified open wound, unspecified foot, initial encounter SNOMED: 632295930 (5) Cellulitis of lower extremity ICD Codes: L03.119 - Cellulitis of unspecified part of limb SNOMED: 011467755 (6) UTI (urinary tract infection) ICD Codes: N39.0 - Urinary tract infection, site not specified SNOMED: 65817983 (7) Sepsis ICD Codes: A41.9 - Sepsis, unspecified organism SNOMED: 97257627 (8) COPD (chronic obstructive pulmonary disease) ICD Codes: J44.9 - Chronic obstructive pulmonary disease, unspecified SNOMED: 21563212 (9) ISMAEL (obstructive sleep apnea) ICD Codes: G47.33 - Obstructive sleep apnea (adult) (pediatric) SNOMED: 10885631 Status: unchanged Assessment/Plan ot pt diet wound care eval abx cbc bmp am dc to snf Subjective Constitutional: Reports: weakness Allergies: Coded Allergies: No Known Allergies (Unverified , 05/11/16) All Systems: reviewed and negative except above Subjective o2nc sleepy calm s/p picc Objective Last 24 Hour Vital Signs Date Time Temp Pulse Resp B/P Pulse Ox O2 Delivery O2 Flow Rate FiO2 04/19/17 10:50 99 Nasal Cannula 2.0 28 04/19/17 10:49 Nasal Cannula 2.0 28 04/19/17 08:20 97.0 101 19 125/75 100 Nasal Cannula 2.0 04/19/17 04:00 97.7 97 18 122/66 100 Nasal Cannula 2.0 04/18/17 23:43 97.9 102 18 132/77 100 Nasal Cannula 2.0 04/18/17 20:00 98.1 98 18 123/70 100 Nasal Cannula 3.0 04/18/17 16:00 97.9 104 20 112/61 100 Nasal Cannula 2.0 04/18/17 12:00 97.9 106 20 136/82 98 Nasal Cannula 2.0 Intake and Output 04/18/17 04/19/17 19:00 07:00 Intake Total 1680 ml 1580 ml Output Total 300 ml Balance 1680 ml 1280 ml Intake Free Water 290 ml 200 ml IV Total 670 ml 720 ml Tube Feeding 720 ml 660 ml Output Urine Total 300 ml # Bowel Movements 2 Laboratory Tests 04/19/17 04:00: White Blood Count 8.4, Red Blood Count 2.76L, Hemoglobin 9.6L, Hematocrit 27.7L , Mean Corpuscular Volume 100H, Mean Corpuscular Hemoglobin 34.7H, Mean Corpuscular Hemoglobin Concent 34.5, Red Cell Distribution Width 15.6H, Platelet Count 122L, Mean Platelet Volume 5.4L, Neutrophils (%) (Auto) 60.9, Lymphocytes (%) (Auto) 22.4, Monocytes (%) (Auto) 11.6H, Eosinophils (%) (Auto) 4.3H, Basophils (%) (Auto) 0.8, Sodium Level 137, Potassium Level 3.5, Chloride Level 108H, Carbon Dioxide Level 22, Anion Gap 7, Blood Urea Nitrogen 18, Creatinine 0.9, Estimat Glomerular Filtration Rate , Glucose Level 141H, Calcium Level 7.4L, Random Vancomycin Level 31.9 Height (Feet): 6 Height (Inches): 0.00 Weight (Pounds): 180 General Appearance: lethargic EENT: normal ENT inspection Neck: normal alignment Cardiovascular: normal peripheral pulses, normal rate, regular rhythm Respiratory/Chest: chest wall non-tender, lungs clear, normal breath sounds Abdomen: normal bowel sounds, non tender, soft Extremities: normal inspection Edema: no edema noted Arm (L), no edema noted Arm (R), no edema noted Leg (L), no edema noted Leg (R), no edema noted Pedal (L), no edema noted Pedal (R), no edema noted Generalized Neurologic: motor weakness Skin: normal pigmentation, warm/dry LINDA BOLAÑOS Apr 19, 2017 11:56
[2017-04-19 12:02] VITALS: BP 137/66
[2017-04-19] MEDS: Morphine Sulfate 2mg/ml Inj IVP PRN (13:53)
--- NOTE | 2017-04-19 15:29 | Infectious Diseases Prog Note ---
Assessment/Plan Problems: (1) Open wound of heel Assessment & Plan: with infection, and underlying osteomyelitis , wound culture grew Morganella morgagnii, E coli, and staph aureus , and blood culture grew diphtheroid most likely contaminant , will continue vancomycin , cefepiem and flagyl for 6 weeks for osteomyelitis, follow up with yard rigger. EOT 05/22/17. please monitor weekly labs with cbc, cmp and ESR while on antibiotics . (2) Osteomyelitis of ankle Assessment & Plan: confirmed on MRI of the right ankle , blood culture showed contaminant, continue vancomycin, cefepime and flagyl for 6 weeks with close follow up with yard rigger . monitor weekly labs, and continue local wound care (3) Diabetes mellitus Assessment & Plan: recommend tight glycemic control to keep blood glucose between 80-120 (4) Sepsis Assessment & Plan: due to the above, on wide spectrum antibiotics, blood culture showed contaminant (5) UTI (urinary tract infection) Assessment & Plan: with E coli, already on cefepime Subjective ROS Limited/Unobtainable: Yes Allergies: Coded Allergies: No Known Allergies (Unverified , 05/11/16) Subjective he was lying in bed, unresponsive, and altered , doesn't follow commands. afebrile Objective Vital Signs Last 24 Hour Vital Signs Date Time Temp Pulse Resp B/P Pulse Ox O2 Delivery O2 Flow Rate FiO2 04/19/17 12:02 97.7 107 19 137/66 97 Nasal Cannula 2.0 04/19/17 10:50 99 Nasal Cannula 2.0 28 04/19/17 10:49 Nasal Cannula 2.0 28 04/19/17 08:20 97.0 101 19 125/75 100 Nasal Cannula 2.0 04/19/17 04:00 97.7 97 18 122/66 100 Nasal Cannula 2.0 04/18/17 23:43 97.9 102 18 132/77 100 Nasal Cannula 2.0 04/18/17 20:00 98.1 98 18 123/70 100 Nasal Cannula 3.0 04/18/17 16:00 97.9 104 20 112/61 100 Nasal Cannula 2.0 Height (Feet): 6 Height (Inches): 0.00 Weight (Pounds): 180 General Appearance: WD/WN, no acute distress HEENT: normocephalic, atraumatic, anicteric, no JVD Respiratory/Chest: chest wall non-tender, normal breath sounds, no respiratory distress, no accessory muscle use, decreased breath sounds Cardiovascular: normal peripheral pulses, normal rate, regular rhythm, no gallop/murmur, no JVD Abdomen: normal bowel sounds, soft, non tender, no organomegaly, non distended , no mass Extremities: no cyanosis, no clubbing Skin: no rash, no lesions, no ulcers Neurologic/Psychiatric: alert, oriented x 3 Laboratory Tests Test 04/19/17 04:00 White Blood Count 8.4 K/UL (4.8-10.8) Red Blood Count 2.76 M/UL (4.70-6.10) L Hemoglobin 9.6 G/DL (14.2-18.0) L Hematocrit 27.7 % (42.0-52.0) L Mean Corpuscular Volume 100 FL (80-99) H Mean Corpuscular Hemoglobin 34.7 PG (27.0-31.0) H Mean Corpuscular Hemoglobin Concent 34.5 G/DL (32.0-36.0) Red Cell Distribution Width 15.6 % (11.6-14.8) H Platelet Count 122 K/UL (150-450) L Mean Platelet Volume 5.4 FL (6.5-10.1) L Neutrophils (%) (Auto) 60.9 % (45.0-75.0) Lymphocytes (%) (Auto) 22.4 % (20.0-45.0) Monocytes (%) (Auto) 11.6 % (1.0-10.0) H Eosinophils (%) (Auto) 4.3 % (0.0-3.0) H Basophils (%) (Auto) 0.8 % (0.0-2.0) Sodium Level 137 mEQ/L (135-145) Potassium Level 3.5 mEQ/L (3.4-4.9) Chloride Level 108 mEQ/L (98-107) H Carbon Dioxide Level 22 mEQ/L (20-30) Anion Gap 7 (5-15) Blood Urea Nitrogen 18 mg/dL (7-23) Creatinine 0.9 mg/dL (0.7-1.2) Estimat Glomerular Filtration Rate mL/min (>60) Glucose Level 141 mg/dL (74-106) H Calcium Level 7.4 mg/dL (8.6-10.2) L Random Vancomycin Level 31.9 ug/mL Current Medications Medications (Trade) Dose Ordered Sig/Naveen Route PRN Reason Start Time Stop Time Status Last Admin Dose Admin Acetaminophen (Tylenol) 650 mg Q4H PRN ORAL fever 04/10/17 15:15 05/10/17 15:14 Al Hydroxide/Mg Hydroxide (Mylanta II) 30 ml Q6H PRN ORAL dyspepsia 04/10/17 15:15 05/10/17 15:14 Cefepime HCl/ Dextrose (Maxipime/D5W) 110 ml @ 220 mls/hr Q12HR@0600,1800 IVPB 04/10/17 18:00 05/22/17 23:59 04/19/17 05:52 Chlorhexidine Gluconate (Teodora-Hex 2%) 1 applic DAILY TOPIC 04/19/17 09:00 05/19/17 08:59 04/19/17 08:34 Clonidine HCl (Catapres) 0.1 mg Q6H PRN ORAL sbp above 160 04/10/17 14:15 05/10/17 14:14 04/16/17 16:03 Dextrose (Dextrose 50%) STAT PRN IV Hypoglycemia 04/13/17 06:45 05/13/17 06:44 Folic Acid (Folate) 1 mg DAILY GT 04/16/17 09:00 05/16/17 08:59 04/19/17 08:33 Gabapentin (Neurontin) 300 mg QHS GT 04/15/17 21:00 05/15/17 20:59 04/18/17 21:25 Heparin Sodium (Porcine) (Heparin 5000 units/ml) 5,000 units EVERY 12 HOURS SUBQ 04/10/17 21:00 05/10/17 20:59 04/17/17 08:52 Insulin Aspart (NovoLOG) BEFORE MEALS AND HS SUBQ 04/10/17 16:30 05/10/17 16:29 04/19/17 12:47 Insulin Detemir (Levemir) 10 units Q12HR SUBQ 04/18/17 09:00 05/18/17 08:59 04/19/17 08:34 Lactulose (Cephulac) 20 gm TID ORAL 04/10/17 18:00 05/10/17 17:59 04/19/17 14:02 Levetiracetam (Keppra) 500 mg Q12HR GT 04/15/17 21:00 05/15/17 20:59 04/19/17 08:33 Lorazepam (Ativan 2mg/ml 1ml) 0.5 mg Q4H PRN IV For Anxiety 04/16/17 11:15 04/23/17 23:59 Metronidazole (Flagyl) 500 mg Q8HR ORAL 04/15/17 14:00 04/22/17 13:59 04/19/17 14:02 Mirtazapine (Remeron) 7.5 mg BEDTIME ORAL 04/11/17 21:00 05/11/17 20:59 04/18/17 21:25 Morphine Sulfate 1 mg 1 mg Q4H PRN IVP Moderate to Severe Pain 04/16/17 10:30 04/23/17 23:59 04/19/17 13:53 Ondansetron HCl (Zofran) 4 mg Q6H PRN IVP Nausea & Vomiting 04/10/17 15:15 05/10/17 15:14 Polyethylene Glycol (Miralax) 17 gm HSPRN PRN ORAL Constipation 04/10/17 15:15 05/10/17 15:14 Sodium Chloride (Sodium Chloride 1000ml bag) 1,000 ml @ 50 mls/hr Q20H IV 04/17/17 09:00 05/17/17 08:59 04/19/17 01:00 Vancomycin HCl (Vanco rx to dose) 1 ea DAILY PRN MISC Per rx protocol 04/10/17 15:14 05/10/17 15:13 Zolpidem Tartrate (Ambien) 5 mg HSPRN PRN ORAL Insomnia Unrelieved 04/10/17 15:15 05/10/17 15:14 Valery Nicholas M.D. Apr 19, 2017 15:29
[2017-04-19 15:49] VITALS: BP 135/69
--- NOTE | 2017-04-19 16:26 | Cardiac Electrophysiology PN ---
Subjective Subjective [id number] Objective Last 24 Hour Vital Signs Date Time Temp Pulse Resp B/P Pulse Ox O2 Delivery O2 Flow Rate FiO2 04/19/17 15:49 97.9 105 19 135/69 97 Nasal Cannula 2.0 04/19/17 12:02 97.7 107 19 137/66 97 Nasal Cannula 2.0 04/19/17 10:50 99 Nasal Cannula 2.0 28 04/19/17 10:49 Nasal Cannula 2.0 28 04/19/17 08:20 97.0 101 19 125/75 100 Nasal Cannula 2.0 04/19/17 04:00 97.7 97 18 122/66 100 Nasal Cannula 2.0 04/18/17 23:43 97.9 102 18 132/77 100 Nasal Cannula 2.0 04/18/17 20:00 98.1 98 18 123/70 100 Nasal Cannula 3.0 Intake and Output 04/18/17 04/19/17 19:00 07:00 Intake Total 1680 ml 1580 ml Output Total 300 ml Balance 1680 ml 1280 ml Intake Free Water 290 ml 200 ml IV Total 670 ml 720 ml Tube Feeding 720 ml 660 ml Output Urine Total 300 ml # Bowel Movements 2 Laboratory Tests Test 04/19/17 04:00 White Blood Count 8.4 K/UL (4.8-10.8) Red Blood Count 2.76 M/UL (4.70-6.10) L Hemoglobin 9.6 G/DL (14.2-18.0) L Hematocrit 27.7 % (42.0-52.0) L Mean Corpuscular Volume 100 FL (80-99) H Mean Corpuscular Hemoglobin 34.7 PG (27.0-31.0) H Mean Corpuscular Hemoglobin Concent 34.5 G/DL (32.0-36.0) Red Cell Distribution Width 15.6 % (11.6-14.8) H Platelet Count 122 K/UL (150-450) L Mean Platelet Volume 5.4 FL (6.5-10.1) L Neutrophils (%) (Auto) 60.9 % (45.0-75.0) Lymphocytes (%) (Auto) 22.4 % (20.0-45.0) Monocytes (%) (Auto) 11.6 % (1.0-10.0) H Eosinophils (%) (Auto) 4.3 % (0.0-3.0) H Basophils (%) (Auto) 0.8 % (0.0-2.0) Sodium Level 137 mEQ/L (135-145) Potassium Level 3.5 mEQ/L (3.4-4.9) Chloride Level 108 mEQ/L (98-107) H Carbon Dioxide Level 22 mEQ/L (20-30) Anion Gap 7 (5-15) Blood Urea Nitrogen 18 mg/dL (7-23) Creatinine 0.9 mg/dL (0.7-1.2) Estimat Glomerular Filtration Rate mL/min (>60) Glucose Level 141 mg/dL (74-106) H Calcium Level 7.4 mg/dL (8.6-10.2) L Random Vancomycin Level 31.9 ug/mL BRISEIDA BEDOLLA Apr 19, 2017 16:26
[2017-04-19 20:00] VITALS: BP 130/60
[2017-04-19] MEDS: Gabapentin 300 MG/6 ML Soln GT SCH (20:54)
[2017-04-19] MEDS: Metoprolol 25mg tab ORAL SCH (20:55)
--- NOTE | 2017-04-19 23:07 | Pulmonology Progress Note ---
Assessment/Plan Problems: (1) Sepsis (2) Osteomyelitis of ankle (3) COPD (chronic obstructive pulmonary disease) (4) Dementia arising in the senium and presenium (5) History of CVA (cerebrovascular accident) Assessment/Plan Respiratory treatment IV antibiotics f/u cultures dvt prophylaxis all notes and meds reviewed s/p PEG wound care dc planning Subjective ROS Limited/Unobtainable: No Constitutional: Reports: no symptoms HEENT: Repors: no symptoms Respiratory: Reports: no symptoms Allergies: Coded Allergies: No Known Allergies (Unverified , 05/11/16) Objective Last 24 Hour Vital Signs Date Time Temp Pulse Resp B/P Pulse Ox O2 Delivery O2 Flow Rate FiO2 04/19/17 20:55 90 130/60 04/19/17 20:02 Nasal Cannula 2.0 28 04/19/17 20:02 99 Nasal Cannula 2.0 28 04/19/17 20:00 97.9 90 19 130/60 100 Room Air 04/19/17 15:49 97.9 105 19 135/69 97 Nasal Cannula 2.0 04/19/17 12:02 97.7 107 19 137/66 97 Nasal Cannula 2.0 04/19/17 10:50 99 Nasal Cannula 2.0 28 04/19/17 10:49 Nasal Cannula 2.0 28 04/19/17 08:20 97.0 101 19 125/75 100 Nasal Cannula 2.0 04/19/17 04:00 97.7 97 18 122/66 100 Nasal Cannula 2.0 04/18/17 23:43 97.9 102 18 132/77 100 Nasal Cannula 2.0 Intake and Output 04/18/17 04/19/17 19:00 07:00 Intake Total 1680 ml 1640 ml Output Total 300 ml Balance 1680 ml 1340 ml Intake Free Water 290 ml 200 ml IV Total 670 ml 720 ml Tube Feeding 720 ml 720 ml Output Urine Total 300 ml # Bowel Movements 2 General Appearance: WD/WN, no acute distress HEENT: atraumatic Respiratory/Chest: chest wall non-tender, lungs clear Cardiovascular: normal peripheral pulses, normal rate Abdomen: normal bowel sounds, soft, non tender Genitourinary: normal external genitalia Laboratory Tests 04/19/17 04:00: White Blood Count 8.4, Red Blood Count 2.76L, Hemoglobin 9.6L, Hematocrit 27.7L , Mean Corpuscular Volume 100H, Mean Corpuscular Hemoglobin 34.7H, Mean Corpuscular Hemoglobin Concent 34.5, Red Cell Distribution Width 15.6H, Platelet Count 122L, Mean Platelet Volume 5.4L, Neutrophils (%) (Auto) 60.9, Lymphocytes (%) (Auto) 22.4, Monocytes (%) (Auto) 11.6H, Eosinophils (%) (Auto) 4.3H, Basophils (%) (Auto) 0.8, Sodium Level 137, Potassium Level 3.5, Chloride Level 108H, Carbon Dioxide Level 22, Anion Gap 7, Blood Urea Nitrogen 18, Creatinine 0.9, Estimat Glomerular Filtration Rate , Glucose Level 141H, Calcium Level 7.4L, Random Vancomycin Level 31.9 Current Medications Medications (Trade) Dose Ordered Sig/Naveen Route PRN Reason Start Time Stop Time Status Last Admin Dose Admin Acetaminophen (Tylenol) 650 mg Q4H PRN ORAL fever 04/10/17 15:15 05/10/17 15:14 Al Hydroxide/Mg Hydroxide (Mylanta II) 30 ml Q6H PRN ORAL dyspepsia 04/10/17 15:15 05/10/17 15:14 Cefepime HCl/ Dextrose (Maxipime/D5W) 110 ml @ 220 mls/hr Q12HR@0600,1800 IVPB 04/10/17 18:00 05/22/17 23:59 04/19/17 17:52 Chlorhexidine Gluconate (Teodora-Hex 2%) 1 applic DAILY TOPIC 04/19/17 09:00 05/19/17 08:59 04/19/17 08:34 Clonidine HCl (Catapres) 0.1 mg Q6H PRN ORAL sbp above 160 04/10/17 14:15 05/10/17 14:14 04/16/17 16:03 Dextrose (Dextrose 50%) STAT PRN IV Hypoglycemia 04/13/17 06:45 05/13/17 06:44 Folic Acid (Folate) 1 mg DAILY GT 04/16/17 09:00 05/16/17 08:59 04/19/17 08:33 Gabapentin (Neurontin) 300 mg QHS GT 04/15/17 21:00 05/15/17 20:59 04/19/17 20:54 Heparin Sodium (Porcine) (Heparin 5000 units/ml) 5,000 units EVERY 12 HOURS SUBQ 04/10/17 21:00 05/10/17 20:59 04/17/17 08:52 Insulin Aspart (NovoLOG) BEFORE MEALS AND HS SUBQ 04/10/17 16:30 05/10/17 16:29 04/19/17 21:02 Insulin Detemir (Levemir) 10 units Q12HR SUBQ 04/18/17 09:00 05/18/17 08:59 04/19/17 20:57 Lactulose (Cephulac) 20 gm TID ORAL 04/10/17 18:00 05/10/17 17:59 04/19/17 17:52 Levetiracetam (Keppra) 500 mg Q12HR GT 04/15/17 21:00 05/15/17 20:59 04/19/17 20:54 Lorazepam (Ativan 2mg/ml 1ml) 0.5 mg Q4H PRN IV For Anxiety 04/16/17 11:15 04/23/17 23:59 Metoprolol Tartrate 25 mg 25 mg Q12HR ORAL 04/19/17 21:00 05/19/17 20:59 04/19/17 20:55 Metronidazole (Flagyl) 500 mg Q8HR ORAL 04/15/17 14:00 04/22/17 13:59 04/19/17 21:11 Mirtazapine (Remeron) 7.5 mg BEDTIME ORAL 04/11/17 21:00 05/11/17 20:59 04/19/17 20:54 Morphine Sulfate (Morphine Sulfate) 1 mg Q4H PRN IVP Moderate to Severe Pain 04/16/17 10:30 04/23/17 23:59 04/19/17 13:53 Ondansetron HCl (Zofran) 4 mg Q6H PRN IVP Nausea & Vomiting 04/10/17 15:15 05/10/17 15:14 Polyethylene Glycol (Miralax) 17 gm HSPRN PRN ORAL Constipation 04/10/17 15:15 05/10/17 15:14 Vancomycin HCl (Vanco rx to dose) 1 ea DAILY PRN MISC Per rx protocol 04/10/17 15:14 05/10/17 15:13 Vancomycin HCl/ Dextrose (Vancomycin/D5W) 275 ml @ 183.708 mls/hr Q36H IVPB 04/20/17 12:00 04/25/17 11:59 Zolpidem Tartrate (Ambien) 5 mg HSPRN PRN ORAL Insomnia Unrelieved 04/10/17 15:15 05/10/17 15:14 MEGAN LO Apr 19, 2017 23:07
[2017-04-20 00:06] VITALS: BP 126/60
[2017-04-20] MEDS: Morphine Sulfate 2mg/ml Inj IVP PRN ×2 (00:24→18:19)
--- NOTE | 2017-04-20 01:31 | Consultation ---
DATE OF CONSULTATION: 04/19/2017 CARDIOLOGY CONSULTATION CONSULTING PHYSICIAN: Phil Keenan M.D. REFERRING PHYSICIAN: James Dugan D.O. REASON FOR CONSULTATION: Tachycardia. HISTORY OF PRESENT ILLNESS: The patient is a 76-year-old gentleman with history of hypertension, CVA, and paranoid schizophrenia as well as history of dysphagia, status post PEG placement, and history of decubitus ulcer, was admitted on 04/09/2017. The patient at that time had sinus tachycardia of 106. Cardiology consultation was requested today as the patient is persistently tachycardic. PAST MEDICAL HISTORY: 1. Hypertension. 2. Diabetes. 3. CVA. 4. Schizophrenia. 5. Dysphagia, status post PEG placement. 6. Obesity. 7. Decubitus ulcer. ALLERGIES: No known drug allergies. SOCIAL HISTORY: Lives in a nursing facility. Does not smoke or drink alcohol obviously. REVIEW OF SYSTEMS: Cannot be obtained in view of the patient's mental status. PHYSICAL EXAMINATION: VITAL SIGNS: Blood pressure is 130/69, pulse 105, respirations 19, and temperature 97.9. HEAD AND NECK: Showed no JVD. LUNGS: Decreased breath sounds. CARDIOVASCULAR: Shows tachycardic, S1-S2 with no gallop or murmur. ABDOMEN: Status post PEG. EXTREMITIES: Decubitus ulcers and 1+ edema. LABORATORY DATA: Showed white count 8.4, hemoglobin 9.6, hematocrit 27.7, and platelet count is 122,000. Sodium 137, potassium 3.5, BUN of 18, creatinine 0.9, glucose of 141, calcium 7.4. INR is 1.3. ASSESSMENT AND PLAN: 1. Tachycardia. This could be secondary to patient's anemia. I will repeat the EKG again. His hemoglobin dropped from 11.4 on 04/17/2017 to 10.8 on 04/18/2017 and today it is 9.6. We will also get an echocardiogram to evaluate ejection fraction and wall motion abnormality. 2. History of hypertension, currently off antihypertensives. I will start him on low-dose beta-brenda that may help with his tachycardia as well. 3. Dysphagia, status post percutaneous endoscopic gastrostomy placement. 4. Schizophrenia. 5. Dementia. 6. Healed open wound on the of the ankle. 7. Urinary tract infection. Dr. Nicholas, history of diabetes per Dr. Greenwood. Thank very much, Dr. Dugan, for allowing me to participate in the care of this patient. Please do not hesitate to contact me for any questions regarding my evaluation. Phil Keenan M.D. DR: LOLA JOB#: [id number] CC:
[2017-04-20 04:09] VITALS: BP 137/72
[2017-04-20] MEDS: metroNIDAZOLE 500mg tab ORAL SCH ×2 (05:47→14:08)
[2017-04-20] MEDS: Cefepime HCl 2 GM in D5W 110 ML IVPB SCH ×2 (05:47→18:18)
[2017-04-20] MEDS: NovoLOG Insulin Flexpen SUBQ SCH ×3 (05:51→16:09)
--- NOTE | 2017-04-20 06:37 | General Progress Note ---
Assessment/Plan Problem List: (1) Diabetes mellitus out of control ICD Codes: E11.65 - Type 2 diabetes mellitus with hyperglycemia SNOMED: 15750459, 088161894 (2) Altered mental state ICD Codes: R41.82 - Altered mental status, unspecified SNOMED: 397212918 (3) Cerebrovascular accident (CVA) ICD Codes: I63.9 - Cerebral infarction, unspecified SNOMED: 137021823 (4) Osteomyelitis of ankle ICD Codes: M86.9 - Osteomyelitis, unspecified SNOMED: 923789973 Assessment/Plan BG values improved continue Levemir 10 units bid continue Novolog coverage Subjective Allergies: Coded Allergies: No Known Allergies (Unverified , 05/11/16) All Systems: reviewed and negative except above Subjective events noted Objective Last 24 Hour Vital Signs Date Time Temp Pulse Resp B/P Pulse Ox O2 Delivery O2 Flow Rate FiO2 04/20/17 04:09 97.9 90 19 137/72 100 Nasal Cannula 04/20/17 00:06 97.9 90 19 126/60 100 Room Air 04/19/17 20:55 90 130/60 04/19/17 20:02 Nasal Cannula 2.0 28 04/19/17 20:02 99 Nasal Cannula 2.0 28 04/19/17 20:00 97.9 90 19 130/60 100 Room Air 04/19/17 15:49 97.9 105 19 135/69 97 Nasal Cannula 2.0 04/19/17 12:02 97.7 107 19 137/66 97 Nasal Cannula 2.0 04/19/17 10:50 99 Nasal Cannula 2.0 28 04/19/17 10:49 Nasal Cannula 2.0 28 04/19/17 08:20 97.0 101 19 125/75 100 Nasal Cannula 2.0 Intake and Output 04/19/17 04/20/17 19:00 07:00 Intake Total 1530 ml 860 ml Output Total 220 ml Balance 1530 ml 640 ml Intake Free Water 200 ml 200 ml IV Total 610 ml Tube Feeding 720 ml 660 ml Output Urine Total 220 ml # Bowel Movements 1 Height (Feet): 6 Height (Inches): 0.00 Weight (Pounds): 180 General Appearance: no apparent distress Neck: normal alignment Cardiovascular: normal rate Respiratory/Chest: lungs clear Abdomen: normal bowel sounds Pelvis: normal external exam Edema: 1+ Arm (L), 1+ Arm (R), 1+ Leg (L), 1+ Leg (R), 1+ Pedal (L), 1+ Pedal ( R), 1+ Generalized Objective Item Value Date Time Bedside Blood Glucose 117 mg/dl 04/20/17 0551 Bedside Blood Glucose 242 mg/dl H 04/19/17 2102 Bedside Blood Glucose 203 mg/dl H 04/19/17 1754 Bedside Blood Glucose 207 mg/dl H 04/19/17 1247 Bedside Blood Glucose 142 mg/dl H 04/19/17 0834 FOREST LONGORIA Apr 20, 2017 06:37
[2017-04-20 06:59] LABS: BASOPHILS % (AUTO) 0.8 % (0.0-2.0); EOSINOPHILS % (AUTO) 4.3 % (0.0-3.0); LYMPHOCYTES % (AUTO) 20.4 % (20.0-45.0); MEAN CORPUSCULAR HGB CONC 33.6 G/DL (32.0-36.0); MEAN CORPUSCULAR VOLUME 101 FL (80-99); MEAN PLATELET VOLUME 5.1 FL (6.5-10.1); MONOCYTES % (AUTO) 10.6 % (1.0-10.0); PLATELET COUNT 169 K/UL (150-450); RED BLOOD COUNT 3.03 M/UL (4.70-6.10); RED CELL DISTRIBUTION WIDTH 15.1 % (11.6-14.8); WHITE BLOOD COUNT 11.9 K/UL (4.8-10.8)
[2017-04-20 07:04] LABS: ANION GAP 7 (5-15); CALCIUM 8.5 mg/dL (8.6-10.2); CARBON DIOXIDE 25 mEQ/L (20-30); CHLORIDE 107 mEQ/L (98-107); HEMOLYSIS 2; POTASSIUM 3.9 mEQ/L (3.4-4.9); SODIUM 139 mEQ/L (135-145)
[2017-04-20 08:00] VITALS: BP 143/72
[2017-04-20] MEDS: Metoprolol 25mg tab ORAL SCH (08:32)
[2017-04-20] MEDS: levETIRAcetam 500mg/5ml Liquid GT SCH (08:32)
[2017-04-20] MEDS: Heparin 5000 units/ml inj SUBQ SCH (08:36)
[2017-04-20] MEDS: Dyna-Hex 2% Top Sol 8oz TOPIC SCH (08:40)
[2017-04-20] MEDS: Levemir Flexpen SUBQ SCH (08:48)
[2017-04-20] MEDS: Lactulose 20gm/30ml UDC ORAL SCH ×3 (08:50→18:00)
[2017-04-20 11:51] VITALS: BP 145/70
[2017-04-20] MEDS ORDERED: Vancomycin 750mg/D5W 275ml IVPB SCH ×2 (12:00)
--- NOTE | 2017-04-20 12:41 | GI Progress Note ---
Assessment/Plan Problems: (1) Altered mental state ICD Codes: R41.82 - Altered mental status, unspecified SNOMED: 902913591 (2) Anemia ICD Codes: D64.9 - Anemia, unspecified SNOMED: 393181813 (3) Morbid obesity ICD Codes: E66.01 - Morbid (severe) obesity due to excess calories SNOMED: 323514121, 90572704992452 (4) Diabetes mellitus ICD Codes: E11.9 - Type 2 diabetes mellitus without complications SNOMED: 83964319 Status: stable Status Narrative Discussed with Dr. Solorzano. Assessment/Plan s/p PEG tolerating TF stable labs DC planning per primary team Subjective Subjective limited Objective Last 24 Hour Vital Signs Date Time Temp Pulse Resp B/P Pulse Ox O2 Delivery O2 Flow Rate FiO2 04/20/17 11:51 97.8 95 20 145/70 95 Nasal Cannula 2.0 04/20/17 08:32 88 143/72 04/20/17 08:00 98.2 88 20 143/72 95 Nasal Cannula 2.0 04/20/17 07:47 Nasal Cannula 2.0 28 04/20/17 07:46 98 Nasal Cannula 2.0 28 04/20/17 04:09 97.9 90 19 137/72 100 Nasal Cannula 04/20/17 00:06 97.9 90 19 126/60 100 Room Air 04/19/17 20:55 90 130/60 04/19/17 20:02 Nasal Cannula 2.0 28 04/19/17 20:02 99 Nasal Cannula 2.0 28 04/19/17 20:00 97.9 90 19 130/60 100 Room Air 04/19/17 15:49 97.9 105 19 135/69 97 Nasal Cannula 2.0 Intake and Output 04/19/17 04/20/17 19:00 07:00 Intake Total 1530 ml 920 ml Output Total 220 ml Balance 1530 ml 700 ml Intake Free Water 200 ml 200 ml IV Total 610 ml Tube Feeding 720 ml 720 ml Output Urine Total 220 ml # Bowel Movements 1 Laboratory Tests Test 04/20/17 05:00 White Blood Count 11.9 K/UL (4.8-10.8) H Red Blood Count 3.03 M/UL (4.70-6.10) L Hemoglobin 10.3 G/DL (14.2-18.0) L Hematocrit 30.6 % (42.0-52.0) L Mean Corpuscular Volume 101 FL (80-99) H Mean Corpuscular Hemoglobin 34.0 PG (27.0-31.0) H Mean Corpuscular Hemoglobin Concent 33.6 G/DL (32.0-36.0) Red Cell Distribution Width 15.1 % (11.6-14.8) H Platelet Count 169 K/UL (150-450) Mean Platelet Volume 5.1 FL (6.5-10.1) L Neutrophils (%) (Auto) 64.0 % (45.0-75.0) Lymphocytes (%) (Auto) 20.4 % (20.0-45.0) Monocytes (%) (Auto) 10.6 % (1.0-10.0) H Eosinophils (%) (Auto) 4.3 % (0.0-3.0) H Basophils (%) (Auto) 0.8 % (0.0-2.0) Sodium Level 139 mEQ/L (135-145) Potassium Level 3.9 mEQ/L (3.4-4.9) Chloride Level 107 mEQ/L (98-107) Carbon Dioxide Level 25 mEQ/L (20-30) Anion Gap 7 (5-15) Blood Urea Nitrogen 23 mg/dL (7-23) Creatinine 1.0 mg/dL (0.7-1.2) Estimat Glomerular Filtration Rate mL/min (>60) Glucose Level 110 mg/dL (74-106) H Calcium Level 8.5 mg/dL (8.6-10.2) L Height (Feet): 6 Height (Inches): 0.00 Weight (Pounds): 180 General Appearance: no apparent distress Cardiovascular: normal rate Respiratory/Chest: no respiratory distress Abdominal Exam: site - c/d/i Sho Lopez N.P. Apr 20, 2017 12:41
--- NOTE | 2017-04-20 13:10 | Nephrology Progress Note ---
Assessment/Plan Problem List: (1) Hyponatremia (2) Diabetes mellitus (3) Osteomyelitis of ankle (4) Sepsis (5) Cerebrovascular accident (CVA) (6) HTN (hypertension) Plan Na corrected. Cont to monitor lytes closely Subjective Subjective late entry for 04/19 - no acute events. now with low Na and renal consulted. Objective Objective Last 24 Hour Vital Signs Date Time Temp Pulse Resp B/P Pulse Ox O2 Delivery O2 Flow Rate FiO2 04/20/17 11:51 97.8 95 20 145/70 95 Nasal Cannula 2.0 04/20/17 08:32 88 143/72 04/20/17 08:00 98.2 88 20 143/72 95 Nasal Cannula 2.0 04/20/17 07:47 Nasal Cannula 2.0 28 04/20/17 07:46 98 Nasal Cannula 2.0 28 04/20/17 04:09 97.9 90 19 137/72 100 Nasal Cannula 04/20/17 00:06 97.9 90 19 126/60 100 Room Air 04/19/17 20:55 90 130/60 04/19/17 20:02 Nasal Cannula 2.0 28 04/19/17 20:02 99 Nasal Cannula 2.0 28 04/19/17 20:00 97.9 90 19 130/60 100 Room Air 04/19/17 15:49 97.9 105 19 135/69 97 Nasal Cannula 2.0 Intake and Output 04/19/17 04/20/17 19:00 07:00 Intake Total 1530 ml 920 ml Output Total 220 ml Balance 1530 ml 700 ml Intake Free Water 200 ml 200 ml IV Total 610 ml Tube Feeding 720 ml 720 ml Output Urine Total 220 ml # Bowel Movements 1 Laboratory Tests 04/20/17 05:00: White Blood Count 11.9H, Red Blood Count 3.03L, Hemoglobin 10.3L, Hematocrit 30.6L, Mean Corpuscular Volume 101H, Mean Corpuscular Hemoglobin 34.0H, Mean Corpuscular Hemoglobin Concent 33.6, Red Cell Distribution Width 15.1H, Platelet Count 169, Mean Platelet Volume 5.1L, Neutrophils (%) (Auto) 64.0, Lymphocytes (%) (Auto) 20.4, Monocytes (%) (Auto) 10.6H, Eosinophils (%) (Auto) 4.3H, Basophils (%) (Auto) 0.8, Sodium Level 139, Potassium Level 3.9, Chloride Level 107, Carbon Dioxide Level 25, Anion Gap 7, Blood Urea Nitrogen 23, Creatinine 1.0, Estimat Glomerular Filtration Rate , Glucose Level 110H, Calcium Level 8.5L Height (Feet): 6 Height (Inches): 0.00 Weight (Pounds): 180 General Appearance: no apparent distress Cardiovascular: tachycardia Respiratory/Chest: decreased breath sounds Abdomen: non tender, soft ROSA ALCANTARA Apr 20, 2017 13:10
--- NOTE | 2017-04-20 13:34 | General Progress Note ---
Assessment/Plan Problem List: (1) Morbid obesity ICD Codes: E66.01 - Morbid (severe) obesity due to excess calories SNOMED: 961781757, 93784348967384 (2) Cerebrovascular accident (CVA) ICD Codes: I63.9 - Cerebral infarction, unspecified SNOMED: 907340923 (3) Diabetes mellitus ICD Codes: E11.9 - Type 2 diabetes mellitus without complications SNOMED: 72631335 (4) Open wound of heel ICD Codes: S91.309A - Unspecified open wound, unspecified foot, initial encounter SNOMED: 355669200 (5) Cellulitis of lower extremity ICD Codes: L03.119 - Cellulitis of unspecified part of limb SNOMED: 016127483 (6) UTI (urinary tract infection) ICD Codes: N39.0 - Urinary tract infection, site not specified SNOMED: 12830549 (7) Sepsis ICD Codes: A41.9 - Sepsis, unspecified organism SNOMED: 82434389 (8) COPD (chronic obstructive pulmonary disease) ICD Codes: J44.9 - Chronic obstructive pulmonary disease, unspecified SNOMED: 90002645 (9) ISMAEL (obstructive sleep apnea) ICD Codes: G47.33 - Obstructive sleep apnea (adult) (pediatric) SNOMED: 66111275 Status: stable, progressing, tolerating diet Assessment/Plan ot pt diet wound care eval abx cbc bmp am dc to snf Subjective Constitutional: Reports: weakness Allergies: Coded Allergies: No Known Allergies (Unverified , 05/11/16) All Systems: reviewed and negative except above Subjective o2nc sleepy calm s/p picc Objective Last 24 Hour Vital Signs Date Time Temp Pulse Resp B/P Pulse Ox O2 Delivery O2 Flow Rate FiO2 04/20/17 11:51 97.8 95 20 145/70 95 Nasal Cannula 2.0 04/20/17 08:32 88 143/72 04/20/17 08:00 98.2 88 20 143/72 95 Nasal Cannula 2.0 04/20/17 07:47 Nasal Cannula 2.0 04/20/17 07:46 98 Nasal Cannula 2.0 04/20/17 04:09 97.9 90 19 137/72 100 Nasal Cannula 04/20/17 00:06 97.9 90 19 126/60 100 Room Air 04/19/17 20:55 90 130/60 04/19/17 20:02 Nasal Cannula 2.0 28 04/19/17 20:02 99 Nasal Cannula 2.0 28 04/19/17 20:00 97.9 90 19 130/60 100 Room Air 04/19/17 15:49 97.9 105 19 135/69 97 Nasal Cannula 2.0 Intake and Output 04/19/17 04/20/17 19:00 07:00 Intake Total 1530 ml 920 ml Output Total 220 ml Balance 1530 ml 700 ml Intake Free Water 200 ml 200 ml IV Total 610 ml Tube Feeding 720 ml 720 ml Output Urine Total 220 ml # Bowel Movements 1 Laboratory Tests 04/20/17 05:00: White Blood Count 11.9H, Red Blood Count 3.03L, Hemoglobin 10.3L, Hematocrit 30.6L, Mean Corpuscular Volume 101H, Mean Corpuscular Hemoglobin 34.0H, Mean Corpuscular Hemoglobin Concent 33.6, Red Cell Distribution Width 15.1H, Platelet Count 169, Mean Platelet Volume 5.1L, Neutrophils (%) (Auto) 64.0, Lymphocytes (%) (Auto) 20.4, Monocytes (%) (Auto) 10.6H, Eosinophils (%) (Auto) 4.3H, Basophils (%) (Auto) 0.8, Sodium Level 139, Potassium Level 3.9, Chloride Level 107, Carbon Dioxide Level 25, Anion Gap 7, Blood Urea Nitrogen 23, Creatinine 1.0, Estimat Glomerular Filtration Rate , Glucose Level 110H, Calcium Level 8.5L Height (Feet): 6 Height (Inches): 0.00 Weight (Pounds): 180 General Appearance: lethargic EENT: normal ENT inspection Neck: normal alignment Cardiovascular: normal peripheral pulses, normal rate, regular rhythm Respiratory/Chest: chest wall non-tender, lungs clear, normal breath sounds Abdomen: normal bowel sounds, non tender, soft Extremities: normal inspection Edema: no edema noted Arm (L), no edema noted Arm (R), no edema noted Leg (L), no edema noted Leg (R), no edema noted Pedal (L), no edema noted Pedal (R), no edema noted Generalized Neurologic: motor weakness Skin: normal pigmentation, warm/dry LINDA BOLAÑOS Apr 20, 2017 13:34
--- NOTE | 2017-04-20 14:43 | Cardiology Report ---
APPROVED REPORT EKG Measurement Heart [id number] Sinus tachycardia Inferior infarct, age undetermined Anteroseptal infarct, age undetermined Abnormal ECG
[2017-04-20 16:05] VITALS: BP 111/57
--- NOTE | 2017-04-20 16:46 | Infectious Diseases Prog Note ---
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 EOT 05/22/17. please monitor weekly labs with cbc, cmp and ESR while on antibiotics . (2) Osteomyelitis of ankle Assessment & Plan: confirmed on MRI of the right ankle , blood culture showed contaminant, continue vancomycin, cefepime and flagyl for 6 weeks with close follow up with supervisor [employer] . monitor weekly labs, and continue local wound care (3) Diabetes mellitus Assessment & Plan: recommend tight glycemic control to keep blood glucose between 80-120 (4) Sepsis Assessment & Plan: due to the above, on wide spectrum antibiotics, blood culture showed contaminant (5) UTI (urinary tract infection) Assessment & Plan: with E coli, already on cefepime Subjective ROS Limited/Unobtainable: Yes Allergies: Coded Allergies: No Known Allergies (Unverified , 05/11/16) Subjective he was lying in bed, unresponsive, and altered , doesn't follow commands. afebrile Objective Vital Signs Last 24 Hour Vital Signs Date Time Temp Pulse Resp B/P Pulse Ox O2 Delivery O2 Flow Rate FiO2 04/20/17 16:05 98.2 85 20 111/57 100 Nasal Cannula 2.0 04/20/17 11:51 97.8 95 20 145/70 95 Nasal Cannula 2.0 04/20/17 08:32 88 143/72 04/20/17 08:00 98.2 88 20 143/72 95 Nasal Cannula 2.0 04/20/17 07:47 Nasal Cannula 2.0 04/20/17 07:46 98 Nasal Cannula 2.0 04/20/17 04:09 97.9 90 19 137/72 100 Nasal Cannula 04/20/17 00:06 97.9 90 19 126/60 100 Room Air 04/19/17 20:55 90 130/60 04/19/17 20:02 Nasal Cannula 2.0 04/19/17 20:02 99 Nasal Cannula 2.0 04/19/17 20:00 97.9 90 19 130/60 100 Room Air Height (Feet): 6 Height (Inches): 0.00 Weight (Pounds): 180 General Appearance: WD/WN, no acute distress HEENT: normocephalic, atraumatic, anicteric, mucous membranes moist Respiratory/Chest: chest wall non-tender, normal breath sounds, no respiratory distress, no accessory muscle use, decreased breath sounds Cardiovascular: normal peripheral pulses, normal rate, regular rhythm, no gallop/murmur, no JVD Abdomen: normal bowel sounds, soft, non tender, no organomegaly, non distended , no mass, no scars Extremities: no cyanosis, no clubbing Skin: no rash, no lesions, no ulcers Lymphatic: no neck adenopathy, no groin adenopathy Musculoskeletal: normal muscle bulk Laboratory Tests Test 04/20/17 05:00 White Blood Count 11.9 K/UL (4.8-10.8) H Red Blood Count 3.03 M/UL (4.70-6.10) L Hemoglobin 10.3 G/DL (14.2-18.0) L Hematocrit 30.6 % (42.0-52.0) L Mean Corpuscular Volume 101 FL (80-99) H Mean Corpuscular Hemoglobin 34.0 PG (27.0-31.0) H Mean Corpuscular Hemoglobin Concent 33.6 G/DL (32.0-36.0) Red Cell Distribution Width 15.1 % (11.6-14.8) H Platelet Count 169 K/UL (150-450) Mean Platelet Volume 5.1 FL (6.5-10.1) L Neutrophils (%) (Auto) 64.0 % (45.0-75.0) Lymphocytes (%) (Auto) 20.4 % (20.0-45.0) Monocytes (%) (Auto) 10.6 % (1.0-10.0) H Eosinophils (%) (Auto) 4.3 % (0.0-3.0) H Basophils (%) (Auto) 0.8 % (0.0-2.0) Sodium Level 139 mEQ/L (135-145) Potassium Level 3.9 mEQ/L (3.4-4.9) Chloride Level 107 mEQ/L (98-107) Carbon Dioxide Level 25 mEQ/L (20-30) Anion Gap 7 (5-15) Blood Urea Nitrogen 23 mg/dL (7-23) Creatinine 1.0 mg/dL (0.7-1.2) Estimat Glomerular Filtration Rate mL/min (>60) Glucose Level 110 mg/dL (74-106) H Calcium Level 8.5 mg/dL (8.6-10.2) L Current Medications Medications (Trade) Dose Ordered Sig/Naveen Route PRN Reason Start Time Stop Time Status Last Admin Dose Admin Acetaminophen (Tylenol) 650 mg Q4H PRN ORAL fever 04/10/17 15:15 05/10/17 15:14 Al Hydroxide/Mg Hydroxide (Mylanta II) 30 ml Q6H PRN ORAL dyspepsia 04/10/17 15:15 05/10/17 15:14 Cefepime HCl/ Dextrose (Maxipime/D5W) 110 ml @ 220 mls/hr Q12HR@0600,1800 IVPB 04/10/17 18:00 05/22/17 23:59 04/20/17 05:47 Chlorhexidine Gluconate (Teodora-Hex 2%) 1 applic DAILY TOPIC 04/19/17 09:00 05/19/17 08:59 04/20/17 08:40 Clonidine HCl (Catapres) 0.1 mg Q6H PRN ORAL sbp above 160 04/10/17 14:15 05/10/17 14:14 04/16/17 16:03 Dextrose (Dextrose 50%) STAT PRN IV Hypoglycemia 04/13/17 06:45 05/13/17 06:44 Folic Acid (Folate) 1 mg DAILY GT 04/16/17 09:00 05/16/17 08:59 04/20/17 08:32 Gabapentin (Neurontin) 300 mg QHS GT 04/15/17 21:00 05/15/17 20:59 04/19/17 20:54 Heparin Sodium (Porcine) (Heparin 5000 units/ml) 5,000 units EVERY 12 HOURS SUBQ 04/10/17 21:00 05/10/17 20:59 04/20/17 08:36 Insulin Aspart (NovoLOG) BEFORE MEALS AND HS SUBQ 04/10/17 16:30 05/10/17 16:29 04/20/17 16:09 Insulin Detemir (Levemir) 10 units Q12HR SUBQ 04/18/17 09:00 05/18/17 08:59 04/20/17 08:48 Lactulose (Cephulac) 20 gm TID ORAL 04/10/17 18:00 05/10/17 17:59 04/19/17 17:52 Levetiracetam (Keppra) 500 mg Q12HR GT 04/15/17 21:00 05/15/17 20:59 04/20/17 08:32 Lorazepam (Ativan 2mg/ml 1ml) 0.5 mg Q4H PRN IV For Anxiety 04/16/17 11:15 04/23/17 23:59 Metoprolol Tartrate 25 mg 25 mg Q12HR ORAL 04/19/17 21:00 05/19/17 20:59 04/20/17 08:32 Metronidazole (Flagyl) 500 mg Q8HR ORAL 04/15/17 14:00 04/22/17 13:59 04/20/17 14:08 Mirtazapine (Remeron) 7.5 mg BEDTIME ORAL 04/11/17 21:00 05/11/17 20:59 04/19/17 20:54 Morphine Sulfate (Morphine Sulfate) 1 mg Q4H PRN IVP Moderate to Severe Pain 04/16/17 10:30 04/23/17 23:59 04/20/17 00:24 Ondansetron HCl (Zofran) 4 mg Q6H PRN IVP Nausea & Vomiting 04/10/17 15:15 05/10/17 15:14 Polyethylene Glycol (Miralax) 17 gm HSPRN PRN ORAL Constipation 04/10/17 15:15 05/10/17 15:14 Vancomycin HCl (Vanco rx to dose) 1 ea DAILY PRN MISC Per rx protocol 04/10/17 15:14 05/10/17 15:13 Vancomycin HCl/ Dextrose (Vancomycin/D5W) 275 ml @ 183.708 mls/hr Q36H IVPB 04/20/17 12:00 04/25/17 11:59 04/20/17 12:26 Zolpidem Tartrate (Ambien) 5 mg HSPRN PRN ORAL Insomnia Unrelieved 04/10/17 15:15 05/10/17 15:14 Valery Nicholas M.D. Apr 20, 2017 16:46
--- NOTE | 2017-04-20 17:02 | Cardiac Electrophysiology PN ---
Assessment/Plan Assessment/Plan 1. Tachycardia. This could be secondary to patient's anemia. His hemoglobin dropped from 11.4 on 04/17/2017 to 10.8 on 04/18/2017 and then 9.6. Echocardiogram pending. HE better on Lopressor. 2. History of hypertension, On Lopressor now. 3. Dysphagia, status post percutaneous endoscopic gastrostomy placement. 4. Schizophrenia. 5. Dementia. 6. Healed open wound of the ankle. 7. Urinary tract infection.per Dr. Nicholas 8. History of diabetes per Subjective Subjective Tachycardia better with Lopressor. RN at bedside. Objective Last 24 Hour Vital Signs Date Time Temp Pulse Resp B/P Pulse Ox O2 Delivery O2 Flow Rate FiO2 04/20/17 16:05 98.2 85 20 111/57 100 Nasal Cannula 2.0 04/20/17 11:51 97.8 95 20 145/70 95 Nasal Cannula 2.0 04/20/17 08:32 88 143/72 04/20/17 08:00 98.2 88 20 143/72 95 Nasal Cannula 2.0 04/20/17 07:47 Nasal Cannula 2.0 28 04/20/17 07:46 98 Nasal Cannula 2.0 28 04/20/17 04:09 97.9 90 19 137/72 100 Nasal Cannula 04/20/17 00:06 97.9 90 19 126/60 100 Room Air 04/19/17 20:55 90 130/60 04/19/17 20:02 Nasal Cannula 2.0 28 04/19/17 20:02 99 Nasal Cannula 2.0 28 04/19/17 20:00 97.9 90 19 130/60 100 Room Air Intake and Output 04/19/17 04/20/17 19:00 07:00 Intake Total 1530 ml 920 ml Output Total 220 ml Balance 1530 ml 700 ml Intake Free Water 200 ml 200 ml IV Total 610 ml Tube Feeding 720 ml 720 ml Output Urine Total 220 ml # Bowel Movements 1 Laboratory Tests Test 04/20/17 05:00 White Blood Count 11.9 K/UL (4.8-10.8) H Red Blood Count 3.03 M/UL (4.70-6.10) L Hemoglobin 10.3 G/DL (14.2-18.0) L Hematocrit 30.6 % (42.0-52.0) L Mean Corpuscular Volume 101 FL (80-99) H Mean Corpuscular Hemoglobin 34.0 PG (27.0-31.0) H Mean Corpuscular Hemoglobin Concent 33.6 G/DL (32.0-36.0) Red Cell Distribution Width 15.1 % (11.6-14.8) H Platelet Count 169 K/UL (150-450) Mean Platelet Volume 5.1 FL (6.5-10.1) L Neutrophils (%) (Auto) 64.0 % (45.0-75.0) Lymphocytes (%) (Auto) 20.4 % (20.0-45.0) Monocytes (%) (Auto) 10.6 % (1.0-10.0) H Eosinophils (%) (Auto) 4.3 % (0.0-3.0) H Basophils (%) (Auto) 0.8 % (0.0-2.0) Sodium Level 139 mEQ/L (135-145) Potassium Level 3.9 mEQ/L (3.4-4.9) Chloride Level 107 mEQ/L (98-107) Carbon Dioxide Level 25 mEQ/L (20-30) Anion Gap 7 (5-15) Blood Urea Nitrogen 23 mg/dL (7-23) Creatinine 1.0 mg/dL (0.7-1.2) Estimat Glomerular Filtration Rate mL/min (>60) Glucose Level 110 mg/dL (74-106) H Calcium Level 8.5 mg/dL (8.6-10.2) L Objective HEAD AND NECK: Showed no JVD. LUNGS: Decreased breath sounds. CARDIOVASCULAR: Shows tachycardic, S1-S2 with no gallop or murmur. ABDOMEN: Status post PEG. EXTREMITIES: Decubitus ulcers and 1+ edema. BRISEIDA BEDOLLA Apr 20, 2017 17:02
[2017-04-20] MEDS ORDERED: LOPRESSOR25 M1 GT (17:04)
--- NOTE | 2017-04-20 19:07 | Nephrology Progress Note ---
Assessment/Plan Problem List: (1) Diabetes mellitus (2) UTI (urinary tract infection) (3) HTN (hypertension) (4) COPD (chronic obstructive pulmonary disease) (5) Anemia (6) Altered mental state Plan Hyponatremia - corrected S/P PEG - tolerating diet Tachycardia - resolved Monitor neuro status DC plan - per PCP Subjective ROS Limited/Unobtainable: Yes Subjective Limited due to mental status Objective Objective Last 24 Hour Vital Signs Date Time Temp Pulse Resp B/P Pulse Ox O2 Delivery O2 Flow Rate FiO2 04/20/17 16:05 98.2 85 20 111/57 100 Nasal Cannula 2.0 04/20/17 11:51 97.8 95 20 145/70 95 Nasal Cannula 2.0 04/20/17 08:32 88 143/72 04/20/17 08:00 98.2 88 20 143/72 95 Nasal Cannula 2.0 04/20/17 07:47 Nasal Cannula 2.0 28 04/20/17 07:46 98 Nasal Cannula 2.0 28 04/20/17 04:09 97.9 90 19 137/72 100 Nasal Cannula 04/20/17 00:06 97.9 90 19 126/60 100 Room Air 04/19/17 20:55 90 130/60 04/19/17 20:02 Nasal Cannula 2.0 28 04/19/17 20:02 99 Nasal Cannula 2.0 28 04/19/17 20:00 97.9 90 19 130/60 100 Room Air Intake and Output 04/19/17 04/20/17 19:00 07:00 Intake Total 1530 ml 920 ml Output Total 220 ml Balance 1530 ml 700 ml Intake Free Water 200 ml 200 ml IV Total 610 ml Tube Feeding 720 ml 720 ml Output Urine Total 220 ml # Bowel Movements 1 Laboratory Tests 04/20/17 05:00: White Blood Count 11.9H, Red Blood Count 3.03L, Hemoglobin 10.3L, Hematocrit 30.6L, Mean Corpuscular Volume 101H, Mean Corpuscular Hemoglobin 34.0H, Mean Corpuscular Hemoglobin Concent 33.6, Red Cell Distribution Width 15.1H, Platelet Count 169, Mean Platelet Volume 5.1L, Neutrophils (%) (Auto) 64.0, Lymphocytes (%) (Auto) 20.4, Monocytes (%) (Auto) 10.6H, Eosinophils (%) (Auto) 4.3H, Basophils (%) (Auto) 0.8, Sodium Level 139, Potassium Level 3.9, Chloride Level 107, Carbon Dioxide Level 25, Anion Gap 7, Blood Urea Nitrogen 23, Creatinine 1.0, Estimat Glomerular Filtration Rate , Glucose Level 110H, Calcium Level 8.5L Height (Feet): 6 Height (Inches): 0.00 Weight (Pounds): 180 General Appearance: no apparent distress EENT: normal ENT inspection Neck: normal alignment Cardiovascular: regular rhythm Respiratory/Chest: normal breath sounds, no respiratory distress Genitourinary/Rectal: other - PEG Extremities: non-tender Neurologic: disoriented ROSA ALCANTARA Apr 20, 2017 19:07
--- NOTE | 2017-04-20 19:23 | Pulmonology Progress Note ---
Assessment/Plan Problems: (1) Sepsis (2) Osteomyelitis of ankle (3) COPD (chronic obstructive pulmonary disease) (4) Dementia arising in the senium and presenium (5) History of CVA (cerebrovascular accident) Assessment/Plan Respiratory treatment IV antibiotics f/u cultures dvt prophylaxis all notes and meds reviewed s/p PEG wound care dc planning Subjective ROS Limited/Unobtainable: No Constitutional: Reports: no symptoms HEENT: Repors: no symptoms Respiratory: Reports: no symptoms Cardiovascular: Reports: no symptoms Allergies: Coded Allergies: No Known Allergies (Unverified , 05/11/16) Objective Last 24 Hour Vital Signs Date Time Temp Pulse Resp B/P Pulse Ox O2 Delivery O2 Flow Rate FiO2 04/20/17 18:49 98.2 04/20/17 16:05 98.2 85 20 111/57 100 Nasal Cannula 2.0 04/20/17 11:51 97.8 95 20 145/70 95 Nasal Cannula 2.0 04/20/17 08:32 88 143/72 04/20/17 08:00 98.2 88 20 143/72 95 Nasal Cannula 2.0 04/20/17 07:47 Nasal Cannula 2.0 28 04/20/17 07:46 98 Nasal Cannula 2.0 28 04/20/17 04:09 97.9 90 19 137/72 100 Nasal Cannula 04/20/17 00:06 97.9 90 19 126/60 100 Room Air 04/19/17 20:55 90 130/60 04/19/17 20:02 Nasal Cannula 2.0 28 04/19/17 20:02 99 Nasal Cannula 2.0 28 04/19/17 20:00 97.9 90 19 130/60 100 Room Air Intake and Output 04/19/17 04/20/17 19:00 07:00 Intake Total 1530 ml 920 ml Output Total 220 ml Balance 1530 ml 700 ml Intake Free Water 200 ml 200 ml IV Total 610 ml Tube Feeding 720 ml 720 ml Output Urine Total 220 ml # Bowel Movements 1 General Appearance: WD/WN HEENT: normocephalic, atraumatic Respiratory/Chest: chest wall non-tender, lungs clear Cardiovascular: normal peripheral pulses, normal rate Abdomen: normal bowel sounds, soft, non tender, no scars Genitourinary: normal external genitalia Extremities: no cyanosis Laboratory Tests 04/20/17 05:00: White Blood Count 11.9H, Red Blood Count 3.03L, Hemoglobin 10.3L, Hematocrit 30.6L, Mean Corpuscular Volume 101H, Mean Corpuscular Hemoglobin 34.0H, Mean Corpuscular Hemoglobin Concent 33.6, Red Cell Distribution Width 15.1H, Platelet Count 169, Mean Platelet Volume 5.1L, Neutrophils (%) (Auto) 64.0, Lymphocytes (%) (Auto) 20.4, Monocytes (%) (Auto) 10.6H, Eosinophils (%) (Auto) 4.3H, Basophils (%) (Auto) 0.8, Sodium Level 139, Potassium Level 3.9, Chloride Level 107, Carbon Dioxide Level 25, Anion Gap 7, Blood Urea Nitrogen 23, Creatinine 1.0, Estimat Glomerular Filtration Rate , Glucose Level 110H, Calcium Level 8.5L Current Medications Medications (Trade) Dose Ordered Sig/Naveen Route PRN Reason Start Time Stop Time Status Last Admin Dose Admin Acetaminophen (Tylenol) 650 mg Q4H PRN ORAL fever 04/10/17 15:15 05/10/17 15:14 Al Hydroxide/Mg Hydroxide (Mylanta II) 30 ml Q6H PRN ORAL dyspepsia 04/10/17 15:15 05/10/17 15:14 Cefepime HCl/ Dextrose (Maxipime/D5W) 110 ml @ 220 mls/hr Q12HR@0600,1800 IVPB 04/10/17 18:00 05/22/17 23:59 04/20/17 18:18 Chlorhexidine Gluconate (Teodora-Hex 2%) 1 applic DAILY TOPIC 04/19/17 09:00 05/19/17 08:59 04/20/17 08:40 Clonidine HCl (Catapres) 0.1 mg Q6H PRN ORAL sbp above 160 04/10/17 14:15 05/10/17 14:14 04/16/17 16:03 Dextrose (Dextrose 50%) STAT PRN IV Hypoglycemia 04/13/17 06:45 05/13/17 06:44 Folic Acid (Folate) 1 mg DAILY GT 04/16/17 09:00 05/16/17 08:59 04/20/17 08:32 Gabapentin (Neurontin) 300 mg QHS GT 04/15/17 21:00 05/15/17 20:59 04/19/17 20:54 Heparin Sodium (Porcine) (Heparin 5000 units/ml) 5,000 units EVERY 12 HOURS SUBQ 04/10/17 21:00 05/10/17 20:59 04/20/17 08:36 Insulin Aspart (NovoLOG) BEFORE MEALS AND HS SUBQ 04/10/17 16:30 05/10/17 16:29 04/20/17 16:09 Insulin Detemir (Levemir) 10 units Q12HR SUBQ 04/18/17 09:00 05/18/17 08:59 04/20/17 08:48 Lactulose (Cephulac) 20 gm TID ORAL 04/10/17 18:00 05/10/17 17:59 04/19/17 17:52 Levetiracetam (Keppra) 500 mg Q12HR GT 04/15/17 21:00 05/15/17 20:59 04/20/17 08:32 Lorazepam (Ativan 2mg/ml 1ml) 0.5 mg Q4H PRN IV For Anxiety 04/16/17 11:15 04/23/17 23:59 Metoprolol Tartrate 25 mg 25 mg Q12HR ORAL 04/19/17 21:00 05/19/17 20:59 04/20/17 08:32 Metronidazole (Flagyl) 500 mg Q8HR ORAL 04/15/17 14:00 04/22/17 13:59 04/20/17 14:08 Mirtazapine (Remeron) 7.5 mg BEDTIME ORAL 04/11/17 21:00 05/11/17 20:59 04/19/17 20:54 Morphine Sulfate (Morphine Sulfate) 1 mg Q4H PRN IVP Moderate to Severe Pain 04/16/17 10:30 04/23/17 23:59 04/20/17 18:19 Ondansetron HCl (Zofran) 4 mg Q6H PRN IVP Nausea & Vomiting 04/10/17 15:15 05/10/17 15:14 Polyethylene Glycol (Miralax) 17 gm HSPRN PRN ORAL Constipation 04/10/17 15:15 05/10/17 15:14 Vancomycin HCl (Vanco rx to dose) 1 ea DAILY PRN MISC Per rx protocol 04/10/17 15:14 05/10/17 15:13 Vancomycin HCl/ Dextrose (Vancomycin/D5W) 275 ml @ 183.708 mls/hr Q36H IVPB 04/20/17 12:00 04/25/17 11:59 04/20/17 12:26 Zolpidem Tartrate (Ambien) 5 mg HSPRN PRN ORAL Insomnia Unrelieved 04/10/17 15:15 05/10/17 15:14 MEGAN LO Apr 20, 2017 19:23
[2017-04-20] MEDS ORDERED: Tubing IV Secondary IV ONE (19:29)
--- NOTE | 2017-04-23 07:21 | Discharge Summary ---
Discharge Summary Hospital Course Date of Admission Apr 09, 2017 at 13:13 Date of Discharge Apr 20, 2017 at 19:30 Admitting Diagnosis generalized weakness, decubitus ulcer HPI Oswaldo Trejo is a 76 year old male who was admitted on Apr 09, 2017 at 13:13 for Generalized,Weakness,Decunitus Ulcer Hospital Course [id number] Discharge Discharge Disposition Patient was discharged to SNF/Subacute Facility(03) Discharge Diagnoses: Staci Azul NP Apr 23, 2017 07:21
--- NOTE | 2017-04-23 08:16 | Discharge Summary 2 SIG ---
DATE OF ADMISSION: 04/09/2017 DATE OF DISCHARGE: 04/20/2017 CONSULTANTS: 1. Valery Nicholas M.D. 2. Gregor Solorzano M.D. 3. Rogers Rubio M.D. 4. Glynn Greenwood M.D. 5. Grant Falk M.D. 6. Anthony Boothe DPM. 7. Romel Joya M.D. 8. Carla Amaya M.D. 9. Juno Soria M.D. BRIEF HOSPITAL COURSE: The patient is a 76-year-old male from nursing facility was brought to ED due to weakness and lethargy. He has a decubitus ulcer on the right heel which was not getting any better and was draining. On evaluation at ED, labs was notable for normal white blood count however lactic acid was slightly elevated to 2.2. He was started on antibiotics and was admitted to medical floor for further evaluation. He was seen by Podiatry, on examination showed right posterior heel with necrotic ulcer and surrounding erythema and edema with multiple full-thickness ulcers on the right leg. He was given wound care and aggressive offloading. He was started on vancomycin, cefepime, and Flagyl empirically. MRI off of the foot showed findings suspicious for acute osteomyelitis. Wound culture showed growth of Morganella, E. coli, and Staph aureus. Blood culture did not isolate any growth. The patient would need a total of six weeks intravenous antibiotics for osteomyelitis. He presented with confusion and disorganized thought process and was followed by Psychiatry. He was diagnosed with paranoid schizophrenia with acute exacerbation. He was treated with Risperdal and Remeron 15 mg nightly and Lexapro 10 mg daily. Neurologic consultation was done to evaluate persistent verbal unresponsiveness. 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 He was maintained on Keppra although no information regarding seizures were available in the medical records. He was then sent for an EEG and findings showed abnormal EEG consistent with moderate diffuse slowing. He was unable to participate with swallow evaluation. NG tube was inserted and was started on tube feedings. On 04/15/2017, he underwent a PEG tube placement with Dr. Solorzano. outpatient services director were called in to aid locating the patient's family, multiple attempts had been tried to locate the patient's family, however, there was no call back. The patient needed to have a PEG tube placement and consent was signed by physicians. His blood sugars were also monitored and was giving sliding scale of insulin, a sliding scale of NovoLog, and Levemir was also added to his regimen b.i.d. He was initially planned for transfer to a long-term acute hospital. However, no bed available. A PICC line was then inserted to the right upper arm and the patient was discharged to SNF to continue antibiotics. DISPOSITION: The patient was discharged to SNF. FINAL DIAGNOSES: 1. Acute osteomyelitis, right foot. 2. Dysphagia requiring percutaneous endoscopic gastrostomy tube placement. 3. Sepsis. 4. Cerebrovascular accident. 5. Dementia. 6. Paranoid schizophrenia. 7. Seven hyponatremia. 8. Tachycardia secondary to anemia. 9. Diabetes mellitus. 10. Urinary tract infection with Escherichia coli. 11. Morbid obesity. 12. Chronic obstructive pulmonary disease. 13. Obstructive sleep apnea. 14. Multiple pressure ulcers present on admission. James Dugan D.O. I have been assigned to dictate discharge summary on this account and I was not involved in the patient's management. Staci Azul N.P. DR: SARY JOB#: [id number] CC:
== END 2017-04-20 19:30 | DRG 871 ==
LOC: EDBD 11:01 → EMR 13:02 → 2E 13:13 → EDBEDREQ 14:27 → 4W 04-10 13:15
PROC: 0DH63UZ Insertion of Feeding Device into Stomach, Percutaneous Approach (ICD-10-PCS; principal; 2017-04-15 11:48)
PROC: B518ZZA Fluoroscopy of Superior Vena Cava, Guidance (ICD-10-PCS; 2017-04-18)
PROC: 02HV33Z Insertion of Infusion Device into Superior Vena Cava, Percutaneous Approach (ICD-10-PCS; 2017-04-18)
DX: A41.9 Sepsis, unspecified organism (principal); E43 Unspecified severe protein-calorie malnutrition; L89.614 Pressure ulcer of right heel, stage 4; G92 Toxic encephalopathy; E11.52 Type 2 diabetes mellitus with diabetic peripheral angiopathy with gangrene; R13.10 Dysphagia, unspecified; L89.893 Pressure ulcer of other site, stage 3; D52.9 Folate deficiency anemia, unspecified; F03.90 Unspecified dementia, unspecified severity, without behavioral disturbance, psychotic disturbance, mood disturbance, and anxiety; E11.65 Type 2 diabetes mellitus with hyperglycemia; M86.8X7 Other osteomyelitis, ankle and foot; N39.0 Urinary tract infection, site not specified; L03.115 Cellulitis of right lower limb; F20.0 Paranoid schizophrenia; E87.1 Hypo-osmolality and hyponatremia; E83.42 Hypomagnesemia; R62.7 Adult failure to thrive; I10 Essential (primary) hypertension; J44.9 Chronic obstructive pulmonary disease, unspecified; G40.909 Epilepsy, unspecified, not intractable, without status epilepticus; Z79.4 Long term (current) use of insulin; Z86.718 Personal history of other venous thrombosis and embolism; Z68.24 Body mass index [BMI] 24.0-24.9, adult; Z86.73 Personal history of transient ischemic attack (TIA), and cerebral infarction without residual deficits; K21.9 Gastro-esophageal reflux disease without esophagitis; Z74.01 Bed confinement status; I25.10 Atherosclerotic heart disease of native coronary artery without angina pectoris; G47.33 Obstructive sleep apnea (adult) (pediatric); E66.01 Morbid (severe) obesity due to excess calories; B96.20 Unspecified Escherichia coli [E. coli] as the cause of diseases classified elsewhere; B95.61 Methicillin susceptible Staphylococcus aureus infection as the cause of diseases classified elsewhere; E87.6 Hypokalemia; K29.70 Gastritis, unspecified, without bleeding; L89.812 Pressure ulcer of head, stage 2; E03.9 Hypothyroidism, unspecified
CPT/HCPCS: 36415; 36569; 36600; 70450; 71010; 74000; 76937; 80048; 80053; 80061; 80202; 80299; 81003; 82270; 82378; 82550; 82553; 82607; 82728; 82746; 82803; 82962; 83036; 83540; 83550; 83605; 83735; 84100; 84134; 84439; 84443; 84484; 85025; 85610; 85651; 85730; 86850; 86900; 86901; 87040; 87070; 87081; 87086; 87181; 87205; 93005; 93970; 94003; 94150; 94664; 94760; 95819; A4246; J1815; S5561